=== PATIENT | female | born 1930 | race Caucasian/White ===

== ENCOUNTER 2017-03-22 03:33 | Emergency (ER) | payer MEDICARE ==
[2017-03-22] MEDS ORDERED: NS 0.9% 1000 ML* 1,000 ML IV SCH (05:15)
[2017-03-22 05:58] LABS: Hematocrit 34 % (35-47); Hemoglobin 11.6 g/dl (12.0-16.0); Mean Corpuscular HGB Conc 34 g/dl (31-36); Mean Corpuscular Hemoglobin 31 pg (27-31); Mean Corpuscular Volume 92 fL (80-97); Mean Platelet Volume 9 um3 (7.4-10.4); Red Blood Count 3.74 10^6/ul (4.0-5.4); Red Cell Distribution Width 14 % (10.5-15); White Blood Count 8.6 10^3/ul (3.5-10.8)
[2017-03-22 06:17] LABS: BUN/Creatinine Ratio 14.4 (8-20); C Reactive Protein 22.09 mg/L (< 5.00); Calcium 9.2 mg/dL (8.6-10.3); EGFR African American 52.4 (>60); EGFR Non-African American 40.7 (>60); Globulin 2.9 g/dL (2-4); Total Bilirubin 0.8 mg/dL (0.2-1.0); Total Protein 6.9 g/dL (6.4-8.9)
[2017-03-22] MEDS ORDERED: Morphine INJ* 4 MG/ML 1 ML SYRINGE IV ONE (06:37)
[2017-03-22] MEDS ORDERED: Ondansetron INJ* 2 MG/ML VIAL IV ONE (06:37)
[2017-03-22] MEDS ORDERED: Iodixanol* (CONTRAST) 320 MG/ML 100 ML SDV IV ONE (07:03)
[2017-03-22 07:45] LABS: Urine Bacteria Absent (Absent); Urine Bilirubin Negative (Negative); Urine Glucose Negative (Negative); Urine Nitrite Negative (Negative)
--- NOTE | 2017-03-22 07:58 | ED ---
Sukhjinder Pedroza [place], scribed for Rey Quijano MD on 03/22/17 at 0557 . Abdominal Pain/Female - HPI Summary HPI Summary: Patient is a 86 y/o female who presents to the ED with lower 5/10 abd discomfort for the past 24 hours. She reports fever, chills, and intermittent nausea, but denies dysuria. Pain is alleviated with rest and aggravated with movement. She denies hx of diverticulitis. PSHx significant for hysterectomy. - History of Current Complaint Chief Complaint: EDAbdPain Stated Complaint: ABD PAIN, FEVER, CHILLS Time Seen by Provider: 03/22/17 05:26 Hx Obtained From: Patient Onset/Duration: Gradual Onset, Lasting Hours, Still Present Timing: Constant Severity Initially: Moderate Severity Currently: Moderate Pain Intensity: 5 Pain Scale Used: 0-10 Numeric Location: Discrete At: LUQ, Discrete At: LLQ Radiates: No Aggravating Factor(s): Movement Alleviating Factor(s): Other: - Rest. Associated Signs and Symptoms: Positive: Fever, Nausea, Other: - Chills. Allergies/Adverse Reactions: Allergies Allergy/AdvReac Type Severity Reaction Status Date / Time No Known Allergies Allergy Verified 03/22/17 05:40 PMH/Surg Hx/FS Hx/Imm Hx Endocrine/Hematology History: Reports: Hx Thyroid Disease Cardiovascular History: Reports: Hx Coronary Artery Disease - HAS ONE CARDIAC STENT, Hx Hypercholesterolemia, Hx Hypertension Denies: Other Cardiovascular Problems/Disorders Respiratory History: Reports: Hx Sleep Apnea Denies: Other Respiratory Problems/Disorders GI History: Reports: Hx Gastroesophageal Reflux Disease - ON MEDS Denies: Other GI Disorders History: Denies: Other Problems/Disorders Musculoskeletal History: Reports: 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 hysterectomy, RIGHT THUMB/HAND SURGERY Hx Anesthesia Reactions: No Infectious Disease History: No Infectious Disease History: Denies: Traveled Outside the [place] in Last 30 Days - Family History Known Family History: Positive: Cardiac Disease, Other - Positive: CA. Thyroid. Colon related. - Social History Alcohol Use: None Hx Substance Use: No Substance Use Type: Reports: None Hx Tobacco Use: No Smoking Status (MU): Never Smoked Tobacco Amount Used/How Often: 3 CIGARETTES PER DAY X 15 YEARS Have You Smoked in the Last Year: No Review of Systems Positive: Fever, Chills Positive: Nausea - Intermittent. Negative: dysuria All Other Systems Reviewed And Are Negative: Yes Physical Exam Triage Information Reviewed: Yes Vital Signs On Initial Exam: Initial Vitals Temp Pulse Resp BP Pulse Ox 99.9 F 84 18 169/69 98 03/22/17 03:34 03/22/17 03:34 03/22/17 03:34 03/22/17 03:34 03/22/17 03:34 Vital Signs Reviewed: Yes Appearance: Positive: Well-Appearing, No Pain Distress Skin: Positive: Warm, Skin Color Reflects Adequate Perfusion, Dry Head/Face: Positive: Normal Head/Face Inspection Eyes: Positive: EOMI, TAD Neck: Positive: Supple, Nontender Respiratory/Lung Sounds: Positive: Clear to Auscultation, Breath Sounds Present Cardiovascular: Positive: RRR Abdomen Description: Positive: Soft, Other: - Mildly tender across lower abd. Bowel Sounds: Positive: Other - High pitch. Musculoskeletal: Positive: Normal, Strength/ROM Intact Neurological: Positive: Normal, Sensory/Motor Intact, Alert, Oriented to Person Place, Time Psychiatric: Positive: Affect/Mood Appropriate Diagnostics - Vital Signs Vital Signs Temp Pulse Resp BP Pulse Ox 03/22/17 05:39 100.1 F 68 18 158/58 96 03/22/17 03:34 99.9 F 84 18 169/69 98 - Laboratory Lab Results: Lab Results 03/22/17 03/22/17 03/22/17 Range/Units 05:45 05:45 05:45 WBC 8.6 (3.5-10.8) 10^3/ul RBC 3.74 L (4.0-5.4) 10^6/ul Hgb 11.6 L (12.0-16.0) g/dl Hct 34 L (35-47) % MCV 92 (80-97) fL MCH 31 (27-31) pg MCHC 34 (31-36) g/dl RDW 14 (10.5-15) % Plt Count 123 L (150-450) 10^3/ul MPV 9 (7.4-10.4) um3 Neut % (Auto) 80.9 (38-83) % Lymph % (Auto) 10.9 L (25-47) % [place] % (Auto) 8.0 (1-9) % Eos % (Auto) 0 (0-6) % Baso % (Auto) 0.2 (0-2) % Absolute Neuts (auto) 6.9 (1.5-7.7) 10^3/ul Absolute Lymphs (auto) 0.9 L (1.0-4.8) 10^3/ul Absolute Monos (auto) 0.7 (0-0.8) 10^3/ul Absolute Eos (auto) 0 (0-0.6) 10^3/ul Absolute Basos (auto) 0 (0-0.2) 10^3/ul Absolute Nucleated RBC 0 10^3/ul Nucleated RBC % 0 INR (Anticoag Therapy) 0.96 (0.89-1.11) APTT 25.8 L (26.0-36.3) seconds Sodium 135 (133-145) mmol/L Potassium 4.0 (3.5-5.0) mmol/L Chloride 103 (101-111) mmol/L Carbon Dioxide 26 (22-32) mmol/L Anion Gap 6 (2-11) mmol/L BUN 18 (6-24) mg/dL Creatinine 1.25 H (0.51-0.95) mg/dL Est GFR ( Amer) 52.4 (>60) Est GFR (Non-Af Amer) 40.7 (>60) BUN/Creatinine Ratio 14.4 (8-20) Glucose 138 H (70-100) mg/dL Lactic Acid (0.5-2.0) mmol/L Calcium 9.2 (8.6-10.3) mg/dL Total Bilirubin 0.80 (0.2-1.0) mg/dL AST 18 (13-39) U/L ALT 14 (7-52) U/L Alkaline Phosphatase 71 (34-104) U/L C-Reactive Protein 22.09 H (< 5.00) mg/L Total Protein 6.9 (6.4-8.9) g/dL Albumin 4.0 (3.2-5.2) g/dL Globulin 2.9 (2-4) g/dL Albumin/Globulin Ratio 1.4 (1-3) Lipase 23 (11.0-82.0) U/L Urine Color Urine Appearance Urine pH (5-9) Ur Specific [place] (1.010-1.030) Urine Protein (Negative) Urine Ketones (Negative) Urine Blood (Negative) Urine Nitrate (Negative) Urine Bilirubin (Negative) Urine Urobilinogen (Negative) Ur Leukocyte Esterase (Negative) Urine WBC (Auto) (Absent) Urine RBC (Auto) (Absent) Ur Squamous Epith Cells (Absent) Urine Bacteria (Absent) Urine Glucose (Negative) 03/22/17 03/22/17 Range/Units 05:45 07:30 WBC (3.5-10.8) 10^3/ul RBC (4.0-5.4) 10^6/ul Hgb (12.0-16.0) g/dl Hct (35-47) % MCV (80-97) fL MCH (27-31) pg MCHC (31-36) g/dl RDW (10.5-15) % Plt Count (150-450) 10^3/ul MPV (7.4-10.4) um3 Neut % (Auto) (38-83) % Lymph % (Auto) (25-47) % [place] % (Auto) (1-9) % Eos % (Auto) (0-6) % Baso % (Auto) (0-2) % Absolute Neuts (auto) (1.5-7.7) 10^3/ul Absolute Lymphs (auto) (1.0-4.8) 10^3/ul Absolute Monos (auto) (0-0.8) 10^3/ul Absolute Eos (auto) (0-0.6) 10^3/ul Absolute Basos (auto) (0-0.2) 10^3/ul Absolute Nucleated RBC 10^3/ul Nucleated RBC % INR (Anticoag Therapy) (0.89-1.11) APTT (26.0-36.3) seconds Sodium (133-145) mmol/L Potassium (3.5-5.0) mmol/L Chloride (101-111) mmol/L Carbon Dioxide (22-32) mmol/L Anion Gap (2-11) mmol/L BUN (6-24) mg/dL Creatinine (0.51-0.95) mg/dL Est GFR ( Amer) (>60) Est GFR (Non-Af Amer) (>60) BUN/Creatinine Ratio (8-20) Glucose (70-100) mg/dL Lactic Acid 0.8 (0.5-2.0) mmol/L Calcium (8.6-10.3) mg/dL Total Bilirubin (0.2-1.0) mg/dL AST (13-39) U/L ALT (7-52) U/L Alkaline Phosphatase (34-104) U/L C-Reactive Protein (< 5.00) mg/L Total Protein (6.4-8.9) g/dL Albumin (3.2-5.2) g/dL Globulin (2-4) g/dL Albumin/Globulin Ratio (1-3) Lipase (11.0-82.0) U/L Urine Color Yellow Urine Appearance Clear Urine pH 6.0 (5-9) Ur Specific [place] 1.011 (1.010-1.030) Urine Protein Negative (Negative) Urine Ketones Negative (Negative) Urine Blood 1+ H (Negative) Urine Nitrate Negative (Negative) Urine Bilirubin Negative (Negative) Urine Urobilinogen Negative (Negative) Ur Leukocyte Esterase 1+ H (Negative) Urine WBC (Auto) Trace(0-5/hpf) (Absent) Urine RBC (Auto) 1+(3-5/hpf) H (Absent) Ur Squamous Epith Cells Present H (Absent) Urine Bacteria Absent (Absent) Urine Glucose Negative (Negative) Result Diagrams: 03/22/17 05:45 03/22/17 05:45 Lab Statement: Any lab studies that have been ordered have been reviewed, and results considered in the medical decision making process. - CT ABD/PELVIS CT Interpretation Completed By: Radiologist - IMPRESSION: see EMR pending. Abdominal Pain Fem Course/Dx - Course Course Of Treatment: NO CRITICAL CARE TIME. CT RESULTS PENDING AT SHIFT CHANGE. - Diagnoses Provider Diagnoses: Abdominal pain Discharge - Discharge Plan Condition: Stable Disposition: OTHER Discharge Disposition Comment: C Referrals: Dennis Quintana MD [Primary Care Provider] - The documentation as recorded by the scribe, Argaw,Morris accurately reflects the service I personally performed and the decisions made by me, Rey Quijano MD.
--- NOTE | 2017-03-22 08:41 | RAD ---
INDICATION: Lower abdominal pain COMPARISON: CT May 04, 2012 TECHNIQUE: Axial source images were obtained from the hemidiaphragms to the symphysis pubis following administration of oral and intravenous contrast. 99 mL Visipaque 320 was utilized. Coronal and sagittal reconstructed images were acquired. Lung bases: The lung bases are clear. Liver: The liver is normal in size. There are no masses. There is no ductal dilatation. Gallbladder: There are no calcified gallstones. There is no evidence of wall thickening or pericholecystic fluid. Spleen: The spleen is normal in size. There are no masses. Pancreas: There is no focal pancreatic mass or ductal dilatation. There is partial fatty replacement Adrenal glands: There is no evidence of adrenal mass. Kidneys: The kidneys are normal in size and position. There are prompt nephrograms and there is prompt excretion bilaterally. There are no renal parenchymal masses. There is mild renal parenchymal thinning There is no evidence of nephrolithiasis. Adenopathy: There is no evidence of adenopathy by size criteria. Fluid collections: There is a small amount of free fluid in the dependent portion of pelvis with mesenteric stranding at the level of the inflammatory change in the pelvis (see below). Vessels:There are atherosclerotic changes involving the aorta and iliac vessels. There is no focal aneurysm. The IVC appears normal. GI tract: There is a small hiatal hernia. The upper GI tract is otherwise unremarkable. There is bowel wall thickening with extensive inflammatory change in the minor pelvis consistent with acute diverticulitis. There are scattered sigmoid diverticula. There are no findings of obstruction or perforation. Pelvic organs: Hysterectomy. No adnexal mass Bladder: There are no bladder masses. Abdominal and pelvic soft tissues: The extraperitoneal abdominal and pelvic soft tissues appear normal.. Osseous structures: Spondylitic change of the thoracolumbar spine. Other: None IMPRESSION: ACUTE DIVERTICULITIS OF THE SIGMOID COLON WITHOUT EVIDENCE OF OBSTRUCTION OR PERFORATION.
[2017-03-22] MEDS ORDERED: metroNIDAZOLE TAB* 250 MG PO ONE (09:17)
[2017-03-22] MEDS ORDERED: Ciprofloxacin 400MG IVPREMIX(* 400 MG/200 ML BAG IVPB ONE (09:17)
[2017-03-22 11:27] VITALS: BP 145/63
[2017-03-22] MEDS ORDERED: Morphine INJ* 2 MG/ML 1 ML SYRINGE IV ONE (11:40)
--- NOTE | 2017-03-22 11:59 | ED ---
Eleuterio Pedroza Matthew, scribed for Luis Eduardo Valladares MD on 03/22/17 at 0833 . Progress - Progress Note Progress Note: The patient is a sign out from Dr. Quijano. An 86 y/o female presents to the ED with lower abdominal pain. The patient states that she is feeling better after taking morphine. VITAL SIGNS: Reviewed. GENERAL: Patient is an obese female who is lying comfortable in the stretcher. Patient is not in any acute respiratory distress. HEAD AND FACE: Normocephalic and atraumatic. EYES: PERRLA, EOMI x 2, No injected conjunctiva. EARS: Hearing grossly intact. Ear canals and tympanic membranes are WNL. MOUTH: Oropharynx within normal limits. NECK: Supple, trachea is midline, no adenopathy, no JVD. CHEST: Symmetric, no tenderness at palpation LUNGS: Clear to auscultation bilaterally. No wheezing or crackles. CVS: RRR,, S1 and S2 present, no murmurs or gallops appreciated. ABDOMEN: Soft, mild abdominal tenderness in the lower abdomen, left > right. No signs of distention. Positive bowel sounds. No rebound no guarding, and no masses palpated. No abdominal bruit or pulsations. EXTREMITIES: FROM in all major joints, no edema, no cyanosis or clubbing. NEURO: Alert and oriented x 3. No acute neurological deficits. Speech is normal. SKIN: Dry and warm - Results/Orders Results/Orders: CT A/P IMPRESSION: ACUTE DIVERTICULITIS OF THE SIGMOID COLON WITHOUT EVIDENCE OF OBSTRUCTION OR PERFORATION. Course/Dx - Course Course Of Treatment: The patient was signed out by Dr. Quijano. He requested that I follow-up on the CT A/P. It shows acute diverticulitis. She was given Ciprofloxacin IV and Flagyl PO. The patient is feeling better and is able to tolerate PO without n/v. Therefore, the patient will be discharged home with follow-up from her PCP. She will be given a prescription for Cipro and Flagyl to take home. The patient is A&Ox3 and hemodynamically stable. - Diagnoses Provider Diagnoses: Diverticulitis The documentation as recorded by the Eleuterio roach Matthew accurately reflects the service I personally performed and the decisions made by , Luis Eduardo Valladares MD.
== END 2017-03-22 12:12 ==
LOC: ED 03:33
DX: K57.92 Diverticulitis of intestine, part unspecified, without perforation or abscess without bleeding (principal); R10.30 Lower abdominal pain, unspecified
CPT/HCPCS: 36415; 74177; 80053; 81003; 81015; 83605; 83690; 85025; 85610; 85730; 86140; 87086; 99283; A9270-GY; J0744; J2270; J2405; Q9967

== ENCOUNTER 2018-06-23 07:37 | Emergency (ER) | payer MEDICARE ==
--- OUTSIDE RECORDS SUMMARY | 2018-06-23 08:17 | XMS REPORT ---
:1931 External Reference #:[id number] Author Organization [employer] Address [address] [place] [address] [place] [address] Phone [phone] Care Team Providers Name Role Phone Dennis Quintana MD Primary Care Physician Unavailable Payers Type Date Identification Numbers Payment Provider Subscriber Medicare Primary Policy Number: [id number] Medicare Mariella Lu PayID: [id number] [address] [place] [address] Medigap Part B Effective: 1996 Policy Number: [id number] Medicare Mariella Lu Expires: 2018 PayID: [id number] [address] [place] [address] Medigap Part B Effective: [facility] 2012 [id number] Healthcare PayID: [id number] [address] [place] [address] Medigap Part B Effective: 2008 Policy Number: BS [facility] Mariella Lu [id number] Expires: 2012 PayID: [id number] [address] [address] JANET French [address] Advance Directives Type Date Description Status Comment Other Directive 05/07/2017 Health Care Proxy Current and Verified Other Directive 05/28/2012 Health Care Proxy Current and Verified Problems Date Description Provider Status Onset: 03/26/2008 Coronary arteriosclerosis Abel Mitchell M.D.,FACP Onset: 03/26/2008 Essential hypertension Abel Mitchell M.D.,FACJohn Onset: 04/22/2015 Impaired fasting glycaemia Dennis Quintana Active Dora,FACP Onset: 04/22/2015 Carotid artery stenosis Dennis Quintana, Active Dora,FACP Onset: 08/12/2008 Pure hypercholesterolemia Dennis Quintana Active Dora,FACP Onset: 08/12/2008 Hypothyroidism Dennis Quintana Active Dora,FACP Onset: 07/09/2013 Localized, primary osteoarthritis of Dennis Quintana, Active the hand Cyndi.Tabitha,FACP Onset: 04/10/2014 Senile osteopenia Dennis Quintana Active Dora,FACP Onset: 04/10/2014 Sciatica Dennis Quintana Active Dora,FACP Onset: 10/13/2015 Peripheral vascular disease Ginna Petit M.D. Active Onset: 10/13/2015 Hyperlipidemia Ginna Petit M.D. Active Onset: 10/16/2015 Obstructive sleep apnea syndrome Nicole Yarbrough MD Active Onset: 04/20/2016 Localized, primary osteoarthritis Ellen Mendieta M.D. Active Onset: 06/03/2016 Premature beats Ginna Petit M.D. Active Onset: 03/23/2017 Diverticulitis of colon Dennis Quintana Active Dora,FACP Note: one occasion Onset: 03/27/2009 Acute vascular insufficiency of Dennis Quintana, Inactive intestine Dora,FACP Inactive: 04/10/2014 Onset: 03/27/2009 Carotid artery occlusion Dennis Quintana M.D.,FACP Inactive Inactive: 04/22/2015 Onset: 10/13/2015 Athscl heart disease of [place] cor art Ginna Petit M.D. Inactive w unsp ang pctrs Inactive: 12/14/2015 Onset: 10/16/2015 Disorder of lung Nicole Yarbrough MD Inactive Inactive: 04/27/2016 Onset: 05/06/2016 Knee joint effusion Ellen Mendieta M.D. Inactive Inactive: 05/08/2017 Onset: 10/16/2015 Dyspnea Nicole Yarbrough MD Inactive Inactive: 05/08/2017 Onset: 04/02/2010 Osteoporosis Dennis Quintana M.D.,FACP Resolved Resolved: 04/10/2014 Family History Date Family Member(s) Problem(s) Comments General Heart trouble and cancer in immediate family Father due to OR () - in 70s Mother due to OR () - in 40s First Son Heart Disease arrhythmia First Daughter Lupus First Daughter Mental Illness Siblings 8 First Brother OR First Brother due to Heart Disease () Second Brother due to Cancer, Colon () Second Brother Colon Cancer Third Brother due to OR () Third Brother Cancer radiation to abdomen First Sister Cancer, Colon First Sister due to Cancer, Colon () First Sister Cancer brain Second Sister Alzheimer's Disease Paternal Aunts Cancer, Breast Social History Type Date Description Comments Marital Status 2009 Lives With Alone Occupation Retired Cigarette Use Quit - Age 31 ETOH Use 05/08/2017 Denies alcohol use Recreational Drug Use Denies Drug Use Smoking Patient is a former smoker Daily Caffeine Comsumes on average 1 cup of decaff coffee per day Exercise Type/Frequency Exercises rarely General Hx Text 3 kids Allergies, Adverse Reactions, Alerts Date Description Reaction Status Severity Comments 05/26/2003 NKDA active Medications Medication Date Status Form Strength Qnty SIG Indications Ordering Provider Tramadol HCL 06/18 Active Tablets 50mg 30tab 1 tablet M54.2 s three to Varn, four times N.P. daily as needed Shingrix 05/14 Active Suspension 50mcg 2unit 0.5 Rec s milliliter natan Morales M.D.,FACP intramuscu lar now and 2-3 months later repeat Ibuprofen 03/23 Active Tablets 400mg 30tab 1 daily as s needed, Tabitha Quintana, rarely Cyndi.Tabitha,FACP used Amlodipine 12/18 Active Tablets 5mg 90tab 1 by mouth R07.9 s every day Tabitha Quintana M.D.,FACP Synthroid 07/06 Active Tablets 100mcg 30tab Take 1 s Tablet By Tabitha Quintana Mouth Cyndi.Tabitha,FACP Every Day Diovan 05/11 Active Tablets 160mg 90tab take 1 s tablet by Tabitha Quintana, mouth M.D.,FACP every day Omeprazole 04/[address] 20mg 30cap 1 po qd K29.00 s for 2 wks Tabitha Quintana, then qd as M.D.,FACP needed Trazodone HCL 12/06 Active Tablets 50mg 270ta Take 2 G47.00 bs Tablets By Tabitha Quintana, Mouth AT M.D.,FACP Bedtime Nitrostat 11/09 Active Tablets Sub 0.4mg 50tab one sl Ginna s q5min up [place], to 3 doses M.D. as needed. Aspirin 04/05 Active Tablets 81mg 100ta 1 po qd bs Tabitha Quintana M.D.,FACP Isosorbide 11/09 Active Tablets ER 60mg 30tab Take 1 Dennis Mononitrate ER 24HR s Tablet By Tabitha Quintana, Mouth In M.D.,FACP The Morning Metoprolol 08/12 Active Tablets ER 25mg 90tab take 1 Dennis Succinate 24HR s tablet by Tabitha Quintana, mouth M.D.,FACP every day Tylenol Active Tablets 325mg 100ta 2 Tabs qid Kamaljit / bs prn F. Pain/Kimmell Mauserdonny Temp M.D. Fish Oil Active Capsules 1000mg 1 po qd Unknown Lipitor Active Tablets 40mg 90tab take 1 s tablet by Tabitha Quintana, mouth at M.D.,FACP bedtime Vitamin D3 Active Chewtabs 1000Unit daily Unknown Gummies / Ketoconazole 03/01 Hx Cream 2% 15uni apply to ts affected Tabitha Quintana, - area twice M.D.,FACP 03/28 a day needed Fluticasone 12/11 Hx Suspension 50mcg/Act 32uni 2 sprays J06.9 ts each Tabitha Quitnana, - nostril M.D.,FACP 03/28 daily needed Oseltamivir 12/06 Hx Capsules 75mg 10cap 1 tab J06.9 Tatianna Phosphate s twice a Evita, - day x 5 M.D. Metronidazole 03/22 Hx Tablets 500mg one tablet by mouth 3 - times 03/29 daily for 7 days Ciprofloxacin HCL 03/22 Hx Tablets 500mg 1 by mouth twice a - day 03/29 Ciprofloxacin HCL 03/22 Hx Tablets 500mg 20tab 1 tab by Other s mouth Ordering - twice a Provider 04/01 day x10 days Metronidazole 03/22 Hx Tablets 500mg 30tab one tablet s by mouth 3 Ordering - times Provider 04/01 daily for 10 days Baclofen 12/20 Hx Tablets 10mg 20tab take 11/07 M54.5 Fransico s tab every CARRIE Gimenez - 8 hours as 12/27 needed for muscle spasm Nasal Four 11/08 Hx Solution 1% 29.60 2 sprays J06.9 John 0ml each Sarbjit, - nostril M.DVik 05/11 every hours Levothyroxine 10/15 Hx Tablets 100mcg 1 by mouth Unknown every day - 07/13 Amlodipine 10/13 Hx Tablets 2.5mg 90tab 1 by mouth R07.9 Ginna Besylate s every day Devon Petit M.D. 12/18 Asmanex HFA 08/28 Hx Aerosol 100mcg/Ac 13gm No longer J40 t taking X 2 Tabitha Quintana, - days ago. [facility]ora,[facility] 12/14 2 puffs twice a day for 2 wks then as directed Azithromycin 11/03 Hx Tablets 500mg 7tabs 1 tab 466.0 Dennis every day Tabitha Quintana, - for 7 days M.DVik,[facility] 04/22 Robitussin DM 11/03 Hx Syrup 100-10mg/ 1bott 10 466.0 Dennis 5ML le milliliter Tabitha Quintana, - s by mouth M.DVik,[facility] 04/22 q4hour as needed cough Hydrochlorothiazi 09/05 Hx Tablets 25mg 90tab 1 by mouth 782.3 Dayan burgess s every day CARRIE Rust - 10/07 Celebrex 01/02 Hx Capsules 200mg 60cap 1 po bid s Devon Morales M.D.,[facility] 04/10 Tramadol HCL 01/02 Hx Tablets 50mg 50tab qid prn 719.45 s Devon Morales M.D.,[facility] 04/22 Imdur 11/21 Hx Tablets ER 60mg 30tab Take 1 24HR s Tablet By Cary, - Mouth N.PVik 04/22 Morning Levoxyl 11/03 Hx Tablets 100mcg 90tab take 1 s tablet by Tabitha Quintana - abdoulaye John,[facility] 07/06 Nexium 07/[address] 40mg 60cap patient no Ginna s longer [place], - taking 1 M.DVik 10/08 tab PO daily for 2 months. [place] 06/26 Hx Tablets 5-325mg 40tab 1-2 po q4h s prn pain Talita-Usman parisi M.D. 01/02 Voltaren 04/05 Hx Gel 1% 100g apply 2 715.14 gms to Tabitha Quintana, - affected Dora,[facility] 06/26 area bid prn Celebrex 12/06 Hx Capsules 200mg 60cap take one 722.93 s capsule by Tabitha Quintana - abdoulaye John,FACP 07/09 twice a day prn Azithromycin 08/13 Hx Tablets 250mg 6tabs take 2 tab 461.9 Tatianna on day 1 Jama, - then 1 tab M.DVik 11/01 daily x days Ranitidine HCL 05/02 Hx Capsules 150mg 60cap bid prn 789.9 Devon Harmon M.D.,FACP 05/02 Ranitidine HCL 05/02 Hx Tablets 150mg take one 789.9 tablet by Tabitha Quintana - abdoulaye John,FACP 08/13 twice a day Acetaminophen/Cod 04/24 Hx Tablets 300-30mg 80tab 1-2 po tid 724.02 Dennis eine #3 /2011 s prn Tabitha Quintana - Dora,[facility] 05/14 [place] 04/13 Hx Tablets 5-325mg 40tab 1-2 po 724.02 Karl M. /2011 s q4hrs prn Fco, - pain M.D. 04/24 Nasal Saline 02/20 Hx Solution 0.65% 1ml 2 sprays 461.0 Dennis in each Tabitha Quintana, - nostril 5 M.D.,[facility] 05/02 times a day Ipratropium 02/20 Hx Solution 0.06% 30ml 2 sprays 461.0 Dennis [place] in each Tabitha Quintana, - nostril M.D.,[facility] 05/02 3-4 times a day for 4 days maximum Amoxicillin/Clavu 02/20 Hx Tablets ER 1000-62.5 40tab 2 tabs po 461.0 Dennis lanate Potassium 12HR mg s q12h x 10 Tabitha Quintana, ER - days M.DVik,[facility] 04/13 Azithromycin 02/14 Hx Tablets 250mg 6tabs 2 qd for 1 462 day, then Tabitha Quintana, - 1 qd M.D.,[facility] 02/20 Gabapentin 12/30 Hx Capsules 100mg 150ca take 1 724.3 ps capsules Tabitha Quintana, - by mouth M.DVik,[facility] 04/24 times a day plus 2 capsules at bedtime Hydrochlorothiazi 04/05 Hx Capsules 12.5mg 90cap qam po Dennis de s Devon Morales M.D.,[facility] 05/14 Levothyroxine 04/05 Hx Tablets 100mcg 30tab 1 po qd Dennis Sodium s Devon Morales M.D.,[facility] 11/03 Diltiazem HCL ER 04/05 Hx Caps ER 120mg 30cap take 1 24HR s capsule by Tabitha Quintana, - mouth once M.D.,FACP 09/06 daily Voltaren Gel 04/02 Hx 1% 4Tube 2 gm 726.32 s topical r Tabitha Quintana, - elbow bid M.D.,FACP 03/14 prn Alendronate 03/26 Hx Tabs 70mg 4tabs take 1 Dennis tablet by Tabitha Quintana, - mouth M.D.,FACP 04/05 every Diltiazem HCL 07/06 Hx CP24 120mg 30uni Take 1 Dennis Coated Beads ts Capsule By Tabitha Quintana, - Mouth Once M.D.,FACP 04/05 Cartia XT 02/05 Hx CP24 120mg 30uni take 1 Dennis ts capsule by Tabitha Quintana, - mouth once M.D.,FACP 07/06 Isosorbide 08/14 Hx TB24 60mg 30uni take 1 Dennis Mononitrate ts tablet by Tabitha Quintana, - mouth M.D.,[facility] 11/09 morning Amoxicillin 07/09 Hx Tablets 500mg 30tab 1 tabs po 461.0 s tid for 10 DVik Quintana, - days M.D.,[facility] 08/12 Vitamin D 03/26 Hx Capsules 400Unit Tabitha Quintana - Cyndi.Tabitha,[facility] 11/01 Zetia 04/20 Hx Tablets 10mg 30tab 1 po qd Devon Harmon M.D.,[facility] 03/14 Cardizem CD 06/18 Hx Capsules 120mg 30cap 1 po qd Devon Harmon M.D.,[facility] 04/02 Metoprolol 06/18 Hx Tablets 25mg 30tab 1 po qd Devon Harmon M.D.,[facility] 08/12 Cardizem CD 06/16 Hx Capsules 240mg 30cap 1 po qd Kamaljit natan Blake, 06/19 Dora /2002 Lipitor 06/16 Hx Tablets 80mg 30tab 1 po qd s F. - Nduser, 03/26.D. Metoprolol 06/11 Hx Tablets 25mg 30tab 1 po qd s F. - Mauser, 06/16.D. Cardizem CD 06/11 Hx Capsules 120mg 30cap 1 po qd s . - Nduser, 06/16.D. Folgard Rx 05/26 Hx Tablets 0.5mg;2.2 30tab 1 po qd mg;25MG s . - Nduser, 08/12.D. Metoprolol 05/25 Hx Tablets 50mg 60tab 1 po bid s F. - Nduse, 05/26.D Lipitor Hx Tablets 40mg 30tab 1 po qd s . - Nduser, 06/16.D Levoxyl Hx Tablets 100mcg 30tab 1 po qd Dennis Devon Harmon M.D.,FACP 04/05 Vioxx Hx Tablets 25mg 30tab 1 po qd s . - Nduser, 03/26. Aspirin Buffered Hx Tablets 325mg 100ta 1 po qd [facility]. Plavix Hx Tablets 75mg 90tab 1 po qd s . [facility] 03/26.D. Imdur Hx Tablets 60mg 30tab one qam Dennis Devon Harmon M.D.,FACP 08/14 Hydrochlorothiazi Hx Tablets 25mg 30tab 1 po qd Kamaljit s Vik - Felipeusearnav, 06/11.D. Fosamax Hx Tablets 70mg 4tabs one tablet Dennis Devon Nichols M.D.,FACP 03/26 Calcium D Hx 600mg 30uni one qd ts HernandezVik Devon Wangkristinr, 11/07 M.D. Claritin / Hx Tablets 10mg 30tab 1 po qd Kamaljit / s prn HernandezVik Devon Wanguser, 03/14 M.D. Flonase Hx Suspension 50mcg/Spr 16gm prn Dennis ay Devon Morales M.D.,FACP 03/14 Metoprolol Hx Tablets 50mg one qd Kamaljit / F. - Mauser, 06/11 M.D. Oscal 500/200 D-3 Hx Tablets 200D-3 60tab bid s - 03/26 Fish Oil Hx Capsules 1000mg 90cap 1 PO qd / s - 03/14 Asa Hx 81mg 1 po qd / - 04/[address] 40mg 1 po qd / - 04/05 Vitamin D-1000 Hx Tablets 1000Unit 30tab 1 po qd / s - 05/14 Diovan Hx Tablets 160mg 30tab take 1 s tablet by Tabitha Quintana, - mouth M.D.,[facility] 04/22 /2014 Celebrex Hx Capsules Unsure 1 po qd / - 01/02 Diovan Hx Tablets 100mg 1 by mouth Unknown / every day - 04/22 Valsartan Hx Tablets 100mg 1 by mouth Unknown / every day - 05/11 Medications Administered in Office Medication Date Status Form Strength Qnty SIG Indications Ordering Provider Depomedrol 40MG 05/06/ Administered Injection Ellen 2015 Dora Mendieta Technetium TC 10/14/ Administered Injection Idris Ibarra 99M Tetrofosmin, 2013 [place], Per Unit Dose Up M.D., To 40 FACC, Millicuries FASNC Technetium TC 10/14/ Administered Injection Ginna 99M Tetrofosmin, 2013 [place], Per Unit Dose Up M.D. To 40 Millicuries Inj, 07/05/ Administered Injection Elian D. Regadenoson, 0.1 2012 Brand, MG M.DVik Aminophylline 07/05/ Administered Injection Elian DVik 2012 Dora Valiente Technetium TC 07/05/ Administered Injection Elian DVik 99M Tetrofosmin, 2012 Brand, Per Unit Dose Up M.D. To 40 Millicuries Immunizations CPT Code Status Date Vaccine Reaction Lot # [id number] Given 08/15/2017 Fluzone High Dose Q2037 Given 09/07/2015 Fluvirin Im 3Yrs And Older 58262 Given 08/25/2015 Fluzone High Dose 24423 Given 04/22/2015 Pneumococcal Conjugate no reaction, no [id number] Vaccine 13 Valent For complaints Intramuscular Use 40742 Given 08/15/2014 Flu Vaccine Split Virus Preservative Free For Indiv 3Yr Older 56712 Given 09/16/2013 Flu Vaccine Split Virus Preservative Free For Indiv 3Yr Older [id number] Given 07/17/2012 Fluzone Vaccine 91533 Given 08/15/2011 Influenza Virus 3Yrs & Over 06051 Given 09/21/2010 Influenza Virus 3Yrs & Over [id number] 51245 Given 08/05/2008 Influenza Virus 3Yrs & Over 76163 Given 08/05/2008 Influenza Virus 3Yrs & Over 11452 Given 08/07/2001 Pneumonia Vaccine Vital Signs Date Vital Result Comment 06/18/2018 Height 63.75 inches 5'3.75" Weight 179.00 lb Heart Rate 69 /min BP Systolic Sitting 145 mmHg BP Diastolic Sitting 68 mmHg Body Temperature 98.6 F O2 % BldC Oximetry 99 % BMI (Body Mass Index) 31.0 kg/m2 06/12/2018 Height 63.75 inches 5'3.75" Weight 178.00 lb Heart Rate 62 /min BP Systolic 110 mmHg BP Diastolic 62 mmHg Respiratory Rate 16 /min Body Temperature 97.8 F Pain Level 4 BMI (Body Mass Index) 30.8 kg/m2 05/14/2018 Height 63.75 inches 5'3.75" Weight 183.00 lb Heart Rate 52 /min BP Systolic Sitting 116 mmHg BP Diastolic Sitting 58 mmHg Body Temperature 98.8 F O2 % BldC Oximetry 98 % BMI (Body Mass Index) 31.7 kg/m2 03/28/2018 Weight 189.00 lb Heart Rate 62 /min BP Systolic Sitting 130 mmHg BP Diastolic Sitting 72 mmHg O2 % BldC Oximetry 97 % 03/01/2018 Weight 186.00 lb Heart Rate 61 /min BP Systolic Sitting 150 mmHg BP Diastolic Sitting 60 mmHg Body Temperature 97.5 F O2 % BldC Oximetry 95 % 12/11/2017 Weight 183.00 lb Heart Rate 59 /min BP Systolic 110 mmHg BP Diastolic 60 mmHg Body Temperature 98.8 F O2 % BldC Oximetry 96 % 12/06/2017 Weight 184.00 lb Heart Rate 82 /min BP Systolic Sitting 148 mmHg BP Diastolic Sitting 64 mmHg Body Temperature 100.1 F O2 % BldC Oximetry 97 % 11/17/2017 Weight 186.00 lb Heart Rate 54 /min BP Systolic Sitting 137 mmHg BP Diastolic Sitting 62 mmHg Respiratory Rate 14 /min 08/09/2017 Heart Rate 70 /min BP Systolic Sitting 118 mmHg BP Diastolic Sitting 68 mmHg Body Temperature 98.0 F 05/26/2017 Height 64 inches 5'4" Weight 186.00 lb w/ shoes Heart Rate 60 /min reg BP Systolic Sitting 120 mmHg Rue, reg cuff BP Diastolic Sitting 66 mmHg Rue, reg cuff BP Systolic Standing 124 mmHg Rue BP Diastolic Standing 60 mmHg Rue Respiratory Rate 16 /min BMI (Body Mass Index) 31.9 kg/m2 Ejection Fraction 50-55% as of 10/2015 echo 05/08/2017 Height 64 inches 5'4" Weight 186.25 lb Heart Rate 61 /min BP Systolic Sitting 120 mmHg BP Diastolic Sitting 62 mmHg Body Temperature 98.1 F O2 % BldC Oximetry 98 % BMI (Body Mass Index) 32.0 kg/m2 03/23/2017 Weight 188.50 lb Heart Rate 95 /min BP Systolic 118 mmHg BP Diastolic 60 mmHg Body Temperature 98.3 F O2 % BldC Oximetry 68 % 12/20/2016 Weight 191.00 lb Heart Rate 53 /min BP Systolic Sitting 138 mmHg BP Diastolic Sitting 66 mmHg Body Temperature 97.2 F O2 % BldC Oximetry 98 % 11/08/2016 Weight 190.00 lb Heart Rate 58 /min BP Systolic Sitting 128 mmHg BP Diastolic Sitting 66 mmHg Body Temperature 98.8 F O2 % BldC Oximetry 97 % 07/08/2016 Weight 188.00 lb Heart Rate 54 /min BP Systolic Sitting 126 mmHg BP Diastolic Sitting 82 mmHg Respiratory Rate 15 /min Body Temperature 98.4 F O2 % BldC Oximetry 98 % 06/03/2016 Height 64 inches 5'4" Weight 185.00 lb Heart Rate 58 /min BP Systolic Sitting 146 mmHg Ra lg cuff BP Diastolic Sitting 50 mmHg Ra lg cuff BP Systolic Standing 146 mmHg Ra lg cuff BP Diastolic Standing 60 mmHg Ra lg cuff BMI (Body Mass Index) 31.8 kg/m2 05/20/2016 Height 64 inches 5'4" Weight 191.00 lb Pain Level 0 BMI (Body Mass Index) 32.8 kg/m2 05/06/2016 Height 64 inches 5'4" Weight 191.00 lb Pain Level 2 BMI (Body Mass Index) 32.8 kg/m2 04/27/2016 Height 64 inches 5'4" Weight 191.00 lb Heart Rate 60 /min BP Systolic Sitting 132 mmHg BP Diastolic Sitting 66 mmHg Body Temperature 97.7 F O2 % BldC Oximetry 98 % BMI (Body Mass Index) 32.8 kg/m2 04/20/2016 Height 64 inches 5'4" Weight 191.00 lb Heart Rate 62 /min BP Systolic 136 mmHg BP Diastolic 76 mmHg Pain Level 5 BMI (Body Mass Index) 32.8 kg/m2 04/18/2016 Weight 189.00 lb Heart Rate 59 /min BP Systolic Sitting 150 mmHg BP Diastolic Sitting 68 mmHg Body Temperature 96.7 F 04/05/2016 Weight 189.00 lb Heart Rate 58 /min BP Systolic Sitting 128 mmHg BP Diastolic Sitting 76 mmHg Body Temperature 97.6 F Pain Level 5 L knee O2 % BldC Oximetry 98 % 01/07/2016 Height 64 inches 5'4" Weight 186.56 lb Heart Rate 60 /min BP Systolic Sitting 134 mmHg LA reg cuff BP Diastolic Sitting 80 mmHg LA reg cuff BP Systolic Standing 136 mmHg LA BP Diastolic Standing 80 mmHg LA Respiratory Rate 14 /min BMI (Body Mass Index) 32.0 kg/m2 Ejection Fraction 50-55% 10/20/15 12/18/2015 Height 64 inches 5'4" Weight 186.75 lb With shoes Heart Rate 52 /min BP Systolic 136 mmHg LA lrg cuff BP Diastolic 72 mmHg LA lrg cuff BP Systolic Standing 122 mmHg LA lrg cuff BP Diastolic Standing 70 mmHg LA lrg cuff Respiratory Rate 18 /min BMI (Body Mass Index) 32.1 kg/m2 Ejection Fraction 50-55% 10/20/15 12/14/2015 Height 64 inches 5'4" Weight 187.12 lb Heart Rate 64 /min BP Systolic Sitting 138 mmHg BP Diastolic Sitting 74 mmHg Respiratory Rate 18 /min O2 % BldC Oximetry 97 % BMI (Body Mass Index) 32.1 kg/m2 12/14/2015 Height 64 inches 5'4" Weight 187.12 lb Heart Rate 74 /min BP Systolic Sitting 139 mmHg BP Diastolic Sitting 71 mmHg Body Temperature 96.8 F O2 % BldC Oximetry 96 % BMI (Body Mass Index) 32.1 kg/m2 11/23/2015 Height 64 inches 5'4" Weight 183.50 lb Heart Rate 67 /min BP Systolic Sitting 124 mmHg BP Diastolic Sitting 62 mmHg Respiratory Rate 18 /min O2 % BldC Oximetry 94 % BMI (Body Mass Index) 31.5 kg/m2 11/12/2015 Height 64 inches 5'4" Weight 183.50 lb w/ shoes Heart Rate 62 /min reg BP Systolic Sitting 126 mmHg Rue, lg cuff BP Diastolic Sitting 66 mmHg Rue, lg cuff BP Systolic Standing 124 mmHg Rue BP Diastolic Standing 62 mmHg Rue Respiratory Rate 16 /min BMI (Body Mass Index) 31.5 kg/m2 Ejection Fraction 50-55% as of 10/20/15 echo 10/16/2015 Height 64 inches 5'4" Weight 185.12 lb Heart Rate 50 /min BP Systolic Sitting 142 mmHg BP Diastolic Sitting 76 mmHg Respiratory Rate 18 /min O2 % BldC Oximetry 97 % BMI (Body Mass Index) 31.8 kg/m2 10/13/2015 Height 64 inches 5'4" Weight 183.00 lb with shoes Heart Rate 54 /min BP Systolic Sitting 142 mmHg LA, reg cuff BP Diastolic Sitting 80 mmHg LA, reg cuff BP Systolic Standing 142 mmHg LA BP Diastolic Standing 78 mmHg LA Respiratory Rate 16 /min BMI (Body Mass Index) 31.4 kg/m2 Ejection Fraction 70% 06/07/2012 09/10/2015 Height 63.5 inches 5'3.50" Weight 186.38 lb Heart Rate 56 /min BP Systolic Sitting 144 mmHg BP Diastolic Sitting 68 mmHg Body Temperature 97.4 F O2 % BldC Oximetry 97 % BMI (Body Mass Index) 32.5 kg/m2 08/28/2015 Height 63.5 inches 5'3.50" Weight 184.00 lb Heart Rate 74 /min BP Systolic Sitting 140 mmHg BP Diastolic Sitting 62 mmHg Body Temperature 97.5 F O2 % BldC Oximetry 98 % BMI (Body Mass Index) 32.1 kg/m2 05/13/2015 Height 63.5 inches 5'3.50" Weight 184.50 lb Heart Rate 66 /min BP Systolic Sitting 130 mmHg BP Diastolic Sitting 68 mmHg Body Temperature 97.9 F O2 % BldC Oximetry 98 % BMI (Body Mass Index) 32.2 kg/m2 04/22/2015 Height 63.5 inches 5'3.50" Weight 180.25 lb Heart Rate 54 /min BP Systolic Sitting 148 mmHg BP Diastolic Sitting 78 mmHg Body Temperature 98.0 F O2 % BldC Oximetry 98 % BMI (Body Mass Index) 31.4 kg/m2 11/03/2014 Weight 184.00 lb Heart Rate 58 /min BP Systolic Sitting 142 mmHg BP Diastolic Sitting 72 mmHg Body Temperature 98.2 F 10/15/2014 Height 64 inches 5'4" Weight 184.00 lb w/shoes BP Systolic Sitting 138 mmHg LA reg cuff BP Diastolic Sitting 64 mmHg LA reg cuff BP Systolic Standing 130 mmHg LA reg cuff BP Diastolic Standing 64 mmHg LA reg cuff Respiratory Rate 14 /min BMI (Body Mass Index) 31.6 kg/m2 10/07/2014 Weight 182.00 lb Heart Rate 64 /min BP Systolic Sitting 108 mmHg BP Diastolic Sitting 64 mmHg 09/26/2014 Height 64 inches 5'4" Weight 180.00 lb Heart Rate 78 /min BP Systolic Sitting 128 mmHg BP Diastolic Sitting 80 mmHg BP Systolic Standing 122 mmHg BP Diastolic Standing 70 mmHg Respiratory Rate 18 /min BMI (Body Mass Index) 30.9 kg/m2 09/12/2014 Height 64 inches 5'4" Weight 182.75 lb Heart Rate 60 /min BP Systolic Sitting 112 mmHg BP Diastolic Sitting 64 mmHg Body Temperature 96.3 F BMI (Body Mass Index) 31.4 kg/m2 09/05/2014 Weight 185.25 lb Heart Rate 60 /min BP Systolic Sitting 170 mmHg BP Diastolic Sitting 78 mmHg Body Temperature 97.3 F 07/02/2014 Weight 186.00 lb Heart Rate 60 /min BP Systolic Sitting 156 mmHg BP Diastolic Sitting 82 mmHg Body Temperature 97.6 F 04/10/2014 Height 64 inches 5'4" Weight 183.00 lb Heart Rate 52 /min BP Systolic Sitting 132 mmHg BP Diastolic Sitting 70 mmHg Body Temperature 96.7 F BMI (Body Mass Index) 31.4 kg/m2 01/02/2014 Weight 185.00 lb Heart Rate 60 /min BP Systolic Sitting 152 mmHg BP Diastolic Sitting 72 mmHg 12/18/2013 Height 63 inches 5'3" Weight 179.00 lb Heart Rate 64 /min BMI (Body Mass Index) 31.7 kg/m2 07/09/2013 Weight 181.00 lb Heart Rate 56 /min BP Systolic Sitting 138 mmHg BP Diastolic Sitting 82 mmHg 06/26/2013 Height 64 inches 5'4" Weight 181.25 lb Heart Rate 64 /min BP Systolic Sitting 140 mmHg BP Diastolic Sitting 76 mmHg BMI (Body Mass Index) 31.1 kg/m2 04/05/2013 Height 63.75 inches 5'3.75" Weight 178.75 lb Heart Rate 60 /min BP Systolic Sitting 124 mmHg BP Diastolic Sitting 52 mmHg BMI (Body Mass Index) 30.9 kg/m2 01/09/2013 Height 64 inches 5'4" Weight 180.00 lb Heart Rate 68 /min BP Systolic Sitting 142 mmHg BP Diastolic Sitting 72 mmHg BMI (Body Mass Index) 30.9 kg/m2 12/06/2012 Height 64 inches 5'4" Weight 181.00 lb Heart Rate 64 /min BP Systolic Sitting 150 mmHg BP Diastolic Sitting 68 mmHg BMI (Body Mass Index) 31.1 kg/m2 11/09/2012 Height 64 inches 5'4" Weight 180.00 lb Heart Rate 60 /min BP Systolic Sitting 128 mmHg BP Diastolic Sitting 78 mmHg BMI (Body Mass Index) 30.9 kg/m2 08/13/2012 Height 64 inches 5'4" Weight 179.00 lb Heart Rate 54 /min BP Systolic Sitting 134 mmHg BP Diastolic Sitting 74 mmHg Body Temperature 97.1 F BMI (Body Mass Index) 30.7 kg/m2 06/14/2012 Height 64 inches 5'4" Weight 179.00 lb Heart Rate 60 /min BP Systolic Sitting 106 mmHg BP Diastolic Sitting 64 mmHg BMI (Body Mass Index) 30.7 kg/m2 05/14/2012 Height 64 inches 5'4" Weight 177.00 lb Heart Rate 62 /min BP Systolic Sitting 116 mmHg BP Diastolic Sitting 74 mmHg BMI (Body Mass Index) 30.4 kg/m2 05/02/2012 Height 64 inches 5'4" Weight 178.50 lb Heart Rate 72 /min BP Systolic Sitting 158 mmHg BP Diastolic Sitting 70 mmHg BMI (Body Mass Index) 30.6 kg/m2 04/24/2012 Height 64.25 inches 5'4.25" Weight 182.00 lb Heart Rate 68 /min BP Systolic Sitting 128 mmHg L BP Diastolic Sitting 72 mmHg L BMI (Body Mass Index) 31.0 kg/m2 04/13/2012 Height 64.25 inches 5'4.25" Weight 183.00 lb Heart Rate 68 /min BP Systolic Sitting 126 mmHg BP Diastolic Sitting 72 mmHg Body Temperature 97.3 F lt ear BMI (Body Mass Index) 31.2 kg/m2 02/21/2012 Height 64.25 inches 5'4.25" Weight 189.00 lb Heart Rate 62 /min BP Systolic Sitting 122 mmHg BP Diastolic Sitting 78 mmHg Body Temperature 98.6 F BMI (Body Mass Index) 32.2 kg/m2 02/15/2012 Height 64.25 inches 5'4.25" Weight 190.00 lb Heart Rate 70 /min BP Systolic Sitting 128 mmHg BP Diastolic Sitting 62 mmHg Body Temperature 97.5 F Tympanically BMI (Body Mass Index) 32.4 kg/m2 12/30/2011 Height 64.25 inches 5'4.25" Weight 183.00 lb Heart Rate 64 /min BP Systolic Sitting 132 mmHg l BP Diastolic Sitting 62 mmHg l BMI (Body Mass Index) 31.2 kg/m2 09/23/2011 Weight 180.00 lb Heart Rate 64 /min BP Systolic Sitting 114 mmHg BP Diastolic Sitting 62 mmHg 09/06/2011 Weight 181.00 lb Heart Rate 66 /min BP Systolic Sitting 116 mmHg BP Diastolic Sitting 70 mmHg Body Temperature 96.0 F lt ear 04/05/2011 Weight 176.00 lb Heart Rate 70 /min BP Systolic Sitting 110 mmHg BP Diastolic Sitting 54 mmHg 04/02/2010 Weight 193.00 lb Heart Rate 70 /min BP Systolic Sitting 136 mmHg BP Diastolic Sitting 70 mmHg 06/11/2009 Weight 187.50 lb Heart Rate 68 /min BP Systolic Sitting 136 mmHg BP Diastolic Sitting 64 mmHg Respiratory Rate 16 /min 03/27/2009 Height 64.5 inches 5'4.50" Weight 188.00 lb Heart Rate 64 /min BP Systolic Sitting 116 mmHg BP Diastolic Sitting 62 mmHg BMI (Body Mass Index) 31.8 kg/m2 08/12/2008 Height 64.5 inches 5'4.50" Weight 193.00 lb Heart Rate 64 /min BP Systolic Sitting 124 mmHg BP Diastolic Sitting 50 mmHg BMI (Body Mass Index) 32.6 kg/m2 07/09/2008 Height 64.5 inches 5'4.50" Weight 193.00 lb Heart Rate 68 /min BP Systolic Sitting 158 mmHg BP Diastolic Sitting 28 mmHg Body Temperature 98.0 F BMI (Body Mass Index) 32.6 kg/m2 03/26/2008 Height 64.5 inches 5'4.50" Weight 196.00 lb Heart Rate 80 /min BP Systolic Sitting 118 mmHg BP Diastolic Sitting 60 mmHg BMI (Body Mass Index) 33.1 kg/m2 03/12/2008 Height 64.5 inches 5'4.50" Weight 196.00 lb Heart Rate 80 /min BP Systolic Sitting 118 mmHg BP Diastolic Sitting 60 mmHg BMI (Body Mass Index) 33.1 kg/m2 07/14/2003 Height 65 inches Heart Rate 56 /min BP Systolic Sitting 146 mmHg BP Diastolic Sitting 78 mmHg 07/14/2003 Height 65 inches Weight 201.00 lb BP Systolic Sitting 150 mmHg BP Diastolic Sitting 80 mmHg BP Systolic Standing 148 mmHg BP Diastolic Standing 78 mmHg BMI (Body Mass Index) 33.4 kg/m2 06/27/2003 Height 65 inches Weight 200.00 lb BP Systolic Sitting 156 mmHg BP Diastolic Sitting 66 mmHg BP Systolic Standing 132 mmHg BP Diastolic Standing 68 mmHg BMI (Body Mass Index) 33.3 kg/m2 06/19/2003 Height 65 inches Weight 199.00 lb Heart Rate 64 /min BP Systolic Sitting 150 mmHg BP Diastolic Sitting 74 mmHg BP Systolic Standing 160 mmHg BP Diastolic Standing 90 mmHg BMI (Body Mass Index) 33.1 kg/m2 06/16/2003 Height 65 inches Weight 201.00 lb Heart Rate 72 /min BP Systolic Sitting 160 mmHg BP Diastolic Sitting 80 mmHg BP Systolic Standing 150 mmHg BP Diastolic Standing 70 mmHg BMI (Body Mass Index) 33.4 kg/m2 05/26/2003 Height 65 inches Weight 198.00 lb Heart Rate 60 /min BP Systolic Sitting 118 mmHg BP Diastolic Sitting 70 mmHg BP Systolic Standing 130 mmHg BP Diastolic Standing 90 mmHg BMI (Body Mass Index) 32.9 kg/m2 Results Test Date Test Result H/L Range Note Basic Metabolic Panel 04/13/2018 Sodium 142 mmol/L 139-145 Potassium 4.3 mmol/L 3.5-5.0 Chloride 108 mmol/L 101-111 Co2 Carbon Dioxide 27 mmol/L 22-32 Anion Gap 7 mmol/L 2-11 Glucose 103 mg/dL High 70-100 Blood Urea Nitrogen 18 mg/dL 6-24 Creatinine 1.15 mg/dL High 0.51-0.95 BUN/Creatinine Ratio 15.7 8-20 Calcium 9.4 mg/dL 8.6-10.3 Egfr Non- 44.7 >60 Egfr 57.5 >60 1 Laboratory test finding 04/13/2018 TSH (Thyroid Stim Horm) 1.39 mcIU/mL 0.34-5.60 Lipid Profile 04/13/2018 Triglycerides 98 mg/dL 2 (Trig/Chol/HDL) Cholesterol 147 mg/dL 3 HDL Cholesterol 63.5 mg/dL 4 LDL Cholesterol 64 mg/dL 5 CBC Auto Diff 04/13/2018 White Blood Count 3.9 10^3/uL 3.5-10.8 Red Blood Count 3.67 10^6/uL Low 4.0-5.4 Hemoglobin 11.6 g/dL Low 12.0-16.0 Hematocrit 34 % Low 35-47 Mean Corpuscular Volume 94 fL 80-97 Mean Corpuscular Hemoglobin 32 pg High 27-31 Mean Corpuscular HGB Conc 34 g/dL 31-36 Red Cell Distribution Width 13 % 10.5-15 Platelet Count 129 10^3/uL Low 150-450 Mean Platelet Volume 8.4 um3 7.4-10.4 Abs Neutrophils 2.4 10^3/uL 1.5-7.7 Abs Lymphocytes 1.1 10^3/uL 1.0-4.8 Abs Monocytes 0.4 10^3/uL 0-0.8 Abs Eosinophils 0 10^3/uL 0-0.6 Abs Basophils 0 10^3/uL 0-0.2 Abs Nucleated RBC 0 10^3/uL Granulocyte % 62.0 % 38-83 Lymphocyte % 28.3 % 25-47 Monocyte % 9.2 % High 0-7 Eosinophil % 0.2 % 0-6 Basophil % 0.3 % 0-2 Nucleated Red Blood Cells % 0 Rapid Influenza A & B 12/06/2017 Influenza A Molecular NEGATIVE Negative 6 Molecular Influenza B Molecular NEGATIVE Negative Laboratory test finding 12/06/2017 Influenza A & B Request SEE RESULT BELOW 7 Ua Routine 11/17/2017 Ua Specific [place] 1.010 Ua PH 5 Ua Color yellow Ua Appera clear Ua WBC + Ua Protein neg Ua Glucose norm Ua Ketones neg Ua Bilirubin neg Ua Urobilinogen norm Ua Nitrite neg Ua Occult Blood trace Laboratory test finding 09/15/2017 Erythrocyte Sed Rate 29 mm/Hr 0-40 C Reactive Protein 1.10 mg/L < 5.00 8 CBC Auto Diff 08/09/2017 White Blood Count 5.6 10^3/uL 3.5-10.8 Red Blood Count 3.79 10^6/uL Low 4.0-5.4 Hemoglobin 11.9 g/dL Low 12.0-16.0 Hematocrit 35 % 35-47 Mean Corpuscular Volume 93 fL 80-97 Mean Corpuscular Hemoglobin 32 pg High 27-31 Mean Corpuscular HGB Conc 34 g/dL 31-36 Red Cell Distribution Width 14 % 10.5-15 Platelet Count 147 10^3/uL Low 150-450 Mean Platelet Volume 8 um3 7.4-10.4 Abs Neutrophils 3.7 10^3/uL 1.5-7.7 Abs Lymphocytes 1.4 10^3/uL 1.0-4.8 Abs Monocytes 0.5 10^3/uL 0-0.8 Abs Eosinophils 0 10^3/uL 0-0.6 Abs Basophils 0 10^3/uL 0-0.2 Abs Nucleated RBC 0.01 10^3/uL Granulocyte % 66.6 % 38-83 Lymphocyte % 24.0 % Low 25-47 Monocyte % 8.8 % 1-9 Eosinophil % 0.2 % 0-6 Basophil % 0.4 % 0-2 Nucleated Red Blood Cells % 0.1 Comp Metabolic Panel 08/09/2017 Sodium 139 mmol/L 133-145 Potassium 4.4 mmol/L 3.5-5.0 Chloride 104 mmol/L 101-111 Co2 Carbon Dioxide 28 mmol/L 22-32 Anion Gap 7 mmol/L 2-11 Glucose 82 mg/dL 70-100 Blood Urea Nitrogen 18 mg/dL 6-24 Creatinine 1.19 mg/dL High 0.51-0.95 BUN/Creatinine Ratio 15.1 8-20 Calcium 9.2 mg/dL 8.6-10.3 Total Protein 6.7 g/dL 6.4-8.9 Albumin 4.1 g/dL 3.2-5.2 Globulin 2.6 g/dL 2-4 Albumin/Globulin Ratio 1.6 1-3 Total Bilirubin 0.60 mg/dL 0.2-1.0 Alkaline Phosphatase 76 U/L 34-104 Alt 14 U/L 7-52 Ast 20 U/L 13-39 Egfr Non- 43.0 >60 Egfr 55.3 >60 9 Laboratory test finding 08/09/2017 Erythrocyte Sed Rate 48 mm/Hr High 0- 40 C Reactive Protein 10.55 mg/L High < 5.00 10 Creatine Kinase(CK) 78 U/L 10-223 Urinalysis Profile 08/09/2017 Urine Color Straw Urine Appearance Clear Urine Specific [place] 1.004 Low 1.010-1.030 Urine pH 6.0 5-9 Urine Urobilinogen Negative Negative Urine Ketones Negative Negative Urine Protein Negative Negative Urine Leukocytes Negative Negative Urine Blood 1+ Negative Urine Nitrite Negative Negative Urine Bilirubin Negative Negative Urine Glucose Negative Negative Urine White Blood Cell Trace(0-5/hpf) Absent Urine Red Blood Cell Trace(0-2/hpf) Absent Urine Bacteria Absent Absent Urine Squamous Epithelial Cell Present Absent Protein Electrophoresis 08/09/2017 Total Protein(Pep) 7.1 g/dL 6.3 - 7.9 Albumin 3.5 g/dL 3.4-4.7 Alpha-1 Globulin 0.3 g/dL 0.1-0.3 Alpha-2 Globulin 1.1 g/dL 0.6-1.0 Beta Globulin 1.0 g/dL 0.7-1.2 Gamma Globulin 1.1 g/dL 0.6-1.6 Albumin/Globulin Ratio 0.98 Impression See Comment 11 Basic Metabolic Panel 04/07/2017 Sodium 140 mmol/L 133-145 Potassium 4.2 mmol/L 3.5-5.0 Chloride 107 mmol/L 101-111 Co2 Carbon Dioxide 27 mmol/L 22-32 Anion Gap 6 mmol/L 2-11 Glucose 102 mg/dL High 70-100 Blood Urea Nitrogen 13 mg/dL 6-24 Creatinine 1.12 mg/dL High 0.51-0.95 BUN/Creatinine Ratio 11.6 8-20 Calcium 9.1 mg/dL 8.6-10.3 Egfr Non- 46.2 >60 Egfr 59.5 >60 12 Laboratory test 04/07/2017 TSH (Thyroid Stim Horm) 1.28 mcIU/mL 0.34- 5.60 13 finding Lipid Profile 04/07/2017 Triglycerides 90 mg/dL 14 (Trig/Chol/HDL) Cholesterol 144 mg/dL 15 HDL Cholesterol 54.4 mg/dL 16 LDL Cholesterol 72 mg/dL 17 CBC Auto Diff 04/07/2017 White Blood Count 4.7 10^3/uL 3.5-10.8 Red Blood Count 3.69 10^6/uL Low 4.0-5.4 Hemoglobin 11.2 g/dL Low 12.0-16.0 Hematocrit 34 % Low 35-47 Mean Corpuscular Volume 93 fL 80-97 Mean Corpuscular Hemoglobin 30 pg 27-31 Mean Corpuscular HGB Conc 33 g/dL 31-36 Red Cell Distribution Width 14 % 10.5-15 Platelet Count 153 10^3/uL 150-450 Mean Platelet Volume 8 um3 7.4-10.4 Abs Neutrophils 3.1 10^3/uL 1.5-7.7 Abs Lymphocytes 1.3 10^3/uL 1.0-4.8 Abs Monocytes 0.3 10^3/uL 0-0.8 Abs Eosinophils 0 10^3/uL 0-0.6 Abs Basophils 0 10^3/uL 0-0.2 Abs Nucleated RBC 0 10^3/uL Granulocyte % 65.8 % 38-83 Lymphocyte % 26.6 % 25-47 Monocyte % 6.8 % 1-9 Eosinophil % 0.3 % 0-6 Basophil % 0.5 % 0-2 Nucleated Red Blood Cells % 0.1 Laboratory test finding 03/22/2017 Lactic Acid 0.8 mmol/L 0.5-2.0 18 Inr/Protime 03/22/2017 Inr 0.96 0.89-1.11 Laboratory test finding 03/22/2017 Partial Thrombo Time 25.8 seconds Low 26.0-36.3 PTT CBC Auto Diff 03/22/2017 White Blood Count 8.6 10^3/uL 3.5-10.8 Red Blood Count 3.74 10^6/uL Low 4.0-5.4 Hemoglobin 11.6 g/dL Low 12.0-16.0 Hematocrit 34 % Low 35-47 Mean Corpuscular Volume 92 fL 80-97 Mean Corpuscular Hemoglobin 31 pg 27-31 Mean Corpuscular HGB Conc 34 g/dL 31-36 Red Cell Distribution Width 14 % 10.5-15 Platelet Count 123 10^3/uL Low 150-450 Mean Platelet Volume 9 um3 7.4-10.4 Abs Neutrophils 6.9 10^3/uL 1.5-7.7 Abs Lymphocytes 0.9 10^3/uL Low 1.0-4.8 Abs Monocytes 0.7 10^3/uL 0-0.8 Abs Eosinophils 0 10^3/uL 0-0.6 Abs Basophils 0 10^3/uL 0-0.2 Abs Nucleated RBC 0 10^3/uL Granulocyte % 80.9 % 38-83 Lymphocyte % 10.9 % Low 25-47 Monocyte % 8.0 % 1-9 Eosinophil % 0 % 0-6 Basophil % 0.2 % 0-2 Nucleated Red Blood Cells % 0 Comp Metabolic Panel 03/22/2017 Sodium 135 mmol/L 133-145 Potassium 4.0 mmol/L 3.5-5.0 Chloride 103 mmol/L 101-111 Co2 Carbon Dioxide 26 mmol/L 22-32 Anion Gap 6 mmol/L 2-11 Glucose 138 mg/dL High 70-100 Blood Urea Nitrogen 18 mg/dL 6-24 Creatinine 1.25 mg/dL High 0.51-0.95 BUN/Creatinine Ratio 14.4 8-20 Calcium 9.2 mg/dL 8.6-10.3 Total Protein 6.9 g/dL 6.4-8.9 Albumin 4.0 g/dL 3.2-5.2 Globulin 2.9 g/dL 2-4 Albumin/Globulin Ratio 1.4 1-3 Total Bilirubin 0.80 mg/dL 0.2-1.0 Alkaline Phosphatase 71 U/L 34-104 Alt 14 U/L 7-52 Ast 18 U/L 13-39 Egfr Non- 40.7 >60 Egfr 52.4 >60 19 Laboratory test finding 03/22/2017 Lipase 23 U/L 11.0-82.0 C Reactive Protein 22.09 mg/L High < 5.00 20 Urinalysis Profile 03/22/2017 Urine Color Yellow Urine Appearance Clear Urine Specific [place] 1.011 1.010-1.030 Urine pH 6.0 5-9 Urine Urobilinogen Negative Negative Urine Ketones Negative Negative Urine Protein Negative Negative Urine Leukocytes 1+ Negative Urine Blood 1+ Negative Urine Nitrite Negative Negative Urine Bilirubin Negative Negative Urine Glucose Negative Negative Urine White Blood Cell Trace(0-5/hpf) Absent Urine Red Blood Cell 1+(3-5/hpf) Absent Urine Bacteria Absent Absent Urine Squamous Epithelial Cell Present Absent Urine Culture And Sensitivities 03/22/2017 Urine Culture SEE RESULT BELOW 21 Lipid Profile (Trig/Chol/HDL) 04/12/2016 Triglycerides 115 mg/dL 22 Cholesterol 171 mg/dL 23 HDL Cholesterol 60.0 mg/dL 24 LDL Cholesterol 88 mg/dL 25 Laboratory test finding 04/12/2016 TSH (Thyroid Stim Horm) 1.75 ?IU/mL 0.34-5.60 26 Basic Metabolic Panel 04/12/2016 Sodium 140 mmol/L 133-145 Potassium 4.0 mmol/L 3.5-5.0 Chloride 108 mmol/L 101-111 Co2 Carbon Dioxide 25 mmol/L 22-32 Anion Gap 7 mmol/L 2-11 Glucose 123 mg/dL High 70-100 Blood Urea Nitrogen 19 mg/dL 6-24 Creatinine 1.17 mg/dL High 0.51-0.95 BUN/Creatinine Ratio 16.2 8-20 Calcium 9.5 mg/dL 8.6-10.3 Egfr Non- 44.1 >60 Egfr 56.7 >60 27 Laboratory test 04/02/2015 TSH (Thyroid Stim Horm) 1.31 ?IU/mL 0.34-5.60 28, 29 finding Lipid Profile 04/02/2015 Triglycerides 131 mg/dL 28, 30 (Trig/Chol/HDL) Cholesterol 154 mg/dL 28, 31 HDL Cholesterol 64.0 mg/dL 28, 32 LDL Cholesterol 64 mg/dL 28, 33 Comp Metabolic Panel 04/02/2015 Sodium 138 mmol/L 133-145 28 Potassium 4.3 mmol/L 3.5-5.0 28 Chloride 105 mmol/L 101-111 28 Co2 Carbon Dioxide 27 mmol/L 22-32 28 Anion Gap 6 mmol/L 2-11 28 Glucose 115 mg/dL High 70-100 28 Blood Urea Nitrogen 20 mg/dL 6-24 28 Creatinine 1.25 mg/dL High 0.51-0.95 28 BUN/Creatinine Ratio 16.0 8-20 28 Calcium 9.3 mg/dL 8.6-10.3 28 Total Protein 6.2 g/dL Low 6.4-8.9 28 Albumin 4.2 g/dL 3.2-5.2 28 Globulin 2.0 g/dL 2-4 28 Albumin/Globulin Ratio 2.1 1-3 28 Total Bilirubin 0.70 mg/dL 0.2-1.0 28 Alkaline Phosphatase 65 U/L 34-104 28 Alt 19 U/L 7-52 28 Ast 22 U/L 13-39 28 Egfr Non- 40.9 >60 28 Egfr 52.6 >60 28, 34 Comp Metabolic Panel 09/30/2014 Sodium 139 mmol/L 133-145 Potassium 4.1 mmol/L 3.5-5.0 35 Chloride 103 mmol/L 101-111 Co2 Carbon Dioxide 29 mmol/L 22-32 Anion Gap 7 mmol/L 2-11 Glucose 119 mg/dL High 70-100 Blood Urea Nitrogen 30 mg/dL High 6-24 Creatinine 1.42 mg/dL High 0.51-0.95 BUN/Creatinine Ratio 21.1 High 8-20 Calcium 9.3 mg/dL 8.6-10.3 Total Protein 6.3 g/dL Low 6.4-8.9 Albumin 4.2 g/dL 3.2-5.2 Globulin 2.1 g/dL 2-4 Albumin/Globulin Ratio 2.0 1-3 Total Bilirubin 0.50 mg/dL 0.2-1.0 Alkaline Phosphatase 71 U/L 34-104 Alt 15 U/L 7-52 Ast 20 U/L 13-39 Egfr Non- 35.3 >60 Egfr 45.4 >60 36 Comp Metabolic Panel 09/05/2014 Sodium 141 mmol/L 133-145 Potassium 4.2 mmol/L 3.7-5.6 Chloride 106 mmol/L 101-111 Co2 Carbon Dioxide 29 mmol/L 22-32 Anion Gap 6 mmol/L 2-11 Glucose 96 mg/dL 70-100 Blood Urea Nitrogen 21 mg/dL 6-24 Creatinine 1.23 mg/dL High 0.51-0.95 BUN/Creatinine Ratio 17.1 8-20 Calcium 9.3 mg/dL 8.6-10.3 Total Protein 6.6 g/dL 6.4-8.9 Albumin 4.3 g/dL 3.2-5.2 Globulin 2.3 g/dL 2-4 Albumin/Globulin Ratio 1.9 1-3 Total Bilirubin 0.60 mg/dL 0.2-1.0 Alkaline Phosphatase 74 U/L 34-104 Alt 19 U/L 7-52 Ast 19 U/L 13-39 Egfr Non- 41.7 >60 Egfr 53.6 >60 37 Laboratory test finding 07/02/2014 C Reactive Protein < 0.10 mg/L < 5.00 38 CBC With Manual Diff 07/02/2014 White Blood Count 4.6 10^3/uL Low 4.8- 10.8 Red Blood Count 3.72 10^6/uL Low 4.0-5.4 Hemoglobin 11.9 g/dL Low 12.0-16.0 Hematocrit 35 % 35-47 Mean Corpuscular Volume 93 fL 80-97 Mean Corpuscular Hemoglobin 32 pg High 27-31 Mean Corpuscular HGB Conc 35 g/dL 31-36 Red Cell Distribution Width 14 % 10.5-15 Platelet Count 135 10^3/uL Low 150-450 Mean Platelet Volume 8 um3 7.4-10.4 Abs Neutrophils 2.8 10^3/uL 1.5-7.7 Abs Lymphocytes 1.5 10^3/uL 1.0-4.8 Abs Monocytes 0.3 10^3/uL 0-0.8 Abs Eosinophils 0 10^3/uL 0-0.6 Abs Basophils 0 10^3/uL 0-0.2 Abs Nucleated RBC 0 10^3/uL Neutrophil % 60 % 38-83 Lymphocytes % 29 % 25-47 Monocytes % 7 % 0-13 Eosinophils % 1 % 0-6 Reactive Lymph % 3 % 0-6 RBC Morphology Normal Normal Laboratory test finding 07/02/2014 Erythrocyte Sed Rate 23 mm/Hr 0-40 Comp Metabolic Panel 04/03/2014 Sodium 138 mmol/L 133-145 28 Potassium 4.1 mmol/L 3.7-5.6 28 Chloride 105 mmol/L 101-111 28 Co2 Carbon Dioxide 28 mmol/L 22-32 28 Anion Gap 5 mmol/L 2-11 28 Glucose 107 mg/dL High 70-100 28 Blood Urea Nitrogen 21 mg/dL 6-24 28 Creatinine 1.19 mg/dL High 0.51-0.95 28 BUN/Creatinine Ratio 17.6 8-20 28 Calcium 9.1 mg/dL 8.6-10.3 28 Total Protein 6.5 g/dL 6.4-8.9 28 Albumin 4.1 g/dL 3.2-5.2 28 Globulin 2.4 g/dL 2-4 28 Albumin/Globulin Ratio 1.7 1-3 28 Total Bilirubin 0.70 mg/dL 0.2-1.0 28 Alkaline Phosphatase 70 U/L 34-104 28 Alt 19 U/L 7-52 28 Ast 23 U/L 13-39 28 Egfr Non- 43.4 >60 28 Egfr 55.8 >60 28, 39 Laboratory test 04/03/2014 TSH (Thyroid 0.82 IU/mL 0.34-5.60 28, 40 finding Stimulating Horm) Lipid Profile 04/03/2014 Triglycerides 75 mg/dL 28, 41 (Trig/Chol/HDL) Cholesterol 153 mg/dL 28, 42 HDL Cholesterol 60.6 mg/dL 28, 43 LDL Cholesterol 77 mg/dL 28, 44 Oncology CBC Auto Diff 08/28/2013 White Blood Count 5.2 10^3/uL 4.8-10.8 Red Blood Count 3.93 10^6/uL Low 4.0-5.4 Hemoglobin 12.3 g/dL 12.0-16.0 Hematocrit 37 % 35-47 Mean Corpuscular Volume 95 fL 80-97 Mean Corpuscular Hemoglobin 31 pg 27-31 Mean Corpuscular HGB Conc 33 g/dL 31-36 Red Cell Distribution Width 13 % 10.5-15 Platelet Count 140 10^3/uL Low 150-450 Mean Platelet Volume 7 um3 Low 7.4-10.4 Abs Neutrophils 3.2 10^3/uL 1.5-7.7 Abs Lymphocytes 1.5 10^3/uL 1.0-4.8 Abs Monocytes 0.4 10^3/uL 0-0.8 Abs Eosinophils 0.1 10^3/uL 0-0.6 Abs Basophils 0 10^3/uL 0-0.2 Granulocyte % 62.4 % 38-83 Lymphocyte % 29.2 % 25-47 Monocyte % 7.0 % 1-9 Eosinophil % 1.0 % 0-6 Basophil % 0.4 % 0-2 Laboratory test finding 08/28/2013 Vitamin B12 356 pg/mL 180-914 Surgical Pathology 07/26/2013 S RUN DATE: 08/09/ <SEE 45 NOTE> Lipid Profile 03/12/2013 Triglycerides 75 mg/dL 40-200 (Trig/Chol/HDL) Cholesterol 160 mg/dL Less than 200 HDL Cholesterol 67 mg/dL High 40-60 46 Cholesterol/HDL Ratio 2.4 Average 1-4.44 LDL Cholesterol 78.0 mg/dL Less Than 100 47 Comp Metabolic Panel 03/12/2013 Sodium 141 mmol/L 133-145 Potassium 4.4 mmol/L 3.5-5.0 Chloride 108 mmol/L 101-111 Co2 Carbon Dioxide 26.0 mmol/L 22-32 Anion Gap 7.0 mmol/L 2-11 Glucose 112 mg/dL High 70-100 Blood Urea Nitrogen 22 mg/dL 6-24 Creatinine 1.30 mg/dL 0.50-1.40 BUN/Creatinine Ratio 16.9 8-20 Calcium 9.3 mg/dL 8.1-9.9 Total Protein 6.0 g/dL Low 6.2-8.1 Albumin 3.8 g/dL 3.2-5.2 Globulin 2.2 g/dL 2-4 Albumin/Globulin Ratio 1.7 1-3 Total Bilirubin 0.8 mg/dL 0.4-1.5 Alkaline Phosphatase 58 U/L 30-110 Alt 53 U/L 14-54 Ast 41 U/L 12-42 Egfr Non- 39.3 >60 Egfr 50.6 >60 48 Laboratory test finding 03/12/2013 TSH (Thyroid 1.38 miu/mL 0.34-5.60 Stimulating Horm) CBC Auto Diff 10/24/2012 White Blood Count 4.4 10^3/uL Low 4.8-10.8 Red Blood Count 3.62 10^6/uL Low 4.0-5.4 Hemoglobin 11.7 g/dL Low 12.0-16.0 Hematocrit 34 % Low 35-47 Mean Corpuscular Volume 94 fL 80-97 Mean Corpuscular Hemoglobin 32 pg High 27-31 Mean Corpuscular HGB Conc 34 g/dL 31-36 Red Cell Distribution Width 14 % 10.5-15 Platelet Count 131 10^3/uL Low 150-450 Mean Platelet Volume 9 um3 7.4-10.4 Abs Neutrophils 2.5 10^3/uL 1.5-7.7 Abs Lymphocytes 1.4 10^3/uL 1.0-4.8 Abs Monocytes 0.4 10^3/uL 0-0.8 Abs Eosinophils 0.1 10^3/uL 0-0.6 Abs Basophils 0 10^3/uL 0-0.2 Abs Nucleated RBC 0.01 10^3/uL Granulocyte % 57.7 % 38-83 Lymphocyte % 30.6 % 25-47 Monocyte % 9.0 % 1-9 Eosinophil % 2.2 % 0-6 Basophil % 0.5 % 0-2 Nucleated Red Blood Cells % 0.1 Cell Morphology 10/24/2012 Hypochromasia 1+ Comp Metabolic Panel 10/24/2012 Sodium 141 mmol/L 133-145 Potassium 4.3 mmol/L 3.5-5.0 Chloride 108 mmol/L 101-111 Co2 Carbon Dioxide 24.0 mmol/L 22-32 Anion Gap 9.0 mmol/L 2-11 Glucose 108 mg/dL High 70-100 Blood Urea Nitrogen 26 mg/dL High 6-24 Creatinine 1.20 mg/dL 0.50-1.40 BUN/Creatinine Ratio 21.7 High 8-20 Calcium 9.1 mg/dL 8.1-9.9 Total Protein 6.3 g/dL 6.2-8.1 Albumin 3.9 g/dL 3.2-5.2 Globulin 2.4 g/dL 2-4 Albumin/Globulin Ratio 1.6 1-3 Total Bilirubin 0.6 mg/dL 0.4-1.5 Alkaline Phosphatase 63 U/L 30-110 Alt 25 U/L 14-54 Ast 31 U/L 12-42 Egfr Non- 43.1 >60 Egfr 55.5 >60 49 Laboratory test finding 10/24/2012 Magnesium 2.2 mg/dL 1.7-2.6 Creatine Kinase 132 U/L 0-200 CKMB 1.9 ng/mL 0.3-4.0 50 Troponin I 0 ng/mL 0-0.06 51 Oncology CBC Auto Diff 09/10/2012 White Blood Count 4.8 10^3/uL 4.8-10.8 Red Blood Count 3.81 10^6/uL Low 4.0-5.4 Hemoglobin 12.1 g/dL 12.0-16.0 Hematocrit 36 % 35-47 Mean Corpuscular Volume 95 fL 80-97 Mean Corpuscular Hemoglobin 32 pg High 27-31 Mean Corpuscular HGB Conc 33 g/dL 31-36 Red Cell Distribution Width 13 % 10.5-15 Platelet Count 133 10^3/uL Low 150-450 Mean Platelet Volume 8 um3 7.4-10.4 Abs Neutrophils 2.6 10^3/uL 1.5-7.7 Abs Lymphocytes 1.7 10^3/uL 1.0-4.8 Abs Monocytes 0.4 10^3/uL 0-0.8 Abs Eosinophils 0.1 10^3/uL 0-0.6 Abs Basophils 0 10^3/uL 0-0.2 Granulocyte % 53.6 % 38-83 Lymphocyte % 35.6 % 25-47 Monocyte % 8.6 % 1-9 Eosinophil % 1.6 % 0-6 Basophil % 0.6 % 0-2 Retic Count 09/10/2012 Retic Count 1.6 % High 0.5-1.5 Corrected Retic Count 1.3 % 0.5-1.5 Maturation Factor Retic 1.5 Retic Index 0.90 Mean Retic Volume 110.8 Immature Retic Fraction 0.40 RBC Retic Count 3.81 10^6/uL Low 4.6-6.2 Hematocrit for Retic CNT 36 % 35-47 Laboratory test finding 06/11/2012 Methylmalonic Acid 0.45 nmol/mL <= 0.40 52 Protein Electrophoresis 05/21/2012 Albumin 3.49 GM/DL 3.0-4.35 Serum Alpha 1 0.32 GM/DL 0.09-0.33 Alpha 2 1.12 GM/DL 0.59-1.18 Beta 0.96 GM/DL 0.68-1.02 Gamma 0.80 GM/DL 0.76-1.60 Albumin % 52.1 % 46-63 Alpha 1 % 4.8 % 1.2-5.3 Alpha 2 % 16.7 % 9-17 Beta % 14.3 % 10-16 Gamma % 11.9 % Low 12-22 A/G Ratio 1.1 0.9-2 Total Protein 6.7 GM/DL 6.2-8.1 Spep Comments (SEE NOTE) 53 Laboratory test finding 05/21/2012 Lyme Disease Serology Negative Negative 54 Immunoglobulins Serum Quant 05/21/2012 Iga 100 mg/dL 61 - 356 Igm 180 mg/dL 37 - 286 Igg 697 mg/dL 767 - 1590 55 Laboratory test finding 05/21/2012 Ferritin 152 NG/ML 11.0-307 Vitamin B12 271 pg/mL 180-914 C Reactive Protein 4.9 mg/dL High Less Than 0.5 Erythropoietin 25.3 mIU/mL 2.6 - 18.5 56 Iron & Iron Binding Capacity 05/21/2012 Iron Total 39 g/dL 28-170 Unsaturated Iron Binding 297 g/dL Total Iron Binding Capacity 336 g/dL 250-450 % Iron Saturation 12 % Low 15-55 Laboratory test finding 05/21/2012 Erythrocyte Sed Rate 64 MM/HR High 0- 40 CBC Auto Diff 05/21/2012 White Blood Count 5.2 CUMM 4.8-10.8 Red Cell Count 3.37 CUMM Low 4.2-5.4 Hemoglobin 10.8 g/dL Low 12.0-16.0 Hematocrit 32 % Low 35-47 Mean Corpuscular Volume 94 um3 79-97 Mean Corpuscular Hemoglob 32 pg High 27-31 Mean Corpuscular HGB Cone 34 g/dL 32-36 Redcell Distribution WDTH 14 % 10.5-15 Platelet Count 138 CUMM Low 150-450 Mean Platelet Volume 7.8 um3 7.4-10.4 Gran % 57.7 % 38-83 Lymph % 31.4 % 20-45 Mononuclear % 7.5 % 1-9 Eosinophil % 2.0 % 0-6 Basophil % 1.4 % 0-2 Abs Lymphs 1.6 1.0-4.8 Abs Mononuclear 0.4 0-0.8 Absolute Neutrophil Count 3.0 1.5-7.7 Abs Eosinophils 0.1 0-0.6 Abs Basophils 0.1 0-0.2 Urinalysis W/Microscopic 05/20/2012 Ua Color YELLOW Yellow Appearance-Urine CLEAR Clear Specific [place]-Ur 1.013 1.010-1.030 Esterase-Urine TRACE Negative Nitrite NEGATIVE Negative [id number] NEGATIVE Negative Protein-Urine NEGATIVE Negative PH-Urine 5.0 5-9 Blood-Urine TRACE Negative Ketones-Urine NEGATIVE Negative Bilirubin-Ur NEGATIVE Negative Glucose-Urine NEGATIVE Negative WBC-Urine 5-10 0-5 RBC-Urine 0-2 0-2 Epith Cells-Ur FEW None Laboratory test finding 05/20/2012 Amylase 38 U/L 20-120 57 Lipase 26 U/L 22-51 Comp Metabolic Panel 05/20/2012 Sodium 138 mmol/L 135-145 Potassium 4.4 mmol/L 3.5-5.0 Chloride 108 mmol/L 101-111 Co2 (Carbon Dioxide) 22.0 mmol/L 22-32 Anion Gap 8.0 mmol/L 2-11 58 Glucose 108 mg/dL High 70-100 BUN 16 mg/dL 6-24 Creatinine 1.1 mg/dL 0.50-1.40 One Over Creatinine 0.90 BUN/Creatinine Ratio 14.5 8-20 Calcium 8.9 mg/dL 8.1-9.9 Total Protein 6.4 GM/DL 6.2-8.1 Albumin 3.6 GM/DL 3.2-5.2 Globulin 2.8 GM/DL 2-4 Albumin/Globulin Ratio 1.3 1-3 Bilirubin Total 1.6 mg/dL High 0.4-1.5 59 Alkaline Phosphatase 57 U/L 30-110 Alt (SGPT) 14 U/L 14-54 Ast (Sgot) 29 U/L 12-42 eGFR Non- 47.8 > 60 eGFR 61.5 > 60 60 CBC Auto Diff 05/20/2012 White Blood Count 6.0 CUMM 4.8-10.8 Red Cell Count 3.12 CUMM Low 4.2-5.4 Hemoglobin 10.3 g/dL Low 12.0-16.0 Hematocrit 29 % Low 35-47 Mean Corpuscular Volume 94 um3 79-97 Mean Corpuscular Hemoglob 33 pg High 27-31 Mean Corpuscular HGB [facility] 35 g/dL 32-36 Redcell Distribution WDTH 15 % 10.5-15 Platelet Count 109 CUMM Low 150-450 Mean Platelet Volume 8.7 um3 7.4-10.4 Gran % 75.7 % 38-83 Lymph % 15.6 % Low 20-45 Mononuclear % 7.9 % 1-9 Eosinophil % 0.6 % 0-6 Basophil % 0.2 % 0-2 Abs Lymphs 0.9 Low 1.0-4.8 Abs Mononuclear 0.5 0-0.8 Absolute Neutrophil Count 4.5 1.5-7.7 Abs Eosinophils 0 0-0.6 Abs Basophils 0 0-0.2 Comments 1 61 Laboratory test finding 05/08/2012 Erythrocyte Sed Rate 40 MM/HR 0-40 CBC Auto Diff 05/08/2012 White Blood Count 3.8 CUMM Low 4.8-10.8 Red Cell Count 3.38 CUMM Low 4.2-5.4 Hemoglobin 10.6 g/dL Low 12.0-16.0 Hematocrit 31 % Low 35-47 Mean Corpuscular Volume 93 um3 79-97 Mean Corpuscular Hemoglob 31 pg 27-31 Mean Corpuscular HGB Cone 34 g/dL 32-36 Redcell Distribution WDTH 15 % 10.5-15 Platelet Count 129 CUMM Low 150-450 Mean Platelet Volume 9.0 um3 7.4-10.4 Gran % 55.6 % 38-83 Lymph % 34.1 % 25-47 Mononuclear % 7.6 % 1-9 Eosinophil % 2.4 % 0-6 Basophil % 0.3 % 0-2 Abs Lymphs 1.3 1.0-4.8 Abs Mononuclear 0.3 0-0.8 Absolute Neutrophil Count 2.1 1.5-7.7 Abs Eosinophils 0.1 0-0.6 Abs Basophils 0 0-0.2 CBC With Manual Diff 04/24/2012 White Blood Count 4.2 CUMM Low 4.8-10.8 Red Cell Count 3.56 CUMM Low 4.2-5.4 Hemoglobin 11.2 g/dL Low 12.0-16.0 Hematocrit 33 % Low 35-47 Mean Corpuscular Volume 92 um3 79-97 Mean Corpuscular Hemoglob 32 pg High 27-31 Mean Corpuscular HGB Cone 34 g/dL 32-36 Redcell Distribution WDTH 14 % 10.5-15 Platelet Count 285 CUMM 150-450 Mean Platelet Volume 7.7 um3 7.4-10.4 Absolute Neutrophil Count 2.6 1.5-7.7 Polysegmented Neutrophil 70 % 38-83 Lymphocyte 28 % 25-47 Monocyte 1 % 0-13 Eosinophil 1 % 0-6 RBC Morphology NORMAL Laboratory test finding 04/24/2012 C Reactive Protein 0.8 mg/dL High Less Than 0.5 Erythrocyte Sed Rate 84 MM/HR High 0-40 Laboratory test 04/19/2012 Blood Culture <SEE 62 finding NOTE> CBC With Manual 04/13/2012 White Blood 7.2 CUMM 4.8-10.8 Diff Count Red Cell Count 3.58 CUMM Low 4.2-5.4 Hemoglobin 11.3 g/dL Low 12.0-16.0 Hematocrit 33 % Low 35-47 Mean Corpuscular Volume 93 um3 79-97 Mean Corpuscular Hemoglob 32 pg High 27-31 Mean Corpuscular HGB Cone 34 g/dL 32-36 Redcell Distribution WDTH 14 % 10.5-15 Platelet Count 196 CUMM 150-450 Mean Platelet Volume 8.8 um3 7.4-10.4 Absolute Neutrophil Count 5.4 1.5-7.7 Polysegmented Neutrophil 71 % 38-83 Band Neutrophil 2 % 0-8 Lymphocyte 23 % Low 25-47 Monocyte 1 % 0-13 Eosinophil 2 % 0-6 Basophil 1 % 0-2 RBC Morphology NORMAL Laboratory test finding 04/13/2012 C Reactive Protein 10.9 mg/dL High Less Than 0.5 Erythrocyte Sed Rate 116 MM/HR High 0-40 Comp Metabolic Panel 04/13/2012 Sodium 134 mmol/L Low 135-145 Potassium 4.5 mmol/L 3.5-5.0 Chloride 96 mmol/L Low 101-111 Co2 (Carbon Dioxide) 29.0 mmol/L 22-32 Anion Gap 9.0 mmol/L 2-11 63 Glucose 94 mg/dL 70-100 BUN 17 mg/dL 6-24 Creatinine 1.1 mg/dL 0.50-1.40 One Over Creatinine 0.90 BUN/Creatinine Ratio 15.5 8-20 Calcium 9.3 mg/dL 8.1-9.9 Total Protein 6.3 GM/DL 6.2-8.1 Albumin 3.5 GM/DL 3.2-5.2 Globulin 2.8 GM/DL 2-4 Albumin/Globulin Ratio 1.3 1-3 Bilirubin Total 0.8 mg/dL 0.4-1.5 64 Alkaline Phosphatase 66 U/L 30-110 Alt (SGPT) 18 U/L 14-54 Ast (Sgot) 21 U/L 12-42 eGFR Non- 47.8 > 60 eGFR 61.5 > 60 65 CBC Auto Diff 03/29/2012 White Blood Count 4.0 CUMM Low 4.8-10.8 Red Cell Count 3.41 CUMM Low 4.2-5.4 Hemoglobin 11.1 g/dL Low 12.0-16.0 Hematocrit 32 % Low 35-47 Mean Corpuscular Volume 94 um3 79-97 Mean Corpuscular Hemoglob 33 pg High 27-31 Mean Corpuscular HGB Cone 35 g/dL 32-36 Redcell Distribution WDTH 14 % 10.5-15 Platelet Count 119 CUMM Low 150-450 Mean Platelet Volume 9.0 um3 7.4-10.4 Gran % 57.5 % 38-83 Lymph % 31.2 % 25-47 Mononuclear % 7.1 % 1-9 Eosinophil % 3.7 % 0-6 Basophil % 0.5 % 0-2 Abs Lymphs 1.3 1.0-4.8 Abs Mononuclear 0.3 0-0.8 Absolute Neutrophil Count 2.3 1.5-7.7 Abs Eosinophils 0.1 0-0.6 Abs Basophils 0 0-0.2 Protime 03/29/2012 Inr 0.89 0.88-1.13 66 Protime 10.5 SEC 10.3-13.5 67 Comp Metabolic Panel 03/29/2012 Sodium 135 mmol/L 135-145 Potassium 3.4 mmol/L Low 3.5-5.0 Chloride 100 mmol/L Low 101-111 Co2 (Carbon Dioxide) 26.0 mmol/L 22-32 Anion Gap 9.0 mmol/L 2-11 68 Glucose 66 mg/dL Low 70-100 BUN 28 mg/dL High 6-24 Creatinine 1.3 mg/dL 0.50-1.40 One Over Creatinine 0.76 BUN/Creatinine Ratio 21.5 High 8-20 Calcium 9.0 mg/dL 8.1-9.9 Total Protein 6.2 GM/DL 6.2-8.1 Albumin 3.9 GM/DL 3.2-5.2 Globulin 2.3 GM/DL 2-4 Albumin/Globulin Ratio 1.7 1-3 Bilirubin Total 1.1 mg/dL 0.4-1.5 69 Alkaline Phosphatase 58 U/L 30-110 Alt (SGPT) 27 U/L 14-54 Ast (Sgot) 32 U/L 12-42 eGFR Non- 39.4 > 60 eGFR 50.7 > 60 70 Laboratory test finding 12/27/2011 TSH 1.03 MIU/ML 0.34-5.60 Lipid Profile (Trig/Chol/HDL) 12/27/2011 Triglyceride 108 mg/dL 40-200 Cholesterol 170 mg/dL Less Than 200 71 High Density Lipoprotein 64 mg/dL High 40-60 72 Cholesterol/HDL Ratio 2.66 AVERAGE 1-4.44 Low Density Lipoprotein 84 mg/dL Less Than 100 73 Comp Metabolic Panel 12/27/2011 Sodium 139 mmol/L 135-145 Potassium 4.2 mmol/L 3.5-5.0 Chloride 102 mmol/L 101-111 Co2 (Carbon Dioxide) 29.0 mmol/L 22-32 Anion Gap 8.0 mmol/L 2-11 74 Glucose 99 mg/dL 70-100 BUN 20 mg/dL 6-24 Creatinine 1.2 mg/dL 0.50-1.40 One Over Creatinine 0.83 BUN/Creatinine Ratio 16.7 8-20 Calcium 8.9 mg/dL 8.1-9.9 Total Protein 6.3 GM/DL 6.2-8.1 Albumin 3.9 GM/DL 3.2-5.2 Globulin 2.4 GM/DL 2-4 Albumin/Globulin Ratio 1.6 1-3 Bilirubin Total 0.9 mg/dL 0.4-1.5 75 Alkaline Phosphatase 57 U/L 30-110 Alt (SGPT) 21 U/L 14-54 Ast (Sgot) 22 U/L 12-42 eGFR Non- 43.2 > 60 eGFR 55.6 > 60 76 Lipid Panel - [facility] 12/27/2011 CPK (Creatine Kinase) 75 U/L 0-170 Urine Culture & Sensitivi 03/11/2011 Urine Culture Sensitivi MF2 77 Lipid Panel 03/10/2011 Triglyceride 120 mg/dL 40-200 78 Cholesterol 180 mg/dL Less Than 200 78, 79 High Density Lipoprotein 67 mg/dL High 40-60 78, 80 Cholesterol/HDL Ratio 2.69 AVERAGE 1-4.44 78 Low Density Lipoprotein 89 mg/dL Less Than 100 78, 81 Laboratory test finding 03/10/2011 TSH 1.06 MIU/ML 0.34-5.60 78 Thyroxine Free 0.86 ng/dL 0.61-1.24 78 BMP Basic Metabolic Panel 03/10/2011 Sodium 142 mmol/L 135-145 78 Potassium 4.0 mmol/L 3.5-5.0 78 Chloride 102 mmol/L 101-111 78 Co2 (Carbon Dioxide) 32.0 mmol/L 22-32 78 Anion Gap 8.0 mmol/L 2-11 78, 82 Glucose 137 mg/dL High 70-100 78 BUN 21 mg/dL 6-24 78 Creatinine 1.30 mg/dL 0.50-1.40 78 One Over Creatinine 0.70 78 BUN/Creatinine Ratio 16.2 8-20 78 Calcium 9.8 mg/dL 8.1-9.9 78 eGFR Non- 39.5 > 60 78 eGFR 50.8 > 60 78, 83 Basic Metabolic Panel 01/28/2011 Sodium 140 mmol/L 135-145 Potassium 3.5 mmol/L 3.5-5.0 Chloride 102 mmol/L 101-111 Co2 (Carbon Dioxide) 29.0 mmol/L 22-32 Anion Gap 9.0 mmol/L 2-11 84 Glucose 123 mg/dL High 70-100 BUN 21 mg/dL 6-24 Creatinine 1.30 mg/dL 0.50-1.40 One Over Creatinine 0.70 BUN/Creatinine Ratio 16.2 8-20 Calcium 9.4 mg/dL 8.1-9.9 eGFR Non- 39.5 > 60 eGFR 50.8 > 60 85 Hepatic Panel 09/03/2010 Total Protein 6.7 GM/DL 6.2-8.1 Albumin 4.1 GM/DL 3.2-5.2 Globulin 2.6 GM/DL 2-4 Albumin/Globulin Ratio 1.6 1-3 Bilirubin Total 0.8 mg/dL 0.4-1.5 86 Bilirubin Direct 0.1 mg/dL 0.1-0.5 Indirect Bilirubin 0.7 mg/dL 0.3-1.0 87 Alkaline Phosphatase 51 U/L 30-110 Alt (SGPT) 26 U/L 14-54 Ast (Sgot) 25 U/L 12-42 Laboratory test finding 09/03/2010 CPK (Creatine Kinase) 123 U/L 0-170 Liver Function Panel 03/31/2010 Total Protein 6.1 GM/DL Low 6.2-8.1 Albumin 4.1 GM/DL 3.2-5.2 Globulin 2.0 GM/DL 2-4 Albumin/Globulin Ratio 2.1 1-3 Bilirubin Total 1.0 mg/dL 0.4-1.5 88 Bilirubin Direct 0.2 mg/dL 0.1-0.5 Indirect Bilirubin 0.8 mg/dL High 0.1-0.75 Alkaline Phosphatase 60 U/L 30-110 Alt (SGPT) 25 U/L 14-54 Ast (Sgot) 26 U/L 12-42 Laboratory test finding 03/31/2010 Amylase 67 U/L 30-125 CPK (Creatine Kinase) 166 U/L 0-170 Erythrocyte Sed Rate 26 MM/HR 0-40 Lipid Panel 03/22/2010 Triglyceride 123 mg/dL 40-200 78 Cholesterol 153 mg/dL Less Than 200 78, 89 High Density Lipoprotein 63 mg/dL High 40-60 78, 90 Cholesterol/HDL Ratio 2.43 AVERAGE 1-4.44 78 Low Density Lipoprotein 65 mg/dL Less Than 100 78, 91 BMP Basic Metabolic Panel 03/22/2010 Sodium 141 mmol/L 135-145 78 Potassium 5.1 mmol/L High 3.5-5.0 78 Chloride 105 mmol/L 101-111 78 Co2 (Carbon Dioxide) 29.0 mmol/L 22-32 78 Anion Gap 7.0 mmol/L 2-11 78, 92 Glucose 105 mg/dL High 70-100 78, 93 BUN 19 mg/dL 6-24 78 Creatinine 1.30 mg/dL 0.50-1.40 78 One Over Creatinine 0.70 78 BUN/Creatinine Ratio 14.6 8-20 78 Calcium 9.9 mg/dL 8.1-9.9 78, 94 eGFR Non- 42.1 > 60 78 eGFR 50.9 > 60 78, 95 Laboratory test finding 03/22/2010 TSH 1.41 MIU/ML 0.34-5.60 78 Thyroxine Free 1.00 NG/ML 0.61-1.24 78, 96 Liver Function Panel 08/10/2009 Total Protein 6.3 GM/DL 6.2-8.1 Albumin 3.9 GM/DL 3.2-5.2 Globulin 2.4 GM/DL 2-4 Albumin/Globulin Ratio 1.6 1-3 Bilirubin Total 0.7 mg/dL 0.4-1.5 97 Bilirubin Direct 0.2 mg/dL 0.1-0.5 Indirect Bilirubin 0.5 mg/dL 0.1-0.75 Alkaline Phosphatase 62 U/L 30-110 Alt (SGPT) 34 U/L 14-54 Ast (Sgot) 27 U/L 12-42 Laboratory test finding 08/10/2009 CPK (Creatine Kinase) 81 U/L 0-170 Basic Metabolic Panel 07/01/2009 Sodium 140 mmol/L 135-145 98 Potassium 4.1 mmol/L 3.5-5.0 98 Chloride 105 mmol/L 101-111 98 Co2 (Carbon Dioxide) 28.0 mmol/L 22-32 98 Anion Gap 7.0 mmol/L 2-11 98, 99 Glucose 103 mg/dL High 70-100 98, 100 BUN 23 mg/dL 6-24 98 Creatinine 1.20 mg/dL 0.50-1.40 98 One Over Creatinine 0.80 98 BUN/Creatinine Ratio 19.2 8-20 98 Calcium 9.3 mg/dL 8.1-9.9 98, 101 eGFR Non- 46.2 > 60 98 eGFR 55.9 > 60 98, 102 CBC With Electronic Diff 07/01/2009 White Blood Count 5.0 CUMM 4.8-10.8 98 Red Cell Count 3.75 CUMM Low 4.2-5.4 98 Hemoglobin 11.9 g/dL Low 12.0-16.0 98 Hematocrit 35 % 35-47 98 Mean Corpuscular Volume 93 um3 79-97 98 Mean Corpuscular Hemoglob 32 pg High 27-31 98 Mean Corpuscular HGB Cone 34 g/dL 32-36 98 Redcell Distribution WDTH 14 % 10.5-15 98 Platelet Count 161 CUMM 150-450 98 Mean Platelet Volume 7.6 um3 7.4-10.4 98 Gran % 54.9 % 38-83 98 Lymph % 34.4 % 25-47 98 Mononuclear % 8.6 % 1-9 98 Eosinophil % 1.9 % 0-6 98 Basophil % 0.2 % 0-2 98 Abs Lymphs 1.7 1.0-4.8 98 Abs Mononuclear 0.4 0-0.8 98 Absolute Neutrophil Count 2.7 1.5-7.7 98 Abs Eosinophils 0.1 0-0.6 98 Abs Basophils 0 0-0.2 98 Laboratory test finding 02/06/2009 TSH 2.73 MIU/ML 0.34-5.60 Thyroxine Free 0.89 NG/ML 0.61-1.24 103 Lipid Profile (Trig/Chol/HDL) 02/06/2009 Triglyceride 132 mg/dL 40-200 Cholesterol 134 mg/dL Less Than 200 104 High Density Lipoprotein 53 mg/dL 40-60 105 Cholesterol/HDL Ratio 2.53 AVERAGE 1-4.44 Low Density Lipoprotein 55 mg/dL Less Than 100 106 Comp Metabolic Panel 02/06/2009 Sodium 140 mmol/L 135-145 Potassium 4.0 mmol/L 3.5-5.0 Chloride 106 mmol/L 101-111 Co2 (Carbon Dioxide) 28.0 mmol/L 22-32 Anion Gap 6.0 mmol/L 2-11 107 Glucose 100 mg/dL 70-100 108 BUN 16 mg/dL 6-24 Creatinine 1.20 mg/dL 0.50-1.40 One Over Creatinine 0.80 BUN/Creatinine Ratio 13.3 8-20 Calcium 9.4 mg/dL 8.1-9.9 109 Total Protein 6.3 GM/DL 6.2-8.1 Albumin 3.9 GM/DL 3.2-5.2 Globulin 2.4 GM/DL 2-4 Albumin/Globulin Ratio 1.6 1-3 Bilirubin Total 0.9 mg/dL 0.4-1.5 Alkaline Phosphatase 69 U/L 30-110 Alt (SGPT) 19 U/L 14-54 Ast (Sgot) 22 U/L 12-42 Lipid Panel - [facility] 02/06/2009 CPK (Creatine Kinase) 172 U/L High 0-170 Surgical Pathology 05/01/2008 Surgical Pathology 110 - <SEE NOTE> Vitamin D, 25 Hydroxy 04/01/2008 25-Hydroxy Vitamin D2 <4.0 ng/mL () 111 25-Hydroxy Vitamin D3 32 ng/mL () 111 25-Hydroxy Vitamin D Total 32 ng/mL () 111, 112 Lipid Panel - [facility] 04/01/2008 CPK (Creatine Kinase) 196 U/L High 0-170 111 Comp Metabolic Panel 04/01/2008 Sodium 137 mmol/L 135-145 111 Potassium 4.8 mmol/L 3.5-5.0 111 Chloride 102 mmol/L 101-111 111 Co2 (Carbon Dioxide) 30.0 mmol/L 22-32 111 Anion Gap 5.0 mmol/L 2-11 111, 113 Glucose 106 mg/dL High 70-105 111 BUN 28 mg/dL High 6-24 111 Creatinine 1.4 mg/dL 0.5-1.4 111 One Over Creatinine 0.71 111 BUN/Creatinine Ratio 20.0 8-20 111 Calcium 9.3 mg/dL 8.7-10.2 111 Total Protein 6.5 GM/DL 6.2-8.1 111 Albumin 3.9 GM/DL 3.2-5.2 111 Globulin 2.6 GM/DL 2-4 111 Albumin/Globulin Ratio 1.5 1-3 111 Bilirubin Total 0.7 mg/dL 0.4-1.5 111 Alkaline Phosphatase 64 U/L 30-110 111 Alt (SGPT) 33 U/L 14-54 111 Ast (Sgot) 32 U/L 12-42 111 Lipid Profile (Trig/Chol/HDL) 04/01/2008 Triglyceride 125 mg/dL 40-200 111 Cholesterol 154 mg/dL Less Than 200 111, 114 High Density Lipoprotein 50 mg/dL 40-60 111, 115 Cholesterol/HDL Ratio 3.08 AVERAGE 1-4.44 111 Low Density Lipoprotein 79 mg/dL Less Than 100 111, 116 Laboratory test finding 08/08/2007 CPK (Creatine Kinase) 96 U/L 0-170 111 Comp Metabolic Panel 08/08/2007 One Over Creatinine 0.76 111 Anion Gap 7.0 mmol/L 2-11 111, 117 Albumin/Globulin Ratio 1.6 1-3 111 Albumin 3.9 GM/DL 3.2-5.2 111 Alkaline Phosphatase 62 U/L 30-110 111 Alt (SGPT) 18 U/L 14-54 111 Ast (Sgot) 22 U/L 12-42 111 BUN 16 mg/dL 6-24 111 Calcium 8.9 mg/dL 8.7-10.2 111 Chloride 107 mmol/L 101-111 111 Co2 (Carbon Dioxide) 28.0 mmol/L 22-32 111 Globulin 2.5 GM/DL 2-4 111 Glucose 114 mg/dL High 70-105 111 Potassium 4.3 mmol/L 3.5-5.0 111 Sodium 142 mmol/L 135-145 111 Bilirubin Total 0.8 mg/dL 0.4-1.5 111 Total Protein 6.4 GM/DL 6.2-8.1 111 BUN/Creatinine Ratio 12.3 8-20 111 Creatinine 1.3 mg/dL 0.5-1.4 111 Lipid Profile 08/08/2007 Cholesterol/HDL Ratio 3.28 AVERAGE 1-4.44 111 (Trig/Chol/HDL) Cholesterol 164 mg/dL Less Than 200 111, 118 Triglyceride 203 mg/dL High 40-200 111 High Density Lipoprotein 50 mg/dL 40-60 111 Low Density Lipoprotein 73 mg/dL Less Than 100 111, 119 Laboratory test finding 08/08/2007 TSH 2.72 MIU/ML 0.34-5.60 111 Vitamin D, 25 Hydroxy 28.5 NG/ML 20-100 111, 120 1 Because ethnic data is not always readily available, this report includes an eGFR for both -Americans and non- Americans. The National Kidney Disease Education Program (NKDEP) does not endorse the use of the MDRD equation for patients that are not between the ages of 18 and 70, are , have extremes of body size, muscle mass, or nutritional status, or are non- or non-. According to the National Kidney Foundation, irrespective of diagnosis, the stage of the disease is based on the level of kidney function: Stage Description GFR(mL/min/1.73 m(2)) 1 Kidney damage with normal or decreased GFR 90 2 Kidney damage with mild decrease in GFR 60-89 3 Moderate decrease in GFR 30-59 4 Severe decrease in GFR 15-29 5 Kidney failure <15 (or dialysis) 2 Desirable: <150 Borderline High: 150-199 High: 200-499 Very High: >500 3 Desirable: <200 Borderline High: 200-239 High: >239 4 Low: <40 Desirable: 40-60 High: >60 5 Desirable: <100 Near Optimal: 100-129 Borderline High: 130-159 High: 160-189 Very High: >189 6 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 SEE RESULT BELOW Name: MARIELLA LU V : [address]: Tatianna Jama MD Acct: [id number] Unit: [id number] AGE: 87 Location: [facility] Re12/06/17 SEX: F Status: REG REF SPEC: [id number] KATIE: 12/06/17-[address] [facility] [address]: Tatianna Jama MD REQ: [id number] RECD: 12/06/17 STATUS: ZHOU LLANOS DR: Dennis Quintana MD _ SOURCE: [facility]: ORDERED: Flu A B Request COMMENTS: [id number] Procedure Result Reported Site Rapid Influenza A B Request Final 12/06/17- 2317 ML Specimen received for Influenza A/B Molecular testing * ML - MAIN LAB ([facility]) . END OF REPORT * ML=Testing performed at Main Lab DEPARTMENT OF PATHOLOGY, [address] [place] [address] Keenan Murguia M.D. Director [facility] # [id number] 8 Acute inflammation: >10.00 9 Because ethnic data is not always readily available, this report includes an eGFR for both -Americans and non- Americans. The National Kidney Disease Education Program (NKDEP) does not endorse the use of the MDRD equation for patients that are not between the ages of 18 and 70, are , have extremes of body size, muscle mass, or nutritional status, or are non- or non-. According to the National Kidney Foundation, irrespective of diagnosis, the stage of the disease is based on the level of kidney function: Stage Description GFR(mL/min/1.73 m(2)) 1 Kidney damage with normal or decreased GFR 90 2 Kidney damage with mild decrease in GFR 60-89 3 Moderate decrease in GFR 30-59 4 Severe decrease in GFR 15-29 5 Kidney failure <15 (or dialysis) 10 Acute inflammation: >10.00 11 RESULT: No apparent monoclonal protein on serum electrophoresis. Test Performed by: [place] [address] 12 Because ethnic data is not always readily available, this report includes an eGFR for both -Americans and non- Americans. The National Kidney Disease Education Program (NKDEP) does not endorse the use of the MDRD equation for patients that are not between the ages of 18 and 70, are , have extremes of body size, muscle mass, or nutritional status, or are non- or non-. According to the National Kidney Foundation, irrespective of diagnosis, the stage of the disease is based on the level of kidney function: Stage Description GFR(mL/min/1.73 m(2)) 1 Kidney damage with normal or decreased GFR 90 2 Kidney damage with mild decrease in GFR 60-89 3 Moderate decrease in GFR 30-59 4 Severe decrease in GFR 15-29 5 Kidney failure <15 (or dialysis) 13 FASTING 10 HOUR 14 Desirable <150 Borderline high 150-199 High 200-499 Very High >500 15 Desirable <200 Borderline high 200-239 High >239 16 Low <40 Desirable: 40-60 High: >60 17 Desirable: <100 mg/dL Near Optimal: 100-129 mg/dL Borderline High: 130-159 mg/dL High: 160-189 mg/dL Very High: >189 mg/dL 18 [facility] Severe Sepsis and Septic Shock Management Bundle Measure requires all lactic acids initially measuring >2.0 mmol/L be repeated. 19 Because ethnic data is not always readily available, this report includes an eGFR for both -Americans and non- Americans. The National Kidney Disease Education Program (NKDEP) does not endorse the use of the MDRD equation for patients that are not between the ages of 18 and 70, are , have extremes of body size, muscle mass, or nutritional status, or are non- or non-. According to the National Kidney Foundation, irrespective of diagnosis, the stage of the disease is based on the level of kidney function: Stage Description GFR(mL/min/1.73 m(2)) 1 Kidney damage with normal or decreased GFR 90 2 Kidney damage with mild decrease in GFR 60-89 3 Moderate decrease in GFR 30-59 4 Severe decrease in GFR 15-29 5 Kidney failure <15 (or dialysis) 20 Acute inflammation: >10.00 21 SEE RESULT BELOW Name: MARIELLA LU V : [address]: Rey Quijano MD Acct: [id number] Unit: [id number] AGE: 86 Location: ED Re03/22/17 SEX: F Status: DEP ER SPEC: [id number] KATIE: 03/22/17 NAKUL [place]WTON: Rey Quijano MD REQ: [id number] RECD: 03/22/17 STATUS: ZHOU LLANOS DR: [facility] Dennis Quintana MD _ SOURCE: URINE [facility]: ORDERED: Urine Culture Procedure Result Reported Site Urine Culture Final 03/23/17- 1259 ML No growth of clinically significant organisms * ML - MAIN LAB ([facility]) . END OF REPORT * ML=Testing performed at Main Lab DEPARTMENT OF PATHOLOGY, [address] [place] [address] Keenan Murguia M.D. Director [facility] # [id number] 22 Desirable <150 Borderline high 150-199 High 200-499 Very High >500 23 Desirable <200 Borderline high 200-239 High >239 24 Low <40 Desirable: 40-60 High: >60 25 Desirable: <100 mg/dL Near Optimal: 100-129 mg/dL Borderline High: 130-159 mg/dL High: 160-189 mg/dL Very High: >189 mg/dL 26 FASTING 10 HOUR 27 Because ethnic data is not always readily available, this report includes an eGFR for both -Americans and non- Americans. The National Kidney Disease Education Program (NKDEP) does not endorse the use of the MDRD equation for patients that are not between the ages of 18 and 70, are , have extremes of body size, muscle mass, or nutritional status, or are non- or non-. According to the National Kidney Foundation, irrespective of diagnosis, the stage of the disease is based on the level of kidney function: Stage Description GFR(mL/min/1.73 m(2)) 1 Kidney damage with normal or decreased GFR 90 2 Kidney damage with mild decrease in GFR 60-89 3 Moderate decrease in GFR 30-59 4 Severe decrease in GFR 15-29 5 Kidney failure <15 (or dialysis) 28 PT IS FASTING 29 PT IS FASTING 30 Desirable <150 Borderline high 150-199 High 200-499 Very High >500 31 Desirable <200 Borderline high 200-239 High >239 32 Low <40 Desirable: 40-60 High: >60 33 Desirable: <100 mg/dL Near Optimal: 100-129 mg/dL Borderline High: 130-159 mg/dL High: 160-189 mg/dL Very High: >189 mg/dL 34 Because ethnic data is not always readily available, this report includes an eGFR for both -Americans and non- Americans. The National Kidney Disease Education Program (NKDEP) does not endorse the use of the MDRD equation for patients that are not between the ages of 18 and 70, are , have extremes of body size, muscle mass, or nutritional status, or are non- or non-. According to the National Kidney Foundation, irrespective of diagnosis, the stage of the disease is based on the level of kidney function: Stage Description GFR(mL/min/1.73 m(2)) 1 Kidney damage with normal or decreased GFR 90 2 Kidney damage with mild decrease in GFR 60-89 3 Moderate decrease in GFR 30-59 4 Severe decrease in GFR 15-29 5 Kidney failure <15 (or dialysis) 35 Potassium reference range changed effective 09/07/14 36 Because ethnic data is not always readily available, this report includes an eGFR for both -Americans and non- Americans. The National Kidney Disease Education Program (NKDEP) does not endorse the use of the MDRD equation for patients that are not between the ages of 18 and 70, are , have extremes of body size, muscle mass, or nutritional status, or are non- or non-. According to the National Kidney Foundation, irrespective of diagnosis, the stage of the disease is based on the level of kidney function: Stage Description GFR(mL/min/1.73 m(2)) 1 Kidney damage with normal or decreased GFR 90 2 Kidney damage with mild decrease in GFR 60-89 3 Moderate decrease in GFR 30-59 4 Severe decrease in GFR 15-29 5 Kidney failure <15 (or dialysis) 37 Because ethnic data is not always readily available, this report includes an eGFR for both -Americans and non- Americans. The National Kidney Disease Education Program (NKDEP) does not endorse the use of the MDRD equation for patients that are not between the ages of 18 and 70, are , have extremes of body size, muscle mass, or nutritional status, or are non- or non-. According to the National Kidney Foundation, irrespective of diagnosis, the stage of the disease is based on the level of kidney function: Stage Description GFR(mL/min/1.73 m(2)) 1 Kidney damage with normal or decreased GFR 90 2 Kidney damage with mild decrease in GFR 60-89 3 Moderate decrease in GFR 30-59 4 Severe decrease in GFR 15-29 5 Kidney failure <15 (or dialysis) 38 Acute inflammation: >10.00 39 Because ethnic data is not always readily available, this report includes an eGFR for both -Americans and non- Americans. The National Kidney Disease Education Program (NKDEP) does not endorse the use of the MDRD equation for patients that are not between the ages of 18 and 70, are , have extremes of body size, muscle mass, or nutritional status, or are non- or non-. According to the National Kidney Foundation, irrespective of diagnosis, the stage of the disease is based on the level of kidney function: Stage Description GFR(mL/min/1.73 m(2)) 1 Kidney damage with normal or decreased GFR 90 2 Kidney damage with mild decrease in GFR 60-89 3 Moderate decrease in GFR 30-59 4 Severe decrease in GFR 15-29 5 Kidney failure <15 (or dialysis) 40 PT IS FASTING 41 Desirable <150 Borderline high 150-199 High 200-499 Very High >500 42 Desirable <200 Borderline high 200-239 High >239 43 Low <40 Desirable: 40-60 High: >60 44 Desirable <100 Near Optimal 100-129 Borderline high 130-159 High 160-189 Very High >189 45 RUN DATE: 08/09/13 [facility] LAB LIVE PAGE 1 RUN TIME: [address] [place] [address] Specimen Inquiry Name: MARIELLA LU V : [address]: Aziza Marti Acct: [id number] Unit: [id number] AGE: 83 Location: [facility] Re07/25/13 SEX: F Status: REG [facility] SPEC: [id number] KATIE: 07/26/13- [facility] DR: Aziza Marti MD REQ: [id number] RECD: 07/26/13-1037 STATUS: SOUT _ ORDERED: Decal, LEVEL III FINAL DIAGNOSIS Trapezium, right thumb, excision: Benign cartilage and bone with degenerative changes. PRE-OPERATIVE DIAGNOSIS Right thumb carpometacarpal joint arthritis GROSS DESCRIPTION The specimen is received in formalin labeled Mariella Bell Lu, Trapezium Right Thumb and consists of multiple fragments of bone that in aggregate measure 3.5 x 1.5 x 0.6 cm. [employer] section, one cassette after decalcification. MICROSCOPIC DESCRIPTION Signed (signature on file) Bel Mauricio MD 02/16 1805 END OF REPORT * ML=Testing performed at Main Lab DEPARTMENT OF PATHOLOGY, [address] [place] [address] Keenan Murguia M.D. Director [facility] Permit #[id number] HDL Interpretation: Undesirable: High Risk: Less than 40 MG/DL Desirable: Low Risk: Greater than 60 MG/DL 47 LDL Interpretation: Low Risk Optimal Level: LDL Less than 100 MG/DL Near or Above Optimal: LDL 100-129 MG/DL Borderline High Risk: LDL 130-159 MG/DL High Risk: LDL 160-189 MG/DL Very High Risk: LDL Greater than 189 MG/DL 48 Because ethnic data is not always readily available, this report includes an eGFR for both -Americans and non- Americans. The National Kidney Disease Education Program (NKDEP) does not endorse the use of the MDRD equation for patients that are not between the ages of 18 and 70, are , have extremes of body size, muscle mass, or nutritional status, or are non- or non-. According to the National Kidney Foundation, irrespective of diagnosis, the stage of the disease is based on the level of kidney function: Stage Description GFR(mL/min/1.73 m(2)) 1 Kidney damage with normal or decreased GFR 90 2 Kidney damage with mild decrease in GFR 60-89 3 Moderate decrease in GFR 30-59 4 Severe decrease in GFR 15-29 5 Kidney failure <15 (or dialysis) 49 Because ethnic data is not always readily available, this report includes an eGFR for both -Americans and non- Americans. The National Kidney Disease Education Program (NKDEP) does not endorse the use of the MDRD equation for patients that are not between the ages of 18 and 70, are , have extremes of body size, muscle mass, or nutritional status, or are non- or non-. According to the National Kidney Foundation, irrespective of diagnosis, the stage of the disease is based on the level of kidney function: Stage Description GFR(mL/min/1.73 m(2)) 1 Kidney damage with normal or decreased GFR 90 2 Kidney damage with mild decrease in GFR 60-89 3 Moderate decrease in GFR 30-59 4 Severe decrease in GFR 15-29 5 Kidney failure <15 (or dialysis) 50 CKMB interpretation should be made in conjunction with clinical symptoms, patient history and EKG changes. 51 Reference Range and Interpretation: TnI (ng/ml) Interpretation Less Than 0.06 ng/mL Not supportive of diagnosis of OR 0.06 - 0.50 ng/ml Indeterminate: suggest serial studies if clinically indicated. Greater than 0.5 ng/mL Consistent with diagnosis of OR 52 In this sample, the concentration of methylmalonic acid (MMA) was minimally elevated. As the upper limit of the reference range varies in different laboratories from 0.4 to 0.6 nmol/mL. This finding could be considered normal, especially if the patient does not show other signs of vitamin B12 deficiency. Test Performed by: [address] [address] [employer]: Seth Caldera III, M.D. 53 NORMAL ELECTROPHORETIC PATTERN. 54 Serologic response to B. burgdorferi infection is not detected, but cannot rule out early infection during which low or undetectable antibody levels to B. burgdorferi may be present. If clinically indicated, a new serum specimen should be submitted in 7-14 days. Test Performed by: [address] [address] [employer]: Seth Caldera III, M.D. 55 Test Performed by: [facility] [address] [place] [address] [employer]: Seth Caldera III, M.D. 56 Test Performed by: [address] [address] [employer]: Seth Caldera III, M.D. 57 PLEASE NOTE NEW REFERENCE RANGE. 58 Anion gap measurement may be of limited value in the presence of any alkalosis, especially in a combined acid base disorder. . 59 A metabolite of Naproxen, O-desmethylnaproxen, has been shown to interfere with the Jendrassik-Fleming-Neon method for measuring total bilirubin. Samples from patients who have taken Naproxen have shown spurious elevation in total bilirubin levels. 60 Because ethnic data is not always readily available, this report includes an eGFR for both -Americans and non- Americans. The National Kidney Disease Education Program (NKDEP) does not endorse the use of the MDRD equation for patients that are not between the ages of 18 and 70, are , have extremes of body size, muscle mass, or nutritional status, or are non- or non-. According to the National Kidney Foundation, irrespective of diagnosis, the stage of the disease is based on the level of kidney function: Stage Description GFR(mL/min/1.73 m(2)) 1 Kidney damage with normal or decreased GFR 90 2 Kidney damage with mild decrease in GFR 60-89 3 Moderate decrease in GFR 30-59 4 Severe decrease in GFR 15-29 5 Kidney failure <15 (or dialysis) 61 [id number] RUN DATE: 04/24/12 [facility] NMI LIVE PAGE 1 RUN TIME: 1131 Specimen Inquiry RUN USER: INTERFACE Name: MARIELLA LU V Status: REG REF Re04/19/12 Age/Sex: 81/F Unit#: [id number] Location: : 31 SPEC #: [id number] KATIE: 04/19/12-1116 STATUS: COMP REQ #: [id number] RECD: 04/19/12-[address] [facility] [address]: Mariano WALL,Dennis Lu SOURCE: BLOOD ENTR: 04/19/12-[address]: BHAVIN: BLOOD,VENO ORDERED: BLOOD CULTURE ACT WKST: 04/20/12 #1 Procedure Result Verified Site > AEROBIC CULTURE BOTTLE Final 04/24/12- 113 ML NO GROWTH AFTER 5 DAYS > ANAEROBIC CULTURE BOTTLE Final 04/24/12- 1131 ML NO GROWTH AFTER 5 DAYS ML - [facility] Permit #[id number] [address] [place] [address] DEPARTMENT OF PATHOLOGY, [address] [place] [address] [facility] Permit #[id number] Keenan Murguia M.D. Director Jayro Ledesma M.D. Senior Product Manager 63 Anion gap measurement may be of limited value in the presence of any alkalosis, especially in a combined acid base disorder. . 64 A metabolite of Naproxen, O-desmethylnaproxen, has been shown to interfere with the Jensushila-Fleming-Neon method for measuring total bilirubin. Samples from patients who have taken Naproxen have shown spurious elevation in total bilirubin levels. 65 Because ethnic data is not always readily available, this report includes an eGFR for both -Americans and non- Americans. The National Kidney Disease Education Program (NKDEP) does not endorse the use of the MDRD equation for patients that are not between the ages of 18 and 70, are , have extremes of body size, muscle mass, or nutritional status, or are non- or non-. According to the National Kidney Foundation, irrespective of diagnosis, the stage of the disease is based on the level of kidney function: Stage Description GFR(mL/min/1.73 m(2)) 1 Kidney damage with normal or decreased GFR 90 2 Kidney damage with mild decrease in GFR 60-89 3 Moderate decrease in GFR 30-59 4 Severe decrease in GFR 15-29 5 Kidney failure <15 (or dialysis) 66 Recommended INR for Patients on Oral Anticoagulants Prophylaxis 2.0 - 3.0 Treatment of thrombosis 2.0 - 3.0 Prevention of embolism 2.0 - 3.0 Prevention of embolism from prosthetic heart valves 2.5 - 3.5 67 DIAGNOSIS,TREATMENT,AND THERAPY MUST BE BASED ON THE INR VALUE ALONE. 68 Anion gap measurement may be of limited value in the presence of any alkalosis, especially in a combined acid base disorder. . 69 A metabolite of Naproxen, O-desmethylnaproxen, has been shown to interfere with the Jendrassik-Shannen method for measuring total bilirubin. Samples from patients who have taken Naproxen have shown spurious elevation in total bilirubin levels. 70 Because ethnic data is not always readily available, this report includes an eGFR for both -Americans and non- Americans. The National Kidney Disease Education Program (NKDEP) does not endorse the use of the MDRD equation for patients that are not between the ages of 18 and 70, are , have extremes of body size, muscle mass, or nutritional status, or are non- or non-. According to the National Kidney Foundation, irrespective of diagnosis, the stage of the disease is based on the level of kidney function: Stage Description GFR(mL/min/1.73 m(2)) 1 Kidney damage with normal or decreased GFR 90 2 Kidney damage with mild decrease in GFR 60-89 3 Moderate decrease in GFR 30-59 4 Severe decrease in GFR 15-29 5 Kidney failure <15 (or dialysis) 71 CHOLESTEROL INTERPRETATION: Desirable: Less than 200 MG/DL Borderline-High Risk: 200-239 MG/DL High-Risk: 240 MG/DL and over 72 HDL INTERPRETATION: Undesirable: High Risk: Less than 40 MG/DL Desirable: Low Risk: Greater than 60 MG/DL 73 LDL INTERPRETATION: Low Risk Optimal Level: LDL Less than 100 MG/DL Near or Above Optimal: LDL 100-129 MG/DL Borderline High Risk: LDL 130-159 MG/DL High Risk: LDL 160-189 MG/DL Very High Risk: LDL Greater than 189 MG/DL 74 Anion gap measurement may be of limited value in the presence of any alkalosis, especially in a combined acid base disorder. . 75 A metabolite of Naproxen, O-desmethylnaproxen, has been shown to interfere with the Jendrassik-Shannen method for measuring total bilirubin. Samples from patients who have taken Naproxen have shown spurious elevation in total bilirubin levels. 76 Because ethnic data is not always readily available, this report includes an eGFR for both -Americans and non- Americans. The National Kidney Disease Education Program (NKDEP) does not endorse the use of the MDRD equation for patients that are not between the ages of 18 and 70, are , have extremes of body size, muscle mass, or nutritional status, or are non- or non-. According to the National Kidney Foundation, irrespective of diagnosis, the stage of the disease is based on the level of kidney function: Stage Description GFR(mL/min/1.73 m(2)) 1 Kidney damage with normal or decreased GFR 90 2 Kidney damage with mild decrease in GFR 60-89 3 Moderate decrease in GFR 30-59 4 Severe decrease in GFR 15-29 5 Kidney failure <15 (or dialysis) 77 MIXED MECHE, POSSIBLE CONTAMINATION SUGGEST SUBMISSION OF CAREFULLY COLLECTED SPECIMEN 78 FASTING 79 CHOLESTEROL INTERPRETATION: Desirable: Less than 200 MG/DL Borderline-High Risk: 200-239 MG/DL High-Risk: 240 MG/DL and over 80 HDL INTERPRETATION: Undesirable: High Risk: Less than 40 MG/DL Desirable: Low Risk: Greater than 60 MG/DL 81 LDL INTERPRETATION: Low Risk Optimal Level: LDL Less than 100 MG/DL Near or Above Optimal: LDL 100-129 MG/DL Borderline High Risk: LDL 130-159 MG/DL High Risk: LDL 160-189 MG/DL Very High Risk: LDL Greater than 189 MG/DL 82 Anion gap measurement may be of limited value in the presence of any alkalosis, especially in a combined acid base disorder. . 83 Because ethnic data is not always readily available, this report includes an eGFR for both -Americans and non- Americans. The National Kidney Disease Education Program (NKDEP) does not endorse the use of the MDRD equation for patients that are not between the ages of 18 and 70, are , have extremes of body size, muscle mass, or nutritional status, or are non- or non-. According to the National Kidney Foundation, irrespective of diagnosis, the stage of the disease is based on the level of kidney function: Stage Description GFR(mL/min/1.73 m(2)) 1 Kidney damage with normal or decreased GFR 90 2 Kidney damage with mild decrease in GFR 60-89 3 Moderate decrease in GFR 30-59 4 Severe decrease in GFR 15-29 5 Kidney failure <15 (or dialysis) 84 Anion gap measurement may be of limited value in the presence of any alkalosis, especially in a combined acid base disorder. . 85 Because ethnic data is not always readily available, this report includes an eGFR for both -Americans and non- Americans. The National Kidney Disease Education Program (NKDEP) does not endorse the use of the MDRD equation for patients that are not between the ages of 18 and 70, are , have extremes of body size, muscle mass, or nutritional status, or are non- or non-. According to the National Kidney Foundation, irrespective of diagnosis, the stage of the disease is based on the level of kidney function: Stage Description GFR(mL/min/1.73 m(2)) 1 Kidney damage with normal or decreased GFR 90 2 Kidney damage with mild decrease in GFR 60-89 3 Moderate decrease in GFR 30-59 4 Severe decrease in GFR 15-29 5 Kidney failure <15 (or dialysis) 86 A metabolite of Naproxen, O-desmethylnaproxen, has been shown to interfere with the Jendrassik-Shannen method for measuring total bilirubin. Samples from patients who have taken Naproxen have shown spurious elevation in total bilirubin levels. 87 Please note updated reference range, effective 05/27/10 88 A metabolite of Naproxen, O-desmethylnaproxen, has been shown to interfere with the Jendrassik-Shannen method for measuring total bilirubin. Samples from patients who have taken Naproxen have shown spurious elevation in total bilirubin levels. 89 CHOLESTEROL INTERPRETATION: Desirable: Less than 200 MG/DL Borderline-High Risk: 200-239 MG/DL High-Risk: 240 MG/DL and over 90 HDL INTERPRETATION: Undesirable: High Risk: Less than 40 MG/DL Desirable: Low Risk: Greater than 60 MG/DL 91 LDL INTERPRETATION: Low Risk Optimal Level: LDL Less than 100 MG/DL Near or Above Optimal: LDL 100-129 MG/DL Borderline High Risk: LDL 130-159 MG/DL High Risk: LDL 160-189 MG/DL Very High Risk: LDL Greater than 189 MG/DL 92 Anion gap measurement may be of limited value in the presence of any alkalosis, especially in a combined acid base disorder. . 93 Note change in reference range as of 06/26/08. The change was based on recommendations from the [place] [employer]. 94 Please note change in reference range effective 08 . 95 Because ethnic data is not always readily available, this report includes an eGFR for both -Americans and non- Americans. The National Kidney Disease Education Program (NKDEP) does not endorse the use of the MDRD equation for patients that are not between the ages of 18 and 70, are , have extremes of body size, muscle mass, or nutritional status, or are non- or non-. According to the National Kidney Foundation, irrespective of diagnosis, the stage of the disease is based on the level of kidney function: Stage Description GFR(mL/min/1.73 m(2)) 1 Kidney damage with normal or decreased GFR 90 2 Kidney damage with mild decrease in GFR 60-89 3 Moderate decrease in GFR 30-59 4 Severe decrease in GFR 15-29 5 Kidney failure <15 (or dialysis) 96 PLEASE NOTE NEW REFERENCE RANGES. 97 A metabolite of Naproxen, O-desmethylnaproxen, has been shown to interfere with the Jendrassik-Shannen method for measuring total bilirubin. Samples from patients who have taken Naproxen have shown spurious elevation in total bilirubin levels. 98 SURGERY [id number] 99 Anion gap measurement may be of limited value in the presence of any alkalosis, especially in a combined acid base disorder. . 100 Note change in reference range as of 06/26/08. The change was based on recommendations from the [place] [employer]. 101 Please note change in reference range effective 08 . 102 Because ethnic data is not always readily available, this report includes an eGFR for both -Americans and non- Americans. The National Kidney Disease Education Program (NKDEP) does not endorse the use of the MDRD equation for patients that are not between the ages of 18 and 70, are , have extremes of body size, muscle mass, or nutritional status, or are non- or non-. According to the National Kidney Foundation, irrespective of diagnosis, the stage of the disease is based on the level of kidney function: Stage Description GFR(mL/min/1.73 m(2)) 1 Kidney damage with normal or decreased GFR 90 2 Kidney damage with mild decrease in GFR 60-89 3 Moderate decrease in GFR 30-59 4 Severe decrease in GFR 15-29 5 Kidney failure <15 (or dialysis) 103 PLEASE NOTE NEW REFERENCE RANGES. 104 CHOLESTEROL INTERPRETATION: Desirable: Less than 200 MG/DL Borderline-High Risk: 200-239 MG/DL High-Risk: 240 MG/DL and over 105 HDL INTERPRETATION: Undesirable: High Risk: Less than 40 MG/DL Desirable: Low Risk: Greater than 60 MG/DL 106 LDL INTERPRETATION: Low Risk Optimal Level: LDL Less than 100 MG/DL Near or Above Optimal: LDL 100-129 MG/DL Borderline High Risk: LDL 130-159 MG/DL High Risk: LDL 160-189 MG/DL Very High Risk: LDL Greater than 189 MG/DL 107 Anion gap measurement may be of limited value in the presence of any alkalosis, especially in a combined acid base disorder. . 108 Note change in reference range as of 06/26/08. The change was based on recommendations from the [place] [employer]. 109 Please note change in reference range effective 08 . 110 ----- RUN DATE: 05/02/08 [facility] NMI LIVE PAGE 1 RUN TIME: 1503 Specimen Inquiry RUN USER: INTERFACE -- Name: MARIELLA LU V Status: REG REF Re05/01/08 Age/Sex: 77/F Unit#: [id number] Location: [facility] : 31 -- Specimen: [id number] Spec Date: 05/01/[address]: Milad prince MD Spec Type: SURGICAL P Received: 05/01/08-6469 Copies to: Dennis ramos MD SPECIMEN BIOPSY COLON POLYP AT 55 CM. HISTORY CLINICAL INFORMATION: Patient for screening colonoscopy with positive fam buzz history of colon carcinoma (brother) GROSS DESCRIPTION The specimen is received in formalin labelled Mariella Lu, Biopsy Colon Polyp at 55 cm., and consists of multiple, rogers, soft tissue fragments measuring 0.5 x 0.2 x 0.1 cm. in aggregate. Submitted entirely, one cassette. DIAGNOSIS Colon, 55 cm., biopsy - A) Tubular adenoma. B) No high grade dysplasia or malignancy. Signed Electronically by: KEENAN MURGUIA MD 05/02/08 1503 -- -- DEPARTMENT OF PATHOLOGY, [address] [place] [address] [facility] Permit #[id number] Keenan Murguia M.D. Director of Laboratories -- 111 FASTING 112 -- REFERENCE VALUE -- 25-HYDROXY D TOTAL (D2+D3) Optimum levels in the normal population are 25-80 Test Performed by: [facility] Dpt of Lab Med and Pathology [address] [place] [id number] [employer]: Seth Caldera III, M.D. 113 Anion gap measurement may be of limited value in the presence of any alkalosis, especially in a combined acid base disorder. . 114 CHOLESTEROL INTERPRETATION: Desirable: Less than 200 MG/DL Borderline-High Risk: 200-239 MG/DL High-Risk: 240 MG/DL and over 115 HDL INTERPRETATION: Undesirable: High Risk: Less than 40 MG/DL Desirable: Low Risk: Greater than 60 MG/DL 116 LDL INTERPRETATION: Low Risk Optimal Level: LDL Less than 100 MG/DL Near or Above Optimal: LDL 100-129 MG/DL Borderline High Risk: LDL 130-159 MG/DL High Risk: LDL 160-189 MG/DL Very High Risk: LDL Greater than 189 MG/DL 117 Anion gap measurement may be of limited value in the presence of any alkalosis, especially in a combined acid base disorder. . 118 Classification: Desirable . 119 CALCULATED LDL APPROXIMATES THE VALUE OF A DIRECT LDL MEASUREMENT. Classification: Optimal Level . 120 INTERPRETIVE GUIDELINES FOR VITAMIN D (25-HYDROXY): >100 NG/ML (>250 NMOL/L) . . . POTENTIAL TOXICITY 32-100 NG/ML (80-250 NMOL/L) . SUFFICIENCY 20-32 NG/ML (50-80 NMOL/L) . . MILD INSUFFICIENCY 10-20 NG/ML (25-50 NMOL/L) . . MODERATE INSUFFICIENCY 7-10 NG/ML (17.5-25 NMOL/L) . MARKED INSUFFICIENCY <7 NG/ML (<17.5 NMOL/L) . . . DEFICIENCY NOTE: RANGES OBSERVED IN SELECTED POPULATIONS VARY CONSIDERABLY AND A SIGNIFICANT PORTION OF ASYMPTOMATIC PERSONS, PARTICULARLY ELDERLY AND THOSE WITH LIMITED SUN EXPOSURE WILL HAVE VITAMIN D INSUFFICIENCY ASSOCIATED WITH ELEVATED INTACT PARATHYROID HORMONE (INTACT PTH) LEVELS AND ELEVATED RISK OF OSTEOPOROSIS. SERUM LEVELS ABOVE 32 NG/ML (80 NMOL/L) HAVE BEEN RECOMMENDED FOR OPTIMIZING BONE HEALTH WHEREAS LEVELS BELOW 10 NG/ML (25 NMOL/L) ARE ASSOCIATED WITH A SIGNIFICANT RISK OF OSTEOMALACIA. TEST PERFORMED BY: [employer] [id number] [place] [id number] NOTE: NEW REFERENCE RANGE OF 03/27/07 Procedures Date CPT Code Description Status Comment 05/26/2017 17855 EKG Tracing & Interpretation Completed 05/06/2016 36298 Inject/Drain Joint/Bursa Major W/O US Completed 01/07/2016 41091 EKG Tracing & Interpretation Completed 11/23/2015 59221 Event Monitor/Phys Review/Interp. Completed 11/23/2015 08777 Cardiac Event Monitor/Recording Completed 11/19/2015 63697 Holter Monitoring 24 HR New Completed 11/17/2015 96193 Holter Monitoring 24 HR New Completed 11/01/2015 22550 Polysomnography Sleep Staging 4+ Completed Parameters 10/20/2015 74772 ECHO Transthorasic Realtime 2D W Doppler Completed & Color Flow Hosp 10/13/2015 40788 EKG Tracing & Interpretation Completed 09/02/2015 80461 Pulmonary Function><Bronchodil Completed 09/02/2015 22480 Plethysmography Determination Lung Completed Volumes & Per Airway Resist 09/02/2015 35453 Diffusing Capacity Completed 10/14/2014 90195 Stress Test Completed 10/14/2014 31269 Myocardial Perfusion Imaging Tomographic Completed (Spect) Multiple Studies 10/14/2014 18078 Myocardial Perfusion Imaging Tomographic Completed (Spect) Multiple Studies 10/10/2014 92834 Carotid Doppler,Bilateral Completed 09/26/2014 43320 EKG Tracing & Interpretation Completed 12/18/2013 23697 Rad Exam; Hand Comp Completed 12/18/2013 95382 Rad Exam; Hand Comp Completed 08/07/2013 76977 Rad Exam; Fingers Completed 08/07/2013 58967 Rad Exam; Fingers Completed 07/25/2013 61738 Transplant Tendon Forearm/Wrist Completed 07/25/2013 83762 Transplant Tendon Forearm/Wrist Completed 07/25/2013 43265 Arthroplasty Interposition Intercarpal Or Completed Carpometacarpal JTS 07/25/2013 56944 Arthroplasty Interposition Intercarpal Or Completed Carpometacarpal JTS 07/15/2013 61966 Holter Monitor Review (24 hr)dr review & Completed interp only 07/05/2013 81774 Stress Test Completed 07/05/2013 47783 Myocardial Perfusion Imaging Tomographic Completed (Spect) Multiple Studies 07/03/2013 41914 EKG Tracing & Interpretation Completed 06/26/2013 13498 EKG Tracing & Interpretation Completed 05/24/2013 34649 Rad Exam; Hand Comp Completed 04/08/2013 Diabetic Foot Exam Completed 10/25/2012 90304 EKG, Interpretation Only Completed 05/24/2012 48768 Excision Tumor/Vascular Malform Completed Hand/Finger Subfascial 1.5 CM Or> 05/24/2012 31623 Excision Tumor/Vascular Malform Completed Hand/Finger Subfascial 1.5 CM Or> 05/24/2012 32984 Excision Tumor/Vasular Malform Completed Hand/Finger Subfascial < 1.5 CM 04/27/2012 Mammogram Completed 04/14/2011 Mammogram Completed 04/06/2010 Bone Mineral Density Test Completed 07/01/2009 48051 EKG, Interpretation Only Completed 04/09/2009 Mammogram Completed 05/01/2008 Colonoscopy Completed repeat 5 yrs 07/14/2003 96414 EKG Tracing & Interpretation Completed 06/16/2003 42074 EKG Tracing & Interpretation Completed 05/26/2003 15189 EKG Tracing & Interpretation Completed Encounters Type Date Location Provider CPT E/M Dx Office Visit 03/28/2018 [facility] Tatianna Jama, 06815 M25.572 12:10p - Raina John Office Visit 03/01/2018 [facility] Dennis Quintana, 04635 B37.89 4:00p - Norma Villeda M.D.,FAC Office Visit 12/11/2017 [facility] Jael Kerr N.PVik 52709 J06.9 11:00a - Rosalia Office Visit 12/06/2017 [facility] Tatianna Jama, 62448 J06.9 1:40p - Raina John Office Visit 11/17/2017 [facility] ERICK Arzate 09092 S39.012A 11:30a - Tburg Ronal Office Visit 08/09/2017 [facility] [place] [address] M54.5 1:00p - Rosalia Office Visit 05/26/2017 [facility] Petit M.D. 94082 I25.119 8:20a [facility] [place] E78.5 I65.23 Office Visit 05/08/2017 10:50a [facility] Dennis Quintana, 06168 Z00.01 Medicine - Tbsami Villeda M.D.,FACP I25.119 E03.9 I10 L23.5 I65.21 Office Visit 03/23/2017 9:00a [facility] Dennis Quintana, 54248 K57.20 Medicine - Tbsami Villeda M.D.,FACP I25.10 M16.9 Office Visit 12/20/2016 9:40a [facility] [place] [address] M54.5 - [place] Office Visit 11/08/2016 10:40a [facility] John Schaffer, 89901 J06.9 - Raina John Office Visit 07/08/2016 2:00p [facility] Fransico Gimenez, CARRIE 54148 Z01.818 - Rosalia H26.9 I10 I25.10 E03.9 Office Visit 06/03/2016 11:15a [facility] Ginna Petit M.D. 00318 I49.3 [facility] I10 I25.10 Office Visit 05/20/2016 10:00a [facility] Ellen Mendieta M.D. 82766 M17.12 C.M.A. M25.572 M25.462 Office Visit 05/06/2016 10:30a [facility] Mendieta M.D. 63342 M17.12 C.M.A. M25.572 M25.462 Office Visit 04/27/2016 10:30a [facility] Dennis Quintana, 56734 Z00.01 [facility] M17.12 I25.119 R73.01 I10 E03.9 Office Visit 04/20/2016 9:45a [facility] Mendieta M.D. 53552 M25.562 C.M.A. M17.12 M25.462 S80.02xA S83.422A Office Visit 04/18/2016 11:40a [facility] Luis Eduardo Stoner, 85402 M25.562 - Rosalia John S80.02xD Office Visit 04/05/2016 11:50a [facility] Dennis Quintana, 30333 M25.562 - Rosalia John,FACP Office Visit 01/07/2016 2:30p [facility] DENY Lucas 60789 R06.02 [facility] R00.2 I25.119 Office Visit 12/18/2015 11:45a [facility] Ginna Petit M.D. 00440 R07.9 [facility] R06.02 I25.119 I49.3 Office Visit 12/14/2015 1:45p [facility] [place] [address] J98.4 Services Of [facility] Office Visit 12/14/2015 9:10a [facility] - Dennis Quintana, 70053 R06.02 [place] Ronal John,FACP I73.9 I10 E03.9 Office Visit 11/23/2015 1:15p [facility] [place] [address] J98.4 Services [facility] Office Visit 11/12/2015 10:30a [facility] DENY Lucas 87017 G47.33 [facility] R06.02 R00.1 R07.9 I25.119 Office Visit 10/16/2015 2:00p [facility] [place] [address] J98.4 [facility] R06.02 G47.33 Office Visit 10/13/2015 11:15a [facility] Ginna Petit M.D. 75243 R07.9 [facility] R06.02 I25.119 I73.9 E78.5 R94.31 Office Visit 09/10/2015 10:00a [facility] Luis Miguel Cruz M.D. 24305 J44.9 Medicine - [address] R05 J20.9 R06.02 Office Visit 08/28/2015 10:40a [facility] Dennis Quintana, 25497 J40 - [place] Ronal John,FACP Office Visit 05/13/2015 9:30a [facility] Sebastián [place] [address] [address] Office Visit 04/22/2015 11:30a [facility] Dennis Quintana, 94925 V70.0 - [place] Ronal John,FACP 414.01 535.00 433.10 v03.82 Office Visit 11/03/2014 11:50a [facility] Dennis Quintana, 38729 466.0 - Rosalia John,FACP Office Visit 10/15/2014 8:30a [facility] Ana Petit M.D. 62277 414.01 [facility] 780.4 433.10 Office Visit 10/07/2014 9:30a [facility] [place] [address] 782.3 [place] Office Visit 09/26/2014 9:00a [facility] Ginna Petit M.D. 98170 414.01 [facility] 780.4 782.3 401.9 272.2 724.5 Office Visit 09/12/2014 10:00a [facility] - Dayan Rust, MANDARIN TEACHER 48105 780.4 [place] 782.3 Office Visit 09/05/2014 2:30p [facility] - Dayan Rust, MANDARIN TEACHER 21149 401.9 [place] 780.4 782.3 Office Visit 07/02/2014 11:10a [facility] Dennis Quintana, 48252 446.5 - Rosalia John,FACP Office Visit 04/10/2014 9:30a [facility] Dennis Quintana, 20576 V70.0 - Rosalia John,[facility] 414.01 433.10 724.3 Office Visit 01/02/2014 11:10a [facility] Dennis Quintana, 06485 719.45 - Rosalia John,FACP Office Visit 12/18/2013 11:15a [facility] [place] 19491 715.14 Of Erick Marti M.D. Office Visit 07/09/2013 11:10a [facility] Dennis Quintana, 89423 V72.81 - Rosalia John,[facility] 715.14 414.01 Office Visit 07/03/2013 7:45a [facility] Ginna Petit M.D. 18381 414.01 [facility] 443.9 786.59 401.9 Office Visit 06/26/2013 2:00p [facility] Luis Eduardo Stoner, 24244 786.51 - Rosalia John 785.1 780.57 Office Visit 06/26/2013 10:45a [facility] [place] Marti 34930 715.14 Of Erick John Office Visit 05/24/2013 10:30a [facility] [place] Marti 78179 715.14 Of Erick John Office Visit 04/05/2013 10:40a [facility] Dennis Quintana, 04845 715.14 Medicine - Dora,FACP [place] 681.11 Office Visit 01/09/2013 10:10a [facility] Dennis Quintana, 30700 780.52 - Rosalia John,FACP 722.93 414.01 Office Visit 12/06/2012 11:50a [facility] Dennis Quintana, 67278 722.93 - Rosalia John,FACP 780.52 Office Visit 11/09/2012 9:00a [facility] Dennis Quintana, 80386 786.51 - Rosalia John,FACP 414.01 Office Visit 10/25/2012 10:49a [facility], Latia Brito, 59924 786.51 Hospitalists N.P. 272.2 Office Visit 10/24/2012 10:49a [facility], Latia Brito, 52894 786.51 Hospitalists N.P. 272.2 Office Visit 08/13/2012 11:50a [facility] - Tatianna Jama, 74350 461.9 Rosalia John Office Visit 06/14/2012 10:30a [facility] Dennis Quintana, 40635 284.19 Rosalia John,FACP Office Visit 05/21/2012 9:20a [facility] Jermaine Pineda, 14832 724.3 Of Cristopher John Office Visit 05/15/2012 8:15a [facility] [place] 61027 238.0 Erick Marti M.D. Office Visit 05/14/2012 10:30a [facility] Dennis Quintana, 36339 238.0 Rosalia John,FACP 284.19 783.21 Office Visit 05/02/2012 12:10p [facility] Dennis Quintana, 95655 447.6 - Rosalia John,FACP 789.9 Office Visit 04/24/2012 10:30a [facility] Dennis Quintana, 60977 V70.0 - Rosalia John,FACP 724.02 780.60 414.01 V76.19 Office Visit 04/13/2012 10:20a [facility] DennisCornel Quintana, 81786 780.60 - Rosalia John,FACP 724.3 Office Visit 04/13/2012 9:15a [facility] Karl Eagle, 77473 724.02 Of [facility] Dora 724.3 722.10 Office Visit 02/21/2012 3:30p [facility] Katherine Townsend, N.P. 94375 461.0 - [place] Office Visit 02/15/2012 10:10a [facility] DennisCornel Qunitana, 79823 462 - Rosalia John,FACP Office Visit 12/30/2011 1:40p [facility] DennisCornel Quintana, 08374 724.3 - Rosalia John,FACP 414.01 Office Visit 09/23/2011 10:40a DO Not Use [employer] End Load[employer] [facility] 91714 414.01 Kisha John,FACP 244.9 Office Visit 09/06/2011 8:40a DO Not Use Front End Load[employer] [facility] Tabitha [place], 41183 723.1 Kisha John,FACP 724.3 Office Visit 04/02/2010 10:00a DO Not Use [employer] End Load[employer] Operator [facility] Tabitha [place], 78369 729.1 Kisha John,FACP 244.9 272.0 733.09 726.32 Office Visit 06/11/2009 9:40a DO Not Use Front End Loader Operator [facility] Tabitha [place], 98987 611.72 Kisha John,FACP Office Visit 03/27/2009 10:20a DO Not Use Front End Loader Operator AT [facility], 79155 414.01 Kisha John,FACP 433.10 V76.10 611.72 272.0 557.0 Office Visit 08/12/2008 3:00p DO Not Use Front End Load[employer] [facility] 68923 401.1 Kisha John,FACP 414.01 272.0 244.9 Office Visit 07/09/2008 2:00p DO Not Use Front End Load[employer] Operator AT [facility], 24928 461.0 [facility] Dora,[facility] Office Visit 03/26/2008 1:20p DO Not Use Front End Loader Operator AT [facility], 67978 414.01 [place] John,[facility] 733.99 401.9 V76.51 Office Visit 07/14/2003 2:40p [facility] Kamaljit Blake M.D. 93745 401.1 785.1 414.01 Office Visit 06/19/2003 8:40a [facility] Kamaljit Blake M.D. 89087 401.9 785.1 Office Visit 06/16/2003 8:40a [facility] Kamaljit Blake 43497 441.01 Dora 401.1 272.0 Office Visit 05/26/2003 11:00a [facility] Kamaljit Blake 29513 414.01 MV[facility]DV[facility] Plan of Care Future Appointment(s):07/23/2018 9:00 am - Sindy Johnston M.D. at [facility]..07/12/2018 12:15 pm - John Nam MD at [facility]07/03/2018 9:45 am - Ginna Petit M.D. at [facility]06/18/2018 - Jael Kerr, N.P.M54.2 CervicalgiaNew Medication:Tramadol HCL 50 mgComments:To further evaluate your neck pain I am ordering an Xray. I will contact you with your results. If this does not show any serious changes I will then refer you for physical therapy.I would advise you apply ice or heat for 20 minutes, 2 - 3 times daily. I have prescribed a pain medication for you, Tramadol 50 mg. You can take 1 tablet every 6 - 8 hours.
--- NOTE | 2018-06-23 08:29 | ED ---
Hypertension - HPI Summary HPI Summary: Patient here with return of previous posterior head tingling and mild pain that started this morning. This triggered her to become anxious as she admits today is the first day she stopped taking her narcotic pain meds that she's been taking over the past week and she was worried she was withdrawing. She denies visual change, jaw pain, chest pain, shortness of breath, pain radiating into her arms or legs, abdominal pain, dizziness or weakness, vomiting. She admits her anxiety is reducing since she's been here however is not completely gone. Her only sx this morning were posterior scalp tingling. She was seen over the past 2 weeks by PCP for cervical pain radiating into B/L trapezius mm, posterior scalp and into her right arm as tingling along the posterior aspect. Per patient, she had cervical imaging and was diagnosed with degenerative disc disease and a pinched nerve. She was initially started on tramadol this past Monday. She took this 3 times a day and reported the pain was not relieved whatsoever and so her provider changed her to hydrocodone. She took this a couple of times a day and reported this was not helping her neck pain either so she was bumped up to take this 4 times a day. Essentially, she's been taking a narcotic pain medication since Monday [id number] for pain control and today is the first day she has not taken her narcotic pain med. She last took hydrocodone at 14:00 yesterday afternoon. BP is elevated for her today - she typically runs in the 120's and is in 150's on our monitors. She also feels her HR is faster than usual (50's - now 70's-80's). She has not missed any of her cardiac medications. She is unable to take NSAID's due to her cardiac history. She takes multiple antihypertensive, a statin and aspirin daily although her PCP recently stopped her statin after discussing w/ Dr. Petit. She has coronary artery disease along with carotid artery disease and is status post stent placement. She reports she did have chest pain when her CAD was discovered in the past many years ago and has no symptoms like that today. Additionally she reports she's had reduced appetite and constipation since starting the narcotic pain medication (last BM was Monday). She was able to eat dinner last night which entailed chicken, potatoes and squash. Her daughter is concerned that she does not drink enough fluids. - History of Current Complaint Chief Complaint: EDHypertension Stated Complaint: CARDIAC ISSUE Time Seen by Provider: 06/23/18 08:04 Hx Obtained From: Patient, Family/Auto Design Detailer - daughter - Allergies/Home Medications Allergies/Adverse Reactions: Allergies Allergy/AdvReac Type Severity Reaction Status Date / Time No Known Allergies Allergy Verified 03/22/17 05:40 PMH/Surg Hx/FS Hx/Imm Hx Previously Healthy: Yes Endocrine/Hematology History: Reports: Hx Thyroid Disease - synthroid Denies: Hx Anticoagulant Therapy - 81 mg ASA daily Cardiovascular History: Reports: Hx Coronary Artery Disease - HAS ONE CARDIAC STENT, Hx Hypercholesterolemia, Hx Hypertension Denies: Hx Cardiac Arrest, Hx Myocardial Infarction, Other Cardiovascular Problems/Disorders Respiratory History: Reports: Hx Sleep Apnea Denies: Other Respiratory Problems/Disorders GI History: Reports: Hx Gastroesophageal Reflux Disease - ON MEDS Denies: Other GI Disorders History: Denies: Other Problems/Disorders Musculoskeletal History: Reports: Hx Arthritis - LOW BACK, RIGHT THUMB, cervical spine, Hx Back Problems, Hx Osteoporosis Denies: Hx Rheumatoid Arthritis, Hx Scoliosis, Other Musculoskeletal History Sensory History: Reports: Hx Cataracts - BILATERAL, Hx Contacts or Glasses Denies: Hx Hearing Aid Opthamlomology History: Reports: Hx Cataracts - BILATERAL, Hx Contacts or Glasses Neurological History: Denies: Hx Headaches, Other Neuro Impairments/Disorders Psychiatric History: Reports: Hx Anxiety, Hx Depression - Surgical History Surgery Procedure, Year, and Place: stent 2002. hysterectomy, RIGHT THUMB/HAND SURGERY Hx Anesthesia Reactions: No Infectious Disease History: No Infectious Disease History: Denies: Traveled Outside the [place] in Last 30 Days - Family History Known Family History: Positive: Cardiac Disease, Other - Positive: CA. Thyroid. Colon related. - Social History Occupation: Retired Alcohol Use: None Hx Substance Use: No Substance Use Type: Reports: None Hx Tobacco Use: No - not currrently Smoking Status (MU): Former Smoker Amount Used/How Often: 3 CIGARETTES PER DAY X 15 YEARS Have You Smoked in the Last Year: No Review of Systems Constitutional: Negative Negative: Fever, Chills, Fatigue Eyes: Negative Negative: Photophobia, Blurred Vision, Diplopia Cardiovascular: Negative Negative: Palpitations, Chest Pain Respiratory: Negative Negative: Shortness Of Breath, Cough Gastrointestinal: Other - constipation Positive: no symptoms reported Positive: Arthralgia Skin: Negative Positive: Headache - posterior scalp tingling. Negative: Weakness, Paresthesia , Numbness, Syncope, Slurred Speech Positive: Anxious All Other Systems Reviewed And Are Negative: Yes Physical Exam Triage Information Reviewed: Yes Vital Signs On Initial Exam: Initial Vitals Temp Pulse Resp BP Pulse Ox 99.0 F 75 16 147/71 96 06/23/18 07:41 06/23/18 07:41 06/23/18 07:41 06/23/18 07:41 06/23/18 07:41 Vital Signs Reviewed: Yes Appearance: Positive: Well-Appearing - anxious but no pain, No Pain Distress, Well-Nourished Skin: Positive: Warm, Skin Color Reflects Adequate Perfusion, Dry Head/Face: Positive: Normal Head/Face Inspection Eyes: Positive: Normal, EOMI, TAD, Conjunctiva Clear ENT: Positive: Normal ENT inspection, Hearing grossly normal, Pharynx normal - mucosa slightly dry, TMs normal. Negative: Nasal congestion, Nasal drainage, Trismus, Muffled voice Dental: Negative: Abscess @ Neck: Positive: Supple, Tenderness @ - cervical spinous pp TTP Respiratory/Lung Sounds: Positive: Clear to Auscultation, Breath Sounds Present Cardiovascular: Positive: Normal, RRR, Pulses are Symmetrical in both Upper and Lower Extremities, S1, S2. Negative: Murmur, Rub, Leg Edema Left, Leg Edema Right Abdomen Description: Positive: Nontender, Soft Musculoskeletal: Positive: Strength/ROM Intact, Pain @ - cervical hyperextension uncomfortable Neurological: Positive: Normal, Sensory/Motor Intact, Alert, Oriented to Person Place, Time, CN Intact II-III, Reflexes Intact, Facial Symmetry, Speech Normal. Negative: Pronator Drift Present Psychiatric: Positive: Anxious Diagnostics - Vital Signs Vital Signs Temp Pulse Resp BP Pulse Ox 06/23/18 07:41 99.0 F 75 16 147/71 96 - Laboratory Result Diagrams: 06/23/18 09:45 06/23/18 09:45 Lab Statement: Any lab studies that have been ordered have been reviewed, and results considered in the medical decision making process. Re-Evaluation - Re-Evaluation First Eval Change: Worse - BP improved however pt reports she's starting to get neck and Rt ear pain - worse w/ flexion - better w/ lying in neutral spine position Hypertension Course/Dx - Course Course Of Treatment: Discussed w/ Dr. Phelps - no manuela s/sx of CVA however given her h/o carotid aa stenosis, CT was initially ordered. (NOTE: carotid aa U/S's are stable over time). Discussed w/ Racheal Sykes as well - appears GABRIELA in nature. Discussed w/ pt and daughter who agree w/ dx and tx plan. Will monitor for danger s/sx and return to ED as needed. - Diagnoses Provider Diagnoses: Degenerative cervical disc Discharge - Sign-Out/Discharge Documenting (check all that apply): Patient Departure - Discharge Plan Condition: Stable Disposition: HOME Prescriptions: Diazepam TAB(*) [Valium TAB(*)] 5 mg PO BID PRN #6 tab MDD 2 PRN Reason: Pain Patient Education Materials: Constipation (ED), Muscle Spasm (ED), Degenerative Disc Disease (ED) Referrals: Dennis Quintana MD [Primary Care Provider] - Additional Instructions: You appear to have acute on chronic neck pain along with minor muscle spasm. You were provided with a low-dose of muscle relaxer today (2.5mg diazepam) in an effort to alleviate your pain. A short course of this was sent to your pharmacy as well. Start with a half of a pill (2.5 mg - this is what you received today). If this is not enough to alleviate your pain and it doesn't make you to sleepy, you may try a full tablet (5mg). If you develop lethargy or difficulty breathing return to emergency department. Stop taking your tramadol and hydrocodone as these do not appear to be helping your pain and in fact are constipating you. Please relay this message to your PCP. You may benefit from a steroid for your pain given your degenerative disc disease however this needs to be cleared by your PCP and fitness consultant if appropriate. You do not appear to have any acute cardiovascular disease today however should you develop change in vision, dizziness, intractable vomiting, drooping of your face, slurred speech, numbness, tingling, weakness, balance issues, syncope or near syncope, return to the emergency department. Otherwise follow-up with your PCP Monday or Monday. Call Monday to schedule an appointment. For your constipation, see educational handout - you may try miralax with metamucil and lots of water to help move your bowels. - Billing Disposition and Condition Condition: STABLE Disposition: Home
--- NOTE | 2018-06-23 09:39 | RAD ---
HISTORY: Posterior scalp tingling, elevated BP COMPARISONS: None TECHNIQUE: Multiple contiguous axial CT scans were obtained of the head without intravenous contrast. FINDINGS: HEMORRHAGE/INFARCT: There is no hemorrhage or acute infarct. MASSES/SHIFT: There is no mass or shift. EXTRA-AXIAL SPACES: There are no extra-axial fluid collections. SULCI AND VENTRICLES: The sulci and ventricles are normal in size and position for the patient's stated age. CEREBRUM: There is hypoattenuation of the periventricular and subcortical white matter. BRAINSTEM: There are no focal parenchymal abnormalities. CEREBELLUM: There are no focal parenchymal abnormalities. VESSELS: There is calcification of the cavernous segments of the internal carotid arteries bilaterally and of the distal vertebral arteries bilaterally. PARANASAL SINUSES: The paranasal sinuses are clear. ORBITS: The orbits are unremarkable. BONES AND SOFT TISSUE: No bone or soft tissue abnormalities are noted. OTHER: None IMPRESSION: 1. NO ACUTE INTRACRANIAL PATHOLOGY. 2. 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
--- NOTE | 2018-06-23 09:42 | RAD ---
HISTORY: Neurological Changes/Code Jones COMPARISONS: November 30, 2015 VIEWS: 1: frontal portable view of the chest at 9:40 AM FINDINGS: LINES AND TUBES: None. CARDIOMEDIASTINAL SILHOUETTE: The cardiomediastinal silhouette is normal for portable technique. PLEURA: The costophrenic angles are sharp. No pleural abnormalities are noted. LUNG PARENCHYMA: The lungs are clear. ABDOMEN: The upper abdomen is clear. There is no subphrenic gas. BONES AND SOFT TISSUES: No bone or soft tissue abnormalities are noted. Surgical clips are noted overlying the left chest. IMPRESSION: NO ACTIVE CARDIOPULMONARY DISEASE.
[2018-06-23 09:56] LABS: ABS Basophils 0 10^3/ul (0-0.2); ABS Eosinophils 0 10^3/ul (0-0.6); ABS Lymphocytes 0.9 10^3/ul (1.0-4.8); ABS Monocytes 0.3 10^3/ul (0-0.8); ABS Neutrophils 3.3 10^3/ul (1.5-7.7); ABS Nucleated RBC 0 10^3/ul; Eosinophil % 0.1 % (0-6); Hematocrit 34 % (35-47); Hemoglobin 11.9 g/dl (12.0-16.0); Lymphocyte % 19.3 % (25-47); Mean Corpuscular HGB Conc 35 g/dl (31-36); Mean Corpuscular Hemoglobin 32 pg (27-31); Mean Corpuscular Volume 92 fL (80-97); Mean Platelet Volume 7.4 um3 (7.4-10.4); Nucleated Red Blood Cells % 0; Platelet Count 154 10^3/ul (150-450); Red Blood Count 3.71 10^6/ul (4.00-5.40); Red Cell Distribution Width 15 % (10.5-15); White Blood Count 4.5 10^3/ul (3.5-10.8)
[2018-06-23 10:15] LABS: EGFR Non-African American 43.9 (>60); INR 0.97 (0.77-1.02)
[2018-06-23 10:17] LABS: Urine Appearance Clear; Urine Blood 1+ (Negative); Urine Color Straw; Urine Ketones Negative (Negative); Urine Protein Negative (Negative); Urine Red Blood Cell Trace(0-2/hpf) (Absent); Urine Specific Gravity 1.005 (1.010-1.030); Urine Urobilinogen Negative (Negative); Urine White Blood Cell 1+(6-10/hpf) (Absent)
[2018-06-23] MEDS ORDERED: Diazepam TAB(*) 5 MG PO ONE (11:19)
[2018-06-23 12:27] VITALS: BP 150/70
== END 2018-06-23 12:27 | disposition home or self-care (01) ==
LOC: ED 07:37
DX: M50.30 Other cervical disc degeneration, unspecified cervical region (principal); E07.9 Disorder of thyroid, unspecified; I25.10 Atherosclerotic heart disease of native coronary artery without angina pectoris; I10 Essential (primary) hypertension; Z95.5 Presence of coronary angioplasty implant and graft; Z79.82 Long term (current) use of aspirin; K21.9 Gastro-esophageal reflux disease without esophagitis; Z87.891 Personal history of nicotine dependence
CPT/HCPCS: 36415; 70450; 71045; 80053; 80061; 81003; 81015; 83605; 84484; 85025; 85610; 85730; 86850; 86870; 86880; 86900; 86901; 87086; 93005; 99283; A9270-GY

== ENCOUNTER → 2018-12-24 05:40 | Day surgery (SDC) | payer MEDICARE ==
[~2018-12-24 05:40] MED LIST: Acetaminophen TAB* 325 MG ONE; Acetaminophen TAB* 325 MG PO PRN; Buffered Lidocaine 1% SYRIN* 1 ML/SYRINGE INTRADERM ONE; Bupivacaine 0.5%* 50 ML VIAL ONE; Dexamethasone IV* 4 MG/ML 1 ML (4 MG) ONE; DiMENhydriNATE IV* 50 MG/ML VIAL IV PUSH PRN; DiMENhydriNATE IV* 50 MG/ML VIAL ONE; Famotidine IV* 10 MG/ML 2 ML (20 mg) IV ONE; Famotidine IV* 10 MG/ML 2 ML (20 mg) ONE; HYDROmorphone INJ1* 1 MG/ML SYRINGE IV PRN; KETAMINE HCL* 50 MG/ML 10 ML VIAL ONE; Ketorolac INJ* 30 MG/ML 1 ML VIAL ONE; Lactated Ringers 1000 ML Bag* 1,000 ML IV SCH; Lidocaine 2% PF * 5 ML VIAL ONE; Midazolam* 1 MG/ML 2 ML VIAL (2 MG) ONE; Naloxone* 0.4 MG/ML 1 ML VIAL IV PRN; Ondansetron INJ* 2 MG/ML VIAL ONE; Propofol* 10 MG/ML 20 ML BTL ONE; ceFAZolin 2 GM PREMIX in ORs 2 GM/50 ML BAG IVPB ONE; fentaNYL* 50 MCG/ML 2 ML VIAL (100 MCG VIAL) ONE
--- NOTE | 2018-12-24 10:45 | OP ---
DATE OF OPERATION: 12/24/18 - [facility] DATE OF : 32 SURGEON: John Nam MD. WAITSTAFF CAPTAIN: DENY Harry. An web marketing assistant was needed for the procedure to aid in positioning of the arm and retraction. ANESTHESIOLOGIST: Dr. Howard. ANESTHESIA: General. PRE-OP DIAGNOSIS: Left stage 3 basal joint arthritis. POST-OP DIAGNOSES: Left stage 3 basal joint arthritis. PROCEDURES PERFORMED: 1. Left thumb carpometacarpal arthroplasty with trapeziectomy. 2. Distally based flexor carpi radialis tendon transfer for thumb suspension and tendon interposition. INDICATIONS: Christine is 88. She has pretty significant pain inhibiting her ability to knit and to use the hand a lot on the left. We had talked about her options. She has had surgery on the right. She wanted to do surgery on the left. She understands the risks of persistent pain and discomfort despite doing the surgery. ESTIMATED BLOOD LOSS: 2 mL. COMPLICATIONS: None. FINDINGS: See above and below. DESCRIPTION OF PROCEDURE: Christine was seen in the preoperative holding area. The correct site, side, and procedure were identified. We came back to the operating room. The arm was prepped and draped in the usual fashion and a time- out was performed. The arm was exsanguinated with the Esmarch and the tourniquet was inflated to 250 mmHg. I began by making a 2 to 3 cm longitudinal incision over the dorsoradial thumb. Dissection was carried down longitudinally through subcutaneous tissue to preserve the traversing sensory nerves. The radial artery was mobilized out of the way. I then raised subperiosteal and capsular flaps to expose the entirety of the margins of the trapezium and then the trapezium was excised in its entirety with a rongeur in piecemeal fashion. The scaphoid-trapezoid joint was inspected and it was noted to have pretty reasonable healthy cartilage, so no intervention was needed there. After the entirety of the trapezium had been excised, I went ahead and examined the base of the wound. The FCR tendon right at the distal pole of the scaphoid was about 50% frayed. The metacarpal base was frankly arthritic. I then made a 1 cm transverse incision over the distal FCR tendon just proximal to the wrist flexion crease and a second incision about 8 cm proximal to that over the FCR tendon near the musculotendinous junction. I then opened up the tendon sheath proximally and distally and then brought my FCR tendon up into the wound. The tendon was released proximally at the musculotendinous junction. The tendon was then pulled down into the distal wound and then down into the thumb base wound with the use of a right angle. At this point, I was able to split the tendon with the tenotomy scissors all the way down to the base of the second metacarpal. At his point, I attempted to place one mini Mitek suture anchor in the base of the second metacarpal in anticipation of my tendon transfer to sew down the tendon and provide the thumb suspension; however , her bone was so soft that the suture anchor would not hold. I therefore went ahead and pulled one tail of my tendon out through the bone tunnel. The other end of the tunnel was then brought around the base of the metacarpal and maximum tension was set as I secured the transfer leaving the two ends of the tendon together and then securing them up with multiple 3-0 Ethibond sutures. The remainder of the tendon tails were rolled up into balls. These were placed as an interposition between the base of the metacarpal and the distal pole of the scaphoid. The capsule was then closed with 3-0 Vicryl suture. The wounds were irrigated and the skin was closed with 4-0 nylon suture. The wounds were dressed with Xeroform, 4x4s, sterile Webril and then a thumb spica splint with DIP joint free was applied. Tourniquet was deflated. The hand pinked up immediately and she was taken to the recovery room in stable condition. [id number]/[facility] #: [id number] TETO
[2018-12-24 10:57] VITALS: BP 171/83
== END | disposition home or self-care (01) ==
LOC: OR 05:40
PROVIDERS: ATTEND Orthopaedic Surgery Hand Surgery
DX: M18.12 Unilateral primary osteoarthritis of first carpometacarpal joint, left hand (principal); I25.10 Atherosclerotic heart disease of native coronary artery without angina pectoris; Z95.5 Presence of coronary angioplasty implant and graft; I10 Essential (primary) hypertension; Z87.891 Personal history of nicotine dependence; F41.8 Other specified anxiety disorders; E03.9 Hypothyroidism, unspecified
CPT/HCPCS: A9270-GY; J0690; J1100; J1240; J1885; J2250; J2405; J2704; J3010

== ENCOUNTER 2018-12-31 19:39 | Emergency (ER) | payer MEDICARE ==
--- OUTSIDE RECORDS SUMMARY | 2018-12-31 19:46 | XMS REPORT | Continuity of Care Document ---
:1931 External Reference #:[id number] Author Name [facility] Care Team Providers Name Role Phone Dennis Quintana MD Primary Care Physician Unavailable Payers Date Identification Numbers Payment Provider Subscriber Policy Number: [id number] Medicare Mariella V Lu PayID: [id number] [address] [place] [address] Effective: 1996 Policy Number: [id number] Medicare Mariella V Lu Expires: 2018 PayID: [id number] [address] [place] [address] Effective: 2012 Policy Number: [id number] [facility] Mariella V Lu PayID: [id number] [address] [place] [address] Effective: 2008 Policy Number: [id number] Of [facility] Mariella Lu Expires: 2012 PayID: [id number] [address] [address] JANET French [id number] Advance Directives Type Date Description Status Comment MOLST 05/08/2017 MOLST Current and Verified Other Directive 05/07/2017 Health Care Proxy Current and Verified Other Directive 05/28/2012 Health Care Proxy Current and Verified Problems Date Description Provider Status Onset: 03/26/2008 Coronary arteriosclerosis Abel Mitchell M.D.,FACJohn Onset: 03/26/2008 Essential hypertension Abel Mitchell M.D.,FACJohn Onset: 04/22/2015 Impaired fasting glycaemia Abel Mitchell M.D.,FACJohn Onset: 04/22/2015 Carotid artery stenosis Dennis Quintana Active Dora,FACP Onset: 08/12/2008 Pure hypercholesterolemia Dennis Quintana Active Dora,FACP Onset: 08/12/2008 Hypothyroidism Dennis Quintana Active Dora,FACP Onset: 07/09/2013 Localized, primary osteoarthritis of Dennis Quintana, Active the hand MBeatriz,FACP Onset: 04/10/2014 Senile osteopenia Dennis Quintana Active [...] Quintana Active Dora,FACP Note: one occasion Onset: 07/03/2018 Electrocardiogram abnormal Ginna Petit M.D. Active Onset: 03/27/2009 Acute vascular insufficiency of Dennis Quintana, Inactive intestine Dora,FACP Inactive: 04/10/2014 Onset: 03/27/2009 Carotid artery occlusion Dennis Quintana M.D.,FACP Inactive Inactive: 04/22/2015 Onset: 10/13/2015 Atherosclerotic heart disease of [place] Ginna Petit M.D. Inactive coronary artery with unspecified angina pectoris Inactive: 12/14/2015 Onset: 10/16/2015 Disorder of lung Nicole Yarbrough MD Inactive Inactive: 04/27/2016 Onset: 05/06/2016 Knee joint effusion Ellen Mendieta M.D. Inactive Inactive: 05/08/2017 Onset: 10/16/2015 Dyspnea Nicole Yarbrough MD Inactive Inactive: 05/08/2017 Onset: 04/02/2010 Osteoporosis Dennis Quintana M.D.,FACP Resolved Resolved: 04/10/2014 Family History Date Family Member(s) Observation Comments General Heart trouble and cancer in immediate family Father due to NH () - in 70s Mother due to NH () - in 40s First Son Heart Disease arrhythmia First Daughter Lupus First Daughter Mental Illness Siblings 8 First Brother NH First Brother due to Heart Disease () Second Brother due to Cancer, Colon () Second Brother Colon Cancer Third Brother due to NH () Third Brother Cancer radiation to abdomen First Sister Cancer, Colon First Sister due to Cancer, Colon () First Sister Cancer brain Second Sister Alzheimer's Disease Paternal Aunts Cancer, Breast Social History Type Date Description Comments Sex Unknown Marital Status 2009 Lives With Alone Occupation Retired Cigarette Use Quit - Age 31 ETOH Use 05/08/2017 Denies alcohol use Recreational Drug Use Denies Drug Use Tobacco Use Start: Unknown End: Patient is a former smoker Unknown Smoking Status Reviewed: 12/12/18 Patient is a former smoker Exercise Type/Frequency Exercises rarely Allergies, Adverse Reactions, Alerts Description No Known Drug Allergies Medications Medication Date Status Form Strength Qnty SIG Indications Ordering Provider Synthroid 10/10 Active Tablets 50mcg 180ta 2 tabs by bs abdoulaye Quintana, every day M.D.,FACP while 100mcg tabs are on backorder. Acetaminophen 06/25 Active Tablets 325mg 60tab 2 tablets s by mouth Tabitha Quintana, every 6 M.D.,FACP hours as needed for pain/fever Olmesartan 06/25 Active Tablets 20mg 90tab 1 by mouth Medoxomil s every day Tabitha Quintana M.D.,FACP Ibuprofen 03/23 Active Tablets 400mg 30tab 1 daily as s needed, Tabitha Quintana, rarely M.D.,FACP used Omeprazole 04/[address] 20mg 90cap 1 by mouth K29.00 s every day Tabitha Quintana, every day M.D.,FACP as needed Trazodone HCL 12/06 Active Tablets 50mg 270ta take 3 G47.00 bs tablets by Tabitha Quintana mouth at M.D.,FACP bedtime Nitrostat 11/09 Active Tablets Sub 0.4mg 25tab one sl s q5min up Tabitha Quintana, to 3 doses M.D.,FACP as needed. Aspirin 04/05 Active Tablets 81mg 100ta 1 po qd bs Tabitha Quintana M.D.,FACP Isosorbide 11/09 Active Tablets ER 60mg 90tab take 1 Dennis Mononitrate ER 24HR s tablet by Tabitha Quintana, mouth in M.D.,FACP the morning Metoprolol 08/12 Active Tablets ER 25mg 180ta take 2 Ginna Succinate 24HR bs tablet by Damaso, mouth M.DVik every day Fish Oil Active Capsules 1000mg 1 po every Unknown /0000 other day Vitamin D3 Active Capsules 1000Unit 30cap 1 by mouth / s every day Lipitor Active Tablets 40mg 90tab Take 1 s Tablet By Tabitha Quintana, Abdoulaye AT M.D.,[facility] Bedtime Diazepam Active Tablets 5mg half tab bid ( Not taking at this time, last taken 1 week ago 06/26/18) Tylenol Arthritis Active 650mg 1 po qid Unknown 8 HRS /0000 prn Hydrocodone-Aceta 06/19 Hx Tablets 5-325mg 20tab one tablet Jael s by mouth Varn, - every 6 N.P. 08/20 hours needed for pain Tramadol HCL 06/18 Hx Tablets 50mg 30tab 1 tablet M54.2 s three to Varn, - four times N.P. 08/20 daily needed Shingrix 05/14 Hx Suspension 50mcg 2unit 0.5 Rec s milliliter Tabitha Quintana, - s M.D.,FACP 07/17 intramuscu lar now and 2-3 months later repeat Ketoconazole 03/01 Hx Cream 2% 15uni apply to ts affected Tabitha Quintana, - area twice M.D.,FACP 03/28 a day needed Fluticasone 12/11 Hx Suspension 50mcg/Act 32uni 2 sprays J06.9 Shlomo Cornel Propionate ts each Tabitha Quintana, - nostril M.DVik,FACP 03/28 daily as needed Oseltamivir 12/06 Hx Capsules 75mg 10cap [...] Ordering - twice a Provider 04/01 day x1 days Metronidazole 03/22 Hx Tablets 500mg 30tab one tablet Other s by mouth 3 Ordering - times Provider 04/01 daily for 10 days Baclofen 12/20 Hx Tablets 10mg 20tab take 11/07 M54.5 Fransico s tab every Pernell, TURPENTINER - 8 hours as 12/27 needed for muscle spasm Nasal Four 11/08 Hx Solution 1% 29.60 2 sprays J06.9 John 0ml each Sarbjit, - nostrphi M.DVik 05/11 every hours Amlodipine 12/18 Hx Tablets 5mg 90tab 1 by mouth R07.9 Ginna Besylate s every day Devon Petit M.D. 08/22 Levothyroxine 10/15 Hx Tablets 100mcg 1 by mouth Unknown every day - 07/13 Amlodipine 10/13 Hx Tablets 2.5mg 90tab 1 by mouth R07.9 Ginna Besylate /2014 s every day Devon Petit M.D. 12/18 Asmanex HFA 08/28 Hx Aerosol 100mcg/Ac 13gm No longer J40 Dennis t taking X 2 Tabitha Quintana, - days ago. Dora,FACP 12/14 2 puffs /2015 twice a day for 2 wks then as directed Synthroid 07/06 Hx Tablets 100mcg 90tab take 1 s tablet by Nancy stanford M.D. 10/10 Diovan 05/11 Hx Tablets 160mg 90tab take 1 s tablet by Tabitha Quintana - mouth Dora,[facility] 06/25 Azithromycin 11/03 Hx Tablets 500mg 7tabs 1 tab 466.0 every day Tabitha Quintana, - for 7 days Cyndi.Tabitha,[facility] 04/22 Robitussin DM 11/03 Hx Syrup 100-10mg/ 1bott 10 466.0 5ML le milliliter Tabitha Quintana, - s by mouth Dora,[facility] 04/22 q4hour as needed cough Hydrochlorothiazi 09/05 Hx Tablets 25mg 90tab 1 by mouth 782.3 Dayan s every day CARRIE Rust - 10/07 Celebrex 01/02 Hx Capsules 200mg 60cap 1 po bid s Devon Morales M.D.,[facility] 04/10 Tramadol HCL 01/02 Hx Tablets 50mg 50tab qid prn 719.45 s Devon Morales M.D.,[facility] 04/22 Imdur 11/21 Hx Tablets ER 60mg 30tab Take 1 24HR s Tablet By Cary, - Mouth N.P. 04/22 Morning Levoxyl 11/03 Hx Tablets 100mcg 90tab take 1 s tablet by Tabitha Quintana - mouth Dora,[facility] 07/06 Nexium 07/[address] 40mg 60cap patient no Ginna s longer Clayton, - taking 1 M.DVik 10/08 tab PO daily for 2 months. Butler 06/26 Hx Tablets 5-325mg 40tab 1-2 po q4h s prn pain Fabiola parisi M.D. 01/02 Voltaren 04/05 Hx Gel 1% 100g apply 2 715.14 gms to Tabitha Quintana - affected Dora,[facility] 06/26 area bid prn Celebrex 12/06 Hx Capsules 200mg 60cap take one 722.93 s capsule by Tabitha Quintana, - mouth MBeatriz,[facility] 07/09 twice a day prn Azithromycin 08/13 Hx Tablets 250mg 6tabs take 2 tab 461.9 Tatianna /2011 on day 1 Evita, - then 1 tab M.D. 11/01 daily x days Ranitidine HCL 05/02 Hx Capsules 150mg 60cap bid prn 789.9 s Devon [facility]ales M.[facility].,[facility] 05/02 Ranitidine HCL 05/02 Hx Tablets 150mg take one 789.9 Dennis tablet by Tabitha Quintana, - mouth M.Tabitha,[facility] 08/13 twice a day Acetaminophen/Cod 04/24 Hx Tablets 300-30mg 80tab 1-2 po tid 724.02 Dennis eine #3 s prn Devon Morales M.D.,[facility] 05/14 Butler 04/13 Hx Tablets 5-325mg 40tab 1-2 po 724.02 Karl M. s q4hrs prn Fco, - pain M.DVik 04/24 Nasal Saline 02/20 Hx Solution 0.65% 1ml 2 sprays 461.0 Dennis /2011 in each Tabitha Quintana, - nostril 5 M.D.,FACP 05/02 times a day Ipratropium 02/20 Hx Solution 0.06% 30ml 2 sprays 461.0 Dennis Egnar in each Tabitha Quintana, - nostril M.D.,FACP 05/02 3-4 times /2011 a day for 4 days maximum Amoxicillin/Clavu 02/20 Hx Tablets ER 1000-62.5 40tab 2 tabs po 461.0 Dennis lanate Potassium 12HR mg s q12h x 10 Tabitha Quintana, ER - days M.DVik,FACP 04/13 Azithromycin 02/14 Hx Tablets 250mg 6tabs 2 qd for 1 462 Dennis day, then Tabitha Quintana, - 1 qd M.D.,[facility] 02/20 Gabapentin 12/30 Hx Capsules 100mg 150ca take 1 724.3 ps capsules Tabitha Quintana, - by mouth M.D.,[facility] 04/24 times a day plus 2 capsules at bedtime Hydrochlorothiazi 04/05 Hx Capsules 12.5mg 90cap qam po Dennis de s Devon Morales M.D.,[facility] 05/14 Levothyroxine 04/05 Hx Tablets 100mcg 30tab 1 po qd Dennis s Devon Morales M.D.,[facility] 11/03 Diltiazem HCL ER 04/05 Hx Caps ER 120mg 30cap take 1 24HR s capsule by Tabitha Quintana, - mouth once M.D.,[facility] 09/06 Voltaren Gel 04/02 Hx 1% 4Tube 2 gm 726.32 s topical r Tabitha Quintana, - elbow bid M.D.,[facility] 03/14 prn Alendronate 03/26 Hx Tabs 70mg 4tabs take 1 Dennis Sodium tablet by Tabitha Quintana, - mouth M.D.,[facility] 04/05 every Diltiazem HCL 07/06 Hx CP24 120mg 30uni Take 1 Dennis Coated Beads ts Capsule By Tabitha Quintana, - Mouth Once M.D.,[facility] 04/05 Cartia XT 02/05 Hx CP24 120mg 30uni take 1 Dennis ts capsule by Tabitha Quintana, - mouth once M.D.,FACP 07/06 Isosorbide 08/14 Hx TB24 60mg 30uni take 1 Dennis Mononitrate CR ts tablet by Tabitha Quintana, - mouth M.D[facility] 11/09 morning Amoxicillin 07/09 Hx Tablets 500mg 30tab 1 tabs po 461.0 s tid for 10 DVik Quintana, - days M.D.,[facility] 08/12 Vitamin D 03/26 Hx Capsules 400Unit Devon Morales M.D.,[facility] 11/01 Zetia 04/20 Hx Tablets 10mg 30tab 1 po qd Devon Harmon M.D.,[facility] 03/14 [facility] 06/18 Hx Capsules 120mg 30cap 1 po qd Devon Harmon M.D.,[facility] 04/02 Metoprolol 06/18 Hx Tablets 25mg 30tab 1 po qd Devon Harmon M.D[facility] 08/12 [facility] 06/16 Hx Capsules 240mg 30cap 1 po qd s F. - Mauser, 06/19.D. Lipitor 06/16 Hx Tablets 80mg 30tab 1 po qd s F. - Mauser, 03/26 M.D. Metoprolol 06/11 Hx Tablets 25mg 30tab 1 po qd s F. - Mauser, 06/16 M.D. [facility] 06/11 Hx Capsules 120mg 30cap 1 po qd s F. - Mauser, 06/16.D. [facility] 05/26 Hx Tablets 0.5mg;2.2 30tab 1 po qd mg;25MG s F. - Mauser, 08/12 M.D. Metoprolol 05/25 Hx Tablets 50mg 60tab 1 po bid s F. - Mauser, 05/26 M.D. Lipitor Hx Tablets 40mg 30tab 1 po qd s F. - Mauser, 06/16 M.D. Levoxyl Hx Tablets 100mcg 30tab 1 po qd Devon Harmon M.D.,[facility] 04/05 Vioxx Hx Tablets 25mg 30tab 1 po qd s FVik - Mauser, 03/26 M.D. Aspirin Buffered Hx Tablets 325mg 100ta 1 po qd bs Suki Blake, 03/14 M.D. Plavix Hx Tablets 75mg 90tab 1 po qd s Suki Blake, 03/26 M.D. Imdur Hx Tablets 60mg 30tab one qam Dennis Devon Harmon M.D.,[facility] 08/14 Hydrochlorothiazi Hx Tablets 25mg 30tab 1 po qd Kamaljit s Suki Blake, 06/11 M.DVik Fosamax Hx Tablets 70mg 4tabs one tablet Devon Nichols M.D.,[facility] 03/26 Calcium D Hx 600mg 30uni one qd Suki Blake, 11/07 M.D. tylenol Hx Suki Blake, 07/23 M.D. Claritin Hx Tablets 10mg 30tab 1 po qd s prn Suki Blake, 03/14 M.D. Flonase Hx Suspension 50mcg/Spr 16gm prn Dennis Devon Mason M.D.,[facility] 03/14 Metoprolol Hx Tablets 50mg one qd Suki Blake, 06/11 M.D. Oscal 500/200 D-3 Hx Tablets 200D-3 60tab bid s - 03/26 Fish Oil Hx Capsules 1000mg 90cap 1 PO qd s - 03/14 Asa Hx 81mg 1 po qd - 04/[address] 40mg 1 po qd - 04/05 Vitamin D-1000 Hx Tablets 1000Unit 30tab 1 po qd s - 05/14 Diovan Hx Tablets 160mg 30tab take 1 Dennis / s tablet by Tabitha Quintana, - mouth M.D.,FACP 04/22 every day /2014 Celebrex Hx Capsules Unsure 1 po qd - 01/02 Diovan Hx Tablets 100mg 1 by mouth Unknown / every day - 04/22 Valsartan Hx Tablets 100mg 1 by mouth Unknown / every day - 05/11 Tylenol Hx Tablets 325mg 1 po daily Unknown prn - 10/07 Medications Administered in Office Medication Date Status Form Strength Qnty SIG Indications Ordering Provider Inj, 07/17/ Administered Injection Idris Ibarra Regadenoson, 0.1 2017 MG Cyndi Floyd.DVik, FACC, FASNC Technetium TC 07/17/ Administered Injection Idris Ibarra 99M Tetrofosmin, 2017 [place], Per Unit Dose Up M.D., To 40 FACC, Millicuries FASNC Depomedrol 40MG 05/06/ Administered Injection Ellen 2015 Dora Mendieta Technetium TC 10/14/ Administered Injection Idris Ibarra 99M Tetrofosmin, 2013 [place], Per Unit Dose Up M.D., To 40 FACC, Millicuries FASNC Technetium TC 10/14/ Administered Injection Ginna 99M Tetrofosmin, 2013 Damaso, Per Unit Dose Up M.D. To 40 Millicuries Inj, 07/05/ Administered Injection Elian D. Regadenoson, 0.1 2012 MG Dora Valiente Aminophylline 07/05/ Administered Injection Elian D. 2012 Dora Valiente Technetium TC 07/05/ Administered Injection Elian D. 99M Tetrofosmin, 2012 Brand, Per Unit Dose Up M.D. To 40 Millicuries Immunizations CPT Code Status Date Vaccine Reaction Lot # [id number] Given 09/07/2018 Fluzone High Dose 09806 Given 08/15/2017 Fluzone High Dose Q2037 Given 09/07/2015 Fluvirin Im 3Yrs And Older 80305 Given 08/25/2015 Fluzone High Dose 75798 Given 04/22/2015 Pneumococcal Conjugate no reaction, no [id number] Vaccine 13 Valent For complaints Intramuscular Use 85314 Given 08/15/2014 Flu Vaccine Split Virus Preservative Free For Indiv 3Yr Older 97430 Given 09/16/2013 Flu Vaccine Split Virus Preservative Free For Indiv 3Yr Older [id number] Given 07/17/2012 Fluzone Vaccine 96478 Given 08/15/2011 Influenza Virus 3Yrs & Over 09589 Given 09/21/2010 Influenza Virus 3Yrs & Over [id number] 23382 Given 08/05/2008 Influenza Virus 3Yrs & Over 22821 Given 08/05/2008 Influenza Virus 3Yrs & Over 61967 Given 08/07/2001 Pneumonia Vaccine Vital Signs Date Vital Result Comment 12/12/2018 11:57am Height 64 inches 5'4" Heart Rate 87 /min BP Systolic 112 mmHg BP Diastolic 62 mmHg Respiratory Rate 18 /min Body Temperature 98.0 F Pain Level 3 10/08/2018 1:16pm Height 64 inches 5'4" Weight 176.00 lb with shoes Heart Rate 56 /min reg with ectopy BP Systolic Sitting 120 mmHg Lue lg cuff BP Diastolic Sitting 62 mmHg Lue lg cuff BP Systolic Standing 120 mmHg Lue lg cuff BP Diastolic Standing 70 mmHg Lue lg cuff Respiratory Rate 16 /min BMI (Body Mass Index) 30.2 kg/m2 07/24/2018 9:52am Height 64 inches 5'4" Weight 176.25 lb Heart Rate 68 /min BP Systolic Sitting 128 mmHg lue regular cuff BP Diastolic Sitting 68 mmHg lue regular cuff BP Systolic Standing 128 mmHg lue regular cuff BP Diastolic Standing 68 mmHg lue regular cuff Respiratory Rate 14 /min BMI (Body Mass Index) 30.2 kg/m2 Ejection Fraction 50-55% 07/03/2018 9:21am Heart Rate 60 /min reg with ectopy BP Systolic Sitting 128 mmHg Lue reg cuff BP Diastolic Sitting 88 mmHg Lue reg cuff BP Systolic Standing 134 mmHg Lue reg cuff BP Diastolic Standing 80 mmHg Lue reg cuff Respiratory Rate 16 /min Ejection Fraction 50-55% date 10/20/2015 ECHO 06/25/2018 2:08pm Height 63.75 inches 5'3.75" Weight 173.00 lb Heart Rate 79 /min BP Systolic Sitting 110 mmHg BP Diastolic Sitting 56 mmHg Body Temperature 97.9 F O2 % BldC Oximetry 93 % BMI (Body Mass Index) 29.9 kg/m2 06/18/2018 3:10pm Height 63.75 inches 5'3.75" Weight 179.00 lb Heart Rate 69 /min BP Systolic Sitting 145 mmHg BP Diastolic Sitting 68 mmHg Body Temperature 98.6 F O2 % BldC Oximetry 99 % BMI (Body Mass Index) 31.0 kg/m2 06/12/2018 9:45am Height 63.75 inches 5'3.75" Weight 178.00 lb Heart Rate 62 /min BP Systolic 110 mmHg BP Diastolic 62 mmHg Respiratory Rate 16 /min Body Temperature 97.8 F Pain Level 4 BMI (Body Mass Index) 30.8 kg/m2 05/14/2018 2:37pm Height 63.75 inches 5'3.75" Weight 183.00 lb Heart Rate 52 /min BP Systolic Sitting 116 mmHg BP Diastolic Sitting 58 mmHg Body Temperature 98.8 F O2 % BldC Oximetry 98 % BMI (Body Mass Index) 31.7 kg/m2 03/28/2018 12:32pm Weight 189.00 lb Heart Rate 62 /min BP Systolic Sitting 130 mmHg BP Diastolic Sitting 72 mmHg O2 % BldC Oximetry 97 % 03/01/2018 3:36pm Weight 186.00 lb Heart Rate 61 /min BP Systolic Sitting 150 mmHg BP Diastolic Sitting 60 mmHg Body Temperature 97.5 F O2 % BldC Oximetry 95 % 12/11/2017 11:01am Weight 183.00 lb Heart Rate 59 /min BP Systolic 110 mmHg BP Diastolic 60 mmHg Body Temperature 98.8 F O2 % BldC Oximetry 96 % 12/06/2017 1:28pm Weight 184.00 lb Heart Rate 82 /min BP Systolic Sitting 148 mmHg BP Diastolic Sitting 64 mmHg Body Temperature 100.1 F O2 % BldC Oximetry 97 % 11/17/2017 11:02am Weight 186.00 lb Heart Rate 54 /min BP Systolic Sitting 137 mmHg BP Diastolic Sitting 62 mmHg Respiratory Rate 14 /min 08/09/2017 1:12pm Heart Rate 70 /min BP Systolic Sitting 118 mmHg BP Diastolic Sitting 68 mmHg Body Temperature 98.0 F 05/26/2017 8:14am Height 64 inches 5'4" Weight 186.00 lb w/ shoes Heart Rate 60 /min reg BP Systolic Sitting 120 mmHg Rue, reg cuff BP Diastolic Sitting 66 mmHg Rue, reg cuff BP Systolic Standing 124 mmHg Rue BP Diastolic Standing 60 mmHg Rue Respiratory Rate 16 /min BMI (Body Mass Index) 31.9 kg/m2 Ejection Fraction 50-55% as of 10/2015 echo 05/08/2017 10:30am Height 64 inches 5'4" Weight 186.25 lb Heart Rate 61 /min BP Systolic Sitting 120 mmHg BP Diastolic Sitting 62 mmHg Body Temperature 98.1 F O2 % BldC Oximetry 98 % BMI (Body Mass Index) 32.0 kg/m2 03/23/2017 8:49am Weight 188.50 lb Heart Rate 95 /min BP Systolic 118 mmHg BP Diastolic 60 mmHg Body Temperature 98.3 F O2 % BldC Oximetry 68 % 12/20/2016 9:45am Weight 191.00 lb Heart Rate 53 /min BP Systolic Sitting 138 mmHg BP Diastolic Sitting 66 mmHg Body Temperature 97.2 F O2 % BldC Oximetry 98 % 11/08/2016 10:40am Weight 190.00 lb Heart Rate 58 /min BP Systolic Sitting 128 mmHg BP Diastolic Sitting 66 mmHg Body Temperature 98.8 F O2 % BldC Oximetry 97 % 07/08/2016 1:47pm Weight 188.00 lb Heart Rate 54 /min BP Systolic Sitting 126 mmHg BP Diastolic Sitting 82 mmHg Respiratory Rate 15 /min Body Temperature 98.4 F O2 % BldC Oximetry 98 % 06/03/2016 10:58am Height 64 inches 5'4" Weight 185.00 lb Heart Rate 58 /min BP Systolic Sitting 146 mmHg Ra lg cuff BP Diastolic Sitting 50 mmHg Ra lg cuff BP Systolic Standing 146 mmHg Ra lg cuff BP Diastolic Standing 60 mmHg Ra lg cuff BMI (Body Mass Index) 31.8 kg/m2 05/20/2016 9:37am Height 64 inches 5'4" Weight 191.00 lb Pain Level 0 BMI (Body Mass Index) 32.8 kg/m2 05/06/2016 10:47am Height 64 inches 5'4" Weight 191.00 lb Pain Level 2 BMI (Body Mass Index) 32.8 kg/m2 04/27/2016 10:53am Height 64 inches 5'4" Weight 191.00 lb Heart Rate 60 /min BP Systolic Sitting 132 mmHg BP Diastolic Sitting 66 mmHg Body Temperature 97.7 F O2 % BldC Oximetry 98 % BMI (Body Mass Index) 32.8 kg/m2 04/20/2016 9:52am Height 64 inches 5'4" Weight 191.00 lb Heart Rate 62 /min BP Systolic 136 mmHg BP Diastolic 76 mmHg Pain Level 5 BMI (Body Mass Index) 32.8 kg/m2 04/18/2016 11:44am Weight 189.00 lb Heart Rate 59 /min BP Systolic Sitting 150 mmHg BP Diastolic Sitting 68 mmHg Body Temperature 96.7 F 04/05/2016 12:20pm Weight 189.00 lb Heart Rate 58 /min BP Systolic Sitting 128 mmHg BP Diastolic Sitting 76 mmHg Body Temperature 97.6 F Pain Level 5 L knee O2 % BldC Oximetry 98 % 01/07/2016 2:32pm Height 64 inches 5'4" Weight 186.56 lb Heart Rate 60 /min BP Systolic Sitting 134 mmHg LA reg cuff BP Diastolic Sitting 80 mmHg LA reg cuff BP Systolic Standing 136 mmHg LA BP Diastolic Standing 80 mmHg LA Respiratory Rate 14 /min BMI (Body Mass Index) 32.0 kg/m2 Ejection Fraction 50-55% 10/20/15 12/18/2015 11:34am Height 64 inches 5'4" Weight 186.75 lb With shoes Heart Rate 52 /min BP Systolic 136 mmHg LA lrg cuff BP Diastolic 72 mmHg LA lrg cuff BP Systolic Standing 122 mmHg LA lrg cuff BP Diastolic Standing 70 mmHg LA lrg cuff Respiratory Rate 18 /min BMI (Body Mass Index) 32.1 kg/m2 Ejection Fraction 50-55% 10/20/15 12/14/2015 2:02pm Height 64 inches 5'4" Weight 187.12 lb Heart Rate 64 /min BP Systolic Sitting 138 mmHg BP Diastolic Sitting 74 mmHg Respiratory Rate 18 /min O2 % BldC Oximetry 97 % BMI (Body Mass Index) 32.1 kg/m2 12/14/2015 8:50am Height 64 inches 5'4" Weight 187.12 lb Heart Rate 74 /min BP Systolic Sitting 139 mmHg BP Diastolic Sitting 71 mmHg Body Temperature 96.8 F O2 % BldC Oximetry 96 % BMI (Body Mass Index) 32.1 kg/m2 11/23/2015 12:55pm Height 64 inches 5'4" Weight 183.50 lb Heart Rate 67 /min BP Systolic Sitting 124 mmHg BP Diastolic Sitting 62 mmHg Respiratory Rate 18 /min O2 % BldC Oximetry 94 % BMI (Body Mass Index) 31.5 kg/m2 11/12/2015 10:01am Height 64 inches 5'4" Weight 183.50 lb w/ shoes Heart Rate 62 /min reg BP Systolic Sitting 126 mmHg Rue, lg cuff BP Diastolic Sitting 66 mmHg Rue, lg cuff BP Systolic Standing 124 mmHg Rue BP Diastolic Standing 62 mmHg Rue Respiratory Rate 16 /min BMI (Body Mass Index) 31.5 kg/m2 Ejection Fraction 50-55% as of 10/20/15 echo 10/16/2015 1:14pm Height 64 inches 5'4" Weight 185.12 lb Heart Rate 50 /min BP Systolic Sitting 142 mmHg BP Diastolic Sitting 76 mmHg Respiratory Rate 18 /min O2 % BldC Oximetry 97 % BMI (Body Mass Index) 31.8 kg/m2 10/13/2015 10:48am Height 64 inches 5'4" Weight 183.00 lb with shoes Heart Rate 54 /min BP Systolic Sitting 142 mmHg LA, reg cuff BP Diastolic Sitting 80 mmHg LA, reg cuff BP Systolic Standing 142 mmHg LA BP Diastolic Standing 78 mmHg LA Respiratory Rate 16 /min BMI (Body Mass Index) 31.4 kg/m2 Ejection Fraction 70% 06/07/2012 09/10/2015 9:51am Height 63.5 inches 5'3.50" Weight 186.38 lb Heart Rate 56 /min BP Systolic Sitting 144 mmHg BP Diastolic Sitting 68 mmHg Body Temperature 97.4 F O2 % BldC Oximetry 97 % BMI (Body Mass Index) 32.5 kg/m2 08/28/2015 10:55am Height 63.5 inches 5'3.50" Weight 184.00 lb Heart Rate 74 /min BP Systolic Sitting 140 mmHg BP Diastolic Sitting 62 mmHg Body Temperature 97.5 F O2 % BldC Oximetry 98 % BMI (Body Mass Index) 32.1 kg/m2 05/13/2015 9:20am Height 63.5 inches 5'3.50" Weight 184.50 lb Heart Rate 66 /min BP Systolic Sitting 130 mmHg BP Diastolic Sitting 68 mmHg Body Temperature 97.9 F O2 % BldC Oximetry 98 % BMI (Body Mass Index) 32.2 kg/m2 04/22/2015 11:27am Height 63.5 inches 5'3.50" Weight 180.25 lb Heart Rate 54 /min BP Systolic Sitting 148 mmHg BP Diastolic Sitting 78 mmHg Body Temperature 98.0 F O2 % BldC Oximetry 98 % BMI (Body Mass Index) 31.4 kg/m2 11/03/2014 11:52am Weight 184.00 lb Heart Rate 58 /min BP Systolic Sitting 142 mmHg BP Diastolic Sitting 72 mmHg Body Temperature 98.2 F 10/15/2014 8:41am Height 64 inches 5'4" Weight 184.00 lb w/shoes BP Systolic Sitting 138 mmHg LA reg cuff BP Diastolic Sitting 64 mmHg LA reg cuff BP Systolic Standing 130 mmHg LA reg cuff BP Diastolic Standing 64 mmHg LA reg cuff Respiratory Rate 14 /min BMI (Body Mass Index) 31.6 kg/m2 10/07/2014 9:33am Weight 182.00 lb Heart Rate 64 /min BP Systolic Sitting 108 mmHg BP Diastolic Sitting 64 mmHg 09/26/2014 9:11am Height 64 inches 5'4" Weight 180.00 lb Heart Rate 78 /min BP Systolic Sitting 128 mmHg BP Diastolic Sitting 80 mmHg BP Systolic Standing 122 mmHg BP Diastolic Standing 70 mmHg Respiratory Rate 18 /min BMI (Body Mass Index) 30.9 kg/m2 09/12/2014 9:47am Height 64 inches 5'4" Weight 182.75 lb Heart Rate 60 /min BP Systolic Sitting 112 mmHg BP Diastolic Sitting 64 mmHg Body Temperature 96.3 F BMI (Body Mass Index) 31.4 kg/m2 09/05/2014 2:29pm Weight 185.25 lb Heart Rate 60 /min BP Systolic Sitting 170 mmHg BP Diastolic Sitting 78 mmHg Body Temperature 97.3 F 07/02/2014 11:07am Weight 186.00 lb Heart Rate 60 /min BP Systolic Sitting 156 mmHg BP Diastolic Sitting 82 mmHg Body Temperature 97.6 F 04/10/2014 9:33am Height 64 inches 5'4" Weight 183.00 lb Heart Rate 52 /min BP Systolic Sitting 132 mmHg BP Diastolic Sitting 70 mmHg Body Temperature 96.7 F BMI (Body Mass Index) 31.4 kg/m2 01/02/2014 11:30am Weight 185.00 lb Heart Rate 60 /min BP Systolic Sitting 152 mmHg BP Diastolic Sitting 72 mmHg 12/18/2013 12:23pm Height 63 inches 5'3" Weight 179.00 lb Heart Rate 64 /min BMI (Body Mass Index) 31.7 kg/m2 07/09/2013 11:10am Weight 181.00 lb Heart Rate 56 /min BP Systolic Sitting 138 mmHg BP Diastolic Sitting 82 mmHg 06/26/2013 2:01pm Height 64 inches 5'4" Weight 181.25 lb Heart Rate 64 /min BP Systolic Sitting 140 mmHg BP Diastolic Sitting 76 mmHg BMI (Body Mass Index) 31.1 kg/m2 04/05/2013 10:44am Height 63.75 inches 5'3.75" Weight 178.75 lb Heart Rate 60 /min BP Systolic Sitting 124 mmHg BP Diastolic Sitting 52 mmHg BMI (Body Mass Index) 30.9 kg/m2 01/09/2013 10:11am Height 64 inches 5'4" Weight 180.00 lb Heart Rate 68 /min BP Systolic Sitting 142 mmHg BP Diastolic Sitting 72 mmHg BMI (Body Mass Index) 30.9 kg/m2 12/06/2012 11:56am Height 64 inches 5'4" Weight 181.00 lb Heart Rate 64 /min BP Systolic Sitting 150 mmHg BP Diastolic Sitting 68 mmHg BMI (Body Mass Index) 31.1 kg/m2 11/09/2012 9:01am Height 64 inches 5'4" Weight 180.00 lb Heart Rate 60 /min BP Systolic Sitting 128 mmHg BP Diastolic Sitting 78 mmHg BMI (Body Mass Index) 30.9 kg/m2 08/13/2012 11:41am Height 64 inches 5'4" Weight 179.00 lb Heart Rate 54 /min BP Systolic Sitting 134 mmHg BP Diastolic Sitting 74 mmHg Body Temperature 97.1 F BMI (Body Mass Index) 30.7 kg/m2 06/14/2012 10:56am Height 64 inches 5'4" Weight 179.00 lb Heart Rate 60 /min BP Systolic Sitting 106 mmHg BP Diastolic Sitting 64 mmHg BMI (Body Mass Index) 30.7 kg/m2 05/14/2012 10:38am Height 64 inches 5'4" Weight 177.00 lb Heart Rate 62 /min BP Systolic Sitting 116 mmHg BP Diastolic Sitting 74 mmHg BMI (Body Mass Index) 30.4 kg/m2 05/02/2012 12:39pm Height 64 inches 5'4" Weight 178.50 lb Heart Rate 72 /min BP Systolic Sitting 158 mmHg BP Diastolic Sitting 70 mmHg BMI (Body Mass Index) 30.6 kg/m2 04/24/2012 10:32am Height 64.25 inches 5'4.25" Weight 182.00 lb Heart Rate 68 /min BP Systolic Sitting 128 mmHg L BP Diastolic Sitting 72 mmHg L BMI (Body Mass Index) 31.0 kg/m2 04/13/2012 10:29am Height 64.25 inches 5'4.25" Weight 183.00 lb Heart Rate 68 /min BP Systolic Sitting 126 mmHg BP Diastolic Sitting 72 mmHg Body Temperature 97.3 F lt ear BMI (Body Mass Index) 31.2 kg/m2 02/21/2012 3:31pm Height 64.25 inches 5'4.25" Weight 189.00 lb Heart Rate 62 /min BP Systolic Sitting 122 mmHg BP Diastolic Sitting 78 mmHg Body Temperature 98.6 F BMI (Body Mass Index) 32.2 kg/m2 02/15/2012 10:11am Height 64.25 inches 5'4.25" Weight 190.00 lb Heart Rate 70 /min BP Systolic Sitting 128 mmHg BP Diastolic Sitting 62 mmHg Body Temperature 97.5 F Tympanically BMI (Body Mass Index) 32.4 kg/m2 12/30/2011 1:28pm Height 64.25 inches 5'4.25" Weight 183.00 lb Heart Rate 64 /min BP Systolic Sitting 132 mmHg l BP Diastolic Sitting 62 mmHg l BMI (Body Mass Index) 31.2 kg/m2 09/23/2011 10:53am Weight 180.00 lb Heart Rate 64 /min BP Systolic Sitting 114 mmHg BP Diastolic Sitting 62 mmHg 09/06/2011 9:03am Weight 181.00 lb Heart Rate 66 /min BP Systolic Sitting 116 mmHg BP Diastolic Sitting 70 mmHg Body Temperature 96.0 F lt ear 04/05/2011 3:10pm Weight 176.00 lb Heart Rate 70 /min BP Systolic Sitting 110 mmHg BP Diastolic Sitting 54 mmHg 04/02/2010 10:03am Weight 193.00 lb Heart Rate 70 /min BP Systolic Sitting 136 mmHg BP Diastolic Sitting 70 mmHg 06/11/2009 9:42am Weight 187.50 lb Heart Rate 68 /min BP Systolic Sitting 136 mmHg BP Diastolic Sitting 64 mmHg Respiratory Rate 16 /min 03/27/2009 10:26am Height 64.5 inches 5'4.50" Weight 188.00 lb Heart Rate 64 /min BP Systolic Sitting 116 mmHg BP Diastolic Sitting 62 mmHg BMI (Body Mass Index) 31.8 kg/m2 08/12/2008 3:06pm Height 64.5 inches 5'4.50" Weight 193.00 lb Heart Rate 64 /min BP Systolic Sitting 124 mmHg BP Diastolic Sitting 50 mmHg BMI (Body Mass Index) 32.6 kg/m2 07/09/2008 1:58pm Height 64.5 inches 5'4.50" Weight 193.00 lb Heart Rate 68 /min BP Systolic Sitting 158 mmHg BP Diastolic Sitting 28 mmHg Body Temperature 98.0 F BMI (Body Mass Index) 32.6 kg/m2 03/26/2008 2:13pm Height 64.5 inches 5'4.50" Weight 196.00 lb Heart Rate 80 /min BP Systolic Sitting 118 mmHg BP Diastolic Sitting 60 mmHg BMI (Body Mass Index) 33.1 kg/m2 03/12/2008 1:06pm Height 64.5 inches 5'4.50" Weight 196.00 lb Heart Rate 80 /min BP Systolic Sitting 118 mmHg BP Diastolic Sitting 60 mmHg BMI (Body Mass Index) 33.1 kg/m2 07/14/2003 5:27pm Height 65 inches Heart Rate 56 /min BP Systolic Sitting 146 mmHg BP Diastolic Sitting 78 mmHg 07/14/2003 2:50pm Height 65 inches Weight 201.00 lb BP Systolic Sitting 150 mmHg BP Diastolic Sitting 80 mmHg BP Systolic Standing 148 mmHg BP Diastolic Standing 78 mmHg BMI (Body Mass Index) 33.4 kg/m2 06/27/2003 9:20am Height 65 inches Weight 200.00 lb BP Systolic Sitting 156 mmHg BP Diastolic Sitting 66 mmHg BP Systolic Standing 132 mmHg BP Diastolic Standing 68 mmHg BMI (Body Mass Index) 33.3 kg/m2 06/19/2003 8:47am Height 65 inches Weight 199.00 lb Heart Rate 64 /min BP Systolic Sitting 150 mmHg BP Diastolic Sitting 74 mmHg BP Systolic Standing 160 mmHg BP Diastolic Standing 90 mmHg BMI (Body Mass Index) 33.1 kg/m2 06/16/2003 8:36am Height 65 inches Weight 201.00 lb Heart Rate 72 /min BP Systolic Sitting 160 mmHg BP Diastolic Sitting 80 mmHg BP Systolic Standing 150 mmHg BP Diastolic Standing 70 mmHg BMI (Body Mass Index) 33.4 kg/m2 05/26/2003 11:35am Height 65 inches Weight 198.00 lb Heart Rate 60 /min BP Systolic Sitting 118 mmHg BP Diastolic Sitting 70 mmHg BP Systolic Standing 130 mmHg BP Diastolic Standing 90 mmHg BMI (Body Mass Index) 32.9 kg/m2 Results Test Date Facility Test Result H/L Range Note Comp Metabolic Panel 08/16/2018 [facility] Sodium 142 mmol/L N 135-[address] [place] [address] [phone] Potassium 4.4 mmol/L N 3.5-5.0 Chloride 107 mmol/L N 101-111 Co2 Carbon Dioxide 27 mmol/L N 22-32 Anion Gap 8 mmol/L N 2-11 Glucose 108 mg/dL High 70-100 Blood Urea Nitrogen 17 mg/dL N 6-24 Creatinine 1.25 mg/dL High 0.51-0.95 BUN/Creatinine Ratio 13.6 N 8-20 Calcium 9.3 mg/dL N 8.6-10.3 Total Protein 6.2 g/dL Low 6.4-8.9 Albumin 4.1 g/dL N 3.2-5.2 Globulin 2.1 g/dL N 2-4 Albumin/Globulin Ratio 2.0 N 1-3 Total Bilirubin 0.50 mg/dL N 0.2-1.0 Alkaline Phosphatase 66 U/L N 34-104 Alt 14 U/L N 7-52 Ast 18 U/L N 13-39 Egfr Non- 40.5 >60 Egfr 49.1 >60 1 Lipid Profile 08/16/2018 [facility] Triglycerides 113 mg/dL 2 (Trig/Chol/HDL) [address] [place] [address] [phone] Cholesterol 152 mg/dL 3 HDL Cholesterol 57.4 mg/dL 4 LDL Cholesterol 72 mg/dL 5 Laboratory test 08/16/2018 [facility] Creatine 65 U/L N 10- [address] Kinase(CK) [place] [address] [phone] Lipid Panel - [facility] 07/24/2018 [facility] Creatine <pending> [address] [facility] Kinase(CK) [place] [address] [phone] Laboratory test 06/23/2018 [facility] Lactic Acid 0.9 N 0.5- 2.0 [address] mmol/[place] [address] [phone] Troponin-I (TnI) 0.01 ng/mL <0.04 Comp Metabolic Panel 06/23/2018 [facility] Sodium 140 mmol/L N 135-[address] [place] [address] [phone] Potassium 4.0 mmol/L N 3.5-5.0 Chloride 106 mmol/L N 101-111 Co2 Carbon Dioxide 27 mmol/L N 22-32 Anion Gap 7 mmol/L N 2-11 Glucose 112 mg/dL High 70-100 Blood Urea Nitrogen 16 mg/dL N 6-24 Creatinine 1.17 mg/dL High 0.51-0.95 BUN/Creatinine Ratio 13.7 N 8-20 Calcium 9.4 mg/dL N 8.6-10.3 Total Protein 7.0 g/dL N 6.4-8.9 Albumin 4.0 g/dL N 3.2-5.2 Globulin 3.0 g/dL N 2-4 Albumin/Globulin Ratio 1.3 N 1-3 Total Bilirubin 0.50 mg/dL N 0.2-1.0 Alkaline Phosphatase 75 U/L N 34-104 Alt 14 U/L N 7-52 Ast 16 U/L N 13-39 Egfr Non- 43.9 >60 Egfr 53.1 >60 7 Lipid Profile 06/23/2018 [facility] Triglycerides 124 mg/dL 8 (Trig/Chol/HDL) [address] [place] [address] [phone] Cholesterol 227 mg/dL 9 HDL Cholesterol 48.0 mg/dL 10 LDL Cholesterol 154 mg/dL 11 Inr/Protime 06/23/2018 [facility] Inr [address] [place] [address] [phone] Laboratory test 06/23/2018 [facility] Partial 25.0 seconds Low 26.0-36.[address] [place] [address] Time PTT [phone] Type & Screen 06/23/2018 [facility] Patient A Positive [place] [address] [phone] Antibody Screen POSITIVE Laboratory test 06/23/2018 [facility] Antibody Identification LC finding [address] [place] [address] [phone] Antibody Id Autocontrol 0 Direct [place] NEGATIVE CBC Auto Diff 06/23/2018 [facility] White Blood 4.5 10^3/uL N 3.5-10.[address] [place] [address] [phone] Red Blood Count 3.71 10^6/uL Low 4.00-5.40 Hemoglobin 11.9 g/dL Low 12.0-16.0 Hematocrit 34 % Low 35-47 Mean Corpuscular Volume 92 fL N 80-97 Mean Corpuscular Hemoglobin 32 pg High 27-31 Mean Corpuscular HGB Conc 35 g/dL N 31-36 Red Cell Distribution Width 15 % N 10.5-15 Platelet Count 154 10^3/uL N 150-450 Mean Platelet Volume 7.4 um3 N 7.4-10.4 Abs Neutrophils 3.3 10^3/uL N 1.5-7.7 Abs Lymphocytes 0.9 10^3/uL Low 1.0-4.8 Abs Monocytes 0.3 10^3/uL N 0-0.8 Abs Eosinophils 0 10^3/uL N 0-0.6 Abs Basophils 0 10^3/uL N 0-0.2 Abs Nucleated RBC 0 10^3/uL Granulocyte % 73.3 % N 38-83 Lymphocyte % 19.3 % Low 25-47 Monocyte % 6.8 % N 0-7 Eosinophil % 0.1 % N 0-6 Basophil % 0.5 % N 0-2 Nucleated Red Blood Cells % 0 Urine Culture And 06/23/2018 [facility] Urine Culture SEE RESULT 12, [address] [place] [address] [phone] Urinalysis Profile 06/23/2018 [facility] Urine Color Straw [address] [place] [address] [phone] Urine Appearance Clear Urine Specific [place] 1.005 Low 1.010-1.030 Urine pH 5.0 N 5-9 Urine Urobilinogen Negative Negative Urine Ketones Negative Negative Urine Protein Negative Negative Urine Leukocytes Trace Abnormal Negative Urine Blood 1+ Abnormal Negative Urine Nitrite Negative Negative Urine Bilirubin Negative Negative Urine Glucose Negative Negative Urine White Blood Cell 1+(6-10/hpf) Abnormal Absent Urine Red Blood Cell Trace(0-2/hpf) Absent Urine Bacteria Absent Absent Urine Squamous Epithelial Cell Present Abnormal Absent Basic Metabolic Panel 04/13/2018 [facility] Sodium 142 mmol/L N 139-145 [address] [place] [address] [phone] Potassium 4.3 mmol/L N 3.5-5.0 Chloride 108 mmol/L N 101-111 Co2 Carbon Dioxide 27 mmol/L N 22-32 Anion Gap 7 mmol/L N 2-11 Glucose 103 mg/dL High 70-100 Blood Urea Nitrogen 18 mg/dL N 6-24 Creatinine 1.15 mg/dL High 0.51-0.95 BUN/Creatinine Ratio 15.7 N 8-20 Calcium 9.4 mg/dL N 8.6-10.3 Egfr Non- 44.7 >60 Egfr 57.5 >60 14 Laboratory 04/13/2018 [facility] TSH (Thyroid Stim 1.39 N 0.34 -5.60 test finding [address] Horm) mcIU/[place] [address] [phone] Lipid Profile 04/13/2018 [facility] Triglycerides 98 mg/dL 15 (Trig/Chol/HDL [address] ) [place], [place] [id number] [phone] Cholesterol 147 mg/dL 16 HDL Cholesterol 63.5 mg/dL 17 LDL Cholesterol 64 mg/dL 18 CBC Auto Diff 04/13/2018 [facility] White Blood 3.9 10^3/uL N 3.5-10.[address] [place] [place] [address] [phone] Red Blood Count 3.67 10^6/uL Low 4.0-5.4 Hemoglobin 11.6 g/dL Low 12.0-16.0 Hematocrit 34 % Low 35-47 Mean Corpuscular Volume 94 fL N 80-97 Mean Corpuscular Hemoglobin 32 pg High 27-31 Mean Corpuscular HGB Conc 34 g/dL N 31-36 Red Cell Distribution Width 13 % N 10.5-15 Platelet Count 129 10^3/uL Low 150-450 Mean Platelet Volume 8.4 um3 N 7.4-10.4 Abs Neutrophils 2.4 10^3/uL N 1.5-7.7 Abs Lymphocytes 1.1 10^3/uL N 1.0-4.8 Abs Monocytes 0.4 10^3/uL N 0-0.8 Abs Eosinophils 0 10^3/uL N 0-0.6 Abs Basophils 0 10^3/uL N 0-0.2 Abs Nucleated RBC 0 10^3/uL Granulocyte % 62.0 % N 38-83 Lymphocyte % 28.3 % N 25-47 Monocyte % 9.2 % High 0-7 Eosinophil % 0.2 % N 0-6 Basophil % 0.3 % N 0-2 Nucleated Red Blood Cells % 0 Rapid Influenza 12/06/2017 [facility] Influenza A NEGATIVE Negative 19 A & B Molecular [address] [place] [address] [phone] Influenza B Molecular NEGATIVE Negative Laboratory test 12/06/2017 [facility] Influenza A & B SEE RESULT [address] [place] [address] [phone] Ua Routine 11/17/2017 [facility] Ua Specific 1.010 [place] Ua PH 5 Ua Color yellow Ua Appera clear Ua WBC + Ua Protein neg Ua Glucose norm Ua Ketones neg Ua Bilirubin neg Ua Urobilinogen norm Ua Nitrite neg Ua Occult Blood trace Laboratory test 09/15/2017 [facility] Erythrocyte Sed 29 mm/Hr N 0-[address] [place] [place] [address] [phone] C Reactive Protein 1.10 mg/L N < 5.00 21 CBC Auto Diff 08/09/2017 [facility] White Blood 5.6 10^3/uL N 3.5-10.[address] [place] [place] [address] [phone] Red Blood Count 3.79 10^6/uL Low 4.0-5.4 Hemoglobin 11.9 g/dL Low 12.0-16.0 Hematocrit 35 % N 35-47 Mean Corpuscular Volume 93 fL N 80-97 Mean Corpuscular Hemoglobin 32 pg High 27-31 Mean Corpuscular HGB Conc 34 g/dL N 31-36 Red Cell Distribution Width 14 % N 10.5-15 Platelet Count 147 10^3/uL Low 150-450 Mean Platelet Volume 8 um3 N 7.4-10.4 Abs Neutrophils 3.7 10^3/uL N 1.5-7.7 Abs Lymphocytes 1.4 10^3/uL N 1.0-4.8 Abs Monocytes 0.5 10^3/uL N 0-0.8 Abs Eosinophils 0 10^3/uL N 0-0.6 Abs Basophils 0 10^3/uL N 0-0.2 Abs Nucleated RBC 0.01 10^3/uL N Granulocyte % 66.6 % N 38-83 Lymphocyte % 24.0 % Low 25-47 Monocyte % 8.8 % N 1-9 Eosinophil % 0.2 % N 0-6 Basophil % 0.4 % N 0-2 Nucleated Red Blood Cells % 0.1 N Comp Metabolic Panel 08/09/2017 [facility] Sodium 139 mmol/L N 133-[address] [place] [address] [phone] Potassium 4.4 mmol/L N 3.5-5.0 Chloride 104 mmol/L N 101-111 Co2 Carbon Dioxide 28 mmol/L N 22-32 Anion Gap 7 mmol/L N 2-11 Glucose 82 mg/dL N 70-100 Blood Urea Nitrogen 18 mg/dL N 6-24 Creatinine 1.19 mg/dL High 0.51-0.95 BUN/Creatinine Ratio 15.1 N 8-20 Calcium 9.2 mg/dL N 8.6-10.3 Total Protein 6.7 g/dL N 6.4-8.9 Albumin 4.1 g/dL N 3.2-5.2 Globulin 2.6 g/dL N 2-4 Albumin/Globulin Ratio 1.6 N 1-3 Total Bilirubin 0.60 mg/dL N 0.2-1.0 Alkaline Phosphatase 76 U/L N 34-104 Alt 14 U/L N 7-52 Ast 20 U/L N 13-39 Egfr Non- 43.0 N >60 Egfr 55.3 N >60 22 Laboratory test 08/09/2017 [facility] Erythrocyte Sed 48 mm/Hr High 0-[address] [place] [address] [phone] C Reactive Protein 10.55 mg/L High < 5.00 23 Creatine Kinase(CK) 78 U/L N 10-223 Urinalysis Profile 08/09/2017 [facility] Urine Color Straw N [address] [place] [address] [phone] Urine Appearance Clear N Urine Specific [place] 1.004 Low 1.010-1.030 Urine pH 6.0 N 5-9 Urine Urobilinogen Negative N Negative Urine Ketones Negative N Negative Urine Protein Negative N Negative Urine Leukocytes Negative N Negative Urine Blood 1+ Abnormal Negative Urine Nitrite Negative N Negative Urine Bilirubin Negative N Negative Urine Glucose Negative N Negative Urine White Blood Cell Trace(0-5/hpf) N Absent Urine Red Blood Cell Trace(0-2/hpf) N Absent Urine Bacteria Absent N Absent Urine Squamous Epithelial Cell Present Abnormal Absent Protein 08/09/2017 [facility] Total 7.1 g/dL N 6.3 - Electrophoresis [address] Protein(Pep) 7.9 [place] [address] [phone] Albumin 3.5 g/dL N 3.4-4.7 Alpha-1 Globulin 0.3 g/dL N 0.1-0.3 Alpha-2 Globulin 1.1 g/dL Abnormal 0.6-1.0 Beta Globulin 1.0 g/dL N 0.7-1.2 Gamma Globulin 1.1 g/dL N 0.6-1.6 Albumin/Globulin Ratio 0.98 N Impression See Comment N 24 Basic Metabolic Panel 04/07/2017 [facility] Sodium 140 mmol/L N 133-145 [place] [address] [phone] Potassium 4.2 mmol/L N 3.5-5.0 Chloride 107 mmol/L N 101-111 Co2 Carbon Dioxide 27 mmol/L N 22-32 Anion Gap 6 mmol/L N 2-11 Glucose 102 mg/dL High 70-100 Blood Urea Nitrogen 13 mg/dL N 6-24 Creatinine 1.12 mg/dL High 0.51-0.95 BUN/Creatinine Ratio 11.6 N 8-20 Calcium 9.1 mg/dL N 8.6-10.3 Egfr Non- 46.2 N >60 Egfr 59.5 N >60 25 Laboratory 04/07/2017 [facility] TSH (Thyroid Stim 1.28 N 0.34 -5.60 26 test finding Horm) mcIU/[place] [address] [phone] Lipid Profile 04/07/2017 [facility] Triglycerides 90 mg/dL N 27 (Trig/Chol/HDL ) [place] [address] [phone] Cholesterol 144 mg/dL N 28 HDL Cholesterol 54.4 mg/dL N 29 LDL Cholesterol 72 mg/dL N 30 CBC Auto Diff 04/07/2017 [facility] White Blood 4.7 10^3/uL N 3.5-10.8 [place] [address] [phone] Red Blood Count 3.69 10^6/uL Low 4.0-5.4 Hemoglobin 11.2 g/dL Low 12.0-16.0 Hematocrit 34 % Low 35-47 Mean Corpuscular Volume 93 fL N 80-97 Mean Corpuscular Hemoglobin 30 pg N 27-31 Mean Corpuscular HGB Conc 33 g/dL N 31-36 Red Cell Distribution Width 14 % N 10.5-15 Platelet Count 153 10^3/uL N 150-450 Mean Platelet Volume 8 um3 N 7.4-10.4 Abs Neutrophils 3.1 10^3/uL N 1.5-7.7 Abs Lymphocytes 1.3 10^3/uL N 1.0-4.8 Abs Monocytes 0.3 10^3/uL N 0-0.8 Abs Eosinophils 0 10^3/uL N 0-0.6 Abs Basophils 0 10^3/uL N 0-0.2 Abs Nucleated RBC 0 10^3/uL N Granulocyte % 65.8 % N 38-83 Lymphocyte % 26.6 % N 25-47 Monocyte % 6.8 % N 1-9 Eosinophil % 0.3 % N 0-6 Basophil % 0.5 % N 0-2 Nucleated Red Blood Cells % 0.1 N Laboratory test 03/22/2017 [facility] Lactic Acid 0.8 mmol/L N 0.5-2.0 [address] [place] [address] [phone] Inr/Protime 03/22/2017 [facility] Inr 0.96 N 0.89-1.11 [address] [place] [address] [phone] Laboratory test 03/22/2017 [facility] Lipase 23 U/L N 11.0- 82.[address] [place] [address] [phone] C Reactive Protein 22.09 mg/L High < 5.00 32 Urinalysis Profile 03/22/2017 [facility] Urine Color Yellow N [address] [place] [address] [phone] Urine Appearance Clear N Urine Specific [place] 1.011 N 1.010-1.030 Urine pH 6.0 N 5-9 Urine Urobilinogen Negative N Negative Urine Ketones Negative N Negative Urine Protein Negative N Negative Urine Leukocytes 1+ Abnormal Negative Urine Blood 1+ Abnormal Negative Urine Nitrite Negative N Negative Urine Bilirubin Negative N Negative Urine Glucose Negative N Negative Urine White Blood Cell Trace(0-5/hpf) N Absent Urine Red Blood Cell 1+(3-5/hpf) Abnormal Absent Urine Bacteria Absent N Absent Urine Squamous Epithelial Cell Present Abnormal Absent Urine Culture And 03/22/2017 [facility] Urine Culture SEE RESULT [address] [place] [address] [phone] Comp Metabolic 03/22/2017 [facility] Sodium 135 mmol/L N 133- [address] [place] [address] [phone] Potassium 4.0 mmol/L N 3.5-5.0 Chloride 103 mmol/L N 101-111 Co2 Carbon Dioxide 26 mmol/L N 22-32 Anion Gap 6 mmol/L N 2-11 Glucose 138 mg/dL High 70-100 Blood Urea Nitrogen 18 mg/dL N 6-24 Creatinine 1.25 mg/dL High 0.51-0.95 BUN/Creatinine Ratio 14.4 N 8-20 Calcium 9.2 mg/dL N 8.6-10.3 Total Protein 6.9 g/dL N 6.4-8.9 Albumin 4.0 g/dL N 3.2-5.2 Globulin 2.9 g/dL N 2-4 Albumin/Globulin Ratio 1.4 N 1-3 Total Bilirubin 0.80 mg/dL N 0.2-1.0 Alkaline Phosphatase 71 U/L N 34-104 Alt 14 U/L N 7-52 Ast 18 U/L N 13-39 Egfr Non- 40.7 N >60 Egfr 52.4 N >60 34 CBC Auto Diff 03/22/2017 [facility] White Blood 8.6 10^3/uL N 3.5-10.[address] [place] [address] [phone] Red Blood Count 3.74 10^6/uL Low 4.0-5.4 Hemoglobin 11.6 g/dL Low 12.0-16.0 Hematocrit 34 % Low 35-47 Mean Corpuscular Volume 92 fL N 80-97 Mean Corpuscular Hemoglobin 31 pg N 27-31 Mean Corpuscular HGB Conc 34 g/dL N 31-36 Red Cell Distribution Width 14 % N 10.5-15 Platelet Count 123 10^3/uL Low 150-450 Mean Platelet Volume 9 um3 N 7.4-10.4 Abs Neutrophils 6.9 10^3/uL N 1.5-7.7 Abs Lymphocytes 0.9 10^3/uL Low 1.0-4.8 Abs Monocytes 0.7 10^3/uL N 0-0.8 Abs Eosinophils 0 10^3/uL N 0-0.6 Abs Basophils 0 10^3/uL N 0-0.2 Abs Nucleated RBC 0 10^3/uL N Granulocyte % 80.9 % N 38-83 Lymphocyte % 10.9 % Low 25-47 Monocyte % 8.0 % N 1-9 Eosinophil % 0 % N 0-6 Basophil % 0.2 % N 0-2 Nucleated Red Blood Cells % 0 N Laboratory 03/22/2017 [facility] Partial Thrombo 25.8 Low 26.0 -36.[address] Time [place] [address] [phone] Lipid Profile 04/12/2016 [facility] Triglycerides 115 mg/dL N 35 (Trig/Chol/HDL DRIVE ) [place] [address] [phone] Cholesterol 171 mg/dL N 36 HDL Cholesterol 60.0 mg/dL N 37 LDL Cholesterol 88 mg/dL N 38 Laboratory test 04/12/2016 [facility] TSH (Thyroid 1.75 ?IU/mL N 0.34-5.[address] Stim Horm) [place] [address] [phone] Basic Metabolic 04/12/2016 [facility] Sodium 140 mmol/L N 133- [address] [place] [address] [phone] Potassium 4.0 mmol/L N 3.5-5.0 Chloride 108 mmol/L N 101-111 Co2 Carbon Dioxide 25 mmol/L N 22-32 Anion Gap 7 mmol/L N 2-11 Glucose 123 mg/dL High 70-100 Blood Urea Nitrogen 19 mg/dL N 6-24 Creatinine 1.17 mg/dL High 0.51-0.95 BUN/Creatinine Ratio 16.2 N 8-20 Calcium 9.5 mg/dL N 8.6-10.3 Egfr Non- 44.1 N >60 Egfr 56.7 N >60 40 Laboratory 04/02/2015 [facility] TSH (Thyroid 1.31 N 0.34- 5.60 41, [address] Stim Horm) ?IU/[place] [address] [phone] Lipid Profile 04/02/2015 [facility] Triglycerides 131 mg/dL N 43 (Trig/Chol/HDL [address] ) [place] [address] [phone] Cholesterol 154 mg/dL N 44 HDL Cholesterol 64.0 mg/dL N 45 LDL Cholesterol 64 mg/dL N 46 Comp Metabolic Panel 04/02/2015 [facility] Sodium 138 mmol/L N 133-145 [address] [place] [address] [phone] Potassium 4.3 mmol/L N 3.5-5.0 Chloride 105 mmol/L N 101-111 Co2 Carbon Dioxide 27 mmol/L N 22-32 Anion Gap 6 mmol/L N 2-11 Glucose 115 mg/dL High 70-100 Blood Urea Nitrogen 20 mg/dL N 6-24 Creatinine 1.25 mg/dL High 0.51-0.95 BUN/Creatinine Ratio 16.0 N 8-20 Calcium 9.3 mg/dL N 8.6-10.3 Total Protein 6.2 g/dL Low 6.4-8.9 Albumin 4.2 g/dL N 3.2-5.2 Globulin 2.0 g/dL N 2-4 Albumin/Globulin Ratio 2.1 N 1-3 Total Bilirubin 0.70 mg/dL N 0.2-1.0 Alkaline Phosphatase 65 U/L N 34-104 Alt 19 U/L N 7-52 Ast 22 U/L N 13-39 Egfr Non- 40.9 N >60 Egfr 52.6 N >60 47 Comp Metabolic Panel 09/30/2014 [facility] Sodium 139 mmol/L N 133-145 [address] [place] [address] [phone] Potassium 4.1 mmol/L N 3.5-5.0 48 Chloride 103 mmol/L N 101-111 Co2 Carbon Dioxide 29 mmol/L N 22-32 Anion Gap 7 mmol/L N 2-11 Glucose 119 mg/dL High 70-100 Blood Urea Nitrogen 30 mg/dL High 6-24 Creatinine 1.42 mg/dL High 0.51-0.95 BUN/Creatinine Ratio 21.1 High 8-20 Calcium 9.3 mg/dL N 8.6-10.3 Total Protein 6.3 g/dL Low 6.4-8.9 Albumin 4.2 g/dL N 3.2-5.2 Globulin 2.1 g/dL N 2-4 Albumin/Globulin Ratio 2.0 N 1-3 Total Bilirubin 0.50 mg/dL N 0.2-1.0 Alkaline Phosphatase 71 U/L N 34-104 Alt 15 U/L N 7-52 Ast 20 U/L N 13-39 Egfr Non- 35.3 N >60 Egfr 45.4 N >60 49 Comp Metabolic Panel 09/05/2014 Sodium 141 mmol/L N 133-145 Potassium 4.2 mmol/L N 3.7-5.6 Chloride 106 mmol/L N 101-111 Co2 Carbon Dioxide 29 mmol/L N 22-32 Anion Gap 6 mmol/L N 2-11 Glucose 96 mg/dL N 70-100 Blood Urea Nitrogen 21 mg/dL N 6-24 Creatinine 1.23 mg/dL High 0.51-0.95 BUN/Creatinine Ratio 17.1 N 8-20 Calcium 9.3 mg/dL N 8.6-10.3 Total Protein 6.6 g/dL N 6.4-8.9 Albumin 4.3 g/dL N 3.2-5.2 Globulin 2.3 g/dL N 2-4 Albumin/Globulin Ratio 1.9 N 1-3 Total Bilirubin 0.60 mg/dL N 0.2-1.0 Alkaline Phosphatase 74 U/L N 34-104 Alt 19 U/L N 7-52 Ast 19 U/L N 13-39 Egfr Non- 41.7 N >60 Egfr 53.6 N >60 50 Laboratory test 07/02/2014 [facility] C Reactive < 0.10 N < 5.00 [address] Protein mg/[place] [address] [phone] CBC With Manual 07/02/2014 [facility] White Blood 4.6 Low 4.8- 10.[address] Count 10^3/[place] [address] [phone] Red Blood Count 3.72 10^6/uL Low 4.0-5.4 Hemoglobin 11.9 g/dL Low 12.0-16.0 Hematocrit 35 % N 35-47 Mean Corpuscular Volume 93 fL N 80-97 Mean Corpuscular Hemoglobin 32 pg High 27-31 Mean Corpuscular HGB Conc 35 g/dL N 31-36 Red Cell Distribution Width 14 % N 10.5-15 Platelet Count 135 10^3/uL Low 150-450 Mean Platelet Volume 8 um3 N 7.4-10.4 Abs Neutrophils 2.8 10^3/uL N 1.5-7.7 Abs Lymphocytes 1.5 10^3/uL N 1.0-4.8 Abs Monocytes 0.3 10^3/uL N 0-0.8 Abs Eosinophils 0 10^3/uL N 0-0.6 Abs Basophils 0 10^3/uL N 0-0.2 Abs Nucleated RBC 0 10^3/uL N Neutrophil % 60 % N 38-83 Lymphocytes % 29 % N 25-47 Monocytes % 7 % N 0-13 Eosinophils % 1 % N 0-6 Reactive Lymph % 3 % N 0-6 RBC Morphology Normal N Normal Laboratory test 07/02/2014 [facility] Erythrocyte Sed 23 mm/Hr N 0-[address] [place] [address] [phone] Laboratory test 04/03/2014 [facility] TSH (Thyroid 0.82 IU/mL N 0.34-5.60 [address] [place] [address] Horm) [phone] Comp Metabolic 04/03/2014 [facility] Sodium 138 mmol/L N 133- [address] [place] [address] [phone] Potassium 4.1 mmol/L N 3.7-5.6 Chloride 105 mmol/L N 101-111 Co2 Carbon Dioxide 28 mmol/L N 22-32 Anion Gap 5 mmol/L N 2-11 Glucose 107 mg/dL High 70-100 Blood Urea Nitrogen 21 mg/dL N 6-24 Creatinine 1.19 mg/dL High 0.51-0.95 BUN/Creatinine Ratio 17.6 N 8-20 Calcium 9.1 mg/dL N 8.6-10.3 Total Protein 6.5 g/dL N 6.4-8.9 Albumin 4.1 g/dL N 3.2-5.2 Globulin 2.4 g/dL N 2-4 Albumin/Globulin Ratio 1.7 N 1-3 Total Bilirubin 0.70 mg/dL N 0.2-1.0 Alkaline Phosphatase 70 U/L N 34-104 Alt 19 U/L N 7-52 Ast 23 U/L N 13-39 Egfr Non- 43.4 N >60 Egfr 55.8 N >60 53 Lipid Profile 04/03/2014 [facility] Triglycerides 75 mg/dL N 54 (Trig/Chol/HDL) [address] [place] [address] [phone] Cholesterol 153 mg/dL N 55 HDL Cholesterol 60.6 mg/dL N 56 LDL Cholesterol 77 mg/dL N 57 Laboratory test 08/28/2013 [facility] Vitamin B12 356 pg/mL 180-[address] [place] [address] [phone] Oncology CBC Auto 08/28/2013 [facility] White Blood 5.2 10^3/uL 4.8-10.[address] [place] [place] [address] [phone] Red Blood Count 3.93 10^6/uL Low 4.0-5.4 [...] % 0-6 Basophil % 0.4 % 0-2 Surgical 07/26/2013 [facility] S RUN DATE: [address] 08/09/ <[place] [address] NOTE> [phone] Lipid Profile 03/12/2013 [facility] Triglycerides 75 mg/dL 40 -200 (Trig/Chol/HDL) [address] [place] [address] [phone] Cholesterol 160 mg/dL Less than 200 HDL Cholesterol 67 mg/dL High 40-60 59 Cholesterol/HDL Ratio 2.4 Average 1-4.44 LDL Cholesterol 78.0 mg/dL Less Than 100 60 Comp Metabolic Panel 03/12/2013 [facility] Sodium 141 mmol/L 133-[address] [place] [address] [phone] Potassium 4.4 mmol/L 3.5-5.0 Chloride 108 mmol/L [...] Egfr Non- 39.3 >60 Egfr 50.6 >60 61 Laboratory test 03/12/2013 [facility] TSH (Thyroid 1.38 0.34- 5.[address] Stimulating miu/[place] [address] Horm) [phone] CBC Auto Diff 10/24/2012 [facility] White Blood 4.4 Low 4.8- 10.[address] Count 10^3/[place] [address] [phone] Red Blood Count 3.62 10^6/uL Low 4.0-5.4 [...] Blood Cells % 0.1 Cell Morphology 10/24/2012 [facility] Hypochromasia 1+ [address] [place] [address] [phone] Comp Metabolic 10/24/2012 [facility] Sodium 141 mmol/L 133- 145 Panel [address] [place], [place] [id number] [phone] Potassium 4.3 mmol/L 3.5-5.0 Chloride 108 mmol/L [...] Egfr Non- 43.1 >60 Egfr 55.5 >60 62 Laboratory test 10/24/2012 [facility] Magnesium 2.2 mg/dL 1.7 -2.6 finding [address] [place] [address] [phone] Creatine Kinase 132 U/L 0-200 CKMB 1.9 ng/mL 0.3-4.0 63 Troponin I 0 ng/mL 0-0.06 64 Oncology CBC 09/10/2012 [facility] White Blood 4.8 10^3/uL 4.8-10.[address] [place] [address] [phone] Red Blood Count 3.81 10^6/uL Low 4.0-5.4 [...] % 0.6 % 0-2 Retic Count 09/10/2012 [facility] Retic Count 1.6 % High 0.5- 1.[address] [place] [address] [phone] Corrected Retic Count 1.3 % 0.5-1.5 Maturation Factor Retic 1.5 Retic Index 0.90 Mean Retic Volume 110.8 Immature Retic Fraction 0.40 RBC Retic Count 3.81 10^6/uL Low 4.6-6.2 Hematocrit for Retic CNT 36 % 35-47 Laboratory test 06/11/2012 [facility] Methylmalonic 0.45 Abnormal <=0.40 [address] Acid nmol/[place] [address] [phone] Protein 05/21/2012 [facility] Albumin 3.49 3.0-4.3 Electrophoresis 101 GM/DL 5 [place] [address] [phone] Alpha 1 0.32 GM/DL 0.09-0.33 Alpha 2 1.12 GM/DL 0.59-1.18 Beta 0.96 GM/DL 0.68-1.02 Gamma 0.80 GM/DL 0.76-1.60 Albumin % 52.1 % 46-63 Alpha 1 % 4.8 % 1.2-5.3 Alpha 2 % 16.7 % 9-17 Beta % 14.3 % 10-16 Gamma % 11.9 % Low 12-22 A/G Ratio 1.1 0.9-2 Total Protein 6.7 GM/DL 6.2-8.1 Spep Comments (SEE NOTE) 66 Laboratory test 05/21/2012 [facility] Lyme Disease Negative Negative 67 finding [address] [facility] [place] [address] [phone] Immunoglobulins 05/21/2012 [facility] Iga 100 mg/dL 61 - 356 Serum Quant [address] [place] [address] [phone] Igm 180 mg/dL 37 - 286 Igg 697 mg/dL Abnormal 767 - 1590 68 Laboratory test 05/21/2012 [facility] Ferritin 152 NG/ML 11.0 -307 finding [address] [place] [address] [phone] Vitamin B12 271 pg/mL 180-914 C Reactive Protein 4.9 mg/dL High Less Than 0.5 Erythropoietin 25.3 mIU/mL Abnormal 2.6 - 18.5 69 Iron & Iron Binding 05/21/2012 [facility] Iron Total 39 g/dL 28-170 Capacity [address] [place] [address] [phone] Unsaturated Iron Binding 297 g/dL Total Iron Binding Capacity 336 g/dL 250-450 % Iron Saturation 12 % Low 15-55 Laboratory test 05/21/2012 [facility] Erythrocyte Sed 64 MM/HR High 0-[address] [place] [address] [phone] CBC Auto Diff 05/21/2012 [facility] White Blood 5.2 CUMM 4.8- 10.8 101 [place] [address] [phone] Red Cell Count 3.37 CUMM Low 4.2-5.4 [...] Eosinophils 0.1 0-0.6 Abs Basophils 0.1 0-0.2 CBC Auto Diff 05/20/2012 [facility] White Blood 6.0 CUMM 4.8- 10.[address] [place] [address] [phone] Red Cell Count 3.12 CUMM Low 4.2-5.4 [...] 0-0.6 Abs Basophils 0 0-0.2 Comments 1 70 Comp Metabolic Panel 05/20/2012 [facility] Sodium 138 mmol/L 135-145 [address] [place] [address] [phone] Potassium 4.4 mmol/L 3.5-5.0 Chloride 108 mmol/L 101-111 Co2 (Carbon Dioxide) 22.0 mmol/L 22-32 Anion Gap 8.0 mmol/L 2-11 71 Glucose 108 mg/dL High 70-100 BUN 16 mg/dL 6-24 Creatinine 1.1 mg/dL 0.50-1.40 One Over Creatinine 0.90 BUN/Creatinine Ratio 14.5 8-20 Calcium 8.9 mg/dL 8.1-9.9 Total Protein 6.4 GM/DL 6.2-8.1 Albumin 3.6 GM/DL 3.2-5.2 Globulin 2.8 GM/DL 2-4 Albumin/Globulin Ratio 1.3 1-3 Bilirubin Total 1.6 mg/dL High 0.4-1.5 72 Alkaline Phosphatase 57 U/L 30-110 Alt (SGPT) 14 U/L 14-54 Ast (Sgot) 29 U/L 12-42 eGFR Non- 47.8 > 60 eGFR 61.5 > 60 73 Laboratory test finding 05/20/2012 [facility] Amylase 38 U/L 20-120 74 [address] [place] [address] [phone] Lipase 26 U/L 22-51 Urinalysis W/Microscopic 05/20/2012 [facility] Ua Color YELLOW Yellow [address] [place] [address] [phone] Appearance-Urine CLEAR Clear Specific [place]-Ur 1.013 1.010-1.030 Esterase-Urine TRACE Abnormal Negative Nitrite NEGATIVE Negative [id number] NEGATIVE Negative Protein-Urine NEGATIVE Negative PH-Urine 5.0 5-9 Blood-Urine TRACE Abnormal Negative Ketones-Urine NEGATIVE Negative Bilirubin-Ur NEGATIVE Negative Glucose-Urine NEGATIVE Negative WBC-Urine 5-10 Abnormal 0-5 RBC-Urine 0-2 0-2 Epith Cells-Ur FEW None CBC Auto Diff 05/08/2012 [facility] White Blood 3.8 CUMM Low 4.8-10.[address] [place] [address] [phone] Red Cell Count 3.38 CUMM Low 4.2-5.4 [...] Eosinophils 0.1 0-0.6 Abs Basophils 0 0-0.2 Laboratory test 05/08/2012 [facility] Erythrocyte Sed 40 MM/HR 0-[address] [place] [address] [phone] Laboratory test 04/24/2012 [facility] C Reactive 0.8 mg/dL High Less finding [address] Protein Than 0.5 [place] [address] [phone] Erythrocyte Sed Rate 84 MM/HR High 0-40 CBC With Manual 04/24/2012 [facility] White Blood 4.2 CUMM Low 4.8-10.[address] [place] [place] [address] [phone] Red Cell Count 3.56 CUMM Low 4.2-5.4 [...] % 0-6 RBC Morphology NORMAL Laboratory test 04/19/2012 [facility] Blood [address] Culture <SEE NOTE> [place] [id number] [phone] CBC With Manual 04/13/2012 [facility] White Blood 7.2 CUMM 4.8- Diff [address] Count 10.8 [place] [id number] [phone] Red Cell Count 3.58 CUMM Low 4.2-5.4 [...] % 0-2 RBC Morphology NORMAL Laboratory test 04/13/2012 [facility] C Reactive 10.9 mg/dL High Less Than finding [address] Protein 0.5 [place] [id number] [phone] Erythrocyte Sed Rate 116 MM/HR High 0-40 Comp Metabolic Panel 04/13/2012 [facility] Sodium 134 mmol/L Low 135-[address] [place] [id number] [phone] Potassium 4.5 mmol/L 3.5-5.0 Chloride 96 mmol/L Low 101-111 Co2 (Carbon Dioxide) 29.0 mmol/L 22-32 Anion Gap 9.0 mmol/L 2-11 76 Glucose 94 mg/dL 70-100 BUN 17 mg/dL 6-24 Creatinine 1.1 mg/dL 0.50-1.40 One Over Creatinine 0.90 BUN/Creatinine Ratio 15.5 8-20 Calcium 9.3 mg/dL 8.1-9.9 Total Protein 6.3 GM/DL 6.2-8.1 Albumin 3.5 GM/DL 3.2-5.2 Globulin 2.8 GM/DL 2-4 Albumin/Globulin Ratio 1.3 1-3 Bilirubin Total 0.8 mg/dL 0.4-1.5 77 Alkaline Phosphatase 66 U/L 30-110 Alt (SGPT) 18 U/L 14-54 Ast (Sgot) 21 U/L 12-42 eGFR Non- 47.8 > 60 eGFR 61.5 > 60 78 CBC Auto Diff 03/29/2012 [facility] White Blood 4.0 CUMM Low 4.8-10.[address] [place] [place] [address] [phone] Red Cell Count 3.41 CUMM Low 4.2-5.4 [...] 0-0.6 Abs Basophils 0 0-0.2 Protime 03/29/2012 [facility] Inr 0.89 0.88-1.[address] [place] [address] [phone] Protime 10.5 SEC 10.3-13.5 80 Comp Metabolic Panel 03/29/2012 [facility] Sodium 135 mmol/L 135-[address] [place] [address] [phone] Potassium 3.4 mmol/L Low 3.5-5.0 Chloride 100 mmol/L Low 101-111 Co2 (Carbon Dioxide) 26.0 mmol/L 22-32 Anion Gap 9.0 mmol/L 2-11 81 Glucose 66 mg/dL Low 70-100 BUN 28 mg/dL High 6-24 Creatinine 1.3 mg/dL 0.50-1.40 One Over Creatinine 0.76 BUN/Creatinine Ratio 21.5 High 8-20 Calcium 9.0 mg/dL 8.1-9.9 Total Protein 6.2 GM/DL 6.2-8.1 Albumin 3.9 GM/DL 3.2-5.2 Globulin 2.3 GM/DL 2-4 Albumin/Globulin Ratio 1.7 1-3 Bilirubin Total 1.1 mg/dL 0.4-1.5 82 Alkaline Phosphatase 58 U/L 30-110 Alt (SGPT) 27 U/L 14-54 Ast (Sgot) 32 U/L 12-42 eGFR Non- 39.4 > 60 eGFR 50.7 > 60 83 Lipid Panel - 12/27/2011 [facility] CPK (Creatine 75 U/L 0- [address] Kinase) [place] [address] [phone] Comp Metabolic 12/27/2011 [facility] Sodium 139 135-[address] mmol/L [place], [place] [id number] [phone] Potassium 4.2 mmol/L 3.5-5.0 Chloride 102 mmol/L 101-111 Co2 (Carbon Dioxide) 29.0 mmol/L 22-32 Anion Gap 8.0 mmol/L 2-11 84 Glucose 99 mg/dL 70-100 BUN 20 mg/dL 6-24 Creatinine 1.2 mg/dL 0.50-1.40 One Over Creatinine 0.83 BUN/Creatinine Ratio 16.7 8-20 Calcium 8.9 mg/dL 8.1-9.9 Total Protein 6.3 GM/DL 6.2-8.1 Albumin 3.9 GM/DL 3.2-5.2 Globulin 2.4 GM/DL 2-4 Albumin/Globulin Ratio 1.6 1-3 Bilirubin Total 0.9 mg/dL 0.4-1.5 85 Alkaline Phosphatase 57 U/L 30-110 Alt (SGPT) 21 U/L 14-54 Ast (Sgot) 22 U/L 12-42 eGFR Non- 43.2 > 60 eGFR 55.6 > 60 86 Lipid Profile 12/27/2011 [facility] Triglyceride 108 mg/dL 40 -200 (Trig/Chol/HDL) [address] [place] [address] [phone] Cholesterol 170 mg/dL Less Than 200 87 High Density Lipoprotein 64 mg/dL High 40-60 88 Cholesterol/HDL Ratio 2.66 AVERAGE 1-4.44 Low Density Lipoprotein 84 mg/dL Less Than 100 89 Laboratory test 12/27/2011 [facility] TSH 1.03 0.34-5.60 finding [address] [facility] MIU/[place] [address] [phone] Urine Culture & 03/11/2011 [facility] Urine Culture MF2 [address] [place] [address] [phone] Lipid Panel 03/10/2011 [facility] Triglyceride 120 mg/dL 40- 200 91 [address] [place] [address] [phone] Cholesterol 180 mg/dL Less Than 200 92 High Density Lipoprotein 67 mg/dL High 40-60 93 Cholesterol/HDL Ratio 2.69 AVERAGE 1-4.44 Low Density Lipoprotein 89 mg/dL Less Than 100 94 Laboratory test 03/10/2011 [facility] TSH 1.06 MIU/ML 0.34- 5.60 finding [address] [place] [address] [phone] Thyroxine Free 0.86 ng/dL 0.61-1.24 BMP Basic Metabolic 03/10/2011 [facility] Sodium 142 mmol/L 135-145 Panel [address] [place] [address] [phone] Potassium 4.0 mmol/L 3.5-5.0 Chloride 102 mmol/L 101-111 Co2 (Carbon Dioxide) 32.0 mmol/L 22-32 Anion Gap 8.0 mmol/L 2-11 95 Glucose 137 mg/dL High 70-100 BUN 21 mg/dL 6-24 Creatinine 1.30 mg/dL 0.50-1.40 One Over Creatinine 0.70 BUN/Creatinine Ratio 16.2 8-20 Calcium 9.8 mg/dL 8.1-9.9 eGFR Non- 39.5 > 60 eGFR 50.8 > 60 96 Basic Metabolic Panel 01/28/2011 [facility] Sodium 140 mmol/L 135-145 [address] [place] [address] [phone] Potassium 3.5 mmol/L 3.5-5.0 Chloride 102 mmol/L 101-111 Co2 (Carbon Dioxide) 29.0 mmol/L 22-32 Anion Gap 9.0 mmol/L 2-11 97 Glucose 123 mg/dL High 70-100 BUN 21 mg/dL 6-24 Creatinine 1.30 mg/dL 0.50-1.40 One Over Creatinine 0.70 BUN/Creatinine Ratio 16.2 8-20 Calcium 9.4 mg/dL 8.1-9.9 eGFR Non- 39.5 > 60 eGFR 50.8 > 60 98 Laboratory test 09/03/2010 [facility] CPK (Creatine 123 U/L 0 -[address] Kinase) [place] [address] [phone] Hepatic Panel 09/03/2010 [facility] Total Protein 6.7 GM/DL 6.2-8.[address] [place] [address] [phone] Albumin 4.1 GM/DL 3.2-5.2 Globulin 2.6 GM/DL 2-4 Albumin/Globulin Ratio 1.6 1-3 Bilirubin Total 0.8 mg/dL 0.4-1.5 99 Bilirubin Direct 0.1 mg/dL 0.1-0.5 Indirect Bilirubin 0.7 mg/dL 0.3-1.0 100 Alkaline Phosphatase 51 U/L 30-110 Alt (SGPT) 26 U/L 14-54 Ast (Sgot) 25 U/L 12-42 Laboratory test finding 03/31/2010 [facility] Amylase 67 U/L 30-[address] [place] [address] [phone] CPK (Creatine Kinase) 166 U/L 0-170 Erythrocyte Sed Rate 26 MM/HR 0-40 Liver Function 03/31/2010 [facility] Total Protein 6.1 GM/DL Low 6.2-8.[address] [place] [address] [phone] Albumin 4.1 GM/DL 3.2-5.2 Globulin 2.0 GM/DL 2-4 Albumin/Globulin Ratio 2.1 1-3 Bilirubin Total 1.0 mg/dL 0.4-1.5 101 Bilirubin Direct 0.2 mg/dL 0.1-0.5 Indirect Bilirubin 0.8 mg/dL High 0.1-0.75 Alkaline Phosphatase 60 U/L 30-110 Alt (SGPT) 25 U/L 14-54 Ast (Sgot) 26 U/L 12-42 Lipid Panel 03/22/2010 [facility] Triglyceride 123 mg/dL 40- 200 [address] [place] [address] [phone] Cholesterol 153 mg/dL Less Than 200 102 High Density Lipoprotein 63 mg/dL High 40-60 103 Cholesterol/HDL Ratio 2.43 AVERAGE 1-4.44 Low Density Lipoprotein 65 mg/dL Less Than 100 104 BMP Basic Metabolic 03/22/2010 [facility] Sodium 141 mmol/L 135-145 Panel [address] [place] [address] [phone] Potassium 5.1 mmol/L High 3.5-5.0 Chloride 105 mmol/L 101-111 Co2 (Carbon Dioxide) 29.0 mmol/L 22-32 Anion Gap 7.0 mmol/L 2-11 105 Glucose 105 mg/dL High 70-100 106 BUN 19 mg/dL 6-24 Creatinine 1.30 mg/dL 0.50-1.40 One Over Creatinine 0.70 BUN/Creatinine Ratio 14.6 8-20 Calcium 9.9 mg/dL 8.1-9.9 107 eGFR Non- 42.1 > 60 eGFR 50.9 > 60 108 Laboratory test 03/22/2010 [facility] TSH 1.41 MIU/ML 0.34- 5.60 finding [address] [place] [address] [phone] Thyroxine Free 1.00 NG/ML 0.61-1.24 109 Laboratory test 08/10/2009 [facility] CPK (Creatine 81 U/L 0- 170 finding 101 [facility] Kinase) [place] [address] [phone] Liver Function 08/10/2009 [facility] Total Protein 6.3 GM/DL 6.2-8.1 Panel [address] [place] [address] [phone] Albumin 3.9 GM/DL 3.2-5.2 Globulin 2.4 GM/DL 2-4 Albumin/Globulin Ratio 1.6 1-3 Bilirubin Total 0.7 mg/dL 0.4-1.5 110 Bilirubin Direct 0.2 mg/dL 0.1-0.5 Indirect Bilirubin 0.5 mg/dL 0.1-0.75 Alkaline Phosphatase 62 U/L 30-110 Alt (SGPT) 34 U/L 14-54 Ast (Sgot) 27 U/L 12-42 CBC With 07/01/2009 [facility] White Blood 5.0 CUMM 4.8-10.8 111 Electronic Diff [address] [place] [address] [phone] Red Cell Count 3.75 CUMM Low 4.2-5.4 Hemoglobin 11.9 g/dL Low 12.0-16.0 Hematocrit 35 % 35-47 Mean Corpuscular Volume 93 um3 79-97 Mean Corpuscular Hemoglob 32 pg High 27-31 Mean Corpuscular HGB Cone 34 g/dL 32-36 Redcell Distribution WDTH 14 % 10.5-15 Platelet Count 161 CUMM 150-450 Mean Platelet Volume 7.6 um3 7.4-10.4 Gran % 54.9 % 38-83 Lymph % 34.4 % 25-47 Mononuclear % 8.6 % 1-9 Eosinophil % 1.9 % 0-6 Basophil % 0.2 % 0-2 Abs Lymphs 1.7 1.0-4.8 Abs Mononuclear 0.4 0-0.8 Absolute Neutrophil Count 2.7 1.5-7.7 Abs Eosinophils 0.1 0-0.6 Abs Basophils 0 0-0.2 Basic Metabolic Panel 07/01/2009 [facility] Sodium 140 mmol/L 135-[address] [place] [address] [phone] Potassium 4.1 mmol/L 3.5-5.0 Chloride 105 mmol/L 101-111 Co2 (Carbon Dioxide) 28.0 mmol/L 22-32 Anion Gap 7.0 mmol/L 2-11 112 Glucose 103 mg/dL High 70-100 113 BUN 23 mg/dL 6-24 Creatinine 1.20 mg/dL 0.50-1.40 One Over Creatinine 0.80 BUN/Creatinine Ratio 19.2 8-20 Calcium 9.3 mg/dL 8.1-9.9 114 eGFR Non- 46.2 > 60 eGFR 55.9 > 60 115 Lipid Panel - 02/06/2009 [facility] CPK (Creatine 172 U/L High 0-170 JFM 101 [address]ase) [place] [address] [phone] Comp Metabolic 02/06/2009 [facility] Sodium 140 135-[address] mmol/[place] [address] [phone] Potassium 4.0 mmol/L 3.5-5.0 Chloride 106 mmol/L 101-111 Co2 (Carbon Dioxide) 28.0 mmol/L 22-32 Anion Gap 6.0 mmol/L 2-11 116 Glucose 100 mg/dL 70-100 117 BUN 16 mg/dL 6-24 Creatinine 1.20 mg/dL 0.50-1.40 One Over Creatinine 0.80 BUN/Creatinine Ratio 13.3 8-20 Calcium 9.4 mg/dL 8.1-9.9 118 Total Protein 6.3 GM/DL 6.2-8.1 Albumin 3.9 GM/DL 3.2-5.2 Globulin 2.4 GM/DL 2-4 Albumin/Globulin Ratio 1.6 1-3 Bilirubin Total 0.9 mg/dL 0.4-1.5 Alkaline Phosphatase 69 U/L 30-110 Alt (SGPT) 19 U/L 14-54 Ast (Sgot) 22 U/L 12-42 Lipid Profile 02/06/2009 [facility] Triglyceride 132 mg/dL 40 -200 (Trig/Chol/HDL) [address] [place] [address] [phone] Cholesterol 134 mg/dL Less Than 200 119 High Density Lipoprotein 53 mg/dL 40-60 120 Cholesterol/HDL Ratio 2.53 AVERAGE 1-4.44 Low Density Lipoprotein 55 mg/dL Less Than 100 121 Laboratory test 02/06/2009 [facility] TSH 2.73 MIU/ML 0.34- 5.[address] [place] [address] [phone] Thyroxine Free 0.89 NG/ML 0.61-1.24 122 Surgical 05/01/2008 [facility] Surgical 123 Pathology 101 Pathology <SEE NOTE> [place] [address] [phone] Vitamin D, 25 04/01/2008 [facility] 25-Hydroxy <4.0 ng/mL () [address] Vitamin D2 [place] [address] [phone] 25-Hydroxy Vitamin D3 32 ng/mL () 25-Hydroxy Vitamin D Total 32 ng/mL () 125 Lipid Panel - 04/01/2008 [facility] CPK (Creatine 196 U/L High 0-[address] Kinase) [place] [address] [phone] Comp Metabolic 04/01/2008 [facility] Sodium 137 135-[address] mmol/[place] [address] [phone] Potassium 4.8 mmol/L 3.5-5.0 Chloride 102 mmol/L 101-111 Co2 (Carbon Dioxide) 30.0 mmol/L 22-32 Anion Gap 5.0 mmol/L 2-11 126 Glucose 106 mg/dL High 70-105 BUN 28 mg/dL High 6-24 Creatinine 1.4 mg/dL 0.5-1.4 One Over Creatinine 0.71 BUN/Creatinine Ratio 20.0 8-20 Calcium 9.3 mg/dL 8.7-10.2 Total Protein 6.5 GM/DL 6.2-8.1 Albumin 3.9 GM/DL 3.2-5.2 Globulin 2.6 GM/DL 2-4 Albumin/Globulin Ratio 1.5 1-3 Bilirubin Total 0.7 mg/dL 0.4-1.5 Alkaline Phosphatase 64 U/L 30-110 Alt (SGPT) 33 U/L 14-54 Ast (Sgot) 32 U/L 12-42 Lipid Profile 04/01/2008 [facility] Triglyceride 125 mg/dL 40 -200 (Trig/Chol/HDL) [address] [place] [address] [phone] Cholesterol 154 mg/dL Less Than 200 127 High Density Lipoprotein 50 mg/dL 40-60 128 Cholesterol/HDL Ratio 3.08 AVERAGE 1-4.44 Low Density Lipoprotein 79 mg/dL Less Than 100 129 Laboratory test 08/08/2007 [facility] CPK (Creatine 96 U/L 0- [address] Kinase) [place] [address] [phone] Comp Metabolic 08/08/2007 [facility] One Over 0.[address] [address] [phone] Anion Gap 7.0 mmol/L 2-11 130 Albumin/Globulin Ratio 1.6 1-3 Albumin 3.9 GM/DL 3.2-5.2 Alkaline Phosphatase 62 U/L 30-110 Alt (SGPT) 18 U/L 14-54 Ast (Sgot) 22 U/L 12-42 BUN 16 mg/dL 6-24 Calcium 8.9 mg/dL 8.7-10.2 Chloride 107 mmol/L 101-111 Co2 (Carbon Dioxide) 28.0 mmol/L 22-32 Globulin 2.5 GM/DL 2-4 Glucose 114 mg/dL High 70-105 Potassium 4.3 mmol/L 3.5-5.0 Sodium 142 mmol/L 135-145 Bilirubin Total 0.8 mg/dL 0.4-1.5 Total Protein 6.4 GM/DL 6.2-8.1 BUN/Creatinine Ratio 12.3 8-20 Creatinine 1.3 mg/dL 0.5-1.4 Lipid Profile 08/08/2007 [facility] Cholesterol/HDL 3.28 1- 4.44 (Trig/Chol/HDL) [address] [place] [address] [phone] Cholesterol 164 mg/dL Less Than 200 131 Triglyceride 203 mg/dL High 40-200 High Density Lipoprotein 50 mg/dL 40-60 Low Density Lipoprotein 73 mg/dL Less Than 100 132 Laboratory test 08/08/2007 [facility] TSH 2.72 MIU/ML 0.34- 5.[address] [place] [address] [phone] Vitamin D, 25 Hydroxy 28.5 NG/ML 20-100 133 1 Because ethnic data is not always [...] 130-159 High: 160-189 Very High: >189 6 [facility] Severe Sepsis and Septic Shock Management Bundle Measure requires all lactic acids initially measuring >2.0 mmol/L be repeated. 7 Because ethnic data is not always readily [...] 15-29 5 Kidney failure <15 (or dialysis) 8 Desirable: <150 Borderline High: 150-199 High: 200-499 Very High: >500 9 Desirable: <200 Borderline High: 200-239 High: >239 10 Low: <40 Desirable: 40-60 High: >60 11 Desirable: <100 Near Optimal: 100-129 Borderline High: 130-159 High: 160-189 Very High: >189 12 Was the patient or transfused in the last 90 days? N 13 SEE RESULT BELOW Name: MARIELLA LU V : [address]: Artemio Phelps MD Acct: [id number] Unit: [id number] AGE: 87 Location: ED Re06/23/18 SEX: F Status: DEP ER SPEC: [id number] KATIE: 06/23/[address]: Belgica BARCLAY REQ: [id number] RECD: 06/23/18 STATUS: ZHOU LLANOS DR: Dennis Phelps MD _ SOURCE: URINE SPDESC: ORDERED: Urine Culture Procedure Result Reported Site Urine Culture Final 06/24/18- 1220 ML No Growth (<1,000 CFU/mL) * - [facility] . END OF REPORT DEPARTMENT OF PATHOLOGY, [address] [place] [address] Keenan Murguia M.D. Director [facility] # [id number] 14 Because ethnic data is not always readily [...] 15-29 5 Kidney failure <15 (or dialysis) 15 Desirable: <150 Borderline High: 150-199 High: 200-499 Very High: >500 16 Desirable: <200 Borderline High: 200-239 High: >239 17 Low: <40 Desirable: 40-60 High: >60 18 Desirable: <100 Near Optimal: 100-129 Borderline High: 130-159 High: 160-189 Very High: >189 19 Personal Banker: [id number] SEE RESULT BELOW Name: MARIELLA LU V : [address]: Tatianna Jama MD Acct: [id number] Unit: [id number] AGE: 87 Location: [facility] Re12/06/17 SEX: F Status: REG REF SPEC: [id number] KATIE: 12/06/17-[address]: Tatianna Jama MD REQ: [id number] RECD: 12/06/17 STATUS: ZHOU LLANOS DR: Dennis Quintana MD _ SOURCE: NASOPHARYN SPDESC: ORDERED: Flu A B Request COMMENTS: [id number] Procedure Result Reported Site Rapid Influenza A B Request Final 12/06/17- 2316 ML Specimen received for Influenza A/B Molecular testing * ML - MAIN LAB ([facility]) . END OF REPORT * ML=Testing performed at Main Lab DEPARTMENT OF PATHOLOGY, [address] [place] [address] Keenan Murguia M.D. Director [facility] # [id number] 21 Acute inflammation: >10.00 22 Because ethnic data is not always readily [...] 15-29 5 Kidney failure <15 (or dialysis) 23 Acute inflammation: >10.00 24 RESULT: No apparent monoclonal protein on serum electrophoresis. Test Performed by: [address] [address] 25 Because ethnic data is not always readily [...] 15-29 5 Kidney failure <15 (or dialysis) 26 FASTING 10 HOUR 27 Desirable <150 Borderline high 150-199 High 200-499 Very High >500 28 Desirable <200 Borderline high 200-239 High >239 29 Low <40 Desirable: 40-60 High: >60 30 Desirable: <100 mg/dL Near Optimal: 100-129 mg/dL Borderline High: 130-159 mg/dL High: 160-189 mg/dL Very High: >189 mg/dL 31 [facility] Severe Sepsis and Septic Shock Management Bundle Measure requires all lactic acids initially measuring >2.0 mmol/L be repeated. 32 Acute inflammation: >10.00 33 SEE RESULT BELOW Name: MARIELLA LU V : [address]: Rey Quijano MD Acct: [id number] Unit: [id number] AGE: 86 Location: ED Re03/22/17 SEX: F Status: DEP ER SPEC: [id number] KATIE: 03/22/[address]: Rey Quijano MD REQ: [id number] RECD: 03/22/17 STATUS: ZHOU LLANOS DR: [facility] Dennis Quintana MD _ SOURCE: URINE SPDESC: ORDERED: Urine Culture Procedure Result Reported Site Urine Culture Final 03/23/17- 1259 ML No growth of clinically significant organisms * ML - MAIN LAB ([facility]) . END OF REPORT * ML=Testing performed at Main Lab DEPARTMENT OF PATHOLOGY, [address] [place] [address] Keenan Murguia M.D. Director [facility] # [id number] 34 Because ethnic data is not always [...] 5 Kidney failure <15 (or dialysis) 35 Desirable <150 Borderline high 150-199 High 200-499 Very High >500 36 Desirable <200 Borderline high 200-239 High >239 37 Low <40 Desirable: 40-60 High: >60 38 Desirable: <100 mg/dL Near Optimal: 100-129 mg/dL Borderline High: 130-159 mg/dL High: 160-189 mg/dL Very High: >189 mg/dL 39 FASTING 10 HOUR 40 Because ethnic data is not always readily [...] 15-29 5 Kidney failure <15 (or dialysis) 41 PT IS FASTING 42 PT IS FASTING 43 Desirable <150 Borderline high 150-199 High 200-499 Very High >500 44 Desirable <200 Borderline high 200-239 High >239 45 Low <40 Desirable: 40-60 High: >60 46 Desirable: <100 mg/dL Near Optimal: 100-129 mg/dL Borderline High: 130-159 mg/dL High: 160-189 mg/dL Very High: >189 mg/dL 47 Because ethnic data is not always readily [...] 15-29 5 Kidney failure <15 (or dialysis) 48 Potassium reference range changed effective 09/07/14 49 Because ethnic data is not always [...] 5 Kidney failure <15 (or dialysis) 50 Because ethnic data is not always readily [...] 15-29 5 Kidney failure <15 (or dialysis) 51 Acute inflammation: >10.00 52 PT IS FASTING 53 Because ethnic data is not always readily [...] 15-29 5 Kidney failure <15 (or dialysis) 54 Desirable <150 Borderline high 150-199 High 200-499 Very High >500 55 Desirable <200 Borderline high 200-239 High >239 56 Low <40 Desirable: 40-60 High: >60 57 Desirable <100 Near Optimal 100-129 Borderline high 130-159 High 160-189 Very High >189 58 RUN DATE: 08/09/13 [facility] LAB LIVE PAGE 1 RUN TIME: [address] [place] [address] Specimen Inquiry Name: MARIELLA LU V : [address]: Aziza Marti Acct: [id number] Unit: [id number] AGE: 83 Location: [facility] Re07/25/13 SEX: F Status: [facility] SPEC: [id number] KATIE: 07/26/13- SUBM DR: Aziza Marti MD REQ: [id number] RECD: 07/26/13-1038 STATUS: SOUT _ ORDERED: Decal, LEVEL III FINAL DIAGNOSIS Trapezium, right thumb, excision: Benign cartilage and bone with degenerative changes. PRE-OPERATIVE DIAGNOSIS Right thumb carpometacarpal joint arthritis GROSS DESCRIPTION The specimen is received in formalin labeled Mariellasurya Lu, Trapezium Right Thumb and consists of multiple fragments of bone that in aggregate measure 3.5 x 1.5 x 0.6 cm. Banana Ripening Room Supervisor section, one cassette after decalcification. MICROSCOPIC DESCRIPTION Signed (signature on file) Bel Mauricio MD 02/16 1805 END OF REPORT * ML=Testing performed at Main Lab DEPARTMENT OF PATHOLOGY, [address] [place] [address] Keenan Murguia M.D. Director [facility] Permit #[id number] 59 HDL Interpretation: Undesirable: High Risk: Less than 40 MG/DL Desirable: Low Risk: Greater than 60 MG/DL 60 LDL Interpretation: Low Risk Optimal Level: LDL Less than 100 MG/DL Near or Above Optimal: LDL 100-129 MG/DL Borderline High Risk: LDL 130-159 MG/DL High Risk: LDL 160-189 MG/DL Very High Risk: LDL Greater than 189 MG/DL 61 Because ethnic data is not always readily [...] 15-29 5 Kidney failure <15 (or dialysis) 62 Because ethnic data is not always readily [...] 15-29 5 Kidney failure <15 (or dialysis) 63 CKMB interpretation should be made in conjunction with clinical symptoms, patient history and EKG changes. 64 Reference Range and Interpretation: TnI (ng/ml) Interpretation Less Than 0.06 ng/mL Not supportive of diagnosis of NH 0.06 - 0.50 ng/ml Indeterminate: suggest serial studies if clinically indicated. Greater than 0.5 ng/mL Consistent with diagnosis of NH 65 In this sample, the concentration of methylmalonic acid (MMA) was minimally elevated. As the upper limit of the reference range varies in different laboratories from 0.4 to 0.6 nmol/mL. This finding could be considered normal, especially if the patient does not show other signs of vitamin B12 deficiency. Test Performed by: [address] [address] Tight Rope Walker: Seth Caldera III, M.D. 66 NORMAL ELECTROPHORETIC PATTERN. 67 Serologic response to B. burgdorferi infection is not detected, but cannot rule out early infection during which low or undetectable antibody levels to B. burgdorferi may be present. If clinically indicated, a new serum specimen should be submitted in 7-14 days. Test Performed by: [place] [address] Tight Rope Walker: Seth Caldera III, M.D. 68 Test Performed by: [place] [address] Tight Rope Walker: Seth Caldera III, M.D. 69 Test Performed by: [place] [address] Tight Rope Walker: Seth Caldera III, M.D. 70 [id number] 71 Anion gap measurement may be of limited value in the presence of any alkalosis, especially in a combined acid base disorder. . 72 A metabolite of Naproxen, O-desmethylnaproxen, has been shown to interfere with the [place]-Shannen method for measuring total bilirubin. Samples from patients who have taken Naproxen have shown spurious elevation in total bilirubin levels. 73 Because ethnic data is not always readily [...] 15-29 5 Kidney failure <15 (or dialysis) 74 PLEASE NOTE NEW REFERENCE RANGE. 75 RUN DATE: 04/24/12 [facility] NMI LIVE PAGE 1 RUN TIME: 1131 Specimen Inquiry RUN USER: INTERFACE Name: MARIELLA LU V Status: REG REF Re04/19/12 Age/Sex: 81/F Unit#: [id number] Location: : 31 SPEC #: [id number] KATIE: 04/19/12 STATUS: ZHOU REQ #: [id number] RECD: 04/19/12 [facility] DR: Mariano WALL,Dennis Lu SOURCE: BLOOD ENTR: 04/19/12-[address]: BHAVINC: BLOOD,VENO ORDERED: BLOOD CULTURE ACT WKST: BC 04/20/12 #1 Procedure Result Verified Site > AEROBIC CULTURE BOTTLE Final 04/24/121130 ML NO GROWTH AFTER 5 DAYS > ANAEROBIC CULTURE BOTTLE Final 04/24/121130 ML NO GROWTH AFTER 5 DAYS - [facility] Permit #[id number] [address] [place] [address] DEPARTMENT OF PATHOLOGY, [address] [place] [address] [facility] Permit #[id number] Dora Ortiz M.D. Operator Automated Process 76 Anion gap measurement may be of limited value in the presence of any alkalosis, especially in a combined acid base disorder. . 77 A metabolite of Naproxen, O-desmethylnaproxen, has been shown to interfere with the [place] method for measuring total bilirubin. Samples from patients who have taken Naproxen have shown spurious elevation in total bilirubin levels. 78 Because ethnic data is not always readily [...] 15-29 5 Kidney failure <15 (or dialysis) 79 Recommended INR for Patients on Oral Anticoagulants Prophylaxis 2.0 - 3.0 Treatment of thrombosis 2.0 - 3.0 Prevention of embolism 2.0 - 3.0 Prevention of embolism from prosthetic heart valves 2.5 - 3.5 80 DIAGNOSIS,TREATMENT,AND THERAPY MUST BE BASED ON THE INR VALUE ALONE. 81 Anion gap measurement may be of limited value in the presence of any alkalosis, especially in a combined acid base disorder. . 82 A metabolite of Naproxen, O-desmethylnaproxen, has been shown to interfere with the Jendrassik-Shannen method for measuring total bilirubin. Samples from patients who have taken Naproxen have shown spurious elevation in total bilirubin levels. 83 Because ethnic data is not always [...] a combined acid base disorder. . 85 A metabolite of Naproxen, O-desmethylnaproxen, has been shown to interfere with the Jendrassik-Shannen method for measuring total bilirubin. Samples from patients who have taken Naproxen have shown spurious elevation in total bilirubin levels. 86 Because ethnic data is not always readily [...] 15-29 5 Kidney failure <15 (or dialysis) 87 CHOLESTEROL INTERPRETATION: Desirable: Less than 200 MG/DL Borderline-High Risk: 200-239 MG/DL High-Risk: 240 MG/DL and over 88 HDL INTERPRETATION: Undesirable: High Risk: Less than 40 MG/DL Desirable: Low Risk: Greater than 60 MG/DL 89 LDL INTERPRETATION: Low Risk Optimal Level: LDL Less than 100 MG/DL Near or Above Optimal: LDL 100-129 MG/DL Borderline High Risk: LDL 130-159 MG/DL High Risk: LDL 160-189 MG/DL Very High Risk: LDL Greater than 189 MG/DL 90 MIXED MECHE, POSSIBLE CONTAMINATION SUGGEST SUBMISSION OF CAREFULLY COLLECTED SPECIMEN 91 FASTING 92 CHOLESTEROL INTERPRETATION: Desirable: Less than 200 MG/DL Borderline-High Risk: 200-239 MG/DL High-Risk: 240 MG/DL and over 93 HDL INTERPRETATION: Undesirable: High Risk: Less than 40 MG/DL Desirable: Low Risk: Greater than 60 MG/DL 94 LDL INTERPRETATION: Low Risk Optimal Level: LDL Less than 100 MG/DL Near or Above Optimal: LDL 100-129 MG/DL Borderline High Risk: LDL 130-159 MG/DL High Risk: LDL 160-189 MG/DL Very High Risk: LDL Greater than 189 MG/DL 95 Anion gap measurement may be of limited value in the presence of any alkalosis, especially in a combined acid base disorder. . 96 Because ethnic data is not always readily [...] 15-29 5 Kidney failure <15 (or dialysis) 97 Anion gap measurement may be of limited value in the presence of any alkalosis, especially in a combined acid base disorder. . 98 Because ethnic data is not always readily [...] 15-29 5 Kidney failure <15 (or dialysis) 99 A metabolite of Naproxen, O-desmethylnaproxen, has been shown to interfere with the [facility] method for measuring total bilirubin. Samples from patients who have taken Naproxen have shown spurious elevation in total bilirubin levels. 100 Please note updated reference range, effective 05/27/10 101 A metabolite of Naproxen, O-desmethylnaproxen, has been shown to interfere with the [facility] method for measuring total bilirubin. Samples from patients who have taken Naproxen have shown spurious elevation in total bilirubin levels. 102 CHOLESTEROL INTERPRETATION: Desirable: Less than 200 MG/DL Borderline-High Risk: 200-239 MG/DL High-Risk: 240 MG/DL and over 103 HDL INTERPRETATION: Undesirable: High Risk: Less than 40 MG/DL Desirable: Low Risk: Greater than 60 MG/DL 104 LDL INTERPRETATION: Low Risk Optimal Level: LDL Less than 100 MG/DL Near or Above Optimal: LDL 100-129 MG/DL Borderline High Risk: LDL 130-159 MG/DL High Risk: LDL 160-189 MG/DL Very High Risk: LDL Greater than 189 MG/DL 105 Anion gap measurement may be of limited value in the presence of any alkalosis, especially in a combined acid base disorder. . 106 Note change in reference range as of 06/26/08. The change was based on recommendations from the [place] [employer]. 107 Please note change in reference range effective 08 . 108 Because ethnic data is not always readily [...] 15-29 5 Kidney failure <15 (or dialysis) 109 PLEASE NOTE NEW REFERENCE RANGES. 110 A metabolite of Naproxen, O-desmethylnaproxen, has been shown to interfere with the [facility] method for measuring total bilirubin. Samples from patients who have taken Naproxen have shown spurious elevation in total bilirubin levels. 111 SURGERY [id number] 112 Anion gap measurement may be of limited value in the presence of any alkalosis, especially in a combined acid base disorder. . 113 Note change in reference range as of 06/26/08. The change was based on recommendations from the [place]. 114 Please note change in reference range effective 08 . 115 Because ethnic data is not always readily [...] 15-29 5 Kidney failure <15 (or dialysis) 116 Anion gap measurement may be of limited value in the presence of any alkalosis, especially in a combined acid base disorder. . 117 Note change in reference range as of 06/26/08. The change was based on recommendations from the [place]. 118 Please note change in reference range effective 08 . 119 CHOLESTEROL INTERPRETATION: Desirable: Less than 200 MG/DL Borderline-High Risk: 200-239 MG/DL High-Risk: 240 MG/DL and over 120 HDL INTERPRETATION: Undesirable: High Risk: Less than 40 MG/DL Desirable: Low Risk: Greater than 60 MG/DL 121 LDL INTERPRETATION: Low Risk Optimal Level: LDL Less than 100 MG/DL Near or Above Optimal: LDL 100-129 MG/DL Borderline High Risk: LDL 130-159 MG/DL High Risk: LDL 160-189 MG/DL Very High Risk: LDL Greater than 189 MG/DL 122 PLEASE NOTE NEW REFERENCE RANGES. 123 ----- RUN DATE: 05/02/08 [facility] NMI LIVE PAGE 1 RUN TIME: 1503 Specimen Inquiry RUN USER: INTERFACE -- Name: MARIELLA LU V Accjoseph#: [id number] Status: REG REF Re05/01/08 Age/Sex: 77/F Unit#: [id number] Location: [facility] : 31 -- Specimen: [id number] Spec Date: 05/01/[address]: Milad prince MD Spec Type: SURGICAL P Received: 05/01/08-6062 Copies to: Dennis ramos MD SPECIMEN BIOPSY [...] 05/02/08 1503 -- -- DEPARTMENT OF PATHOLOGY, [address] [place] [address] [facility] Permit #[id number] Keenan Murguia M.D. Director of Laboratories -- 124 FASTING 125 -- REFERENCE VALUE -- 25-HYDROXY D TOTAL (D2+D3) Optimum levels in the normal population are 25-80 Test Performed by: [facility] Dpt of Lab Med and Pathology [address] [place] [address] Tight Rope Walker: Seth Caldera III, M.D. 126 Anion gap measurement may be of limited value in the presence of any alkalosis, especially in a combined acid base disorder. . 127 CHOLESTEROL INTERPRETATION: Desirable: Less than 200 MG/DL Borderline-High Risk: 200-239 MG/DL High-Risk: 240 MG/DL and over 128 HDL INTERPRETATION: Undesirable: High Risk: Less than 40 MG/DL Desirable: Low Risk: Greater than 60 MG/DL 129 LDL INTERPRETATION: Low Risk Optimal Level: LDL Less than 100 MG/DL Near or Above Optimal: LDL 100-129 MG/DL Borderline High Risk: LDL 130-159 MG/DL High Risk: LDL 160-189 MG/DL Very High Risk: LDL Greater than 189 MG/DL 130 Anion gap measurement may be of limited value in the presence of any alkalosis, especially in a combined acid base disorder. . 131 Classification: Desirable . 132 CALCULATED LDL APPROXIMATES THE VALUE OF A DIRECT LDL MEASUREMENT. Classification: Optimal Level . 133 INTERPRETIVE GUIDELINES FOR VITAMIN D (25-HYDROXY): >100 [...] SIGNIFICANT RISK OF OSTEOMALACIA. TEST PERFORMED BY: [email or web address], [employer]. [address] [place] [address] NOTE: NEW REFERENCE RANGE OF 03/27/07 Procedures Date Code Description Status 08/21/2018 13914 Holter Monitor Review (24 hr)dr iyer & interp only Completed 08/15/2018 54839 ECG Monitor/Recording W/Visual Superimposition Completed Scanning 07/17/2018 46479 Stress Test Completed 07/17/2018 58426 Myocardial Perfusion Imaging Tomographic (Spect) Completed Multiple Studies 07/03/2018 72480 EKG Tracing & Interpretation Completed 05/26/2017 23907 EKG Tracing & Interpretation Completed 05/06/2016 38118 Inject/Drain Joint/Bursa Major W/O US Completed 01/07/2016 45187 EKG Tracing & Interpretation Completed 11/23/2015 31056 Event Monitor/Phys Review/Interp. Completed 11/23/2015 71634 Cardiac Event Monitor/Recording Completed 11/19/2015 74243 Holter Monitoring 24 HR New Completed 11/17/2015 52239 Holter Monitoring 24 HR New Completed 11/01/2015 52731 Polysomnography Sleep Staging 4+ Parameters Completed 10/20/2015 05234 ECHO Transthorasic Realtime 2D W Doppler & Color Flow Completed Hosp 10/13/2015 56933 EKG Tracing & Interpretation Completed 09/02/2015 90281 Diffusing Capacity Completed 09/02/2015 62431 Plethysmography Determination Lung Volumes & Per Completed Airway Resist 09/02/2015 99924 Pulmonary Function><Bronchodil Completed 10/14/2014 80704 Stress Test Completed 10/14/2014 71513 Myocardial Perfusion Imaging Tomographic (Spect) Completed Multiple Studies 10/14/2014 34495 Myocardial Perfusion Imaging Tomographic (Spect) Completed Multiple Studies 10/10/2014 15944 Carotid Doppler,Bilateral Completed 09/26/2014 45445 EKG Tracing & Interpretation Completed 12/18/2013 95316 Rad Exam; Hand Comp Completed 12/18/2013 84721 Rad Exam; Hand Comp Completed 08/07/2013 34158 Rad Exam; Fingers Completed 08/07/2013 70974 Rad Exam; Fingers Completed 07/25/2013 55649 Arthroplasty Interposition Intercarpal Or Completed Carpometacarpal JTS 07/25/2013 18253 Arthroplasty Interposition Intercarpal Or Completed Carpometacarpal JTS 07/25/2013 43831 Transplant Tendon Forearm/Wrist Completed 07/25/2013 67874 Transplant Tendon Forearm/Wrist Completed 07/15/2013 07691 Holter Monitor Review (24 hr)dr review & interp only Completed 07/05/2013 21150 Stress Test Completed 07/05/2013 54447 Myocardial Perfusion Imaging Tomographic (Spect) Completed Multiple Studies 07/03/2013 41854 EKG Tracing & Interpretation Completed 06/26/2013 79818 EKG Tracing & Interpretation Completed 05/24/2013 07575 Rad Exam; Hand Comp Completed 04/08/2013 [id number] Diabetic Foot Exam Completed 10/25/2012 48313 EKG, Interpretation Only Completed 05/24/2012 23691 Excision Tumor/Vascular Malform Hand/Finger Subfascial Completed 1.5 CM Or> 05/24/2012 39411 Excision Tumor/Vascular Malform Hand/Finger Subfascial Completed 1.5 CM Or> 05/24/2012 93254 Excision Tumor/Vasular Malform Hand/Finger Subfascial Completed < 1.5 CM 04/27/2012 18570019 Mammogram Completed 04/14/2011 67765113 Mammogram Completed 04/06/2010 736693424 Bone Mineral Density Test Completed 07/01/2009 54864 EKG, Interpretation Only Completed 04/09/2009 10915197 Mammogram Completed 05/01/2008 88794126 Colonoscopy Completed 07/14/2003 45537 EKG Tracing & Interpretation Completed 06/16/2003 93062 EKG Tracing & Interpretation Completed 05/26/2003 59755 EKG Tracing & Interpretation Completed Encounters Type Date Location Provider Dx Diagnosis Office Visit 10/08/2018 [place] [facility] Ginna Petit, 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 E78.00 Pure hypercholesterolemia, unspecified I47.1 Supraventricular tachycardia I10 Essential (primary) hypertension Office Visit 07/24/2018 [place] Latia Storey94.31 Abnormal 10:00a Cardiology Rahat Brito, N.PVik electrocardiogram [facility] [ECG] [EKG] E78.00 Pure hypercholesterolemia, unspecified 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.23 Occlusion and stenosis of bilateral carotid arteries R00.2 Palpitations Office Visit 07/03/2018 9:45a [place] [facility] Ginna Petit, 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 [place] Office Visit 06/12/2018 Orth[facility] John M18.12 Unil primary 9:30a Services Of MD Viv osteoarth of first C.M.A. carpometacarp joint, l hand Office Visit 03/28/2018 [facility] Internal Tatianna M25.572 Pain in left ankle 12:10p Yohan Jama M.D. and joints of left [place] foot Office Visit 03/01/2018 [facility] Internal Dennis Lu B37.89 Other sites of 4:00p Medicine [address], M.D.,FACP Office Visit 12/11/2017 [facility] Internal Jael Kerr, J06.9 Acute upper 11:00a Medicine - N.P. respiratory [place] infection, unspecified Office Visit 12/06/2017 [facility] Internal Tatianna J06.9 Acute upper 1:40p Yohan Jama M.D. respiratory [place] infection, unspecified Office Visit 11/17/2017 [facility] Internal Bal Weiss, S39.012A Strain of muscle, 11:30a Medicine - [place] [employer] AGENT fascia and tendon Rd of lower back, init Office Visit 08/09/2017 [facility] Internal Fransico Gimenez NP M54.5 Low back pain 1:00p Medicine - [place] Office Visit 05/26/2017 [place] Ginna Petit, I25.119 Athscl heart 8:20a Cardiology Of Dora disease of [place] [employer] [place] [facility] art w unsp ang pctrs I10 Essential (primary) hypertension E78.5 Hyperlipidemia, unspecified I65.23 Occlusion and stenosis of bilateral carotid arteries Office Visit 05/08/2017 10:50a [facility] Internal Dennis Lu Z00.01 Encounter for Yohan Quintana M.D.,FACP general adult [address] medical exam w abnormal findings I25.119 Athscl heart disease of [place] cor art w unsp ang pctrs E03.9 Hypothyroidism, unspecified I10 Essential (primary) hypertension L23.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 respiratory [place] infection, unspecified Office Visit 07/08/2016 2:00p [facility] Internal Fransico Gimenez, Z01.818 Encounter for other Medicine - TURPENTINER preprocedural [place] examination H26.9 Unspecified cataract I10 Essential (primary) hypertension I25.10 Athscl heart disease of [place] coronary artery w/o ang pctrs E03.9 Hypothyroidism, unspecified Office Visit 06/03/2016 [place] Ginna Petit, I49.3 Ventricular 11:15a Cardiology Of Dora [facility] depolarization I10 Essential (primary) hypertension I25.10 Athscl heart disease of [place] coronary artery w/o ang pctrs Office Visit 05/20/2016 Orthopedic Ellen M17.12 Unilateral primary 10:00a Services Of Dora [place] osteoarthritis, left C.M.A. knee M25.572 Pain in left ankle and joints of left foot M25.462 Effusion, left knee Office Visit 05/06/2016 Orthopedic Ellen M17.12 Unilateral primary 10:30a Services Of Dora [place] osteoarthritis, left C.M.A. knee M25.572 Pain in left ankle and joints of left foot M25.462 Effusion, left knee Office Visit 04/27/2016 10:30a [facility] Internal Dennis Lu Z00.01 Encounter for Yohan Quintana M.D.,FACP general adult [address] medical exam w abnormal findings M17.12 Unilateral primary osteoarthritis, left knee I25.119 Athscl heart disease of [place] cor art [facility] R73.01 Impaired fasting glucose I10 Essential (primary) hypertension E03.9 Hypothyroidism, unspecified Office Visit 04/20/2016 9:45a [facility] Ellen Mendieta, M25.562 Pain in left Of C.M.A. M.D. knee M17.12 Unilateral primary osteoarthritis, left knee M25.462 Effusion, left knee S80.02xA Contusion of left knee, initial encounter S83.422A Sprain of lateral collateral ligament of left knee, init Office Visit 04/18/2016 11:40a [facility] Internal Luis Eduardo Diaz M25.562 Pain in left Yohan Stoner M.D. knee [place] S80.02xD Contusion of left knee, subsequent encounter Office Visit 04/05/2016 11:50a [facility] Internal Dennis Lu M25.562 Pain in left Yohan Quintana M.D.,[facility] knee [place] Office Visit 01/07/2016 2:30p [place] [facility] DENY Lucas R06.02 Shortness of Of [facility] breath R00.2 Palpitations I25.119 Athscl heart disease of [place] cor art [facility] Office Visit 12/18/2015 11:45a [place] [facility] Ginna Petit, R07.9 Chest pain, Of Cristopher M.DVik unspecified R06.02 Shortness of breath I25.119 Athscl heart disease of [place] cor art [facility] I49.3 Ventricular premature depolarization Office Visit 12/14/2015 1:45p Pulmonology And Nicole J98.4 Other disorders Sleep Services Of MD Linnea of lung [facility] Office Visit 12/14/2015 9:10a [facility] Internal Dennis Lu R06.02 Shortness of Medicine - [place], breath Rd Dora,[facility] I73.9 Peripheral vascular disease, unspecified I10 Essential (primary) hypertension E03.9 Hypothyroidism, unspecified Office Visit 11/23/2015 1:15p Pulmonology And Nicole J98.4 Other disorders Sleep Services Of MD Linnea of lung [facility] Office Visit 11/12/2015 10:30a [place] [facility] Raysa Vee, G47.33 Obstructive sleep Of [facility] PA apnea (adult) (pediatric) R06.02 Shortness of breath R00.1 Bradycardia, unspecified R07.9 Chest pain, unspecified I25.119 Athscl heart disease of [place] cor art [facility] Office Visit 10/16/2015 2:00p Pulmonology And Nicole J98.4 Other disorders Sleep Services Of MD Linnea of lung [facility] R06.02 Shortness of breath G47.33 Obstructive sleep apnea (adult) (pediatric) Office Visit 10/13/2015 11:15a [place] [facility] Ginna Petit, R07.9 Chest pain, Of Cristopher John unspecified R06.02 Shortness of breath I25.119 Athscl heart disease of [place] cor art w [facility] I73.9 Peripheral vascular disease, unspecified E78.5 Hyperlipidemia, unspecified R94.31 Abnormal electrocardiogram [ECG] [EKG] Office Visit 09/10/2015 10:00a [facility] Internal Luis Miguel Cruz, J44.9 Chronic Medicine Devon John obstructive [address] pulmonary disease, unspecified R05 Cough J20.9 Acute bronchitis, unspecified R06.02 Shortness of breath Office Visit 08/28/2015 10:40a [facility] Internal Dennis Lu J40 Bronchitis, not Yohan Quintana M.D.,FACP specified as acute [address] or chronic Office Visit 05/13/2015 9:30a [facility] Internal Sebastián Chandra TURPENTINER 350.1 Neuralgia Medicine - Trigeminal [address] Office Visit 04/22/2015 11:30a [facility] Internal Dennis Lu V70.0 Examination Yohan Quintana M.D.,FACP General Medical [address] Routine AT Health Care Facility 414.01 Coronary Atherosclerosis [place] 535.00 Gastritis Acute W/O Hemorrhage 433.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 v03.82 Streptococcus Pneumoniae Vaccination Spec Other Office Visit 11/03/2014 [facility] Internal Dennis Lu 466.0 Bronchitis Acute 11:50a Rosalia Palomino M.D.,FACP Office Visit 10/15/2014 [place] Ginna Petit, 414.01 Coronary 8:30a Cardiology Of [place] Atherosclerosis [facility] [place] 780.4 Dizziness & Giddiness 433.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 Office Visit 10/07/2014 9:30a [facility] Internal Dayan Rust, 782.3 Edema Medicine - TURPENTINER [place] Office Visit 09/26/2014 9:00a [place] 414.01 Coronary Cardiology Of Damaso, Atherosclerosis [facility] Dora [place] 780.4 Dizziness & Giddiness 782.3 Edema 401.9 Hypertension Unspec 272.2 Hyperlipidemia Mixed 724.5 Backache Unspec Office Visit 09/12/2014 10:00a [facility] Internal Dayan Rust, 780.4 Dizziness & Medicine - TURPENTINER Giddiness [place] 782.3 Edema Office Visit 09/05/2014 2:30p [facility] Internal Dayan Rust, 401.9 Hypertension Unspec Medicine - TURPENTINER [place] 780.4 Dizziness & Giddiness 782.3 Edema Office Visit 07/02/2014 11:10a [facility] Internal Dennis Lu 446.5 Arteritis Giant Yohan Quintana M.D.,[facility] Cell [place] Office Visit 04/10/2014 9:30a [facility] Internal Dennis Lu V70.0 Examination Yohan Quintana M.D.,[facility] General [facility] Routine AT Health Care Facility 414.01 Coronary Atherosclerosis [place] 433.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 724.3 Sciatica Office Visit 01/02/2014 [facility] Kade Lu 719.45 Pain Joint Pelvic 11:10a Yohan Quintana M.D.,[facility] Region & Thigh [place] Office Visit 12/18/2013 [facility] [place] 715.14 Osteoarthrosis 11:15a Services Of Kaia, Localized Prim Hand Erick John Office Visit 07/09/2013 [facility] Internal Dennis Lu V72.81 Examination 11:10a Yohan Quintana M.D.,[facility] Preoperative [place] Cardiovascular 715.14 Osteoarthrosis Localized Prim Hand 414.01 Coronary Atherosclerosis [place] Office Visit 07/03/2013 [place] Petit, 414.01 Coronary 7:45a Cardiology Of [place] Atherosclerosis [facility] [place] 443.9 Peripheral Vascular Disease Unspec 786.59 Pain Chest Other 401.9 Hypertension Unspec Office Visit 06/26/2013 2:00p [facility] Internal Luis Eduardo Diaz 786.51 Pain Precordial Yohan Stoner M.D. [place] 785.1 Palpitations 780.57 Unspecified Sleep Apnea Office 06/26/2013 [facility] [place] 715.14 Osteoarthrosis Visit 10:45a Services Of [place] Marti Localized Prim Hand C.M.A. Office 05/24/2013 [facility] [place] 715.14 Osteoarthrosis Visit 10:30a Services Of [place] Marti Localized Prim Hand C.M.A. Office 04/05/2013 [facility] Internal Dennis Quintana, 715.14 Osteoarthrosis Visit 10:40a Yohan Osorio M.D.,FACP Localized Prim Hand [place] 681.11 Onychia & Paronychia Toe Office Visit 01/09/2013 10:10a [facility] Internal Dennis Lu 780.52 Insomnia Yohan Quintana M.D.,FACP Unspecified [place] 722.93 Disc Disorder Other & Unspec Lumbar Region 414.01 Coronary Atherosclerosis [place] Office Visit 12/06/2012 11:50a [facility] Internal Dennis Lu 722.93 Disc Disorder Yohan Quintana M.D.,FACP Other & Unspec [place] Lumbar Region 780.52 Insomnia Unspecified Office Visit 11/09/2012 9:00a [facility] Internal Dennis Lu 786.51 Pain Precordial Yohan Quintana M.D.,FACP [place] 414.01 Coronary Atherosclerosis [place] Office Visit 10/25/2012 10:49a [facility] Latia SVik 786.51 Pain Precordial Assoc,pc Daryl[facility] Hospitalists 272.2 Hyperlipidemia Mixed Office Visit 10/24/2012 10:49a [facility] Latia SVik 786.51 Pain Precordial Assoc,pc Daryl, [facility] Hospitalists 272.2 Hyperlipidemia Mixed Office Visit 08/13/2012 [facility] Internal Tatianna 461.9 Sinusitis Acute 11:50a Yohan Jama M.D. Unspec [place] Office Visit 06/14/2012 [facility] Internal Dennis Lu 284.19 Other Pancytopenia 10:30a Rosalia Palomino M.D.,FACP Office Visit 05/21/2012 Neurosurgery Jermaine Mckeon 724.3 Sciatica 9:20a Services Of Cristopher Pineda M.D. Office Visit 05/15/2012 [facility] [place] 238.0 Neoplasm Uncertain 8:15a Services Of Aldo Rowe & Anita John Cartilage Office Visit 05/14/2012 [facility] Internal Dennis Lu 238.0 Neoplasm Uncertain 10:30a Yohan Quintana Bone & Articular Rosalia John,[facility] Cartilage 284.19 Other Pancytopenia 783.21 Loss Of Weight Office Visit 05/02/2012 12:10p [facility] Internal Dennis Lu 447.6 Arteritis Unspec Yohan Quintana M.D.,[facility] [place] 789.9 Abdomen & Pelvis Symptoms Other Office Visit 04/24/2012 10:30a [facility] Internal Dennis Lu V70.0 Examination Yohan Quintana M.D.,[facility] Routine AT Health Care Facility 724.02 Spinal Stenosis, Lumbar Region, W/O Neurogenic Claudication 780.60 Fever, Unspecified 414.01 Coronary Atherosclerosis [place] V76.19 Screening Breast Exam Malignant Neoplasms Other Office Visit 04/13/2012 10:20a [facility] Kade Lu 780.60 Fever, Yohan Quintana M.D.,[facility] Unspecified [place] 724.3 Sciatica Office Visit 04/13/2012 Neurosurgery Karl Rubalcava 724.02 Spinal Stenosis, 9:15a Services Of Cristopher Eagle M.D. 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 Office Visit 02/21/2012 3:30p [facility] Internal Katherine Medelbull, 461.0 Sinusitis Acute Medicine - N.PVik Maxillary [place] Office Visit 02/15/2012 10:10a [facility] Internal Dennis Lu 462 Pharyngitis Acute Yohan Quintana M.D.,[facility] [place] Office Visit 12/30/2011 1:40p [facility] Internal Dennis Lu 724.3 Sciatica Yohan Quintana M.D.,[facility] [place] 414.01 Coronary Atherosclerosis [place] Office Visit 09/23/2011 DO Not Use Cristopher Lu 414.01 Coronary 10:40a AT Kisha Quintana M.D.,[facility] Atherosclerosis [place] 244.9 Hypothyroidism Other Unspec Office Visit 09/06/2011 8:40a DO Not Use [employer] AT Dennis Quintana, 723.1 Cervicalgia Kisha John,[facility] 724.3 Sciatica Office Visit 04/02/2010 10:00a DO Not Use [employer] Dennis Lu 729.1 Myalgia & AT Kisha Quintana M.D.,[facility] Myositis Unspec 244.9 Hypothyroidism Other Unspec 272.0 Hypercholesterolemia [place] 733.09 Osteoporosis Other 726.32 Epicondylitis Lateral Office Visit 06/11/2009 DO Not Use [employer] Dennis Lu 611.72 Lump Or Mass Breast 9:40a AT Kisha Quintana M.D.,[facility] Office Visit 03/27/2009 DO Not Use [employer] Dennis Lu 414.01 Coronary 10:20a AT Kisha Quintana M.D.,[facility] Atherosclerosis [place] 433.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 V76.10 Screening For Malignant Neoplasm Breast 611.72 Lump Or Mass Breast 272.0 Hypercholesterolemia [place] 557.0 Vascular Insufficiency Of Intestine Acute Office Visit 08/12/2008 3:00p DO Not Use [employer] Dennis Lu 401.1 Hypertension AT Kisha Quintana M.D.,[facility] Benign 414.01 Coronary Atherosclerosis [place] 272.0 Hypercholesterolemia Pure 244.9 Hypothyroidism Other Unspec Office Visit 07/09/2008 DO Not Use [employer] Dennis Lu 461.0 Sinusitis Acute 2:00p AT Kisha Quintana M.D.,[facility] Maxillary Office Visit 03/26/2008 DO Not Use [employer] Dennis Lu 414.01 Coronary 1:20p AT Kisha Quintana M.D.,[facility] Atherosclerosis [place] 733.99 Bone & Cartilage Disorder Other 401.9 Hypertension Unspec V76.51 Special Screening For Malignant Neoplasms Colon Office Visit 07/14/2003 2:40p [facility] Kamaljit Cohn 401.1 Hypertension Dora Blake Benign 785.1 Palpitations 414.01 Coronary Atherosclerosis [place] Office Visit 06/19/2003 8:40a [facility] Kamaljit Cohn 401.9 Hypertension Dora Blake Unspec 785.1 Palpitations Office Visit 06/16/2003 8:40a [facility] Kamaljit Cohn 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
[2018-12-31 19:59] VITALS: BP 183/98
[2018-12-31] MEDS ORDERED: Aspirin 81 mg CHEW TAB* 81 MG TAB.CHEW PO ONE (20:03)
[2018-12-31] MEDS ORDERED: NS 0.9% 1000 ML** 1,000 ML IV ONE (20:04)
[2018-12-31] MEDS ORDERED: Nitroglycerin TAB 0.4 MG* 0.4 MG TAB SL ONE (20:04)
--- NOTE | 2018-12-31 20:14 | UC ---
Cardiac HPI - HPI Summary HPI Summary: 88-year-old woman comes in with chief complaint of chest discomfort. Started about a half an hour prior to arrival. It's in the center of her chest she denies any radiation. Pushing on the chest does not make the pain worse or better. Denies any abdominal pain. Denies any nausea vomiting sweating or shortness of breath. Has not been sick recently. Did recently have left arm surgery. She has a dressing on that area now. - History of Current Complaint Chief Complaint: UCChestPain Stated Complaint: CHEST DISCOMFORT Time Seen by Provider: 12/31/18 19:43 Pain Intensity: 5 - Allergy/Home Medications Allergies/Adverse Reactions: Allergies Allergy/AdvReac Type Severity Reaction Status Date / Time No Known Allergies Allergy Verified 12/31/18 19:50 Home Medications: Home Medications Docusate CAP* [Colace Cap*] 100 mg PO DAILY 12/31/18 [History Confirmed 12/31/18 ] Hydrocodone/Acetaminophen [Hydrocodone/Acetaminophen 5-325 mg] 1 tab PO Q8HR PRN 12/31/18 [History Confirmed 12/31/18] Olmesartan (NF) [Benicar (NF)] 20 mg PO DAILY 12/31/18 [History Confirmed ] Omeprazole 20 mg PO DAILY PRN 12/31/18 [History Confirmed 12/31/18] PMH/Surg Hx/FS Hx/Imm Hx Previously Healthy: Yes Endocrine History: Hypothyroidism, Dyslipidemia Cardiovascular History: Cardiac Disease, Hypertension, Atrial Fibrillation GI/ History: Gastroesophageal Reflux Other History Of: Negative For: Anticoagulant Therapy - 81 mg ASA daily - Surgical History Surgical History: Yes Surgery Procedure, Year, and Place: stent 2002. hysterectomy,bladder suspension , RIGHT THUMB/HAND SURGERY - Family History Known Family History: Positive: Cardiac Disease, Other - Positive: CA. Thyroid. Colon related. - Social History Alcohol Use: None Substance Use Type: None Smoking Status (MU): Former Smoker Amount Used/How Often: 3 CIGARETTES PER DAY X 15 YEARS Have You Smoked in the Last Year: No When Did the Patient Quit Smoking/Using Tobacco: when she was 31 years old - Immunization History Most Recent Tetanus Shot: within ten yrs Review of Systems All Other Systems Reviewed And Are Negative: Yes Constitutional: Positive: Negative Skin: Positive: Bruising - LEFT HAND Eyes: Positive: Negative ENT: Positive: Negative Respiratory: Positive: Negative Cardiovascular: Positive: Chest Pain Gastrointestinal: Positive: Negative Motor: Positive: Negative Neurovascular: Positive: Negative Musculoskeletal: Positive: Other: - LEFT ARM SURGERY Neurological: Positive: Negative Psychological: Positive: Negative Is Patient Immunocompromised?: No Physical Exam Triage Information Reviewed: Yes Appearance: Well-Appearing, No Pain Distress, Well-Nourished Vital Signs: Initial Vital Signs Temp 99.2 F 12/31/18 19:46 Pulse 75 12/31/18 19:46 Resp 18 12/31/18 19:46 BP 183/98 12/31/18 19:46 Pulse Ox 99 12/31/18 19:46 Vital Signs Reviewed: Yes Eye Exam: Normal Eyes: Positive: Conjunctiva Clear Neck exam: Normal Neck: Positive: Supple Respiratory: Positive: Chest non-tender, Lungs clear, Normal breath sounds, No respiratory distress, No accessory muscle use Cardiovascular: Positive: RRR Abdomen Description: Positive: Nontender, Soft Bowel Sounds: Positive: Present Musculoskeletal Exam: Normal Musculoskeletal: Positive: Strength Intact, ROM Intact Neurological Exam: Normal Neurological: Positive: Alert, Muscle Tone Normal Psychological Exam: Normal Psychological: Positive: Normal Response To Family, Age Appropriate Behavior Skin: Positive: Other - ECCYMOSIS LEFT HAND. WRIST/FOREARM DRESSING IN PLACE. Diagnostics - EKG Cardiac Rate: NL - AT 1945 Cardiac Rhythm: AFib: Normal - 75BPM Ectopy: None - AFIB ST Segment: Non-Specific - BORDERLINE T ABNORMALITIES LATERAL LEADS - Assessment/Plan Course Of Treatment: In clinic in clinic patient was given aspirin 324 mg by mouth. No STEMI on EKG. Patient was transferred to the emergency department by ambulance. - Clinical Impression Provider Diagnosis: Chest pain Discharge - Sign-Out/Discharge Documenting (check all that apply): Patient Departure All imaging exams completed and their final reports reviewed: No Studies - Discharge Plan Condition: Stable Disposition: TRANS HIGHER LVL OF CARE FAC Referrals: Dennis Quintana MD [Primary Care Provider] - - Billing Disposition and Condition Condition: STABLE Disposition: Trans Higher Lvl of Care Fac
== END 2018-12-31 20:45 | disposition short-term general hospital (02) ==
LOC: UCEAST 19:39
DX: R07.9 Chest pain, unspecified (principal); K21.9 Gastro-esophageal reflux disease without esophagitis; I10 Essential (primary) hypertension; Z79.899 Other long term (current) drug therapy
CPT/HCPCS: 93005; 99213; A9270-GY; G0463

== ENCOUNTER 2018-12-31 20:58 | Emergency (ER) | payer MEDICARE ==
--- NOTE | 2018-12-31 21:28 | ED ---
HPI Chest Pain - HPI Summary HPI Summary: This patient is a 88 year old F presenting to [facility] with a chief complaint of chest tightness since 19:00 today. She originally went to the [facility] because of post-operative concerns of her left hand. While she was at the [facility] she developed the chest tightness, which she rates at a 5/10 in severity. Patient reports shaking. Patient denies nausea, SOB, diaphoresis, and swelling or pain in LE. Patient denies a history of a NH, denies typical CP or angina attacks. 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 She had a stress test done with Dr. Petit recently. - History of Current Complaint Time Seen by Provider: 12/31/18 21:13 Hx Obtained From: Patient Onset/Duration: Started Hours Ago - 19:00 today Timing: Constant Initial Severity: Moderate Current Severity: Mild Pain Intensity: 5 Pain Scale Used: 0-10 Numeric Character: Tightness Associated Signs and Symptoms: Positive: Other: - Shaking. Negative: Shortness of Breath, Diaphoresis, Nausea, Calf Pain/Swelling - Allergy/Home Medications Allergies/Adverse Reactions: Allergies Allergy/AdvReac Type Severity Reaction Status Date / Time No Known Allergies Allergy Verified 12/31/18 19:50 PMH/Surg Hx/FS Hx/Imm Hx Endocrine/Hematology History: Reports: Hx Thyroid Disease - synthroid Denies: Hx Anticoagulant Therapy - 81 mg ASA daily Cardiovascular History: Reports: Hx Coronary Artery Disease - HAS ONE CARDIAC STENT, Hx Hypercholesterolemia, Hx Hypertension, Hx Peripheral Vascular Disease , Other Cardiovascular Problems/Disorders - Carotid disease- MOD BISI, mild LICA Denies: Hx Cardiac Arrest, Hx Myocardial Infarction Respiratory History: Reports: Hx Sleep Apnea - Mild Denies: Other Respiratory Problems/Disorders GI History: Reports: Hx Gastroesophageal Reflux Disease - prn med, Other GI Disorders - hx of diverticulitis History: Denies: Other Problems/Disorders Musculoskeletal History: Reports: Hx Arthritis - LOW BACK, RIGHT THUMB, cervical spine, Hx Back Problems, Hx Osteoporosis Denies: Hx Rheumatoid Arthritis, Hx Scoliosis, Other Musculoskeletal History Sensory History: Reports: Hx Cataracts - BILATERAL, Hx Contacts or Glasses - glasses Denies: Hx Hearing Aid Opthamlomology History: Reports: Hx Cataracts - BILATERAL, Hx Contacts or Glasses - glasses Neurological History: Denies: Hx Headaches, Other Neuro Impairments/Disorders Psychiatric History: Reports: Hx Anxiety, Hx Depression - Cancer History Hx Chemotherapy: No - Surgical History Surgery Procedure, Year, and Place: stent 2002. hysterectomy,bladder suspension , RIGHT THUMB/HAND SURGERY Hx Anesthesia Reactions: No Infectious Disease History: Denies: Traveled Outside the [place] in Last 30 Days - Family History Known Family History: Positive: Cardiac Disease, Other - Positive: CA. Thyroid. Colon related. - Social History Alcohol Use: None Hx Substance Use: No Substance Use Type: Reports: None Hx Tobacco Use: No - not currrently Smoking Status (MU): Former Smoker Amount Used/How Often: 3 CIGARETTES PER DAY X 15 YEARS Have You Smoked in the Last Year: No Review of Systems Positive: Other - Shaking. Negative: Skin Diaphoresis Positive: Chest Pain - Chest tightness Negative: Shortness Of Breath Negative: Nausea Negative: Edema - Swelling or pain in LE All Other Systems Reviewed And Are Negative: Yes Physical Exam - Summary Physical Exam Summary: Appearance: Well-appearing, Well-nourished, lying in bed comfortably Skin: Warm, dry, no obvious rash Eyes: sclera anicteric, no conjunctival pallor ENT: mucous membranes moist, pharynx appears normal Neck: Supple, nontender Respiratory: Clear to auscultation, no signs of respiratory distress Cardiovascular: Normal S1, S2. No murmurs. Normal distal pulses in tibial and radial bilaterally. Abdomen: Soft, nontender, normal active bowel sounds present Musculoskeletal: Normal, Strength/ROM Intact Neurological: A&Ox3, awake and alert, mentation is normal, speech is fluent and appropriate Psychiatric: affect is normal, does not appear anxious or depressed Triage Information Reviewed: Yes Vital Signs On Initial Exam: Initial Vitals Temp Pulse Resp BP Pulse Ox 99.9 F 78 20 179/82 96 12/31/18 21:03 12/31/18 21:03 12/31/18 21:03 12/31/18 21:03 12/31/18 21:03 Vital Signs Reviewed: Yes Diagnostics - Laboratory Result Diagrams: 12/31/18 21:20 12/31/18 21:20 Lab Statement: Any lab studies that have been ordered have been reviewed, and results considered in the medical decision making process. - EKG 21:10 Cardiac Rate: NL - 65 BPM EKG Rhythm: Sinus Rhythm Summary of EKG Findings: Probable left atrial enlargement Chest Pain Course/Dx - Course Course Of Treatment: This patient is a 88 year old F presenting to [facility] with a chief complaint of chest tightness since 19:00 today. The EKG findings were unremarkable. The troponin levels were 0.02 and then 0.07. Patient will be discharged with a dx of non-cardiac chest pain. - Diagnoses Provider Diagnoses: Non-cardiac chest pain Discharge - Sign-Out/Discharge Documenting (check all that apply): Patient Departure - D/C Patient Received Moderate/Deep Sedation with Procedure: No - Discharge Plan Condition: Good Disposition: HOME Patient Education Materials: Chest Pain (ED) Referrals: Dennis Quintana MD [Primary Care Provider] - 2 Days Additional Instructions: Your arm seems to be healing ok, some bruising is normal. We did not find any sign of an active heart problem causing your symptoms. - Billing Disposition and Condition Condition: GOOD Disposition: Home - Attestation Statements Document Initiated by Dellaibe: Yes Documenting Scribe: Royer Sahni Provider For Whom Tammie is Documenting (Include Credential): Artemio Finn MD Scribe Attestation: Royer Pedroza, [email or web address] for Artemio Finn MD on 01/02/19 at 0118. Scribe Documentation Reviewed: Yes Provider Attestation: The documentation as recorded by the Royer roach accurately reflects the service I personally performed and the decisions made by Artemio roque MD Status of Scribe Document: Viewed
[2018-12-31 21:35] LABS: ABS Basophils 0 10^3/ul (0-0.2); ABS Eosinophils 0 10^3/ul (0-0.6); ABS Lymphocytes 1.2 10^3/ul (1.0-4.8); ABS Monocytes 0.4 10^3/ul (0-0.8); ABS Neutrophils 3.5 10^3/ul (1.5-7.7); ABS Nucleated RBC 0 10^3/ul; Eosinophil % 0.1 %; Hematocrit 32 % (35-47); Lymphocyte % 23.1 %; Mean Corpuscular HGB Conc 34 g/dl (31-36); Mean Corpuscular Hemoglobin 32 pg (27-31); Mean Corpuscular Volume 93 fL (80-97); Nucleated Red Blood Cells % 0; Platelet Count 155 10^3/ul (150-450); Red Blood Count 3.49 10^6/ul (4.00-5.40); Red Cell Distribution Width 14 % (10.5-15); White Blood Count 5.2 10^3/ul (3.5-10.8)
[2018-12-31 21:50] LABS: Albumin 3.9 g/dL (3.2-5.2); Albumin/Globulin Ratio 1.4 (1-3); BUN/Creatinine Ratio 16.4 (8-20); Calcium 9.1 mg/dL (8.6-10.3); EGFR African American 56.9 (>60); Globulin 2.7 g/dL (2-4); Total Bilirubin 0.4 mg/dL (0.2-1.0); Total Protein 6.6 g/dL (6.4-8.9)
[2018-12-31 21:51] LABS: Troponin I 0.02 ng/mL (<0.04)
[2019-01-01 01:10] VITALS: BP 142/70
== END 2019-01-01 01:09 | disposition home or self-care (01) ==
LOC: ED 20:58
DX: R07.89 Other chest pain (principal); E07.9 Disorder of thyroid, unspecified; Z79.82 Long term (current) use of aspirin; I25.10 Atherosclerotic heart disease of native coronary artery without angina pectoris; I10 Essential (primary) hypertension; Z95.5 Presence of coronary angioplasty implant and graft; K21.9 Gastro-esophageal reflux disease without esophagitis; Z87.891 Personal history of nicotine dependence; Z79.899 Other long term (current) drug therapy
CPT/HCPCS: 36415; 80053; 84484; 85025; 93005; 99282

== ENCOUNTER 2019-07-19 08:55 | Emergency (ER) | payer MEDICARE ==
[2019-07-19 09:05] VITALS: BP 137/64
--- NOTE | 2019-07-19 09:45 | UC ---
Skin Complaint HPI - HPI Summary HPI Summary: The patient is an 89-year-old female who was stung on her left knee yesterday by a bee. He complains of redness swelling and itching. s He is not diabetic. - History of Current Complaint Chief Complaint: UCSkin Time Seen by Provider: 07/19/19 09:38 Stated Complaint: BEE STING Hx Obtained From: Patient Onset/Duration: Sudden Onset Skin Exposure Onset/Duration: Hours Ago Timing: Constant Onset Severity: Mild Current Severity: None Pain Intensity: 0 Pain Scale Used: 0-10 Numeric Location: Discrete Character: Swelling, Pruritus, Redness, Raised Aggravating Factor(s): Touch Alleviating Factor(s): Nothing Associated Signs & Symptoms: Positive: Tenderness. Negative: Nausea, Vomiting, Numbness, Thirst, Diaphoresis, Weakness, Pallor, Shivering, Difficulty Breathing , Fever, Chills, Cough, Wheezing, Chest Pain, Hoarseness, Throat Tightening, Rash, Abdominal Pain, Lightheadedness, Syncope, Drainage, Bruising, Red Streaks - Allergy/Home Medications Allergies/Adverse Reactions: Allergies Allergy/AdvReac Type Severity Reaction Status Date / Time No Known Allergies Allergy Verified 07/19/19 09:05 Home Medications: Home Medications Ibuprofen TAB* [Advil TAB*] 200 mg PO DAILY PRN 07/19/19 [History Confirmed ] PMH/Surg Hx/FS Hx/Imm Hx Previously Healthy: Yes Endocrine History: Hypothyroidism Cardiovascular History: Hypertension, Atrial Fibrillation Other History Of: Negative For: Anticoagulant Therapy - 81 mg ASA daily - Surgical History Surgical History: Yes Surgery Procedure, Year, and Place: cardiac stent 2002. hysterectomy, bladder suspension,. RIGHT AND LEFT THUMB/HAND SURGERY - Family History Known Family History: Positive: Cardiac Disease, Hypertension, Other - Positive : CA. Thyroid. Colon related. - Social History Alcohol Use: None Substance Use Type: None Smoking Status (MU): Former Smoker Amount Used/How Often: 3 CIGARETTES PER DAY X 15 YEARS Have You Smoked in the Last Year: No When Did the Patient Quit Smoking/Using Tobacco: when she was 31 years old - Immunization History Most Recent Tetanus Shot: within ten yrs Review of Systems All Other Systems Reviewed And Are Negative: Yes Constitutional: Positive: Negative Skin: Positive: Negative Eyes: Positive: Negative ENT: Positive: Negative Respiratory: Positive: Negative Cardiovascular: Positive: Negative Gastrointestinal: Positive: Negative Genitourinary: Positive: Negative Motor: Positive: Negative Neurovascular: Positive: Negative Musculoskeletal: Positive: Negative Neurological: Positive: Negative Psychological: Positive: Negative Physical Exam Triage Information Reviewed: Yes Appearance: Well-Appearing, No Pain Distress, Well-Nourished Vital Signs: Initial Vital Signs Temp 97.6 F 07/19/19 08:59 Pulse 53 07/19/19 08:59 Resp 16 07/19/19 08:59 BP 137/64 07/19/19 08:59 Pulse Ox 96 07/19/19 08:59 Eyes: Positive: Conjunctiva Clear ENT: Positive: Hearing grossly normal. Negative: Nasal congestion, Nasal drainage, Muffled voice, Hoarse voice Neck: Positive: Supple Respiratory: Positive: Lungs clear, Normal breath sounds, No respiratory distress, No accessory muscle use Cardiovascular: Positive: RRR, No Murmur Musculoskeletal: Positive: Other: - local edema site Neurological: Positive: Alert Skin Exam: Other - redness edema at sting site Images Front/Back of Body, Lg (Armstrong): 1 - sting Course/Dx - Diagnoses Provider Diagnosis: Local reaction to insect sting Discharge ED - Sign-Out/Discharge Documenting (check all that apply): Patient Departure All imaging exams completed and their final reports reviewed: No Studies - Discharge Plan Condition: Stable Disposition: HOME Prescriptions: Fexofenadine (NF) [Elsa (NF)] 60 mg PO BID #6 tab predniSONE TAB* [Deltasone 10 MG TAB*] 10 mg PO DAILY #3 tab Patient Education Materials: Insect Bite or Sting (ED), Ice Pack Application ( ED) Referrals: Luis Eduardo Stoner MD [Primary Care Provider] - 3 Days (if not better) Additional Instructions: ice 4x daily until better - Billing Disposition and Condition Condition: STABLE Disposition: Home
== END 2019-07-19 09:52 | disposition home or self-care (01) ==
LOC: UCEAST 08:55
DX: T63.441A Toxic effect of venom of bees, accidental (unintentional), initial encounter (principal); Y92.9 Unspecified place or not applicable; E03.9 Hypothyroidism, unspecified; I10 Essential (primary) hypertension; I48.91 Unspecified atrial fibrillation; Z79.82 Long term (current) use of aspirin; Z87.891 Personal history of nicotine dependence
CPT/HCPCS: 99212; G0463

== ENCOUNTER 2019-12-05 10:39 | Observation (INO) | payer MEDICARE ==
--- OUTSIDE RECORDS SUMMARY | 2019-12-05 10:52 | XMS REPORT | Continuity of Care Document ---
:1930 External Reference #:[id number] Author Name Ginna Petit M.D. (transmitted by agent of provider Pilar Corrigan) Address [address] [place] [id number] Care Team Providers Name Role Phone Milad Barrios MD - Gastroenterology Care Team Information Compliance Examiner Ritu Brito MD - Surgery Care Team Information Compliance Examiner [phone] Ginna Petit MD - Cardiovascular Care Team Information Compliance Examiner Disease Karl Eagle MD - Neurological Care Team Information Compliance Examiner Surgery Joe Fox MD - Hematology Care Team Information Compliance Examiner Nicole Yarbrough MD - Pulmonary Care Team Information Compliance Examiner [phone] Disease Brad Boudreaux MD - Vascular & Care Team Information Compliance Examiner [phone] Interventional Radiology Luis Eduardo Stoner III, MD - Internal Care Team Information Compliance Examiner Medicine Ellen Mendieta MD - Adult Care Team Information Compliance Examiner [phone] Reconstructive Orthopaedic Surgery Problems Active Problems Provider Date Coronary arteriosclerosis Dennis Quintana, Onset: 03/26/2008 Dora,FACP Essential hypertension Dennis Quintana, Onset: 03/26/2008 Dora,FACP Impaired fasting glycaemia Dennis Quintana, Onset: 04/22/2015 Dora,FACP Carotid artery stenosis Dennis Quintana, Onset: 04/22/2015 Dora,FACP Pure hypercholesterolemia Dennis Quintana, Onset: 08/12/2008 Dora,FACP Hypothyroidism Dennis Quintana, Onset: 08/12/2008 Dora,FACP Localized, primary osteoarthritis of the Dennis Quintana, Onset: 07/09/2013 hand Dora,FACP Senile osteopenia Dennis Lu Mariano, Onset: 04/10/2014 Dora,FACP Sciatica Dennis GutierrezVik Quintana, Onset: 04/10/2014 Dora,FACP Peripheral vascular disease Ginna Petit M.D. Onset: 10/13/2015 Hyperlipidemia Ginna Petit M.D. Onset: 10/13/2015 Obstructive sleep apnea syndrome Nicole Yarbrough MD Onset: 10/16/2015 Localized, primary osteoarthritis Ellen Mendieta M.D. Onset: 04/20/2016 Premature beats Ginna Petit M.D. Onset: 06/03/2016 Diverticulitis of colon Dennis GutierrezVik Quintana, Onset: 03/23/2017 Dora,FACP Note: one occasion Electrocardiogram abnormal Ginna Petit M.D. Onset: 07/03/2018 Social History Type Date Description Comments Sex Unknown Cigarette Use Quit - Age 31 ETOH Use 05/08/2017 Denies alcohol use Recreational Drug Use Denies Drug Use Tobacco Use Start: Unknown End: Patient is a former smoker Unknown Smoking Status Reviewed: 10/22/19 Patient is a former smoker Exercise Type/Frequency Exercises rarely Allergies, Adverse Reactions, Alerts Description No Known Drug Allergies Medications Active Medications SIG Qnty Indications Ordering Provider Date Synthroid one tablet once 90tabs Monae Bobby, 04/30/2019 100mcg Tablets daily M.DVik Olmesartan Medoxomil 1 by mouth 90tabs I10 Bal Weiss, 04/24/2019 20mg every day [employer] Tablets Blood Pressure Monitor use daily to 1units I10 Bal Weiss, 04/10/2019 Auto Inflate monitor bp [employer] Misc daily Acetaminophen 2 tablets by 60tabs Dennis Lu 06/25/2018 325mg mouth every 6 Dora Quintana,FACP Tablets hours as needed for pain/fever Omeprazole 1 by mouth 90caps K29.00 Fransico Gimenez NP 04/22/2015 20mg Capsules every day every DR day as needed Trazodone HCL take 2-3 270tabs G47.00 Fransico Gimenez NP 12/06/2012 50mg tablets by Tablets mouth at bedtime Nitrostat one sl q5min up 25tabs Dennis Lu 11/09/2012 0.4mg Tablets to 3 doses as Dora Quintana,CHINTAN Sub needed. Aspirin 1 po qd 100tabs Dennis Lu 04/05/2011 81mg Tablets Dora Quintana,FACJohn Isosorbide Mononitrate take 1 tablet 90tabs I10 Fransico Gimenez NP 11/09/2010 ER by mouth in the 60mg Tablets ER 24HR morning Metoprolol Succinate take 2 tablet 180tabs I10 Fransico Gimenez NP 08/12/2008 ER by mouth every 25mg Tablets ER 24HR day Fish Oil 1 po every Unknown 1000mg Capsules other day Vitamin D3 1 by mouth 30caps Unknown 1000Unit every day Capsules Lipitor take 1 tablet 90tabs E78.5 Fransico Gimenez NP 40mg Tablets by mouth at bedtime Tylenol Arthritis 8 1 po qid prn Unknown HRS 650mg Stool Softener 100mg Unknown Ibu-200 prn Unknown History Medications Losartan Potassium 1 by mouth every 90tabs Luis Eduardo Stoner, 06/12/2019 - abdon John 06/12/2019 100mg Tablets Medications Administered in Office Medication SIG Qnty Indications Ordering Provider Date Inj, Regadenoson, 0.1 MG Idris Floyd M.D., 07/17/2018 Injection [place] Technetium TC 99M Idris Floyd M.D., 07/17/2018 Tetrofosmin, Per Unit Dose Up [place] SEAY To 40 Millicuries Injection Depomedrol 40MG Ellen Mendieta M.D. 05/06/2016 Injection Technetium TC 99M Idris Floyd M.D., 10/14/2014 Tetrofosmin, Per Unit Dose Up FACC, FASNC To 40 Millicuries Injection Technetium TC 99M Ginna Petit M.D. 10/14/2014 Tetrofosmin, Per Unit Dose Up To 40 Millicuries Injection Inj, Regadenoson, 0.1 MG Elian Valiente M.D. 07/05/2013 Injection Aminophylline Elian Valiente M.D. 07/05/2013 Injection Technetium TC 99M Elian Valiente M.D. 07/05/2013 Tetrofosmin, Per Unit Dose Up To 40 Millicuries Injection Immunizations CPT Code Status Date Vaccine Reaction Lot # [id number] Given 09/07/2018 Fluzone High Dose 13878 Given 08/15/2017 Fluzone High Dose Q2037 Given 09/07/2015 Fluvirin Im 3Yrs And Older 50866 Given 08/25/2015 Fluzone High Dose 78412 Given 04/22/2015 Pneumococcal Conjugate no reaction, no [id number] Vaccine 13 Valent For complaints Intramuscular Use 29980 Given 08/15/2014 Flu Vaccine Split Virus Preservative Free For Indiv 3Yr Older 67660 Given 09/16/2013 Flu Vaccine Split Virus Preservative Free For Indiv 3Yr Older Q2038 Given 07/17/2012 Fluzone Vaccine 46226 Given 08/15/2011 Influenza Virus 3Yrs & Over 91493 Given 09/21/2010 Influenza Virus 3Yrs & Over [id number] 28473 Given 08/05/2008 Influenza Virus 3Yrs & Over 93748 Given 08/05/2008 Influenza Virus 3Yrs & Over 58861 Given 08/07/2001 Pneumonia Vaccine Vital Signs Date Vital Result Comment 10/22/2019 10:59am Height 65 inches 5'5" Weight 178.75 lb Heart Rate 60 /min BP Systolic 122 mmHg BP Diastolic 70 mmHg Respiratory Rate 12 /min Body Temperature 97.6 F Pain Level 5 BMI (Body Mass Index) 29.7 kg/m2 10/14/2019 1:20pm Height 64 inches 5'4" Weight 180.25 lb Heart Rate 96 /min BP Systolic 142 mmHg BP Diastolic 78 mmHg Respiratory Rate 20 /min Body Temperature 97.3 F Pain Level 1 increased with activity O2 % BldC Oximetry 99 % BMI (Body Mass Index) 30.9 kg/m2 Results Test Acquired Date Facility Test Result H/L Range Note Laboratory test 05/02/2019 [facility] TSH 2.22 Normal 0.34- 5.[address] (Thyroid mcIU/[place] [address] Stim Shkc) [phone] Basic Metabolic 05/02/2019 [facility] Sodium 141 mmol/L Normal 135-[address] [place] [address] [phone] Potassium 4.3 mmol/L Normal 3.5-5.0 Chloride 108 mmol/L Normal 101-111 Co2 Carbon Dioxide 26 mmol/L Normal 22-32 Anion Gap 7 mmol/L Normal 2-11 Glucose 129 mg/dL High 70-100 Blood Urea Nitrogen 21 mg/dL Normal 6-24 Creatinine 1.19 mg/dL High 0.51-0.95 BUN/Creatinine Ratio 17.6 Normal 8-20 Calcium 9.2 mg/dL Normal 8.6-10.3 Egfr Non- 42.9 >60 Egfr 51.9 >60 1 Basic Metabolic 04/24/2019 [facility] Sodium 142 mmol/L Normal 135-145 Panel [address] [place] [address] [phone] Potassium 4.0 mmol/L Normal 3.5-5.0 Chloride 108 mmol/L Normal 101-111 Co2 Carbon Dioxide 26 mmol/L Normal 22-32 Anion Gap 8 mmol/L Normal 2-11 Glucose 91 mg/dL Normal 70-100 Blood Urea Nitrogen 21 mg/dL Normal 6-24 Creatinine 1.10 mg/dL High 0.51-0.95 BUN/Creatinine Ratio 19.1 Normal 8-20 Calcium 9.4 mg/dL Normal 8.6-10.3 Egfr Non- 47.0 >60 Egfr 56.9 >60 2 1 Because ethnic data is not always [...] 5 Kidney failure <15 (or dialysis) 2 Because ethnic data is not always readily [...] 15-29 5 Kidney failure <15 (or dialysis) Procedures Date Code Description Status 10/22/2019 55657 Inject Tendon Sheath Or Ligament Aponeurosis Eg Completed Plantar Fascia 04/08/2013 929876304 Diabetic Foot Exam Completed 04/27/2012 [id number] Mammogram Completed 04/14/2011 [id number] Mammogram Completed 04/06/2010 326761048 Bone Mineral Density Test Completed 04/09/2009 [id number] Mammogram Completed 05/01/2008 [id number] Colonoscopy Completed Medical Devices Description No Information Available Encounters Type Date Location Provider Dx Diagnosis Office Visit 05/28/2019 [facility] Luis Eduardo Daiz I10 Essential (primary) 3:20p Medicine - Ccmmyranda Stoner M.D. hypertension Office Visit 04/24/2019 [facility] Bal Weiss, I10 Essential (primary ) 3:[facility] [employer] hypertension Office Visit 04/23/2019 [facility] John Nam, M18.12 Unil primary 9:15a at [facility] osteoarth of first carpometacarp joint, l hand Assessments Date Code Description Provider 10/22/2019 M18.12 Unilateral primary osteoarthritis of first John Nam MD carpometacarpal j 10/14/2019 M25.561 Pain in right knee Ellen Mendieta M.D. 10/14/2019 M25.461 Effusion, right knee Ellen Mendieta M.D. 10/14/2019 M17.11 Unilateral primary osteoarthritis, right Ellen Mendieta M.D. knee 10/01/2019 M65.332 Trigger finger, left middle finger Luis Eduardo Stoner M.D. 10/01/2019 M25.561 Pain in right knee Luis Eduardo Stoner M.D. 05/28/2019 I10 Essential (primary) hypertension Luis Eduardo Stoner M.D. 04/24/2019 I10 Essential (primary) hypertension ERICK Arzate 04/23/2019 M18.12 Unilateral primary osteoarthritis of first John Nam MD carpometacarpal j Plan of Treatment Future Appointment(s):11/04/2019 2:40 pm - Ginna Petit M.D. at [facility]11/28/2019 1:20 pm - Luis Eduardo Stoner M.D. at [facility] Internal Medicine - [facility]10/22/2019 - John Nam MDM18.12 Unilateral primary osteoarthritis of first carpometacarpal jFollow up:Follow up: 6 weeks Functional Status Description No Information Available Mental Status Description No Information Available Referrals Refer to Reason for Referral Status Appt Date Ellen Mendieta MD New R knee pains Sent 10/14/2019 [address] [facility] [place] [id number] [phone]
--- OUTSIDE RECORDS SUMMARY | 2019-12-05 10:52 | XMS REPORT | Continuity of Care Document ---
:1930 External Reference #:[id number] Author Name Luis Eduardo Stoner M.D. (transmitted by agent of provider Nancie Lee ) Address [address] [facility], [place] [address] Care Team Providers Name Role Phone Milad Barrios MD - Gastroenterology Care Team Information Trouble Shooter [phone] Ritu Brito MD - Surgery Care Team Information Trouble Shooter [phone] Ginna Petit MD - Cardiovascular Care Team Information Trouble Shooter Disease Karl Eagle MD - Neurological Care Team Information Trouble Shooter Surgery Joe Fox MD - Hematology Care Team Information Trouble Shooter Nicole Yarbrough MD - Pulmonary Care Team Information Trouble Shooter Disease Brad Boudreaux MD - Vascular & Care Team Information Trouble Shooter [phone] Interventional Radiology Luis Eduardo Stoner III, MD - Internal Care Team Information Trouble Shooter Medicine Ellen Mendieta MD - Adult Care Team Information Trouble Shooter [phone] Reconstructive Orthopaedic Surgery Problems Active Problems Provider [...] Onset: 07/09/2013 hand Dora,FACP Senile osteopenia Dennis Quintana, Onset: 04/10/2014 Dora,FACP Sciatica Dennis Acostad, Onset: 04/10/2014 Dora,FACP Peripheral vascular disease Ginna Petit M.D. Onset: 10/13/2015 Hyperlipidemia Ginna Petit M.D. Onset: 10/13/2015 Obstructive sleep apnea syndrome Nicole Yarbrough MD Onset: 10/16/2015 Localized, primary osteoarthritis Ellen Mendieta M.D. Onset: 04/20/2016 Premature beats Ginna Petit M.D. Onset: 06/03/2016 Diverticulitis of colon Dennis GutierrezVik Donie, Onset: 03/23/2017 Dora,FACP Note: one occasion Electrocardiogram abnormal Ginna Petit M.D. Onset: 07/03/2018 Social History Type Date Description Comments Sex Unknown Cigarette Use Quit - Age 31 ETOH Use 05/08/2017 Denies alcohol use Recreational Drug Use Denies Drug Use Tobacco Use Start: Unknown End: Patient is a former smoker Unknown Smoking Status Reviewed: 11/28/19 Patient is a former smoker Exercise Type/Frequency Exercises rarely Allergies, Adverse Reactions, Alerts Description No Known Drug Allergies Medications Active Medications SIG Qnty Indications Ordering Provider Date Synthroid one tablet once 90tabs Monae Bobby 04/30/2019 100mcg Tablets daily M.DVik Olmesartan Medoxomil 1 by mouth 90tabs I10 Bal Weiss, 04/24/2019 20mg every day [employer] WORK MSW Tablets Blood Pressure Monitor use daily to 1units I10 Bal Weiss, 04/10/2019 Auto Inflate monitor bp [employer] MSW Misc daily Acetaminophen 2 tablets by 60tabs [...] 100tabs Dennis Lu 04/05/2011 81mg Tablets Dora Quintana,FACP Isosorbide Mononitrate take 1 tablet 90tabs I10 Franscio Gimenez NP 11/09/2010 ER by mouth in the 60mg Tablets ER 24HR morning Metoprolol Succinate Take 2 Tablets 180tabs I10 Luis Eduardo Stoner, 2007 ER By Mouth Once M.D. 25mg Tablets ER 24HR Daily. Vitamin D3 1 by mouth 30caps Unknown 1000Unit every day Capsules Lipitor take 1 tablet 90tabs E78.5 Fransico Gimenez NP 40mg Tablets by mouth at bedtime Tylenol Arthritis 8 1 po qid prn Unknown HRS 650mg Stool Softener 100mg Unknown Ibu-200 prn Unknown History Medications Losartan Potassium 1 by mouth every 90tabs Luis Eduardo Stoner, 06/12/2019 - day Dora 06/12/2019 100mg Tablets Medications Administered in Office Medication SIG Qnty Indications Ordering Provider Date Celestone 3 mg and 3mg John Nam MD 10/22/2019 Injection Inj, Regadenoson, 0.1 MG Idris Floyd M.D., [...] Code Status Date Vaccine Reaction Lot # [id number] Given 09/07/2018 Fluzone High Dose 39870 Given 08/15/2017 Fluzone High Dose Q2037 Given 09/07/2015 Fluvirin Im 3Yrs And Older 58244 Given 08/25/2015 Fluzone High Dose 56975 Given 04/22/2015 Pneumococcal Conjugate no reaction, no [id number] Vaccine 13 Valent For complaints Intramuscular Use 79795 Given 08/15/2014 Flu Vaccine Split Virus Preservative Free For Indiv 3Yr Older 00389 Given 09/16/2013 Flu Vaccine Split Virus Preservative Free For Indiv 3Yr Older Q2038 Given 07/17/2012 Fluzone Vaccine 50869 Given 08/15/2011 Influenza Virus 3Yrs & Over 77544 Given 09/21/2010 Influenza Virus 3Yrs & Over [id number] 62482 Given 08/05/2008 Influenza Virus 3Yrs & Over 18122 Given 08/05/2008 Influenza Virus 3Yrs & Over 89195 Given 08/07/2001 Pneumonia Vaccine Vital Signs Date Vital Result Comment 11/28/2019 1:19pm Height 65 inches 5'5" Weight 176.00 lb Heart Rate 54 /min BP Systolic Sitting 130 mmHg BP Diastolic Sitting 68 mmHg BMI (Body Mass Index) 29.3 kg/m2 11/04/2019 2:55pm Height 65 inches 5'5" Weight 174.00 lb with shoes Heart Rate 50 /min BP Systolic Sitting 150 mmHg lue reg cuff BP Diastolic Sitting 78 mmHg lue reg cuff BP Systolic Standing 140 mmHg lue reg cuff BP Diastolic Standing 70 mmHg lue reg cuff Respiratory Rate 16 /min BMI (Body Mass Index) 29.0 kg/m2 Ejection Fraction 50-55% echo. 10/20/15 Results Test Acquired Date Facility Test Result H/L Range Note Comp Metabolic 11/13/2019 [facility] Sodium 142 mmol/L Normal 135-145 Panel [address] [place] [address] [phone] Potassium 4.0 mmol/L Normal 3.5-5.0 Chloride 107 mmol/L Normal 101-111 Co2 Carbon Dioxide 29 mmol/L Normal 22-32 Anion Gap 6 mmol/L Normal 2-11 Glucose 103 mg/dL High 70-100 Blood Urea Nitrogen 21 mg/dL Normal 6-24 Creatinine 1.09 mg/dL High 0.51-0.95 BUN/Creatinine Ratio 19.3 Normal 8-20 Calcium 9.0 mg/dL Normal 8.6-10.3 Total Protein 6.1 g/dL Low 6.4-8.9 Albumin 4.1 g/dL Normal 3.2-5.2 Globulin 2.0 g/dL Normal 2-4 Albumin/Globulin Ratio 2.1 Normal 1-3 Total Bilirubin 0.50 mg/dL Normal 0.2-1.0 Alkaline Phosphatase 67 U/L Normal 34-104 Alt 29 U/L Normal 7-52 Ast 26 U/L Normal 13-39 Egfr Non- 47.4 >60 Egfr 57.3 >60 1 Lipid Profile 11/13/2019 [facility] Triglycerides 130 mg/dL 2 (Trig/Chol/HDL) [address] [place] [address] [phone] Cholesterol 156 mg/dL 3 HDL Cholesterol 67.3 mg/dL 4 LDL Cholesterol 63 mg/dL 5 Laboratory test 11/13/2019 [facility] Creatine 105 U/L Normal 10-[address] [facility] Kinase(CK) [place] [address] [phone] Lipid Panel - 11/04/2019 [facility] Creatine <pending J[facility] [address] [facility] Kinase(CK) > [place] [address] [phone] 1 Because ethnic data is not always [...] High: 130-159 High: 160-189 Very High: >189 Procedures Date Code Description Status 11/04/2019 22035 EKG Tracing & Interpretation Completed 10/22/2019 26952 Inject Tendon Sheath Or Ligament Aponeurosis Eg Completed Plantar Fascia 04/08/2013 [id number] Diabetic Foot Exam Completed 04/27/2012 [id number] Mammogram Completed 04/14/2011 [id number] Mammogram Completed 04/06/2010 [id number] Bone Mineral Density Test Completed 04/09/2009 [id number] Mammogram Completed 05/01/2008 12023301 Colonoscopy Completed Medical Devices Description No Information Available Encounters Type Date Location Provider Dx Diagnosis Office Visit 11/04/2019 [facility] Ginna Petit, I10 Essential ( primary) 2:40p Of Cristopher John hypertension E78.5 Hyperlipidemia, unspecified I25.10 Athscl heart disease of [place] coronary artery w/o ang pctrs I65.23 Occlusion and stenosis of bilateral carotid arteries R07.9 Chest pain, unspecified R06.02 Shortness of breath M19.90 Unspecified osteoarthritis, unspecified site Office Visit 10/22/2019 Tolu Lopez M18.12 Unil primary 10:30a Orthoped[facility] at [facility] osteoarth of first [facility] carpometacarp joint, l hand M65.332 Trigger finger, left middle finger Office Visit 10/14/2019 1:00p [facility], M25.561 Pain in right at [facility] M.DVik knee M25.461 Effusion, right knee M17.11 Unilateral primary osteoarthritis, right knee M11.261 Other chondrocalcinosis, right knee Office Visit 10/01/2019 4:00p [facility] Internal Luis Eduardo Diaz M65.332 Trigger finger, Medicine - [facility] Dora Stoner left middle finger M25.561 Pain in right knee Assessments Date Code Description Provider 11/28/2019 Z00.00 Encounter for general adult medical Luis Eduardo Stoner M.D. examination without abnormal findings 11/28/2019 I10 Essential (primary) hypertension Luis Eduardo Stoner M.D. 11/28/2019 I25.10 Atherosclerotic heart disease of [place] Luis Eduardo Stoner M.D. coronary artery with 11/28/2019 E78.5 Hyperlipidemia, unspecified Luis Eduardo Stoner M.D. 11/28/2019 I65.23 Occlusion and stenosis of bilateral carotid Luis Eduardo Stoner M.D. arteries 11/28/2019 E03.9 Hypothyroidism, forest Stoner M.D. 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 and structure, multiple sites 11/04/2019 I10 Essential (primary) hypertension Ginna Petit M.D. 11/04/2019 E78.5 Hyperlipidemia, unspecjohnathan Petit M.D. 11/04/2019 I25.10 Atherosclerotic heart disease of [place] Ginna Petit M.D. coronary artery with 11/04/2019 I65.23 Occlusion and stenosis of bilateral carotid Ginna Petit M.D. arteries 11/04/2019 R07.9 Chest pain, unspecified Ginna Petit M.D. 11/04/2019 R06.02 Shortness of breath Ginna Petit M.D. 11/04/2019 M19.90 Unspecified osteoarthritis, unspecjohnathan Petit M.D. site 10/22/2019 M18.12 Unilateral primary osteoarthritis of first John Nam MD carpometacarpal j 10/22/2019 M65.332 Trigger finger, left middle finger John Nam MD 10/14/2019 M25.561 Pain in right knee Ellen Mendieta M.D. 10/14/2019 M25.461 Effusion, right knee Ellen Mendieta M.D. 10/14/2019 M17.11 Unilateral primary osteoarthritis, right Ellen Mendieta M.D. knee 10/14/2019 M11.261 Other chondrocalcinosis, right knee Ellen Mendieta M.D. 10/01/2019 M65.332 Trigger finger, left middle finger Luis Eduardo Stoner M.D. 10/01/2019 M25.561 Pain in right knee Luis Eduardo Stoner M.D. Plan of Treatment Future Appointment(s):12/03/2019 10:15 am - Ginna Petit M.D. at [facility]11/28/2019 - Luis Eduardo Stoner M.D.Z00.00 Encounter for general adult medical examination without abnormal findingsComments:(+) dental, eye exams. Pt declines mammograms. ? due for a tetanus booster; pneumonia vaccines current.I10 Essential (primary) hypertensionComments:BP good today; occ home BP checks iehhpqoS32.10 Atherosclerotic heart disease of [place] coronary artery withComments:No cardiac c/o. Stress test zuznjrqH34.5 Hyperlipidemia, unspecifiedComments:On Rx; LDL 63.I65.23 Occlusion and stenosis of bilateral carotid arteriesComments:Repeat carotid scan by cardiology with ? high grade stenosis on the R, increased from her 2018 scan. No TIA/CVA sx. Discussed CT angiogram and possible vascular surgery eval and pt ope to it. Stresstest per cardiology pending 12/03E03.9 Hypothyroidism, unspecifiedComments: On Rx; TSH normal in 85.89 Other specified disorders of bone density and structure, multiple sitesComments:(+) osteopenia with 2009 DEXA scan; repeat scan advised once cardiac/carotid situation stable Functional Status Description No Information Available Mental Status Description No Information Available Referrals Refer to Reason for Referral Status Appt Date Ellen Mendieta MD New R knee pains Sent 10/14/[address] [place] [address] [place] [address] [phone]
--- OUTSIDE RECORDS SUMMARY | 2019-12-05 10:52 | XMS REPORT | Continuity of Care Document ---
:1930 External Reference #:[id number] Author Name Ginna Petit M.D. (transmitted by agent of provider [place]) Address [address] [place] [phone] Care Team Providers Name Role Phone Milad Barrios MD - Gastroenterology Care Team Information Wood Lathe Operator [phone] Ritu Brito MD - Surgery Care Team Information Wood Lathe Operator Ginna Petit MD - Cardiovascular Care Team Information Wood Lathe Operator [phone] Disease Karl Eagle MD - Neurological Care Team Information Wood Lathe Operator [phone] Surgery Joe Fox MD - Hematology Care Team Information Wood Lathe Operator [phone] Nicole Yarbrough MD - Pulmonary Care Team Information Wood Lathe Operator Disease Brad Boudreaux MD - Vascular & Care Team Information Wood Lathe Operator Interventional Radiology Luis Eduardo Stoner III, MD - Internal Care Team Information Wood Lathe Operator Medicine Ellen Mendieta MD - Adult Care Team Information Wood Lathe Operator [phone] Reconstructive Orthopaedic Surgery Problems Active Problems Provider [...] Onset: 06/03/2016 Diverticulitis of colon Dennis GutierrezVik [place], Onset: 03/23/2017 Dora,FACP Note: one occasion Electrocardiogram abnormal Ginna Petit M.D. Onset: 07/03/2018 Social History Type Date Description Comments Sex Unknown Cigarette Use Quit - Age 31 ETOH Use 05/08/2017 Denies alcohol use Recreational Drug Use Denies Drug Use Tobacco Use Start: Unknown End: Patient is a former smoker Unknown Smoking Status Reviewed: 11/04/19 Patient is a former smoker Exercise Type/Frequency Exercises rarely Allergies, Adverse Reactions, Alerts Description No Known Drug Allergies Medications Active Medications SIG Qnty Indications Ordering Provider Date Synthroid one tablet once 90tabs Monae Bobby, 04/30/2019 100mcg Tablets daily M.DVik Olmesartan Medoxomil 1 by mouth 90tabs I10 Bal Weiss, 04/24/2019 20mg every day [place] Tablets Blood Pressure Monitor use daily to 1units I10 Bal Weiss, 04/10/2019 Auto Inflate monitor bp [place] ST[place] Misc daily Acetaminophen 2 tablets by 60tabs [...] 0.4mg Tablets to 3 doses as Dora Quintana,FACJohn Sub needed. Aspirin 1 po qd 100tabs Dennis Lu 04/05/2011 81mg Tablets Dora Quintana,FACP Isosorbide Mononitrate take 1 tablet 90tabs I10 Fransico Gimenez NP 11/09/2010 ER by mouth in the 60mg Tablets ER 24HR morning Metoprolol Succinate take 2 tablet 180tabs I10 Fransico Gimenez NP 08/12/2008 ER by mouth every 25mg Tablets ER 24HR day Vitamin D3 1 by mouth 30caps Unknown 1000Unit every day Capsules Lipitor take 1 tablet 90tabs E78.5 Fransico Gimenez NP 40mg Tablets by mouth at bedtime Tylenol Arthritis 8 1 po qid prn Unknown HRS 650mg Stool Softener 100mg Unknown Ibu-200 prn Unknown History Medications Losartan Potassium 1 by mouth every 90tabs Luis Eduardo Stoner, 06/12/2019 - day MBeatriz 06/12/2019 100mg Tablets Medications Administered in Office Medication SIG Qnty Indications Ordering Provider Date Inj, Regadenoson, 0.1 MG Idris Floyd M.D., 07/17/2018 Injection [place] Technetium TC 99M Idris Floyd M.D., 07/17/2018 Tetrofosmin, Per Unit Dose Up [place] To 40 Millicuries Injection Depomedrol 40MG Ellen Mendieta M.D. 05/06/2016 Injection Technetium TC 99M Idris Floyd M.D., 10/14/2014 Tetrofosmin, Per Unit Dose Up [place] To 40 Millicuries Injection Technetium TC 99M Ginna Petit M.D. 10/14/2014 Tetrofosmin, Per Unit Dose Up To 40 Millicuries Injection Inj, Regadenoson, 0.1 MG Elian Valiente M.D. 07/05/2013 Injection Aminophylline Elian Valiente M.D. 07/05/2013 Injection Technetium TC 99M Elian Valiente M.D. 07/05/2013 Tetrofosmin, Per Unit Dose Up To 40 Millicuries Injection Immunizations CPT Code Status Date Vaccine Reaction Lot # [id number] Given 09/07/2018 Fluzone High Dose 86094 Given 08/15/2017 Fluzone High Dose Q2037 Given 09/07/2015 Fluvirin Im 3Yrs And Older 83534 Given 08/25/2015 Fluzone High Dose 26741 Given 04/22/2015 Pneumococcal Conjugate no reaction, no [id number] Vaccine 13 Valent For complaints Intramuscular Use 09639 Given 08/15/2014 Flu Vaccine Split Virus Preservative Free For Indiv 3Yr Older 53611 Given 09/16/2013 Flu Vaccine Split Virus Preservative Free For Indiv 3Yr Older Q2038 Given 07/17/2012 Fluzone Vaccine 09968 Given 08/15/2011 Influenza Virus 3Yrs & Over 97185 Given 09/21/2010 Influenza Virus 3Yrs & Over [id number] 83062 Given 08/05/2008 Influenza Virus 3Yrs & Over 71619 Given 08/05/2008 Influenza Virus 3Yrs & Over 70324 Given 08/07/2001 Pneumonia Vaccine Vital Signs Date Vital Result Comment 11/04/2019 2:55pm Height 65 inches 5'5" Weight 174.00 lb with shoes Heart Rate 50 /min BP Systolic Sitting 150 mmHg lue reg cuff BP Diastolic Sitting 78 mmHg lue reg cuff BP Systolic Standing 140 mmHg lue reg cuff BP Diastolic Standing 70 mmHg lue reg cuff Respiratory Rate 16 /min BMI (Body Mass Index) 29.0 kg/m2 Ejection Fraction 50-55% echo. 10/20/15 10/22/2019 10:59am Height 65 inches 5'5" Weight 178.75 lb Heart Rate 60 /min BP Systolic 122 mmHg BP Diastolic 70 mmHg Respiratory Rate 12 /min Body Temperature 97.6 F Pain Level 5 BMI (Body Mass Index) 29.7 kg/m2 Results Test Acquired Date Facility Test Result H/L Range Note Lipid Panel - 11/04/2019 [facility] Creatine <pending> [facility] [address] Kinase(CK) [place] [address] [phone] Procedures Date Code Description Status 11/04/2019 07835 EKG Tracing & Interpretation Completed 10/22/2019 22433 Inject Tendon Sheath Or Ligament Aponeurosis Eg Completed Plantar Fascia 04/08/2013 624125853 Diabetic Foot Exam Completed 04/27/2012 [id number] Mammogram Completed 04/14/2011 [id number] Mammogram Completed 04/06/2010 134633175 Bone Mineral Density Test Completed 04/09/2009 [id number] Mammogram Completed 05/01/2008 22212935 Colonoscopy Completed Medical Devices Description No Information Available Encounters Type Date Location Provider Dx Diagnosis Office Visit 10/14/2019 [facility] Ellen Anam, M25.561 Pain in right 1:00p at [facility].DVik knee M25.461 Effusion, right knee M17.11 Unilateral primary osteoarthritis, right knee M11.261 Other chondrocalcinosis, right knee Office Visit 05/28/2019 3:20p [facility] Internal Luis Eduardo Diaz I10 Essential ( primary) Medicine - Sana Stoner M.D. hypertension Assessments Date Code Description Provider 11/04/2019 I10 Essential (primary) hypertension Ginna Petit M.D. 11/04/2019 E78.5 Hyperlipidemia, unspecified Ginna Petit M.D. 11/04/2019 I25.10 Atherosclerotic heart disease of [place] Ginna Petit M.D. coronary artery with 11/04/2019 I65.23 Occlusion and stenosis of bilateral carotid Ginna Petit M.D. arteries 11/04/2019 R07.9 Chest pain, unspecified Ginna Petit M.D. 11/04/2019 R06.02 Shortness of breath Ginna Petit M.D. 11/04/2019 M19.90 Unspecified osteoarthritis, unspecified Ginna Petit M.D. site 10/22/2019 M18.12 Unilateral primary [...] Essential (primary) hypertension Luis Eduardo Stoner M.D. Plan of Treatment Future Appointment(s):12/10/2019 3:30 pm - Latia Brito N.P. at [facility]12/03/2019 10:15 am - Ginna Petit M.D. at [facility]11/28/2019 1:20 pm - Luis Eduardo Stoner M.D. at [facility] Internal Medicine - [facility]11/04/2019 - Ginna Petit M.D.I10 Essential (primary) hypertensionComments :Home BP's look pretty good.Your BP is too high in our office.E78.5 Hyperlipidemia, unspecifiedComments:Good control last year, need to update.I25.10 Atherosclerotic heart disease of [place] coronary artery withComments:ECG is stable.Follow up:Annual OV.Recommendations:Double check stress test for CP, SOB and CAD.I65.23 Occlusion and stenosis of bilateral carotid arteriesNew Orders:Doppler Study, Carotid Artery, Scheduled: Follow up:We will call you with lauevsrO37.9 Chest pain, unspecifiedNew Orders :Stress Test, Exercise Nuclear, Ordered: 11/04/19Follow up:[facility]INE GEOLOGIST after stress test, carotids and labs done.R06.02 Shortness of rjoeotP55.90 Unspecified osteoarthritis, unspecified site Functional Status Description No Information Available Mental Status Description No Information Available Referrals Refer to Reason for Referral Status Appt Date Ellen Mendieta MD New R knee pains Sent 10/14/[address] [place] [address] [place] [address] [phone]
--- OUTSIDE RECORDS SUMMARY | 2019-12-05 10:52 | XMS REPORT | Continuity of Care Document ---
:1930 External Reference #:[id number] Author Name John Nam MD (transmitted by agent of provider Sharon Meza) Address [address] [place] [address] Care Team Providers Name Role Phone Milad Barrios MD - Gastroenterology Care Team Information Fuel Dock Attendant Ritu Brito MD - Surgery Care Team Information Fuel Dock Attendant Ginna Petit MD - Cardiovascular Care Team Information Fuel Dock Attendant [phone] Disease Karl Eagle MD - Neurological Care Team Information Fuel Dock Attendant [phone] Surgery Joe Fox MD - Hematology Care Team Information Fuel Dock Attendant Nicole Yarbrough MD - Pulmonary Care Team Information Fuel Dock Attendant [phone] Disease Brad Boudreaux MD - Vascular & Care Team Information Fuel Dock Attendant Interventional Radiology Luis Eduardo Stoner III, MD - Internal Care Team Information Fuel Dock Attendant Medicine Ellen Mendieta MD - Adult Care Team Information Fuel Dock Attendant [phone] Reconstructive Orthopaedic Surgery Problems Active Problems Provider Date Coronary arteriosclerosis Dennis Quintana, Onset: 03/26/2008 Dora,FACP Essential hypertension Dennis Quintana, Onset: 03/26/2008 Dora,FACP Impaired fasting glycaemia Dennis Quintana, Onset: 04/22/2015 Dora,FACP Carotid artery stenosis Dennis Quintana, Onset: 04/22/2015 Dora,FACP Pure hypercholesterolemia Dennis Quintana, Onset: 08/12/2008 Dora,FACP Hypothyroidism Dennis Quintana, Onset: 08/12/2008 Dora,FACP Localized, primary osteoarthritis of the Dennis Quintana, Onset: 07/09/2013 hand Doar,FACP Senile osteopenia Dennis Acostad, Onset: 04/10/2014 Dora,FACP Sciatica Dennis Acostad, Onset: 04/10/2014 Dora,FACP Peripheral vascular disease Ginna Petit M.D. Onset: 10/13/2015 Hyperlipidemia Ginna Petit M.D. Onset: 10/13/2015 Obstructive sleep apnea syndrome Nicole Yarbrough MD Onset: 10/16/2015 Localized, primary osteoarthritis Ellen Mendieta M.D. Onset: 04/20/2016 Premature beats Ginna Petit M.D. Onset: 06/03/2016 Diverticulitis of colon Dennis GutierrezVik [place], Onset: 03/23/2017 Dora,FACP Note: one occasion Electrocardiogram [...] 90tabs Monae Bobby 04/30/2019 100mcg Tablets daily M.D. Olmesartan Medoxomil 1 by mouth 90tabs I10 Bal Weiss, 04/24/2019 20mg every day RECREATION ENGINEER Tablets Blood Pressure Monitor use daily to 1units I10 Bal Weiss, 04/10/2019 Auto Inflate monitor bp RECREATION ENGINEER Misc daily Acetaminophen 2 tablets by 60tabs [...] Code Status Date Vaccine Reaction Lot # [id number] Given 09/07/2018 Fluzone High Dose 87979 Given 08/15/2017 Fluzone High Dose Q2037 Given 09/07/2015 Fluvirin Im 3Yrs And Older 44836 Given 08/25/2015 Fluzone High Dose 33632 Given 04/22/2015 Pneumococcal Conjugate no reaction, no [id number] Vaccine 13 Valent For complaints Intramuscular Use 59464 Given 08/15/2014 Flu Vaccine Split Virus Preservative Free For Indiv 3Yr Older 43229 Given 09/16/2013 Flu Vaccine Split Virus Preservative Free For Indiv 3Yr Older Q2038 Given 07/17/2012 Fluzone Vaccine 65901 Given 08/15/2011 Influenza Virus 3Yrs & Over 58978 Given 09/21/2010 Influenza Virus 3Yrs & Over [id number] 51806 Given 08/05/2008 Influenza Virus 3Yrs & Over 36872 Given 08/05/2008 Influenza Virus 3Yrs & Over 11414 Given 08/07/2001 Pneumonia Vaccine Vital Signs Date [...] Result H/L Range Note Laboratory test 05/02/2019 [facility] TSH 2.22 Normal 0.34- 5.[address] (Thyroid mcIU/[place] [address] Stim Horm) [phone] Basic Metabolic 05/02/2019 [facility] Sodium 141 mmol/L Normal 135-145 Panel [address] [place] [address] [phone] Potassium 4.3 mmol/L Normal 3.5-5.0 Chloride 108 mmol/L Normal 101-111 Co2 Carbon Dioxide 26 mmol/L Normal 22-32 Anion Gap 7 mmol/L Normal 2-11 Glucose 129 mg/dL High 70-100 Blood Urea Nitrogen 21 mg/dL Normal 6-24 Creatinine 1.19 mg/dL High 0.51-0.95 BUN/Creatinine Ratio 17.6 Normal 8-20 Calcium 9.2 mg/dL Normal 8.6-10.3 Egfr Non- 42.9 >60 Egfr 51.9 >60 1 Basic Metabolic 04/24/2019 [facility] Sodium 142 mmol/L Normal 135-145 Panel [address] [place] [address] [phone] Potassium 4.0 mmol/L Normal 3.5-5.0 Chloride 108 [...] (or dialysis) Procedures Date Code Description Status 04/08/2013 432177525 Diabetic Foot Exam Completed 04/27/2012 [id number] Mammogram Completed 04/14/2011 [id number] Mammogram Completed 04/06/2010 [id number] Bone Mineral Density Test Completed 04/09/2009 [id number] Mammogram Completed 05/01/2008 [id number] Colonoscopy Completed Medical Devices Description No Information Available Encounters Type Date Location Provider Dx Diagnosis Office Visit 05/28/2019 [facility] Internal Luis Eduardo Diaz I10 Essential (primary) 3:20p Medicine - Sana Stoner M.D. hypertension Office Visit 04/24/2019 [facility] Bal Weiss I10 Essential ([facility] ) [facility]INE[facility] hypertension Office Visit 04/23/2019 [facility] John Nam M18.12 Unil primary 9:15a at [facility] osteoarth of first carpometacarp joint, l hand Assessments Date Code Description Provider 10/14/2019 M25.561 Pain in right knee Ellen Mendieta M.D. 10/14/2019 M25.461 Effusion, right knee Ellen Mendieta M.D. 10/14/2019 M17.11 Unilateral primary osteoarthritis, right Ellen Mendieta M.D. knee 10/01/2019 M65.332 Trigger finger, left middle finger Luis Eduardo Stoner M.D. 10/01/2019 M25.561 Pain in right knee Luis Eduardo Stoner M.D. 05/28/2019 I10 Essential (primary) hypertension Luis Eduardo Stoner M.D. 04/24/2019 I10 Essential (primary) hypertension Bal Weiss, RECREATION ENGINEER 04/23/2019 M18.12 Unilateral primary osteoarthritis of first John Nam MD carpometacarpal j Plan of Treatment Future Appointment(s):11/04/2019 2:40 pm - Ginna Petit M.D. at [facility]11/28/2019 1:20 pm - Luis Eduardo Stoner M.D. at [facility] Internal Medicine - [facility] Functional Status Description No Information Available Mental Status Description No Information Available Referrals Refer to Reason for Referral Status Appt Date Ellen Mendieta MD New R knee pains Sent 10/14/2019 [address] [facility] [place] [address] [phone]
--- OUTSIDE RECORDS SUMMARY | 2019-12-05 10:53 | XMS REPORT | Continuity of Care Document ---
:1930 External Reference #:[id number] Author Name Ellen Mendieta M.D. (transmitted by agent of provider Noemí Cabrera) Address [address] [place] [address] Care Team Providers Name Role Phone Milad Barrios MD - Gastroenterology Care Team Information Cloth Winder Ritu Brito MD - Surgery Care Team Information Cloth Winder Ginna Petit MD - Cardiovascular Care Team Information Cloth Winder Disease Karl Eagle MD - Neurological Care Team Information Cloth Winder [phone] Surgery Joe Fox MD - Hematology Care Team Information Cloth Winder Nicole Yarbrough MD - Pulmonary Care Team Information Cloth Winder [phone] Disease Brad Boudreaux MD - Vascular & Care Team Information Cloth Winder Interventional Radiology Luis Eduardo Stoner III, MD - Internal Care Team Information Cloth Winder Medicine Ellen Mendieta MD - Adult Care Team Information Cloth Winder [phone] Reconstructive Orthopaedic Surgery Problems Active Problems Provider [...] Dennis Quintana, Onset: 04/10/2014 Dora,FACP Sciatica Dennis GutierrezVik [place], Onset: 04/10/2014 Dora,FACP Peripheral vascular disease Ginna [...] a former smoker Unknown Smoking Status Reviewed: 10/14/19 Patient is a former smoker Exercise Type/Frequency Exercises rarely Allergies, Adverse Reactions, Alerts Description No Known Drug Allergies Medications Active Medications SIG Qnty Indications Ordering Date Provider Synthroid one tablet once 90tabs Luis Eduardo Diaz 04/30/2019 100mcg Tablets daily Dora Stoner Olmesartan Medoxomil 1 by mouth every 90tabs I10 Bal Weiss, 04/24/2019 20mg day FASHION DESIGNER Tablets Blood Pressure Monitor use daily to 1units I10 Bal Weiss, 04/10/2019 Auto Inflate monitor bp daily FASHION DESIGNER Misc Acetaminophen 2 tablets by 60tabs Dennis Lu 06/25/2018 325mg mouth every 6 Dora Quintana,FACP Tablets hours as needed for pain/fever Omeprazole 1 by mouth every 90caps K29.00 Fransico Gimenez NP 04/22/2015 20mg Capsules day every day as DR needed Trazodone HCL take 2-3 tablets 270tabs G47.00 Fransico Gimenez NP 12/06/2012 50mg by mouth at Tablets bedtime Nitrostat one sl q5min up 25tabs Dennis Lu 11/09/2012 0.4mg Tablets to 3 doses as Dora Quintana,CHINTAN Sub needed. Aspirin 1 po qd 100tabs Dennis Lu 04/05/2011 81mg Tablets Dora Quintana,FACP Isosorbide Mononitrate take 1 tablet by 90tabs I10 Fransico Gimenez NP 2010 ER mouth in the 60mg Tablets ER 24HR morning Metoprolol Succinate take 2 tablet by 180tabs I10 Fransico Gimenez NP 2007 ER mouth every day 25mg Tablets ER 24HR Fish Oil 1 po every other Unknown 1000mg Capsules day Vitamin D3 1 by mouth every 30caps Unknown 1000Unit day Capsules Lipitor take 1 tablet by 90tabs E78.5 Fransico Gimenez NP 40mg Tablets mouth at bedtime Tylenol Arthritis 8 1 po qid prn Unknown HRS 650mg History Medications Losartan Potassium 1 by mouth [...] Code Status Date Vaccine Reaction Lot # 34385 Given 09/07/2018 Fluzone High Dose 59671 Given 08/15/2017 Fluzone High Dose Q2037 Given 09/07/2015 Fluvirin Im 3Yrs And Older 86128 Given 08/25/2015 Fluzone High Dose 79291 Given 04/22/2015 Pneumococcal Conjugate no reaction, no [id number] Vaccine 13 Valent For complaints Intramuscular Use 98030 Given 08/15/2014 Flu Vaccine Split Virus Preservative Free For Indiv 3Yr Older 64268 Given 09/16/2013 Flu Vaccine Split Virus Preservative Free For Indiv 3Yr Older Q2038 Given 07/17/2012 Fluzone Vaccine 63698 Given 08/15/2011 Influenza Virus 3Yrs & Over 32497 Given 09/21/2010 Influenza Virus 3Yrs & Over [id number] 93703 Given 08/05/2008 Influenza Virus 3Yrs & Over 29268 Given 08/05/2008 Influenza Virus 3Yrs & Over 72512 Given 08/07/2001 Pneumonia Vaccine Vital Signs Date Vital Result Comment 10/14/2019 1:20pm Height 64 inches 5'4" Weight 180.25 lb Heart Rate 96 /min BP Systolic 142 mmHg BP Diastolic 78 mmHg Respiratory Rate 20 /min Body Temperature 97.3 F Pain Level 1 increased with activity O2 % BldC Oximetry 99 % BMI (Body Mass Index) 30.9 kg/m2 10/01/2019 3:58pm Height 63 inches 5'3" Weight 179.00 lb Heart Rate 50 /min BP Systolic Sitting 149 mmHg BP Diastolic Sitting 68 mmHg BMI (Body Mass Index) 31.7 kg/m2 Results Test Acquired Date Facility Test Result H/L Range Note Laboratory test 05/02/2019 [facility] TSH 2.22 Normal 0.34- 5.[address] (Thyroid mcIU/[place] [address] Ewxb Jsvn) [phone] Basic Metabolic 05/02/2019 [facility] Sodium 141 mmol/L Normal 135-[address] [place] [address] [phone] Potassium 4.3 mmol/L Normal 3.5-5.0 Chloride 108 mmol/L Normal 101-111 Co2 Carbon Dioxide 26 mmol/L Normal 22-32 Anion Gap 7 mmol/L Normal 2-11 Glucose 129 mg/dL High 70-100 Blood Urea Nitrogen 21 mg/dL Normal 6-24 Creatinine 1.19 mg/dL High 0.51-0.95 BUN/Creatinine Ratio 17.6 Normal 8-20 Calcium 9.2 mg/dL Normal 8.6-10.3 Egfr Non- 42.9 >60 Egfr 51.9 >60 1 Basic Metabolic 04/24/2019 [facility] Sodium 142 mmol/L Normal 135-145 Panel [address] [place] [address] [phone] Potassium 4.0 mmol/L Normal 3.5-5.0 Chloride 108 [...] dialysis) Procedures Date Code Description Status 04/08/2013 [id number] Diabetic Foot Exam Completed 04/27/2012 [id number] Mammogram Completed 04/14/2011 [id number] Mammogram Completed 04/06/2010 [id number] Bone Mineral Density Test Completed 04/09/2009 [id number] Mammogram Completed 05/01/2008 [id number] Colonoscopy Completed Medical Devices Description No Information Available Encounters Type Date Location Provider Dx Diagnosis Office Visit 05/28/2019 [facility] Internal Luis Eduardo Diaz I10 Essential (primary) 3:20p Medicine - Sana Stoner M.D. hypertension Office Visit 04/24/2019 [facility] Internal Bal Weiss [facility]10 Ess[facility] Office Visit 04/23/2019 [facility] John Nam, M18.12 Unil primary 9:15a at [facility] osteoarth of first carpometacarp joint, l hand [...] 04/24/2019 I10 Essential (primary) hypertension Bal Weiss, FASHION DESIGNER 04/23/2019 M18.12 Unilateral primary osteoarthritis of first John Nam MD carpometacarpal j Plan of Treatment Future Appointment(s):10/22/2019 10:30 am - John Nam MD at [facility] at [id number]/28/2019 1:20 pm - Luis Eduardo Stoner M.D. at [facility] Internal Medicine - [facility]10/14/2019 - Ellen Mendieta M.D.M25.561 Pain in right kneeNew Therapy:Physical TherapyFollow up:Follow up: As getxanT42.461 Effusion , right kneeM17.11 Unilateral primary osteoarthritis, right knee Functional Status Description No Information Available Mental Status Description No Information Available Referrals Refer to Dr Reason for Referral Status Appt Date Ellen Mendieta MD New R knee pains Sent 10/14/[address] [facility] [place] [address] [phone]
[2019-12-05 11:06] LABS: ABS Lymphocytes 1.4 10^3/ul (1.0-4.8); ABS Monocytes 0.4 10^3/ul (0-0.8); ABS Neutrophils 2.7 10^3/ul (1.5-7.7); Eosinophil % 0.1 %; Hematocrit 34 % (35-47); Hemoglobin 11.6 g/dL (12.0-16.0); Lymphocyte % 30.5 %; Mean Corpuscular HGB Conc 34 g/dL (31-36); Mean Corpuscular Hemoglobin 32 pg (27-31); Mean Corpuscular Volume 93 fL (80-97); Mean Platelet Volume 8.4 fL (7.4-10.4); Nucleated Red Blood Cells % 0.1; Platelet Count 125 10^3/uL (150-450); Red Blood Count 3.63 10^6 /uL (3.70-4.87); Red Cell Distribution Width 14 % (10-15); White Blood Count 4.4 10^3/uL (3.5-10.8)
[2019-12-05 11:12] LABS: INR 0.97 (0.82-1.09)
[2019-12-05 11:23] LABS: ALT 19 U/L (7-52); AST 20 U/L (13-39); Albumin 3.8 g/dL (3.2-5.2); Albumin/Globulin Ratio 1.7 (1-3); Alkaline Phosphatase 69 U/L (34-104); Anion Gap 6 mmol/L (2-11); BUN/Creatinine Ratio 15.1 (8-20); Blood Urea Nitrogen 18 mg/dL (6-24); C Reactive Protein < 1.00 mg/L (<8.01); CO2 Carbon Dioxide 28 mmol/L (22-32); Calcium 8.9 mg/dL (8.6-10.3); Chloride 107 mmol/L (101-111); Creatine Kinase 64 U/L (10-223); EGFR African American 51.8 (>60); EGFR Non-African American 42.8 (>60); Globulin 2.3 g/dL (2-4); Glucose 87 mg/dL (70-100); Sodium 141 mmol/L (135-145); Total Protein 6.1 g/dL (6.4-8.9)
[2019-12-05 11:36] LABS: CKMB ng/mL 1.6 ng/mL (0.6-6.3)
[2019-12-05] MEDS ORDERED: Aspirin 81 mg CHEW TAB* 81 MG TAB.CHEW PO ONE (12:20)
--- NOTE | 2019-12-05 14:03 | ED ---
Complex/Multi-Sys Presentation - HPI Summary HPI Summary: Patient is a 89 y/o F presenting to [facility] with complaints of chest pressure, right-sided ALMEIDA, and tingling at her right leg. Sx onset this morning and lasted for a few hours. They have since resolved. Patient claims to have had similar episodes of such Sx previously, but not often. She reports that she typically wakes up from sleep with these Sx. Patient's acid mixer is Dr. Petit, patient had a cardiac stress test two days ago. It is reported that the patient has not received the results yet. Home medications and allergies are reviewed. - History Of Current Complaint Chief Complaint: EDChestPainROMI Time Seen by Provider: 12/05/19 11:03 Hx Obtained From: Patient Onset/Duration: Lasting Hours, Resolved Timing: Intermittent, Lasting:, Hours Location: Pain At: - head, chest Character: Pressure Associated Signs And Symptoms: Positive: Headache, Chest Pain, Other - positive - right leg tingling - Allergies/Home Medications Allergies/Adverse Reactions: Allergies Allergy/AdvReac Type Severity Reaction Status Date / Time No Known Allergies Allergy Verified 12/05/19 10:55 Home Medications: Home Medications Acetaminophen TAB* [Tylenol TAB*] 325 - 650 mg PO Q4H PRN 12/05/19 [History Confirmed 12/05/19] Metoprolol Succinate XL TAB* [Toprol XL TAB*] 25 mg PO BID 12/05/19 [History Confirmed 12/05/19] Omeprazole CAP (NF) [Prilosec CAP* 20 MG] 20 mg PO DAILY PRN 12/05/19 [History Confirmed 12/05/19] PMH/Surg Hx/FS Hx/Imm Hx Endocrine/Hematology History: Reports: Hx Thyroid Disease - hypothyroid Denies: Hx Anticoagulant Therapy - 81 mg ASA daily, Hx Diabetes Cardiovascular History: Reports: Hx Coronary Artery Disease - HAS ONE CARDIAC STENT, Hx Hypercholesterolemia, Hx Hypertension, Hx Peripheral Vascular Disease , Other Cardiovascular Problems/Disorders - Carotid disease- MOD BISI, mild LICA Denies: Hx Cardiac Arrest, Hx Myocardial Infarction Respiratory History: Reports: Hx Sleep Apnea - Mild Denies: Hx Asthma, Hx Chronic Obstructive Pulmonary Disease (COPD), Other Respiratory Problems/Disorders GI History: Reports: Hx Gastroesophageal Reflux Disease - prn med, Other GI Disorders - hx of diverticulitis Denies: Hx Ulcer History: Denies: Other Problems/Disorders Musculoskeletal History: Reports: Hx Arthritis - LOW BACK, RIGHT THUMB, cervical spine, Hx Back Problems, Hx Osteoporosis Denies: Hx Rheumatoid Arthritis, Hx Scoliosis, Other Musculoskeletal History Sensory History: Reports: Hx Cataracts - BILATERAL, Hx Contacts or Glasses - glasses Denies: Hx Hearing Aid Opthamlomology History: Reports: Hx Cataracts - BILATERAL, Hx Contacts or Glasses - glasses Neurological History: Denies: Hx Headaches, Other Neuro Impairments/Disorders Psychiatric History: Reports: Hx Anxiety, Hx Depression - Cancer History Hx Chemotherapy: No - Surgical History Surgery Procedure, Year, and Place: cardiac stent 2002. hysterectomy, bladder suspension,. RIGHT AND LEFT THUMB/HAND SURGERY Hx Anesthesia Reactions: No Infectious Disease History: No Infectious Disease History: Denies: Hx Hepatitis, Hx Human Immunodeficiency Virus (HIV), Traveled Outside the [place] in Last 30 Days - Family History Known Family History: Positive: Cardiac Disease, Hypertension, Other - Positive : CA. Thyroid. Colon related. - Social History Alcohol Use: None Hx Substance Use: No Substance Use Type: Reports: None Hx Tobacco Use: No - not currrently Smoking Status (MU): Former Smoker Amount Used/How Often: 3 CIGARETTES PER DAY X 15 YEARS Have You Smoked in the Last Year: No Review of Systems Positive: Chest Pain Positive: Headache, Paresthesia - right leg tingling All Other Systems Reviewed And Are Negative: Yes Physical Exam - Summary Physical Exam Summary: VITAL SIGNS: Reviewed. GENERAL: Patient is a well-developed and obese female who is lying comfortable in the stretcher. Patient is not in any acute respiratory distress. HEAD AND FACE: No signs of trauma. No ecchymosis, hematomas or skull depressions. No sinus tenderness. EYES: PERRLA, EOMI x 2, No injected conjunctiva, no nystagmus. EARS: Hearing grossly intact. Ear canals and tympanic membranes are within normal limits. MOUTH: Oropharynx within normal limits. NECK: Supple, trachea is midline, no adenopathy, no JVD, no carotid bruit, no c- spine tenderness, neck with full ROM. CHEST: Symmetric, no tenderness at palpation. LUNGS: Clear to auscultation bilaterally. No wheezing or crackles. CVS: Regular rate and rhythm, S1 and S2 present, no murmurs or gallops appreciated. ABDOMEN: Soft, non-tender. No signs of distention. No rebound, no guarding, and no masses palpated. Bowel sounds are normal. EXTREMITIES: FROM in all major joints, no edema, no cyanosis or clubbing. NEURO: Alert and oriented x 3. No acute neurological deficits. Speech is normal and follows commands. GCS 15. SKIN: Dry and warm. Triage Information Reviewed: Yes Vital Signs On Initial Exam: Initial Vitals Temp Pulse Resp BP Pulse Ox 98.6 F 53 16 127/56 98 12/05/19 10:49 12/05/19 10:49 12/05/19 10:49 12/05/19 10:49 12/05/19 10:49 Vital Signs Reviewed: Yes - Viet Coma Scale Best Eye Response: 4 - Spontaneous Best Motor Response: 6 - Obeys Commands Best Verbal Response: 5 - Oriented Coma Scale Total: 15 Procedures - Sedation Patient Received Moderate/Deep Sedation with Procedure: No Diagnostics - Vital Signs Vital Signs Temp Pulse Resp BP Pulse Ox 12/05/19 13:32 45 18 145/66 95 12/05/19 13:02 46 13 156/66 95 12/05/19 13:00 47 11 96 12/05/19 12:32 48 12 147/66 95 12/05/19 12:04 47 13 148/69 96 12/05/19 12:03 50 14 94 12/05/19 11:32 46 7 137/64 97 12/05/19 11:04 12 12/05/19 11:02 5 143/68 12/05/19 10:49 98.6 F 53 16 127/56 98 - Laboratory Lab Results: Lab Results 12/05/19 12/05/19 12/05/19 Range/Units 10:58 10:58 10:58 WBC 4.4 (3.5-10.8) 10^3/uL RBC 3.63 L (3.70-4.87) 10^6 /uL Hgb 11.6 L (12.0-16.0) g/dL Hct 34 L (35-47) % MCV 93 (80-97) fL MCH 32 H (27-31) pg MCHC 34 (31-36) g/dL RDW 14 (10-15) % Plt Count 125 L (150-450) 10^3/uL MPV 8.4 (7.4-10.4) fL Neut % (Auto) 60.8 % Lymph % (Auto) 30.5 % Irion % (Auto) 8.2 % Eos % (Auto) 0.1 % Baso % (Auto) 0.4 % Absolute Neuts (auto) 2.7 (1.5-7.7) 10^3/ul Absolute Lymphs (auto) 1.4 (1.0-4.8) 10^3/ul Absolute Monos (auto) 0.4 (0-0.8) 10^3/ul Absolute Eos (auto) 0.0 (0-0.6) 10^3/ul Absolute Basos (auto) 0.0 (0-0.2) 10^3/ul Absolute Nucleated RBC 0.0 10^3/ul Nucleated RBC % 0.1 INR (Anticoag Therapy) 0.97 (0.82-1.09) Sodium 141 (135-145) mmol/L Potassium 4.0 (3.5-5.0) mmol/L Chloride 107 (101-111) mmol/L Carbon Dioxide 28 (22-32) mmol/L Anion Gap 6 (2-11) mmol/L BUN 18 (6-24) mg/dL Creatinine 1.19 H (0.51-0.95) mg/dL Est GFR ( Amer) 51.8 (>60) Est GFR (Non-Af Amer) 42.8 (>60) BUN/Creatinine Ratio 15.1 (8-20) Glucose 87 (70-100) mg/dL Calcium 8.9 (8.6-10.3) mg/dL Total Bilirubin 0.50 (0.2-1.0) mg/dL AST 20 (13-39) U/L ALT 19 (7-52) U/L Alkaline Phosphatase 69 (34-104) U/L Total Creatine Kinase 64 (10-223) U/L CK-MB (CK-2) 1.6 (0.6-6.3) ng/mL Troponin I 0.00 (<0.03) ng/mL C-Reactive Protein < 1.00 (<8.01) mg/L Total Protein 6.1 L (6.4-8.9) g/dL Albumin 3.8 (3.2-5.2) g/dL Globulin 2.3 (2-4) g/dL Albumin/Globulin Ratio 1.7 (1-3) Result Diagrams: 12/05/19 10:58 12/05/19 10:58 Lab Statement: Any lab studies that have been ordered have been reviewed, and results considered in the medical decision making process. - CT BRAIN CT CT Interpretation Completed By: Radiologist Summary of CT Findings: IMPRESSION: 1. NO EVIDENCE FOR ACUTE INTRACRANIAL ABNORMALITY. 2. 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 THIS REPORT WAS REVIEWED BY ED PHYSICIAN. - EKG 1045 Cardiac Rate: Bradycardia - rate of 51 BPM EKG Rhythm: Sinus Bradycardia Summary of EKG Findings: EKG showed sinus bradycardia with rate of 51 BPM, RBBB. No STEMI. EKG was reviewed and interpreted by ED physician. Complex Multi-Symp Course/Dx Assessment/Plan: Patient is a 89 y/o F presenting to [facility] with complaints of chest pressure, right-sided ALMEIDA, and tingling at her right leg. Sx onset this morning and lasted for a few hours. They have since resolved. Patient claims to have had similar episodes of such Sx previously, but not often. In the ED course the patient was placed in a diagnostic cardiac sonographer, IV access was obtained, IV fluids started. Patient given ASA. Blood test w/o a significant abnormality except for slight normocytic normochromic anemia, creatinine is 1.19, and total protein 6.1. Troponin 1 is 0.00. EKG is a normal sinus rhythm however the patient has T-wave inversion in the anterior leads. This is different from the past EKG. Patient also had a stress test on December 03, 2019, which shows that the patient has an abnormal chemical stress test. It shows abnormal cardiac chemical nuclear stress test. Small sized mid to distal LAD ischemia. I discuss my physical exam and test results with Dr. Bailey from the hospitalist services and he agrees to admit the patient to his services. The patient is hemodynamically stable alert and oriented x 3. - Diagnoses Differential Diagnoses/HQI/PQRI: Aspiration, Cardiac Ischemia, Closed Cranial Trauma, CVA, Metabolic Abnormality, Sepsis, Urinary Tract Infection Provider Diagnoses: Chest pain - Physician Notifications Discussed Care Of Patient With: Miles Bailey Time Discussed With Above Provider: 13:30 Instructed by Provider To: Other - Patient's case has been discussed with Dr. Bailey, Dr. Bailey accepts for admission. Discharge ED - Sign-Out/Discharge Documenting (check all that apply): Patient Departure - ADMIT All imaging exams completed and their final reports reviewed: Yes - Discharge Plan Condition: Fair Disposition: ADMITTED TO [facility] - Billing Disposition and Condition Condition: FAIR Disposition: Admitted to [facility] - Attestation Statements Document Initiated by Scribe: Yes Documenting Scribe: ANGEL PEACE Provider For Whom Scribe is Documenting (Include Credential): JUDD ANGELO MD Scribe Attestation: ANGEL Pedroza, scribed for JUDD ANGELO MD on 12/05/19 at 2128. Scribe Documentation Reviewed: Yes Provider Attestation: The documentation as recorded by the ANGEL roach accurately reflects the service I personally performed and the decisions made by JUDD roque MD Status of Scribe Document: Viewed
--- NOTE | 2019-12-05 17:05 | ADMNOTE ---
Subjective Date of Service: 12/05/19 Interval History: ADMISSION HISTORY AND PHYSICAL EXAM: Allergies Allergy/AdvReac Type Severity Reaction Status Date / Time No Known Allergies Allergy Verified 12/05/19 10:55 Home Medications Medication Instructions Recorded Confirmed Type Aspirin EC TAB* [Aspirin Low Dose 81 mg PO QAM 10/24/12 12/05/19 History EC*] Atorvastatin* [Lipitor*] 40 mg PO QAM 10/24/12 12/05/19 History Isosorbide Mononitrate ER TAB* 60 mg PO QAM 10/24/12 12/05/19 History [Imdur ER TAB*] Levothyroxine TAB* [Synthroid TAB*] 100 mcg PO QAM 10/24/12 12/05/19 History traZODone TAB* [Desyrel TAB*] 50 - 150 mg PO BEDTIME 07/16/13 12/05/19 History Nitroglycerin TAB 0.4 MG* 0.4 mg SL Q5M PRN 07/15/16 12/05/19 History Docusate CAP* [Colace Cap*] 100 mg PO DAILY PRN 12/31/18 12/05/19 History Olmesartan (NF) [Benicar (NF)] 20 mg PO DAILY 12/31/18 12/05/19 History Ibuprofen TAB* [Advil TAB*] 200 mg PO DAILY PRN 07/19/19 12/05/19 History Acetaminophen TAB* [Tylenol TAB*] 325 - 650 mg PO Q4H PRN 12/05/19 12/05/19 History Metoprolol Succinate XL TAB* 25 mg PO BID 12/05/19 12/05/19 History [Toprol XL TAB*] Omeprazole CAP (NF) [Prilosec CAP* 20 mg PO DAILY PRN 12/05/19 12/05/19 History 20 MG] HPI: The patient was in her usual state of health until this AM when she developed sternal chest pain, lasting about an hour. She also had numbness her R laterl lower leg. She never had these symptoms before. Family History: Findings - Both parents and 2 brother had CAD. Diabetes in family Social History: Findings - Quit smoking 1963, no alcohol abuse. . Son Shawn is her SDM Past Medical History: Findings - Coronary stent 2002, PVD, HTN, VIANCA, HL Review of Systems - Measurements Intake and Output: Intake and Output Last 24 Hours 12/03/19 12/04/19 12/05/19 12/06/19 06:59 06:59 06:59 06:59 Weight 174 lb - Review of Systems Constitutional Symptoms: Negative: Weight Gain, Weight Loss, Weakness, Fatigue, Fever, Night Sweats, Unexplained Falls, Other Dermatology: Positive: Normal HEENT: Positive: Normal Eyes: Positive: Normal Thyroid: Positive: Normal Pulmonary: Positive: Normal Cardiology: Positive: Chest Pain Gastroenterology: Positive: Normal Genital - Urinary: Positive: Normal Musculoskeletal: Negative: Joint Pain, Joint Stiffness, Arthritis, Osteoporosis, Low Back Pain , Sciatica, Joint Deformities, Kyphoscoliosis, Other Endocrinology: Positive: Normal Hematologic/Lymphatic: Negative: Anemia, Easy Bruising, Hx Leukemia, Hx Lymphoma, Use of Anticoagulant, Use of Antiplatelet Drugs, Other Neurology: Positive: Normal Psychiatry: Positive: Normal Allergic/Immunologic: Negative: Hx Anaphylaxis, Hx Angioedema, Hx Environmental, Hx Seasonal, Asthma, Hx HIV, Immunocompromise, Swollen Glands LymphNodes, Other Objective Vital Signs - 8 hr 12/05/19 12/05/19 12/05/19 10:49 11:02 11:04 Temperature 98.6 F Pulse Rate 53 Respiratory 16 5 12 Rate Blood Pressure 127/56 143/68 (mmHg) O2 Sat by Pulse 98 Oximetry 12/05/19 12/05/19 12/05/19 11:32 12:03 12:04 Temperature Pulse Rate 46 50 47 Respiratory 7 14 13 Rate Blood Pressure 137/64 148/69 (mmHg) O2 Sat by Pulse 97 94 96 Oximetry 12/05/19 12/05/19 12/05/19 12:32 13:00 13:02 Temperature Pulse Rate 48 47 46 Respiratory 12 11 13 Rate Blood Pressure 147/66 156/66 (mmHg) O2 Sat by Pulse 95 96 95 Oximetry 12/05/19 12/05/19 12/05/19 13:32 14:00 14:03 Temperature Pulse Rate 45 52 52 Respiratory 18 17 13 Rate Blood Pressure 145/66 162/72 (mmHg) O2 Sat by Pulse 95 95 95 Oximetry 12/05/19 12/05/19 12/05/19 14:33 15:00 15:02 Temperature Pulse Rate 56 57 53 Respiratory 17 15 19 Rate Blood Pressure 141/54 133/59 (mmHg) O2 Sat by Pulse 95 96 95 Oximetry 12/05/19 15:32 Temperature Pulse Rate 51 Respiratory 16 Rate Blood Pressure 136/58 (mmHg) O2 Sat by Pulse 94 Oximetry Oxygen Devices in Use Now: None Appearance: Alert, partly up on ED stretcher. In good spirits. Looks comfortable. Eyes: No Scleral Icterus Ears/Nose/Mouth/Throat: Mucous Membranes Moist Neck: NL Appearance and Movements; NL JVP, No Thyroid Enlargement, Masses Respiratory: Symmetrical Chest Expansion and Respiratory Effort, Clear to Auscultation, Clear to Percussion Cardiovascular: NL Sounds; No Murmurs; No JVD, RRR, No Edema, - Extremities: No Edema, No Clubbing, Cyanosis Skin: No Rash or Ulcers, No Nodules or Sclerosis, - Neurological: Alert and Oriented x 3, NL Sensation Result Diagrams: 12/05/19 10:58 12/05/19 10:58 Additional Lab and Data: Lab Results 12/05/19 12/05/19 12/05/19 Range/Units 10:58 10:58 10:58 WBC 4.4 (3.5-10.8) 10^3/uL RBC 3.63 L (3.70-4.87) 10^6 /uL Hgb 11.6 L (12.0-16.0) g/dL Hct 34 L (35-47) % MCV 93 (80-97) fL MCH 32 H (27-31) pg MCHC 34 (31-36) g/dL RDW 14 (10-15) % Plt Count 125 L (150-450) 10^3/uL MPV 8.4 (7.4-10.4) fL Neut % (Auto) 60.8 % Lymph % (Auto) 30.5 % [place] % (Auto) 8.2 % Eos % (Auto) 0.1 % Baso % (Auto) 0.4 % Absolute Neuts (auto) 2.7 (1.5-7.7) 10^3/ul Absolute Lymphs (auto) 1.4 (1.0-4.8) 10^3/ul Absolute Monos (auto) 0.4 (0-0.8) 10^3/ul Absolute Eos (auto) 0.0 (0-0.6) 10^3/ul Absolute Basos (auto) 0.0 (0-0.2) 10^3/ul Absolute Nucleated RBC 0.0 10^3/ul Nucleated RBC % 0.1 INR (Anticoag Therapy) 0.97 (0.82-1.09) Sodium 141 (135-145) mmol/L Potassium 4.0 (3.5-5.0) mmol/L Chloride 107 (101-111) mmol/L Carbon Dioxide 28 (22-32) mmol/L Anion Gap 6 (2-11) mmol/L BUN 18 (6-24) mg/dL Creatinine 1.19 H (0.51-0.95) mg/dL Est GFR ( Amer) 51.8 (>60) Est GFR (Non-Af Amer) 42.8 (>60) BUN/Creatinine Ratio 15.1 (8-20) Glucose 87 (70-100) mg/dL Calcium 8.9 (8.6-10.3) mg/dL Total Bilirubin 0.50 (0.2-1.0) mg/dL AST 20 (13-39) U/L ALT 19 (7-52) U/L Alkaline Phosphatase 69 (34-104) U/L Total Creatine Kinase 64 (10-223) U/L CK-MB (CK-2) 1.6 (0.6-6.3) ng/mL Troponin I 0.00 (<0.03) ng/mL C-Reactive Protein < 1.00 (<8.01) mg/L Total Protein 6.1 L (6.4-8.9) g/dL Albumin 3.8 (3.2-5.2) g/dL Globulin 2.3 (2-4) g/dL Albumin/Globulin Ratio 1.7 (1-3) Assess/Plan/Problems-Billing Assessment: - Patient Problems (1) Chest pain Current Visit: Yes Status: Acute Code(s): R07.9 - CHEST PAIN, UNSPECIFIED SNOMED Code(s): 29382558 Comment: Atypical but Heart score 5. Dr. Buck to consult. Tele. May need adjustment of anti-anginal meds. (2) Hypothyroid Current Visit: Yes Status: Acute Code(s): E03.9 - HYPOTHYROIDISM, UNSPECIFIED SNOMED Code(s): 16987597 Comment: Continue levothyroxine. Addon TSH requested. (3) HTN (hypertension) Current Visit: Yes Status: Acute Code(s): I10 - ESSENTIAL (PRIMARY) HYPERTENSION SNOMED Code(s): 36609000 Comment: Continue olemsartan, metoprolol,
[2019-12-05] MEDS ORDERED: Pantoprazole TAB * 40 MG TAB PO PRN (17:08)
[2019-12-05] MEDS ORDERED: Nitroglycerin TAB 0.4 MG* 0.4 MG TAB SL PRN (17:08)
[2019-12-05 17:57] LABS: TSH (Thyroid Stimulating Horm) 1.59 mcIU/mL (0.34-5.60)
--- NOTE | 2019-12-05 18:29 | CONSULT ---
Subjective Date of Service: 12/06/19 Interval History: Date of admission and consult 12/05/2019 Service: Hospitalist PCP Dr. Stoner Configuration Management Specialist: Dr. Petit HPI: Christine Ding is an 89 year old woman with a history as below. Has been under stress recently with legal documents and thinking about her carotid artery. Woke up with chest discomfort and right leg tingling. She is known to get chest discomfort when under emotional stress but not with activity. It did not radiate to her neck like chemically induced angina on recent stress test - she did not have angina with 3.5 mets of exertion prior to lexiscan. She got up and walked around and then felt fine. Called Dr. Petit's office and sent to ER for concern of neurologic event. Has been asymptomatic since this morning. Daughter is at bedside. Allergies: No Known Drug Allergy PMhx: CAD, ischemic heart heart diseae carotid stenosis Impaired fasting glucose Hypothyroidism Pure hypercholesterolemia Essential hypertension Obesity Sleep Apnea - Mild Neuropathy - (2018) DJD, arm pain improved w/PT Surgical Hx: Hysterectomy, Bladder Suspension thumb mass excised - LEFT cardiac stent FH: Heart trouble and cancer in immediate family. Father: due to ID - in 70s. Mother: due to ID - in 40s. Siblings:8. SH: Marital: - (2009).Lives With: Alone.Occupation: Retired.3 kids Personal Habits: Smoking: Patient is a former smoker.Cigarette Use: Quit - Age 31. Alcohol: Denies alcohol use Drug Use: Denies Drug Use. OBJECTIVE Vitals: Ht: 65" 5'5" Wt: 174lb with shoes Wt Prior: 178lb 12oz as of 10/22/19 Wt Dif: -4lb -12.0oz Pulse: 50 BP Sittin/78 lue reg cuff BP Standin/ 70 lue reg cuff Resp: 16 BMI: 29.0 Ejection Fraction: 50-55% echo. 10/20/15 EXAM: GENERAL: On exam, the patient is a 89 female appearing in comfortable. PSYCHOLOGICAL: Calm, cooperative, pleasant. NEUROLOGICAL: Awake, alert and oriented to person, place and time. Cranial nerves II-XII intact. Grossly normal sensory and motor function in the upper and lower extremities and normal gait. SKIN: Warm and dry. No cyanosis. HEENT: Pupils were equal and round. Mucous membranes moist. NECK: Without increased JVP. Good carotid pulses. Right carotid bruit LUNGS: Clear with good effort. No wheezes, rales or rhonchi. CORONARY: S1, S2 regular. No murmurs. ABDOMEN: No epigastric discomfort. Normal bowel sounds, some centripetal obesity/thickening. EXTREMITIES: Lower extremities are free of edema and warm. STUDIES: A 12-lead ECG shows sinus bradycardia, 51 beats a minute. QRS axis - 15. Normal AV and IV conductions. Somewhat prominent R-wave progression. STs are normal. Lab Acquired: 05/02/19 TSH (THYROID STIM HORM) 2.22 0.34-5.60 mcIU/mL BASIC METABOLIC PANEL -- Profile -- Sodium 141 135-145 mmol/L Potassium 4.3 3.5-5.0 mmol/L Chloride 108 101-111 mmol/L CO2 Carbon Dioxide 26 22-32 mmol/L Anion Gap 7 2-11 mmol/L Glucose 129 H 70-100 mg/dL Blood Urea Nitrogen 21 6-24 mg/dL Creatinine 1.19 H 0.51-0.95 mg/dL BUN/Creatinine Ratio 17.6 8-20 Calcium 9.2 8.6-10.3 mg/dL EGFR Non- 42.9 >60 EGFR 51.9 >60 Lab Acquired: 08/16/18 LIPID PROFILE (TRIG/CHOL/HDL) -- Profile -- Triglycerides 113 mg/dL Cholesterol 152 mg/dL HDL Cholesterol 57.4 mg/dL LDL Cholesterol 72 mg/dL CREATINE KINASE(CK) 65 10-223 U/L EKG, Stress Test, Exercise Nuclear, Doppler Study, Carotid Artery Medications Active Medications: Acetaminophen (Tylenol Tab*) 650 mg PO Q4H PRN PRN Reason: PAIN - MODERATE Aspirin (Aspirin Ec Tab*) 81 mg PO QAM [facility] Atorvastatin Calcium (Lipitor*) 40 mg PO QAM [facility] Enoxaparin Sodium (Lovenox(*)) 40 mg SUBCUT Q24H [facility] Isosorbide Mononitrate (Imdur Er Tab*) 60 mg PO QAM [facility] Levothyroxine Sodium (Synthroid Tab*) 100 mcg PO QAM [facility] Metoprolol Succinate (Toprol Xl Tab*) 25 mg PO BID [facility] Nitroglycerin (Nitroglycerin Tab 0.4 Mg*) 0.4 mg SL Q5M PRN PRN Reason: CHEST PAIN Pantoprazole Sodium (Protonix Tab*) 40 mg PO DAILY PRN PRN Reason: HEARTBURN Trazodone HCl (Desyrel Tab*) 50 mg PO BEDTIME [facility] Valsartan (Diovan Tab*) 160 mg PO DAILY [facility] Home Medications: Aspirin EC TAB* [Aspirin Low Dose EC*] 81 mg PO QAM 10/24/12 [History Confirmed 12/05/19] Atorvastatin* [Lipitor*] 40 mg PO QAM 10/24/12 [History Confirmed 12/05/19] Isosorbide Mononitrate ER TAB* [Imdur ER TAB*] 60 mg PO QAM 10/24/12 [History Confirmed 12/05/19] Levothyroxine TAB* [Synthroid TAB*] 100 mcg PO QAM 10/24/12 [History Confirmed 12/05/19] traZODone TAB* [Desyrel TAB*] 50 - 150 mg PO BEDTIME 07/16/13 [History Confirmed 12/05/19] Nitroglycerin TAB 0.4 MG* 0.4 mg SL Q5M PRN 07/15/16 [History Confirmed 12/05/19 ] Docusate CAP* [Colace Cap*] 100 mg PO DAILY PRN 12/31/18 [History Confirmed ] Olmesartan (NF) [Benicar (NF)] 20 mg PO DAILY 12/31/18 [History Confirmed ] Ibuprofen TAB* [Advil TAB*] 200 mg PO DAILY PRN 07/19/19 [History Confirmed ] Acetaminophen TAB* [Tylenol TAB*] 325 - 650 mg PO Q4H PRN 12/05/19 [History Confirmed 12/05/19] Metoprolol Succinate XL TAB* [Toprol XL TAB*] 25 mg PO BID 12/05/19 [History Confirmed 12/05/19] Omeprazole CAP (NF) [Prilosec CAP* 20 MG] 20 mg PO DAILY PRN 12/05/19 [History Confirmed 12/05/19] Review of Systems - Measurements Intake and Output: Intake and Output Last 24 Hours 12/03/19 12/04/19 12/05/19 12/06/19 06:59 06:59 06:59 06:59 Weight 174 lb - Review of Systems Constitutional Symptoms: Negative: Weight Gain, Weight Loss, Fever Dermatology: Negative: Rash, Skin Lesions HEENT: Negative: Change in Hearing, Vertigo Eyes: Negative: Change in Vision, Double Vision Thyroid: Negative: Palpitations, Weight Loss, Weight Gain Pulmonary: Positive: Shortness of Breath Negative: Wheezing, Respiratory Distress Cardiology: Positive: Chest Pain, Shortness of Breath Negative: Syncope, Paroxysmal Nocturnal Dyspnea, Orthopnea Gastroenterology: Negative: Blood in Stools, Haematemesis, Melena Genital - Urinary: Negative: Dysuria, Hematuria Musculoskeletal: Negative: Joint Pain, Joint Stiffness Endocrinology: Negative: Polydipsia, Polyuria Hematologic/Lymphatic: Positive: Use of Antiplatelet Drugs Negative: Use of Anticoagulant Neurology: Negative: Diplopia, Dizziness, Change in Speech Psychiatry: Positive: Anxiety Negative: Unusual Anxiety, Suicidal Ideation Allergic/Immunologic: Negative: Hx HIV, Immunocompromise Review of Systems Statement: All other review of systems negative, unless stated above. Objective Vital Signs: Temp Pulse Resp BP Pulse Ox 98.6 F 51 14 170/70 96 12/05/19 10:49 12/05/19 18:04 12/05/19 18:04 12/05/19 18:04 12/05/19 18:04 Oxygen Devices in Use Now: None Appearance: nad, pleasant Ears/Nose/Mouth/Throat: Clear Oropharnyx, Mucous Membranes Moist Neck: NL Appearance and Movements; NL JVP Respiratory: Symmetrical Chest Expansion and Respiratory Effort, Clear to Auscultation Cardiovascular: NL Sounds; No Murmurs; No JVD, RRR, No Edema Abdominal: NL Sounds; No Tenderness; No Distention Extremities: No Edema Skin: No Rash or Ulcers Neurological: Alert and Oriented x 3 Laboratory Results: 12/05/19 10:58 12/05/19 10:58 INR (Anticoag Therapy) 0.97 (0.82-1.09) 12/05/19 10:58 Total Bilirubin 0.50 mg/dL (0.2-1.0) 12/05/19 10:58 AST 20 U/L (13-39) 12/05/19 10:58 ALT 19 U/L (7-52) 12/05/19 10:58 Alkaline Phosphatase 69 U/L (34-104) 12/05/19 10:58 CK-MB (CK-2) 1.6 ng/mL (0.6-6.3) 12/05/19 10:58 Total Protein 6.1 g/dL (6.4-8.9) L 12/05/19 10:58 Albumin 3.8 g/dL (3.2-5.2) 12/05/19 10:58 Globulin 2.3 g/dL (2-4) 12/05/19 10:58 Albumin/Globulin Ratio 1.7 (1-3) 12/05/19 10:58 TSH 1.59 mcIU/mL (0.34-5.60) 12/05/19 10:58 12/05/19 12/05/19 12/05/19 10:58 13:42 16:51 Troponin I 0.00 0.01 0.00 Diagnostic Imaging: Cardiac Testing: Holter Monitor - (08/15/2018) NSR 42-139 bpm. 500+ PVC's, 1300+ PAC's, occ SVT. no log Stress Test - (07/17/2018) Low risk. No evidence of ischemia. No evidence of infarction. Normal left ventricular function. Echocardiogram - (10/20/2015) Septal hypert, EF 50-55%, DD, mild MR Echocardiogram - (06/07/2012) Stress Test - (10/14/2014) Normal perfusion, EF 51% rest, 54% post stress, Stage 2, PVC's Stress Test - (07/05/2013) EF 60%, normal perfusion. Holter Monitor - (11/17/2015) Symptomatic PVC's (SR 42-114 bpm, 323 PVC's, 427 PAC's) Carotid Doppler - (04/09/2010) BISI: 60-79%, LICA 1-39%. Carotid Doppler - (10/10/2014) severe (60-79%) BISI, mild LICA, Carotid Doppler - (10/09/2015) BISI 50-69%, closer to 69%, LICA no sig occlusion Carotid Doppler - (05/15/2017) Mod BISI, mild LICA Cardiac Procedures: Cardiac Catheterization - (01/22/2003) LAD 30-40%, Dx branch 80-85%,small, Cx patent stent, RCA 60-65%, med manage Cardiac Catheterization - (02/09/2005) LAD luminal plaque, Cx patent stent, RCA dom, 55-60% mm stress MPI 12/03/2019: Small mid to distal LAD territory ischemia, low risk MPI carotid 11/2019 complex ulcerated mobile plaque or right carotid bifurcation with 70-99% stenosis Exam Date: 12/05/19 CT BRAIN WO 1. NO EVIDENCE FOR ACUTE INTRACRANIAL ABNORMALITY. 2. 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 EKG Data: ekg on admission: sinus bradycardia poor quality, no st elevation Assessment/Plan I am not sure what to make of patients presenting symptom complex. She is now asymptomatic. I am not convinced the chest discomfort was angina but she does have ischemic heart disease as evidence by recent stress that that required chemical lexiscan to induce angina which had a neck symptom component (not present with presenting symptom). She's now asymptomatic and ruled out for ACS. The initial EKG was poor quality and needs repeated (ordered). To error on side of caution, if BP remains elevated after receiving morning medications would increase the imdur dose. Would anticipate left sided symptoms with right carotid stenosis but if that symptom was felt to be a TIA given her carotid results she might benefit from adding plavix but I'd defer that to the Primary service.
[2019-12-05] MEDS ORDERED: Enoxaparin(*) 40 MG/0.4 ML SYR SUBCUT SCH (20:00)
[2019-12-05] MEDS: Metoprolol Succinate XL TAB* 25 MG PO SCH (20:40)
[2019-12-05] MEDS ORDERED: traZODone TAB* 50 MG TAB PO SCH (21:00)
[2019-12-05] MEDS ORDERED: traZODone TAB* 50 MG TAB PO ONE (23:35)
[2019-12-06] MEDS: Acetaminophen TAB* 325 MG PO PRN ×2 (00:06→06:05)
[2019-12-06] MEDS ORDERED: Levothyroxine TAB* 100 MCG TAB PO SCH (06:00)
[2019-12-06 08:44] VITALS: BP 141/59
[2019-12-06] MEDS ORDERED: OLMESARTAN 20 MG PO SCH (09:00)
[2019-12-06] MEDS ORDERED: Atorvastatin* 40 MG TAB PO SCH (09:00)
[2019-12-06] MEDS ORDERED: Isosorbide Mononitrate ER TAB* 60 MG PO SCH (09:00)
[2019-12-06] MEDS ORDERED: Aspirin EC TAB* 81 MG TAB.EC PO SCH (09:00)
[2019-12-06] MEDS: Metoprolol Succinate XL TAB* 25 MG PO SCH (09:14)
--- NOTE | 2019-12-06 09:37 | DS ---
CC: Dr. Stoner; Dr. Petit * DISCHARGE SUMMARY: DATE OF ADMISSION: 12/05/19 DATE OF DISCHARGE: 12/06/19 HISTORY OF PRESENT ILLNESS: This 89-year-old woman was in her usual state of health until about 4 in the morning which is her normal time for awakening. Her history was a little confused at first, her daughter corrected it later. Apparently before she got out of bed, she began having sternal chest pain lasting perhaps an hour. There was some transient numbness in her right lateral lower leg which resolved completely. She has never had either of these symptoms before. She was admitted to a telemetry unit because of her history of known coronary artery disease. Her heart score was 5. She had free troponin levels all of which were within normal limits. There were no significant findings in her EKG. Telemetry did not show any significant findings either. She felt well the next morning. I note that the numbness in the right leg is of questionable significance and certainly would not be related to her right carotid stenosis. Dr. Buck was consulted and did not have any medication recommendations at this time, although consideration for raising her Imdur was raised, it is not clear that the pain was cardiac at all. FINAL DIAGNOSES: 1. Chest pain. 2. Coronary artery disease. 3. Hypothyroidism. 4. Hypertension. 5. Carotid stenosis. DISCHARGE MEDICATIONS: 1. Aspirin 81 mg daily. 2. Atorvastatin 40 mg daily. 3. Levothyroxine 100 mcg daily. 4. Isosorbide mononitrate 60 mg daily. 5. Trazodone as prescribed. 6. Nitroglycerin 0.4 mg sublingual every 5 minutes p.r.n. 7. Docusate 100 mg daily p.r.n. 8. Olmesartan 20 mg daily. 9. Ibuprofen 200 mg daily p.r.n. 10. Acetaminophen as prescribed. 11. Omeprazole 20 mg daily p.r.n. 12. Metoprolol succinate 25 mg b.i.d. DISCHARGE DISPOSITION: Discharge home. DISCHARGE CONDITION: Stable. [id number]/[facility] #: [id number] MTDD
== END 2019-12-06 09:35 | disposition home or self-care (01) ==
LOC: ED 10:39 → MEDTELE 17:06
PROVIDERS: ADMIT Internal Medicine; ATTEND Internal Medicine
DX: R07.9 Chest pain, unspecified (principal); I25.10 Atherosclerotic heart disease of native coronary artery without angina pectoris; E03.9 Hypothyroidism, unspecified; I10 Essential (primary) hypertension; R51 Headache; I65.29 Occlusion and stenosis of unspecified carotid artery; I73.9 Peripheral vascular disease, unspecified; K21.9 Gastro-esophageal reflux disease without esophagitis; R06.02 Shortness of breath; G47.30 Sleep apnea, unspecified; F41.9 Anxiety disorder, unspecified; Z87.891 Personal history of nicotine dependence; Z79.82 Long term (current) use of aspirin; Z79.899 Other long term (current) drug therapy; Z95.5 Presence of coronary angioplasty implant and graft
CPT/HCPCS: 36415; 70450; 80053; 82550; 82553; 84443; 84484; 85025; 85610; 86140; 93005; 96372; 99285; A9270-GY; G0378; J1650

== ENCOUNTER 2019-12-21 05:04 | Emergency (ER) | payer MEDICARE ==
--- OUTSIDE RECORDS SUMMARY | 2019-12-21 05:11 | XMS REPORT | Continuity of Care Document ---
:1930 External Reference #:[id number] Author Name Latia Brito N.P. (transmitted by agent of provider Pilar Corrigan) Address [address] [place] [id number] Care Team Providers Name Role Phone Milad Barrios MD - Gastroenterology Care Team Information Paper Handler [phone] Ritu Brito MD - Surgery Care Team Information Paper Handler [phone] Ginna Petit MD - Cardiovascular Care Team Information Paper Handler [phone] Disease Karl Eagle MD - Neurological Care Team Information Paper Handler Surgery Joe Fox MD - Hematology Care Team Information Paper Handler Nicole Yarbrough MD - Pulmonary Care Team Information Paper Handler [phone] Disease Brad Boudreaux MD - Vascular & Care Team Information Paper Handler [phone] Interventional Radiology Luis Eduardo Stoner III, MD - Internal Care Team Information Paper Handler Medicine Ellen Mendieta MD - Adult Care Team Information Paper Handler [phone] Reconstructive Orthopaedic Surgery Problems Active Problems Provider [...] 04/30/2019 100mcg Tablets daily M.DVik Olmesartan Medoxomil Take 1 Tablet 90tabs I10 Bal Weiss, 04/24/2019 20mg By Mouth Once MILL STENCILER Tablets Daily. Blood Pressure Monitor use daily to 1units I10 Bal Weiss, 04/10/2019 Auto Inflate monitor bp MILL STENCILER Misc daily Acetaminophen 2 tablets by 60tabs [...] 04/05/2011 81mg Tablets Dora Quintana,FACP Isosorbide Mononitrate Take 1 Tablet 90tabs I10 Luis Eduardo Stoner, 2010 ER By Mouth Every M.D. 60mg Tablets ER 24HR Morning. Metoprolol Succinate Take 2 Tablets 180tabs I10 Luis Eduardo Stoner, 2007 ER By Mouth Once M.D. 25mg Tablets ER 24HR Daily. Lipitor take 1 tablet 90tabs E78.5 Fransico Gimenez NP 40mg Tablets by mouth at bedtime History Medications Losartan Potassium 1 by mouth every 90tabs Luis Eduardo Stoner, 06/12/2019 - day M.D. 06/12/2019 100mg Tablets Medications Administered in Office Medication SIG Qnty Indications Ordering Provider Date Inj, Regadenoson, 0.1 MG Jai Buck, DO FAC 12/03/2019 Injection Aminophylline Jai Buck, DO FAC 12/03/2019 Injection Technetium TC 99M Jai Buck, DO FAC 12/03/2019 Tetrofosmin, Per Unit Dose Up To 40 Millicuries Injection Technetium TC 99M Jai Buck, DO FAC 12/03/2019 Tetrofosmin, Per Unit Dose Up To 40 Millicuries Injection Celestone 3 mg and 3mg John Nam MD 10/22/2019 Injection Inj, Regadenoson, 0.1 MG Idris Floyd M.D., 07/17/2018 Injection FACC, FASNC Technetium TC 99M Idris Floyd M.D., 07/17/2018 Tetrofosmin, Per Unit Dose Up [facility], FASNC To 40 Millicuries Injection Depomedrol 40MG Ellen [...] Code Status Date Vaccine Reaction Lot # [id number] Given 09/07/2018 Fluzone High Dose 36052 Given 08/15/2017 Fluzone High Dose Q2037 Given 09/07/2015 Fluvirin Im 3Yrs And Older 16457 Given 08/25/2015 Fluzone High Dose 13036 Given 04/22/2015 Pneumococcal Conjugate no reaction, no [id number] Vaccine 13 Valent For complaints Intramuscular Use 38742 Given 08/15/2014 Flu Vaccine Split Virus Preservative Free For Indiv 3Yr Older 05230 Given 09/16/2013 Flu Vaccine Split Virus Preservative Free For Indiv 3Yr Older Q2038 Given 07/17/2012 Fluzone Vaccine 29072 Given 08/15/2011 Influenza Virus 3Yrs & Over 66762 Given 09/21/2010 Influenza Virus 3Yrs & Over [id number] 57122 Given 08/05/2008 Influenza Virus 3Yrs & Over 87385 Given 08/05/2008 Influenza Virus 3Yrs & Over 12145 Given 08/07/2001 Pneumonia Vaccine Vital Signs Date [...] Test Result H/L Range Note Laboratory test 12/05/2019 [facility] Troponin-I 0.00 ng/mL < 0.[address] (TnI) [place] [address] [phone] Laboratory test 12/05/2019 [facility] Troponin-I 0.01 ng/mL < 0.03 [address] (TnI) [place], [place] [id number] [phone] CBC Auto Diff 12/05/2019 [facility] White 4.4 10^3/uL Normal 3.5-10.8 101 [facility] [place] [place] [address] Count [phone] Red Blood Count 3.63 10^6/uL Low 3.70-4.87 Hemoglobin 11.6 g/dL Low 12.0-16.0 Hematocrit 34 % Low 35-47 Mean Corpuscular Volume 93 fL Normal 80-97 Mean Corpuscular Hemoglobin 32 pg High 27-31 Mean Corpuscular HGB Conc 34 g/dL Normal 31-36 Red Cell Distribution Width 14 % Normal 10-15 Platelet Count 125 10^3/uL Low 150-450 Mean Platelet Volume 8.4 fL Normal 7.4-10.4 Abs Neutrophils 2.7 10^3/uL Normal 1.5-7.7 Abs Lymphocytes 1.4 10^3/uL Normal 1.0-4.8 Abs Monocytes 0.4 10^3/uL Normal 0-0.8 Abs Eosinophils 0.0 10^3/uL Normal 0-0.6 Abs Basophils 0.0 10^3/uL Normal 0-0.2 Abs Nucleated RBC 0.0 10^3/uL Granulocyte % 60.8 % Lymphocyte % 30.5 % Monocyte % 8.2 % Eosinophil % 0.1 % Basophil % 0.4 % Nucleated Red Blood Cells % 0.1 Inr/Protime 12/05/2019 [facility] Inr 0.97 Normal 0.82-1.[address] [place] [address] [phone] Comp Metabolic 12/05/2019 [facility] Sodium 141 mmol/L Normal 135-[address] [place], [place] [id number] [phone] Potassium 4.0 mmol/L Normal 3.5-5.0 Chloride 107 mmol/L Normal 101-111 Co2 Carbon Dioxide 28 mmol/L Normal 22-32 Anion Gap 6 mmol/L Normal 2-11 Glucose 87 mg/dL Normal 70-100 Blood Urea Nitrogen 18 mg/dL Normal 6-24 Creatinine 1.19 mg/dL High 0.51-0.95 BUN/Creatinine Ratio 15.1 Normal 8-20 Calcium 8.9 mg/dL Normal 8.6-10.3 Total Protein 6.1 g/dL Low 6.4-8.9 Albumin 3.8 g/dL Normal 3.2-5.2 Globulin 2.3 g/dL Normal 2-4 Albumin/Globulin Ratio 1.7 Normal 1-3 Total Bilirubin 0.50 mg/dL Normal 0.2-1.0 Alkaline Phosphatase 69 U/L Normal 34-104 Alt 19 U/L Normal 7-52 Ast 20 U/L Normal 13-39 Egfr Non- 42.8 >60 Egfr 51.8 >60 4 Laboratory test 12/05/2019 [facility] Creatine 64 U/L Normal 10-223 finding Kinase(CK) [place] [address] [phone] C Reactive Protein < 1.00 mg/L Normal <8.01 Troponin-I (TnI) 0.00 ng/mL <0.03 5 CKMB 12/05/2019 [facility] CKMB ng/mL 1.6 Normal 0.6-6.3 ng/[place] [address] [phone] Laboratory 12/05/2019 [facility] TSH (Thyroid 1.59 Normal 0.34 -5.60 test finding Stim Horm) mcIU/[place] [address] [phone] Order 12/03/2019 [facility] Stress Test, <pending Exercise Nuclear > [place] [address] [phone] Laboratory 11/13/2019 [facility] Creatine 105 U/L Normal 10- 223 test finding Kinase(CK) [place] [address] [phone] Lipid Profile 11/13/2019 [facility] Triglycerides 130 6 (Trig/Chol/HDL mg/dL ) [place] [address] [phone] Cholesterol 156 mg/dL 7 HDL Cholesterol 67.3 mg/dL 8 LDL Cholesterol 63 mg/dL 9 Comp Metabolic 11/13/2019 [facility] Sodium 142 mmol/L Normal 135-[address] [place] [address] [phone] Potassium 4.0 mmol/L Normal 3.5-5.0 Chloride 107 [...] Egfr Non- 47.4 >60 Egfr 57.3 >60 10 Lipid Panel - 11/04/2019 [facility] Creatine Kinase(CK) <pending > [place] [address] [phone] 1 Troponin-I testing on Plasma Separator Tubes (PST) has a known false positive rate of 0.20-0.40%. All positive troponins reflex immediately to secondary confirmatory testing. Using the [employer] 800 Access Immunoassay systems, the 99th percentile upper reference limit was demonstrated to be < 0.03 ng/mL. 2 Troponin-I testing on Plasma Separator Tubes (PST) has a known false positive rate of 0.20-0.40%. All positive troponins reflex immediately to secondary confirmatory testing. Using the [employer] 800 Access Immunoassay systems, the 99th percentile upper reference limit was demonstrated to be < 0.03 ng/mL. 3 Standard intensity warfarin therapeutic range: 2.0-3.0 High intensity warfarin therapeutic range: 2.5-3.5 4 Because ethnic data is not always readily [...] 15-29 5 Kidney failure <15 (or dialysis) 5 Troponin-I testing on Plasma Separator Tubes (PST) has a known false positive rate of 0.20-0.40%. All positive troponins reflex immediately to secondary confirmatory testing. Using the [employer] DxI 800 Access Immunoassay systems, the 99th percentile upper reference limit was demonstrated to be < 0.03 ng/mL. 6 Desirable: <150 Borderline High: 150-199 High: 200-499 Very High: >500 7 Desirable: <200 Borderline High: 200-239 High: >239 8 Low: <40 Desirable: 40-60 High: >60 9 Desirable: <100 Near Optimal: 100-129 Borderline High: 130-159 High: 160-189 Very High: >189 10 Because ethnic data is not always readily [...] (or dialysis) Procedures Date Code Description Status 12/03/2019 14635 Stress Test Completed 12/03/2019 79485 Myocardial Perfusion Imaging Tomographic (Spect) Completed Multiple Studies 11/04/2019 81102 EKG Tracing & Interpretation Completed 10/22/2019 18969 Inject Tendon Sheath Or Ligament Aponeurosis Eg Completed Plantar Fascia 04/08/2013 007399039 Diabetic Foot Exam Completed 04/27/2012 40930901 Mammogram Completed 04/14/2011 64030747 Mammogram Completed 04/06/2010 217808019 Bone Mineral Density Test Completed 04/09/2009 20174832 Mammogram Completed 05/01/2008 90036163 Colonoscopy Completed Medical Devices Description No Information Available Encounters Type Date Location Provider Dx Diagnosis Office Visit 11/04/2019 [facility] Ginna Petit, I10 Essential ( primary) 2:40p Of [facility] John hypertension E78.5 Hyperlipidemia, unspecified 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 R07.9 Chest pain, unspecified R06.02 Shortness of breath M19.90 Unspecified osteoarthritis, unspecified site Office Visit 10/22/2019 [place] [facility] 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 left middle finger M25.561 Pain in right knee Assessments Date Code Description Provider 12/06/2019 R07.9 Chest pain, unspecified Yonas Bailey M.D. 12/06/2019 R20.2 Paresthesia of skin Yonas Bailey M.D. 12/06/2019 Z86.79 Personal history of other diseases of the Yonas Bailey M.D. circulatory system 12/05/2019 R07.89 Other chest pain Cornel Buck M.D. 12/05/2019 R20.2 Paresthesia of skin Cornel Buck M.D. 12/03/2019 R07.9 Chest pain, unspecified Ginna Petit M.D. 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 examination without abnormal findings 11/28/2019 I10 Essential (primary) hypertension Luis Eduardo Stoner M.D. 11/28/2019 I25.10 Atherosclerotic heart disease of [place] Luis Eduardo Stoner M.D. coronary artery with 11/28/2019 E78.5 Hyperlipidemia, unspecified Luis Eduardo Stoner M.D. 11/28/2019 I65.23 Occlusion and stenosis of bilateral Luis Eduardo Stoner M.D. carotid arteries 11/28/2019 E03.9 Hypothyroidism, unspecified Luis Eduardo Stoner M.D. 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 and structure, multiple sites 11/04/2019 I10 Essential (primary) hypertension Ginna Petit M.D. 11/04/2019 E78.5 Hyperlipidemia, unspecified Ginna Petit M.D. 11/04/2019 I25.10 Atherosclerotic heart disease of [place] Ginna Petit M.D. coronary artery with 11/04/2019 I65.23 Occlusion and stenosis of bilateral Ginna Petit M.D. carotid arteries 11/04/2019 R07.9 Chest pain, unspecified Ginna Petit M.D. 11/04/2019 R06.02 Shortness of breath Ginna Petit M.D. 11/04/2019 M19.90 Unspecified osteoarthritis, unspecified Ginna Petit M.D. site 10/22/2019 M18.12 Unilateral primary osteoarthritis of John Nam MD first carpometacarpal j 10/22/2019 M65.332 Trigger finger, left [...] Luis Eduardo Stoner M.D. Plan of Treatment 11/28/2019 - Luis Eduardo Stoner M.D.Z00.00 Encounter for general adult medical examination without abnormal findingsComments:(+) dental, eye exams. Pt declines mammograms. ? due for a tetanus booster; pneumonia vaccines current.I10 Essential (primary) hypertensionComments:BP good today; occ home BP checks lwtntjaY38.10 Atherosclerotic heart disease of [place] coronary artery withComments:No cardiac c/o. Stress test rntuagtK69.5 Hyperlipidemia, unspecifiedComments:On Rx; LDL 63.I65.23 Occlusion and stenosis of bilateral carotid arteriesComments:Repeat carotid scan by cardiology with ? high grade stenosis on the R, increased from her 2018 scan. No TIA/CVA sx. Discussed CT angiogram and possible vascular surgery eval and pt ope to it. Stresstest per cardiology pending .9 Hypothyroidism, unspecifiedComments:On Rx; TSH normal in Other specified disorders of bone density and structure, multiple sitesComments:(+) osteopenia with 2009 DEXA scan; repeat scan advised once cardiac/carotid situation stable Functional Status Description No Information Available Mental Status Description No Information Available Referrals Refer to Dr Reason for Referral Status Appt Date Ellen Mendieta MD New R knee pains Sent 10/14/[address] [place] [address] [place] [address] [phone]
--- OUTSIDE RECORDS SUMMARY | 2019-12-21 05:11 | XMS REPORT | Continuity of Care Document ---
:1930 External Reference #:[id number] Author Name Latia Brito N.P. (transmitted by agent of provider Haley Escalante) Address [address] [place] [id number] Care Team Providers Name Role Phone Milad Barrios MD - Gastroenterology Care Team Information Vice President [employer] Ritu Brito MD - Surgery Care Team Information Vice President [employer] Ginna Petit MD - Cardiovascular Care Team Information Vice President [employer] Disease Karl Eagle MD - Neurological Care Team Information Vice President [employer] Surgery Joe Fox MD - Hematology Care Team Information Vice President [employer] [phone] Nicole Yarbrough MD - Pulmonary Care Team Information Vice President [employer] [phone] Disease Brad Boudreaux MD - Vascular & Care Team Information Vice President [employer] Interventional Radiology Luis Eduardo Stoner III, MD - Internal Care Team Information Vice President [employer] [phone] Medicine Ellen Mendieta MD - Adult Care Team Information Vice President [employer] [phone] Reconstructive Orthopaedic Surgery Problems Active Problems Provider Date Coronary arteriosclerosis Dennis Quintana, Onset: 03/26/2008 Dora,FACP Essential hypertension Dennis Quintana, Onset: 03/26/2008 Dora,FACP Impaired fasting glycaemia eDnnis Quintana, Onset: 04/22/2015 Dora,FACP Carotid artery stenosis Dennis Quintana, Onset: 04/22/2015 Dora,FACP Pure hypercholesterolemia Dennis Quintana, Onset: 08/12/2008 Dora,FACP Hypothyroidism Dennis Quintana, Onset: 08/12/2008 Dora,FACP Localized, primary osteoarthritis of the Dennis Quintana, Onset: 07/09/2013 hand Dora,FACP Senile osteopenia Dennis Quintana, Onset: 04/10/2014 Dora,FACP Sciatica Dennis Acostad, Onset: 04/10/2014 Droa,FACP Peripheral vascular disease Ginna ePtit M.D. Onset: 10/13/2015 Hyperlipidemia Ginna Petit M.D. Onset: 10/13/2015 Obstructive sleep apnea syndrome Nicole Yarbrough MD Onset: 10/16/2015 Localized, primary osteoarthritis Ellen Mendieta M.D. Onset: 04/20/2016 Premature beats Ginna Petit M.D. Onset: 06/03/2016 Diverticulitis of colon Dennis Quintana, Onset: 03/23/2017 Dora,FACP Note: one occasion Electrocardiogram abnormal Ginna Petit M.D. Onset: 07/03/2018 Social History Type Date Description Comments Sex Unknown Cigarette Use Quit - Age 31 ETOH Use 05/08/2017 Denies alcohol use Recreational Drug Use Denies Drug Use Tobacco Use Start: Unknown End: Patient is a former smoker Unknown Smoking Status Reviewed: 12/10/19 Patient is a former smoker Exercise Type/Frequency Exercises rarely Allergies, Adverse Reactions, Alerts Description No Known Drug Allergies Medications Active Medications SIG Qnty Indications Ordering Provider Date Amlodipine Besylate 1 by mouth 30tabs I25.10 Latia Brito, 12/10/2019 2.5mg every day N.P. Tablets Synthroid one tablet once 90tabs Monae Bobby, 04/30/2019 100mcg Tablets daily M.D. Olmesartan Medoxomil Take 1 Tablet 90tabs I10 Bal Weiss, 04/24/2019 20mg By Mouth Once PURSE FRAMER Tablets Daily. Blood Pressure Monitor use daily to 1units I10 Bal Weiss, 04/10/2019 Auto Inflate monitor bp PURSE FRAMER Misc daily Acetaminophen 2 tablets by 60tabs [...] Tablets ER 24HR Morning. Metoprolol Succinate Take 1 tab by 180tabs I10 Luis Eduardo Stoner, 2007 ER mouth daily M.D. 25mg Tablets ER 24HR Lipitor take 1 tablet 90tabs E78.5 Fransico Gimenez NP 40mg Tablets by mouth at bedtime History Medications Losartan Potassium 1 by mouth every 90tabs Luis Eduardo Stoner, 06/12/2019 - day M.D. 06/12/2019 100mg Tablets Medications Administered in Office Medication SIG Qnty Indications Ordering Provider Date Inj, Regadenoson, 0.1 MG Jai Buck, DO [facility] 12/03/2019 Injection Aminophylline Jai Buck, DO [facility] 12/03/2019 Injection Technetium TC 99M Jai Buck, DO [facility] 12/03/2019 Tetrofosmin, Per Unit Dose Up To 40 Millicuries Injection Technetium TC 99M Jai Buck, DO [facility] 12/03/2019 Tetrofosmin, Per Unit Dose Up To 40 Millicuries Injection Celestone 3 mg and 3mg John Nam MD 10/22/2019 Injection Inj, Regadenoson, 0.1 MG Idris Floyd M.D., 07/17/2018 Injection FACC, FASNC Technetium TC 99M Idris Floyd M.D., 07/17/2018 Tetrofosmin, Per Unit Dose Up FACC, FASNC To 40 Millicuries Injection Depomedrol 40MG Ellen Mendieta M.D. 05/06/2016 Injection Technetium TC 99M Idris Floyd M.D., 10/14/2014 Tetrofosmin, Per Unit Dose Up [facility], FASNC To 40 Millicuries Injection Technetium TC 99M Ginna Petit M.D. 10/14/2014 Tetrofosmin, Per Unit Dose Up To 40 Millicuries Injection Inj, Regadenoson, 0.1 MG Elian Valiente M.D. 07/05/2013 Injection Aminophylline Elian Valiente M.D. 07/05/2013 Injection Technetium TC 99M Elian Valiente M.D. 07/05/2013 Tetrofosmin, Per Unit Dose Up To 40 Millicuries Injection Immunizations CPT Code Status Date Vaccine Reaction Lot # [id number] Given 09/07/2018 Fluzone High Dose 51730 Given 08/15/2017 Fluzone High Dose Q2037 Given 09/07/2015 Fluvirin Im 3Yrs And Older 49850 Given 08/25/2015 Fluzone High Dose 32367 Given 04/22/2015 Pneumococcal Conjugate no reaction, no [id number] Vaccine 13 Valent For complaints Intramuscular Use 24626 Given 08/15/2014 Flu Vaccine Split Virus Preservative Free For Indiv 3Yr Older 06619 Given 09/16/2013 Flu Vaccine Split Virus Preservative Free For Indiv 3Yr Older Q2038 Given 07/17/2012 Fluzone Vaccine 15162 Given 08/15/2011 Influenza Virus 3Yrs & Over 27822 Given 09/21/2010 Influenza Virus 3Yrs & Over [id number] 85546 Given 08/05/2008 Influenza Virus 3Yrs & Over 00644 Given 08/05/2008 Influenza Virus 3Yrs & Over 86454 Given 08/07/2001 Pneumonia Vaccine Vital Signs Date Vital Result Comment 12/10/2019 3:09pm Height 65 inches 5'5" Weight 178.00 lb with shoes Heart Rate 57 /min BP Systolic Sitting 134 mmHg Ra BP Diastolic Sitting 78 mmHg Ra BP Systolic Standing 128 mmHg Ra BP Diastolic Standing 74 mmHg Ra BMI (Body Mass Index) 29.6 kg/m2 Ejection Fraction 50-55% Echo 10/20/15 11/28/2019 1:19pm Height 65 inches 5'5" Weight 176.00 lb Heart Rate 54 /min BP Systolic Sitting 130 mmHg BP Diastolic Sitting 68 mmHg BMI (Body Mass Index) 29.3 kg/m2 Results Test Acquired Date Facility Test Result H/L Range Note Laboratory test 12/05/2019 [facility] Troponin-I 0.00 ng/mL < 0.[address] (TnI) [place] [address] [phone] Laboratory test 12/05/2019 [facility] Troponin-I 0.01 ng/mL < 0.03 2 finding [facility] (TnI) [place] [address] [phone] CBC Auto Diff 12/05/2019 [facility] White 4.4 10^3/uL Normal 3.5-10.8 101 [facility] [place] [address] Count [phone] Red Blood Count 3.63 10^6/uL Low 3.70-4.87 [...] Red Blood Cells % 0.1 Inr/Protime 12/05/2019 [facility] Inr 0.97 Normal 0.82-1.09 3 [address] [place] [address] [phone] Comp Metabolic 12/05/2019 [facility] Sodium 141 mmol/L Normal 135-145 [place] [address] [phone] Potassium 4.0 mmol/L Normal 3.5-5.0 Chloride 107 [...] Egfr 51.8 >60 4 Laboratory test 12/05/2019 [facility] Creatine 64 U/L Normal 10-223 finding Kinase(CK) [place] [address] [phone] C Reactive Protein < 1.00 mg/L Normal <8.01 Troponin-I (TnI) 0.00 ng/mL <0.03 5 CKMB 12/05/2019 [facility] CKMB ng/mL 1.6 Normal 0.6-6.3 ng/[place] [address] [phone] Laboratory 12/05/2019 [facility] TSH (Thyroid 1.59 Normal 0.34 -5.60 test finding Stim Horm) mcIU/[place] [address] [phone] Order 12/03/2019 [facility] Stress Test, <pending [address] > [place] [address] [phone] Laboratory 11/13/2019 [facility] Creatine 105 U/L Normal 10- 223 test finding Kinase(CK) [place] [address] [phone] Lipid Profile 11/13/2019 [facility] Triglycerides 130 6 (Trig/Chol/HDL 101 mg/dL ) [place] [address] [phone] Cholesterol 156 mg/dL 7 HDL Cholesterol 67.3 mg/dL 8 LDL Cholesterol 63 mg/dL 9 Comp Metabolic 11/13/2019 [facility] Sodium 142 mmol/L Normal 135-145 [place] [address] [phone] Potassium 4.0 mmol/L Normal 3.5-5.0 Chloride 107 [...] 57.3 >60 10 Lipid Panel - 11/04/2019 [facility] Creatine Kinase(CK) <pending > [place] [address] [phone] 1 Troponin-I testing on Plasma Separator Tubes (PST) has a known false positive rate of 0.20-0.40%. All positive troponins reflex immediately to secondary confirmatory testing. Using the [employer] 800 Access Immunoassay systems, the 99th percentile upper reference limit was demonstrated to be < 0.03 ng/mL. 2 Troponin-I testing on Plasma Separator Tubes (PST) has a known false positive rate of 0.20-0.40%. All positive troponins reflex immediately to secondary confirmatory testing. Using the [employer] DxI 800 Access Immunoassay systems, the 99th [...] immediately to secondary confirmatory testing. Using the [employer] DxI 800 Access Immunoassay systems, the 99th [...] dialysis) Procedures Date Code Description Status 12/03/2019 21214 Stress Test Completed 12/03/2019 65486 Myocardial Perfusion Imaging Tomographic (Spect) Completed Multiple Studies 11/04/2019 13238 EKG Tracing & Interpretation Completed 10/22/2019 83319 Inject Tendon Sheath Or Ligament Aponeurosis Eg Completed Plantar Fascia 04/08/2013 136116307 Diabetic Foot Exam Completed 04/27/2012 [id number] Mammogram Completed 04/14/2011 [id number] Mammogram Completed 04/06/2010 [id number] Bone Mineral Density Test Completed 04/09/2009 [id number] Mammogram Completed 05/01/2008 [id number] Colonoscopy Completed Medical Devices Description No Information Available Encounters Type Date Location Provider Dx Diagnosis Office Visit 12/06/2019 [facility] Yonas Bailey, R07.9 Chest pain, 9:21a Assparis wilson M.D. unspecified Hospitalists R20.2 Paresthesia of skin Z86.79 Personal history of other diseases of the circulatory system Office Visit 12/05/2019 9:20a [facility] Cornel Buck, R07.89 Other chest Assocparis M.D. pain Hospitalists R20.2 Paresthesia of skin Office Visit 11/04/2019 2:40p [facility] Ginna Petit, I10 Essential (primary) Of Cristopher John hypertension E78.5 Hyperlipidemia, unspecified I25.10 Athscl heart disease of [place] coronary artery w/o ang pctrs I65.23 Occlusion and stenosis of bilateral carotid arteries R07.9 Chest pain, unspecified R06.02 Shortness of breath M19.90 Unspecified osteoarthritis, unspecified site Office Visit 10/22/2019 [place] John M18.12 Unil primary 10:30a Orthopedics at [facility] osteoarth of first [place] carpometacarp joint, l hand M65.332 Trigger finger, left middle finger Office Visit 10/14/2019 1:00p [facility] Ellen Mendieta, M25.561 Pain in right at [place] M.D. knee M25.461 Effusion, right knee M17.11 Unilateral primary osteoarthritis, right knee M11.261 Other chondrocalcinosis, right knee Office Visit 10/01/2019 4:00p [facility] Internal Luis Eduardo Diaz M65.332 Trigger finger, Medicine - Sana Stoner M.D. left middle finger M25.561 Pain in right knee Assessments Date Code Description Provider 12/10/2019 R07.9 Chest pain, unspecified Latia Brito, N.P. 12/10/2019 I25.10 Atherosclerotic heart disease of [place] Latia Brito, N.P. coronary artery without angina pectoris 12/10/2019 I65.21 Occlusion and stenosis of right carotid Latia Brito, N.P. artery 12/06/2019 R07.9 Chest pain, unspecified Yonas Bailey M.D. 12/06/2019 R20.2 Paresthesia of skin Yonas Bailey M.D. 12/06/2019 Z86.79 Personal history of other diseases of the Yonas Bailey M.D. circulatory system 12/05/2019 R07.89 Other chest pain Cornel Buck M.D. 12/05/2019 R20.2 Paresthesia of skin Cornel Buck M.D. 12/03/2019 R07.9 Chest pain, unspecified Ginna Petit M.D. 12/03/2019 I25.10 Atherosclerotic heart disease of [place] Ginna Petit M.D. coronary artery without angina pectoris 12/03/2019 R07.9 Chest pain, unspecified Jai Buck, DO [facility] 12/03/2019 I25.10 Atherosclerotic heart disease of [place] Jai Buck, DO [facility] coronary artery without angina pectoris 11/28/2019 Z00.00 Encounter for general adult medical Luis Eduardo Stoner M.D. examination without abnormal findings 11/28/2019 I10 Essential (primary) hypertension Luis Eduardo Stoner M.D. 11/28/2019 I25.10 Atherosclerotic heart disease of [place] Luis Eduardo Stoner M.D. coronary artery with 11/28/2019 E78.5 Hyperlipidemia, unspecified Luis Eduardo Stoenr M.D. 11/28/2019 I65.23 Occlusion and stenosis of bilateral Luis Eduardo Stoner M.D. carotid arteries 11/28/2019 E03.9 Hypothyroidism, unspecified Luis Eduardo Stoner M.D. 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 and structure, multiple sites 11/04/2019 I10 Essential (primary) hypertension Ginna Petit M.D. 11/04/2019 E78.5 Hyperlipidemia, unspecified Ginna Petit M.D. 11/04/2019 I25.10 Atherosclerotic heart disease of [place] Ginna Petit M.D. coronary artery with 11/04/2019 I65.23 Occlusion and stenosis of bilateral Ginna Petit M.D. carotid arteries 11/04/2019 R07.9 Chest pain, unspecified Ginna Petit M.D. 11/04/2019 R06.02 Shortness of breath Ginna Petit M.D. 11/04/2019 M19.90 Unspecified osteoarthritis, [place] Petit M.D. site 10/22/2019 M18.12 Unilateral primary [...] M25.561 Pain in right knee Luis Eduardo E. Georgiana, M.D. Plan of Treatment Future Appointment(s):12/26/2019 3:00 pm - Latia Brito N.P. at [facility]12/10/2019 - Latia Brito N.P.R07.9 Chest pain, unspecifiedRecommendations:I am adding medication to your regimen to open up your arteries and improve your chest pain. You have a small area on the anterior part of your heart that does not get great blood flow during vfklufL73.10 Atherosclerotic heart disease of [place] coronary artery without angina pectorisNew Medication:Amlodipine Besylate 2.5 mg - 1 by mouth every dayFollow up:2-3 weeks OV LS or day when we are in the office together.Recommendations:Decrease Metoprolol to 1 (25mg) tab daily Start Amlodipine at 2.5mg daily I will discuss with Dr Petit whether she thinks you would be a candidate for carotid procedure. Check BP and call if top number > 145I65.21 Occlusion and stenosis of right carotid arteryRecommendations:Carotid on R in 70-99% occluded. I will discuss with Dr Petit and refer you to [facility]. Functional Status Description No Information Available Mental Status Description No Information Available Referrals Refer to Reason for Referral Status Appt Date Ellen Mendieta MD New R knee pains Sent 10/14/2019 [address] [facility] [place] [address] [phone]
--- NOTE | 2019-12-21 05:17 | ED ---
Neurological HPI - HPI Summary HPI Summary: The patient is an 89-year-old female arriving via ambulance to [facility] with decreased responsiveness this morning. Per EMS, the patients last known well was approximately an hour TIP SCOURER (0400) when the patient was awake and ambulating at her daughters house. She complained of a headache and chest pain, so her daughter administered two NTG one ASA and then presented better with pain. However, she became unresponsive, and her daughter called EMS. When EMS arrived , the patients pupils were equal, round, and constricted. They called the ED for transport notice, and then the patients left pupil appeared blown out. She had clenched jaw initially but became relaxed and OPA was placed. GCS of 4. BG of 220. History of 85% blockage in cardiac valve but unknown which one (carotid moderate BISI and mild LICA per records), no TN. Cardiac stent, thyroid disease , CAD, HLD, HTN, PVD, sleep apnea, GERD. Former smoker. Level 5 Caveat secondary to patient being unresponsive. History obtained from EMS, daughter, and medical records. DNR/DNI status confirmed by daughter who is on patients MOLST form. - History of Current Complaint Stated Complaint: AMS Last Known Well Date: 12/21/2019 0400 Hx Obtained From: Family/Financial Quantitative Analyst - daughter, EMS, Medical Records Onset/Duration: Sudden Onset, Started minutes ago, Still Present Timing: Constant Current Severity: Severe Pain Intensity: 0 Pain Scale Used: 0-10 Numeric Character: Responsiveness Aggravating: Unknown Alleviating: Unknown Associated Signs and Symptoms: Positive: Headache, Chest Pain - Allergy/Home Medications Allergies/Adverse Reactions: Allergies Allergy/AdvReac Type Severity Reaction Status Date / Time No Known Allergies Allergy Verified 12/05/19 10:55 PMH/Surg Hx/FS Hx/Imm Hx Endocrine/Hematology History: Reports: Hx Thyroid Disease - hypothyroid Denies: Hx Anticoagulant Therapy - 81 mg ASA daily, Hx Diabetes Cardiovascular History: Reports: Hx Coronary Artery Disease - HAS ONE CARDIAC STENT, Hx Hypercholesterolemia, Hx Hypertension, Hx Peripheral Vascular Disease , Other Cardiovascular Problems/Disorders - Carotid disease- MOD BISI, mild LICA Denies: Hx Cardiac Arrest, Hx Myocardial Infarction Respiratory History: Reports: Hx Sleep Apnea - Mild Denies: Hx Asthma, Hx Chronic Obstructive Pulmonary Disease (COPD), Other Respiratory Problems/Disorders GI History: Reports: Hx Gastroesophageal Reflux Disease - prn med, Other GI Disorders - hx of diverticulitis Denies: Hx Ulcer History: Reports: Other Problems/Disorders - Urinary dribbling Musculoskeletal History: Reports: Hx Arthritis - LOW BACK, RIGHT THUMB, cervical spine, Hx Back Problems, Hx Osteoporosis Denies: Hx Rheumatoid Arthritis, Hx Scoliosis, Other Musculoskeletal History Sensory History: Reports: Hx Cataracts - BILATERAL, Hx Contacts or Glasses - glasses Denies: Hx Hearing Aid Opthamlomology History: Reports: Hx Cataracts - BILATERAL, Hx Contacts or Glasses - glasses Neurological History: Denies: Hx Headaches, Other Neuro Impairments/Disorders Psychiatric History: Reports: Hx Anxiety, Hx Depression - Cancer History Hx Chemotherapy: No - Surgical History Surgical History: Yes Surgery Procedure, Year, and Place: cardiac stent 2002. hysterectomy, bladder suspension,. RIGHT AND LEFT THUMB/HAND SURGERY Hx Anesthesia Reactions: No Infectious Disease History: Denies: Hx Hepatitis, Hx Human Immunodeficiency Virus (HIV), Traveled Outside the [place] in Last 30 Days - Family History Known Family History: Positive: Cardiac Disease, Hypertension, Other - Positive : CA. Thyroid. Colon related. - Social History Alcohol Use: None Hx Substance Use: No Substance Use Type: Reports: None Hx Tobacco Use: No - not currrently Smoking Status (MU): Former Smoker Amount Used/How Often: 3 CIGARETTES PER DAY X 15 YEARS Have You Smoked in the Last Year: No - Additional Comments History Additional Comments: 85% blockage in carotid moderate BSII and mild LICA, cardiac stent, thyroid disease, CAD, HLD, HTN, PVD, sleep apnea, GERD. Former smoker. Review of Systems - ROS Summary Review of Systems Summary: Home Medications Medication Instructions Recorded Confirmed Type Aspirin EC TAB* [Ecotrin EC Low 81 mg PO QAM 10/24/12 12/05/19 History Dose 81 MG*] Atorvastatin* [Lipitor 40 MG*] 40 mg PO QAM 10/24/12 12/05/19 History Isosorbide Mononitrate ER TAB* 60 mg PO QAM 10/24/12 12/05/19 History [Imdur ER TAB*] Levothyroxine TAB* [Synthroid 100 100 mcg PO QAM 10/24/12 12/05/19 History MCG TAB*] traZODone TAB* [Desyrel TAB*] 50 - 150 mg PO BEDTIME 07/16/13 12/05/19 History Nitroglycerin TAB 0.4 MG* 0.4 mg SL Q5M PRN 07/15/16 12/05/19 History Docusate CAP* [Colace Cap*] 100 mg PO DAILY PRN 12/31/18 12/05/19 History Olmesartan (NF) [Benicar (NF)] 20 mg PO DAILY 12/31/18 12/05/19 History Ibuprofen TAB* [Advil TAB*] 200 mg PO DAILY PRN 07/19/19 12/05/19 History Acetaminophen TAB* [Tylenol TAB*] 325 - 650 mg PO Q4H PRN 12/05/19 12/05/19 History Metoprolol Succinate XL TAB* 25 mg PO BID 12/05/19 12/05/19 History [Toprol XL TAB*] Omeprazole CAP (NF) [Prilosec CAP* 20 mg PO DAILY PRN 12/05/19 12/05/19 History 20 MG] Positive: Chest Pain Neurological/Mental Status: Other - unresponsive Positive: Headache All Other Systems Reviewed And Are Negative: No - Comments Additional Review of Systems Comments: Level 5 Caveat secondary to patient being unresponsive. Physical Exam - Summary Physical Exam Summary: General: elderly female No acute distress. HEENT: Normocephalic, Atraumatic. Eyes: Pupil on left 7mm and nonreactive, Pupil on right 2mm and constricted Oropharynx: Clear, mucous membranes moist, (-) exudates. Neck: Soft, FROM, (-) lymphadenopathy, (-) thyromegaly, (-) JVD. Cardiovascular: Normal sinus rhythm, (-) murmur. Lungs: Clear to auscultation bilaterally (-) wheezes, (-) rales, (-) rhonchi. Abdomen: Soft, non-tender, non-distended, (-) organomegaly, normal bowel sounds. Back: (-) CVA tenderness Extremities: No edema. Skin: Warm, dry, (-) rash. Neuro: Alert and oriented x3, moves all extremities equally. No ataxia. No gait disturbance. No sensory deficit. Normal strength, normal sensation. Psychiatric: Unable to assess. GCS: 3. NIH: Unable to obtain secondary to extremis. Triage Information Reviewed: Yes Vital Signs Reviewed: Yes Completion Of Physical Exam Limited Due To: Altered Mental Status, Level 5 - [place] Coma Scale Best Eye Response: 1 - None Best Motor Response: 1 - None Best Verbal Response: 1 - None Coma Scale Total: 3 Procedures - Sedation Patient Received Moderate/Deep Sedation with Procedure: No Diagnostics - Laboratory Lab Statement: Any lab studies that have been ordered have been reviewed, and results considered in the medical decision making process. - CT Brain CT CT Interpretation Completed By: Radiologist Summary of CT Findings: Impression: Multiple areas of large intraparenchymal hemorrhage with surrounding edema are seen in the left parieto-occipital and inferior temporal lobe with diffuse edema and loss of sulci. Large subdural hemorrhage layering along the left cerebral hemisphere extending into the left tentorium and posterior. interhemispheric fissure. Hemorrhage is roughly measuring up to 15 mm. There is diffuse edema, left greater than right with effacement of the sulci. There is complete 6 effacement of the basal cisterns. There is marked left uncal herniation. There is midline shift to the right measuring 22 mm. Entrapment of the right lateral ventricle. Transtentorial herniation is also seen. Dr. Garcia has reviewed this report. - EKG 0519 Cardiac Rate: NL - 79 BPM EKG Rhythm: Sinus Rhythm Summary of EKG Findings: EKG at 0519 reveals normal sinus rhythm with rate of 79 BPM, no acute changes, no ischemic changes. This EKG was reviewed and interpreted by Dr. Garcia. NIH Scale - NIH Scale NIH Stroke Scale Comment: Unable to obtain secondary to extremis. Re-Evaluation - Re-Evaluation First Eval Re-Evaluation Time: 06:00 Comment: I spoke with the patient's daughter concerning code status. She is the power of research attorney for the patient. We discussed that this event is terminal for the patient. The daughter agrees with placing the patient on comfort care. Plan for admission. Second Eval Re-Evaluation Time: 06:47 Comment: Patient pronounced at 0647. Admission canceled. Real Estate Services Administrator will be called. Third Eval Re-Evaluation Time: 06:52 Comment: Real Estate Services Administrator notified of patient's status. Course/Dx - Course Course Of Treatment: -year-old female presented by ambulance from home after episode of unresponsiveness at home. Patient lives with daughter. Came to her room about 2 AM since she had a headache and chest pain. head given her aspirin and nitroglycerin. Patient went back to her room. Daughter found her unresponsive. During transport patient'sright pupil became large. The left pupil is small. no response to pain. CT head demonstrates a large bleed. Discussed with daughter that arrives separately soon after patient. Patient has been DNR/DNI. Daughter, RAMIREZ, understands at this time this is a terminal event. Patient is made comfort care with the agreement of the family. patient is referred to the hospitalist for admission. However patient in the emergency room shortly thereafter at 0647. She was pronounced by myself. Discussed with folder seamer automatic who released the patient. Patient administered Ativan, Morphine, and Atropine in the ED. - Diagnoses Provider Diagnoses: Intracranial bleed - Physician Notifications Discussed Care Of Patient With: Zev Olea - hospitalist Time Discussed With Above Provider: 06:15 Instructed by Provider To: Other - I discussed the patients case with Dr. Olea , who accepts the patient for admission. Admission canceled due to expiration of patient. - Critical Care Time Critical Care Time: 30-74 min - 50 minutes Discharge ED - Sign-Out/Discharge Documenting (check all that apply): Patient Departure - Patient at 0647. - Discharge Plan Condition: Disposition: Referrals: Luis Eduardo Stoner MD [Primary Care Provider] - - Billing Disposition and Condition Condition: Disposition: - Attestation Statements Document Initiated by Rigo: Yes Documenting Scribe: Nadia Diamond Provider For Whom Rigo is Documenting (Include Credential): Dr. Nereyda Garcia MD Scribe Attestation: Nadia Pedroza scribed for Dr. Nereyda Garcia MD on 12/24/19 at 2210. Scribe Documentation Reviewed: Yes Provider Attestation: The documentation as recorded by the Nadia roach accurately reflects the service I personally performed and the decisions made by me, Dr. Nereyda Garcia MD Status of Scribe Document: Viewed
[2019-12-21] MEDS ORDERED: Lorazepam PYXIS KEY ONE (05:43)
[2019-12-21] MEDS ORDERED: LORazepam INJ* 2 MG/ML 1 ML VIAL ONE (05:44)
[2019-12-21] MEDS ORDERED: LORazepam INJ* 2 MG/ML 1 ML VIAL IV PUSH ONE (05:48)
[2019-12-21] MEDS ORDERED: Lorazepam PYXIS KEY PRN ×2 (05:48→06:41)
[2019-12-21] MEDS ORDERED: LORazepam INJ* 2 MG/ML 1 ML VIAL IV PUSH PRN (06:41)
[2019-12-21] MEDS ORDERED: Morphine ORAL CONCENTRATE* 5 MG/0.25 ML ORAL.SYRIN SL PRN (06:41)
[2019-12-21] MEDS ORDERED: Atropine 1% (ORAL/SL)* 15 ML BTL SL PRN (06:42)
[2019-12-21 07:40] VITALS: BP 202/100
== END 2019-12-21 06:47 | disposition expired ==
LOC: ED 05:04
DX: I62.9 Nontraumatic intracranial hemorrhage, unspecified (principal); E03.9 Hypothyroidism, unspecified; I25.10 Atherosclerotic heart disease of native coronary artery without angina pectoris; Z95.5 Presence of coronary angioplasty implant and graft; E78.00 Pure hypercholesterolemia, unspecified; I10 Essential (primary) hypertension; I73.9 Peripheral vascular disease, unspecified; K21.9 Gastro-esophageal reflux disease without esophagitis; F41.9 Anxiety disorder, unspecified; F32.9 Major depressive disorder, single episode, unspecified; Z90.710 Acquired absence of both cervix and uterus; Z87.891 Personal history of nicotine dependence; Z79.82 Long term (current) use of aspirin; Z79.890 Hormone replacement therapy; Z79.899 Other long term (current) drug therapy
CPT/HCPCS: 70450; 93005; 96374; 99285; J2060